=== PATIENT | female | born 1980 | race Caucasian/White ===

== ENCOUNTER 2017-10-28 17:35 | Emergency (ER) | payer OTHER ==
[2017-10-28 18:35] LABS: BILIRUBIN,URINE NEGATIVE (NEGATIVE); GLUCOSE, URINE (UA) NEGATIVE (NEGATIVE); KETONES,URINE (UA) NEGATIVE (NEGATIVE); LEUKOCYTE ESTERASE, URINE NEGATIVE (NEGATIVE); NITRITE,URINE NEGATIVE (NEGATIVE); OCCULT BLOOD,URINE NEGATIVE (NEGATIVE); PH,URINE 5.5 PH (5.0-7.5); PROTEIN,URINE NEGATIVE (NEGATIVE); UROBILINOGEN,URINE 0.2 (NORMAL) E.U./dL (NORMAL)
[2017-10-28 18:39] LABS: CLARITY,URINE CLEAR (CLEAR)
[2017-10-28 18:40] LABS: HCG UR QUAL NEGATIVE
[2017-10-28 19:03] LABS: BASOPHILS % (AUTO) 0.5 %; EOSINOPHILS # (AUTO) 0.6 10^3/uL (0.0-0.7); EOSINOPHILS % (AUTO) 7.9 %; HGB - HEMOGLOBIN 14.6 g/dL (12.0-16.0); LYMPHOCYTES # (AUTO) 2.2 10^3/uL (1.5-3.5); LYMPHOCYTES % (AUTO) 29.2 %; MEAN CORPUSCULAR HEMOGLOBIN 31.4 pg (27.0-31.0); MEAN CORPUSCULAR HGB CONC 34.2 g/dL (32.0-36.0); MEAN CORPUSCULAR VOLUME 91.8 fL (81.0-99.0); MEAN PLATELET VOLUME 7.9 fL (7.9-10.8); MONOCYTES # (AUTO) 0.4 10^3/uL (0.0-1.0); MONOCYTES % (AUTO) 5.7 %; NEUTROPHILS # (AUTO) 4.2 10^3/uL (1.5-6.6); NEUTROPHILS % (AUTO) 56.7 %; PLT - PLATELET COUNT 257 10^3/uL (130-450); RED BLOOD COUNT 4.64 10^6/uL (4.20-5.40); RED CELL DISTRIBUTION WIDTH 12.6 % (12.0-15.0); WHITE BLOOD COUNT 7.4 x10^3/uL (4.8-10.8)
[2017-10-28 19:16] LABS: ALBUMIN/GLOBULIN RATIO 1.9 (1.0-2.2); BILIRUBIN,TOTAL 1.2 mg/dL (0.2-1.0); CALCIUM 9.1 mg/dL (8.5-10.3); CREATININE 0.7 mg/dL (0.4-1.0); TOTAL PROTEIN 7.7 g/dL (6.7-8.2)
--- NOTE | 2017-10-28 20:32 | ED Physician Documentation ---
History of Present Illness - Stated complaint Stated Complaint: AB PX/SHAKY - Chief complaint Chief Complaint: Abd Pain - History obtained from History obtained from: Patient - History of Present Illness Timing: How many weeks ago (2) - Additonal information Additional information: patient is a 37 year old female who is presenting to the emergency department for a two week history of intermittent abdominal pain, and tremors. Patient denies aggravating or alleviating factors. Patient denies it getting better or worse with intention but is able to stop them. Patient states that a few years ago she had peripheral nerve studies that were abnormal but she was never able to follow up. Patient denies any anxiety or depression, but states that she has been fatigued lately. Review of Systems Constitutional: reports: Chills, Fatigue. denies: Fever Eyes: denies: Decreased vision, Photophobia Ears: denies: Ear pain Nose: denies: Congestion, Epistaxis Throat: denies: Sore throat Cardiac: denies: Chest pain / pressure Respiratory: denies: Dyspnea, Cough GI: reports: Abdominal Pain, Nausea, Diarrhea. denies: Vomiting, Constipation : denies: Hesitancy Skin: denies: Rash, Lesions Musculoskeletal: denies: Neck pain, Back pain, Extremity pain Neurologic: reports: Numbness, Other (tremors). denies: Generalized weakness, Focal weakness Psychiatric: denies: Depressed, Anxiety Immunocompromised: denies: Immunocompromised PD PAST MEDICAL HISTORY - Past Medical History Past Medical History: No Cardiovascular: None Respiratory: None Neuro: None Endocrine/Autoimmune: None GI: None [employer]: None : None HEENT: None Psych: None Musculoskeletal: None Derm: None - Past Surgical History Past Surgical History: Yes HEENT: Tonsil/Adenoidectomy - Present Medications Home Medications: Ambulatory Orders Medication Instructions Recorded Confirmed Gabapentin [Neurontin] 100 mg PO ONCE #15 capsule 10/28/17 - Allergies Allergies/Adverse Reactions: Allergies Allergy/AdvReac Type Severity Reaction Status Date / Time No Known Drug Allergies Allergy Verified 10/28/17 17:43 - Social History Does the pt smoke?: No Smoking Status: Never smoker Does the pt drink ETOH?: Yes Does the pt have substance abuse?: No - Immunizations Immunizations are current?: Yes - POLST Patient has POLST: No PD ED PE NORMAL - Vitals Vital signs reviewed: Yes - General General: Alert and oriented X 3, No acute distress, Well developed/nourished - HEENT HEENT: Atraumatic - Neck Neck: Supple, no meningeal sign, No JVD - Cardiac Cardiac: RRR, No murmur - Respiratory Respiratory: No respiratory distress - Abdomen Abdomen: Soft, Non tender, Non distended - Derm Derm: Normal color, Warm and dry, No rash - Extremities Extremities: No deformity - Neuro Neuro: Alert and oriented X 3, drier and pulverizer tender 2-12 intact, No sensory deficit, Normal speech Eye Opening: Spontaneous Motor: Obeys Commands Verbal: Oriented GCS Score: 15 PD ED PE EXPANDED - Neuro Neuro: Other (mild resting tremor) Results - Vitals Vitals: Vital Signs - 24 hr 10/28/17 10/28/17 17:39 19:26 Temperature 36.4 C L 36.5 C Heart Rate 85 86 Respiratory 18 16 Rate Blood Pressure 152/91 H 133/83 H O2 Saturation 99 100 Oxygen O2 Source Room air - Labs Labs: Laboratory Tests 10/28/17 10/28/17 10/28/17 18:15 18:15 18:55 WBC 7.4 RBC 4.64 Hgb 14.6 Hct 42.6 MCV 91.8 MCH 31.4 H MCHC 34.2 RDW 12.6 Plt Count 257 MPV 7.9 Neut # 4.2 Lymph # 2.2 Benzie # 0.4 Eos # 0.6 Baso # 0.0 Absolute Nucleated RBC 0.00 Nucleated RBC % 0.0 Sodium Potassium Chloride Carbon Dioxide Anion Gap BUN Creatinine Estimated GFR (MDRD) Glucose Calcium Total Bilirubin AST ALT Alkaline Phosphatase Total Protein Albumin Globulin Albumin/Globulin Ratio Lipase Urine Color YELLOW Urine Clarity CLEAR Urine pH 5.5 Ur Specific Tina 1.025 1.025 Urine Protein NEGATIVE Urine Glucose (UA) NEGATIVE Urine Ketones NEGATIVE Urine Occult Blood NEGATIVE Urine Nitrite NEGATIVE Urine Bilirubin NEGATIVE Urine Urobilinogen 0.2 (NORMAL) Ur Leukocyte Esterase NEGATIVE Ur Microscopic Review NOT INDICATED Urine Culture Comments NOT INDICATED Urine HCG, Qual NEGATIVE 10/28/17 18:55 WBC RBC Hgb Hct MCV MCH MCHC RDW Plt Count MPV Neut # Lymph # Benzie # Eos # Baso # Absolute Nucleated RBC Nucleated RBC % Sodium 135 Potassium 3.7 Chloride 101 Carbon Dioxide 26 Anion Gap 8.0 BUN 12 Creatinine 0.7 Estimated GFR (MDRD) 95 Glucose 96 Calcium 9.1 Total Bilirubin 1.2 H AST 22 ALT 17 Alkaline Phosphatase 38 L Total Protein 7.7 Albumin 5.0 Globulin 2.7 Albumin/Globulin Ratio 1.9 Lipase 18 L Urine Color Urine Clarity Urine pH Ur Specific Tina Urine Protein Urine Glucose (UA) Urine Ketones Urine Occult Blood Urine Nitrite Urine Bilirubin Urine Urobilinogen Ur Leukocyte Esterase Ur Microscopic Review Urine Culture Comments Urine HCG, Qual PD MEDICAL DECISION MAKING - ED course Complexity details: reviewed old records, reviewed results, re-evaluated patient , considered differential, d/w patient ED course: Patient was seen and examined at bedside. Patient was well appearing and in no distress. labs and urine were within normal limits. patient had no focal deficits and no further imaging was indicated at this time. A lengthy discussion was had with the patient concerning her symptoms and history and the importance of outpatient follow up. Patient understood and was stable for discharge with outpatient follow up. Departure - Departure Disposition: 01 Home, Self Care Clinical Impression: Tremor Condition: Good Instructions: Essential Tremor ET Follow-Up: [facility] [Provider Group] [facility] [Provider Group] [facility] [Provider Group] Prescriptions: Gabapentin [Neurontin] 100 mg PO ONCE #15 capsule Comments: We will try a low dose of gabapentin at bedtime but it is important that you establish primary care and possibly neurological follow up. A number of clinics have been listed above. You may return to the emergency department at any time for new worsening or uncontrollable symptoms.
[2017-10-28 20:41] VITALS: BP 133/91
== END 2017-10-28 20:42 | disposition home or self-care (01) ==
LOC: ED 17:35
DX: R25.1 Tremor, unspecified (principal)
CPT/HCPCS: 36415; 80053; 81001; 81003; 81025; 83690; 85025; 87086; 93005; 99283

== ENCOUNTER 2017-11-08 11:24 | Outpatient (CLI) | payer OTHER ==
[2017-11-08 19:11] LABS: RHEUMATOID FACTOR NEGATIVE (Negative)
[2017-11-08 19:40] LABS: CRP - C-REACTIVE PROTEIN < 1.0 mg/dL (0-1.0)
[2017-11-11 16:27] LABS: ANA SCREEN NEGATIVE (NEGATIVE)
== END 2017-11-08 11:25 | disposition home or self-care (01) ==
LOC: LAB.F 11:24
PROVIDERS: ATTEND Family Medicine
DX: R29.2 Abnormal reflex (principal); R25.1 Tremor, unspecified
CPT/HCPCS: 36415; 84443; 85651; 86038; 86140; 86430

== ENCOUNTER 2020-08-09 17:18 | Outpatient (CLI) | payer MEDICAID | END 2020-08-09 17:19 | disposition home or self-care (01) | LOC: COV 17:18 | PROVIDERS: ATTEND Family Medicine | DX: R05 Cough (principal); R06.02 Shortness of breath; R53.83 Other fatigue; Z20.828 Contact with and (suspected) exposure to other viral communicable diseases ==

== ENCOUNTER 2022-01-31 21:39 | Outpatient (CLI) | payer MEDICAID | END 2022-01-31 21:40 | disposition EMS.NT | LOC: EMS 21:39 | DX: G62.9 Polyneuropathy, unspecified (principal); N64.4 Mastodynia; N63.0 Unspecified lump in unspecified breast ==

== ENCOUNTER 2023-01-24 01:51 | Outpatient (CLI) | payer MEDICAID | END 2023-01-24 01:52 | disposition critical access hospital (66) | LOC: EMS 01:51 | DX: R52 Pain, unspecified (principal); F41.9 Anxiety disorder, unspecified | CPT/HCPCS: A0425; A0429 ==

== ENCOUNTER 2023-01-24 02:09 | Emergency (ER) | payer MEDICAID ==
[2023-01-24] MEDS ORDERED: LORazepam 0.5 MG TABLET PO STA (02:26)
--- OUTSIDE RECORDS SUMMARY | 2023-01-24 03:06 | EXTERNAL MEDICAL SUMMARY RPT | Continuity of Care Document ---
:1980 Author Organization [place] Address [address] [place] [address] Phone Care Team Providers Name Role Phone Unavailable Unavailable Unavailable Ian Roland Unavailable Unavailable Allergies and Intolerances date description facility type (no date) sulfamethoxazole [facility] (unknown) (no date) trimethoprim [facility] (unknown) Encounters No information. Functional Status No information. Immunizations No information. Medications date description facility 2023-01-09 00:00 Ondansetron [facility] 2023-01-09 00:00 Oxycodone [facility] 2022-11-13 00:00 Nitrofurantoin Monohyd/M-Cryst [facility] 2023-01-09 00:00 Acetaminophen [facility] 2023-01-21 00:00 Gabapentin [facility] 2023-01-09 00:00 Ibuprofen [facility] 2023-01-02 00:00 Propranolol [facility] 2023-01-09 00:00 Propranolol [facility] Problems date description facility 2022-11-13 00:00 Urinary tract [facility] 2022-11-13 00:00 Abdominal pain [facility] 2022-12-20 00:00 Cholelithiasis [facility] 2023-01-07 00:00 Biliary colic [facility] 2023-01-09 12:34 Calculus of [facility]bl[facility] without obs 2023-01-09 12:51 Calculus of gallbladder with [facility]ole[facility] without obs 2023-01-09 15:52 Calculus of gallbladder with [facility] chole[facility] without obs 2023-01-09 16:53 Calculus of gallbladder with [facility] chole[facility] without obs 2023-01-09 18:53 Calculus of gallbladder with [facility]ole[facility] without obs Procedures date description facility 2022-11-13 00:00 CT abdomen pelvis [facility] 2022-11-13 00:00 US Abdomen limited [facility] 2023-01-09 00:00 Laparoscopic Cholecystectomy [facility] Results/Labs test date author facility value unit interpret ation Result panel 1 (unknown[facility] (no [facility]) Result panel 2 (unknown) (no date) ([facility] Result panel 3 (unknown) (no date) (unknown[facility] Result panel 4 (unknown) (no date) ([facility] Result panel 5 (unknown) (no date) (unknown[facility] Result panel 6 (unknown) (no date) (unknown[facility] Result panel 7 (unknown) (no date) (unknown[facility] Result panel 8 (unknown) (no date) (unknown[facility] Result panel 9 (unknown) (no date) (unknown[facility] Result panel 10 (unknown) (no date) (unknown[facility] Result panel 11 (unknown) (no date) (unknown[facility] Result panel 12 (unknown) (no date) (unknown[facility] Result panel 13 (unknown) (no date) (unknown[facility] Result panel 14 (unknown) (no date) (unknown[facility] Result panel 15 (unknown) (no date) (unknown[facility] Result panel 16 (unknown) (no date) (unknown[facility] Result panel 17 (unknown) (no date) (unknown[facility] Result panel 18 (unknown) (no date) (unknown[facility] Result panel 19 (unknown) (no date) (unknown[facility] Result panel 20 (unknown) (no date) (unknown[facility] Result panel 21 (unknown) (no date) (unknown[facility] Result panel 22 (unknown) (no date) (unknown[facility] Result panel 23 (unknown) (no date) (unknown[facility] Result panel 24 (unknown) (no date) (unknown[facility] Result panel 25 (unknown) (no date) (unknown[facility] Result panel 26 (unknown) (no date) (unknown[facility] Result panel 27 (unknown) (no date) (unknown[facility] Result panel 28 (unknown) (no date) (unknown[facility] Result panel 29 (unknown) (no date) (unknown[facility] Result panel 30 (unknown) (no date) (unknown[facility] Result panel 31 (unknown) (no date) (unknown[facility] Result panel 32 (unknown) (no date) (unknown[facility] Result panel 33 (unknown) (no date) (unknown[facility] Result panel 34 (unknown) (no date) (unknown[facility] Result panel 35 (unknown) (no date) (unknown[facility] Result panel 36 (unknown) (no date) (unknown[facility] Result panel 37 (unknown) (no date) (unknown[facility] Result panel 38 (unknown) (no date) (unknown[facility] Result panel 39 (unknown) (no date) (unknown[facility] Result panel 40 (unknown) (no date) (unknown[facility] Result panel 41 (unknown) (no date) (unknown[facility] Result panel 42 (unknown) (no date) (unknown[facility] Result panel 43 (unknown) (no date) (unknown[facility] Result panel 44 (unknown) (no date) (unknown[facility] Result panel 45 (unknown) (no date) (unknown[facility] Result panel 46 (unknown) (no date) (unknown[facility] Result panel 47 (unknown) (no date) (unknown[facility] Result panel 48 (unknown) (no date) (unknown[facility] Result panel 49 (unknown) (no date) (unknown[facility] Result panel 50 (unknown) (no date) (unknown[facility] Result panel 51 (unknown) (no date) (unknown[facility] Result panel 52 (unknown) (no date) (unknown[facility] Result panel 53 (unknown) (no date) (unknown[facility] Result panel 54 (unknown) (no date) (unknown[facility] Result panel 55 (unknown) (no date) (unknown[facility] Result panel 56 (unknown) (no date) (unknown[facility] Result panel 57 (unknown) (no date) (unknown[facility] Result panel 58 (unknown) (no date) (unknown[facility] Result panel 59 (unknown) (no date) (unknown[facility] Result panel 60 (unknown) (no date) (unknown[facility] Result panel 61 (unknown) (no date) (unknown[facility] Result panel 62 (unknown) (no date) (unknown[facility] Result panel 63 (unknown) (no date) (unknown[facility] Result panel 64 (unknown) (no date) (unknown[facility]) Result panel 65 (unknown) (no date) (unknown[facility] Result panel 66 (unknown) (no date) (unknown[facility]) Result panel 67 (unknown) (no date) (unknown[facility] Result panel 68 (unknown) (no date) (unknown[facility] Result panel 69 (unknown) (no date) (unknown[facility] Result panel 70 (unknown) (no date) (unknown[facility] Result panel 71 (unknown) (no date) (unknown[facility] Result panel 72 (unknown) (no date) (unknown[facility] Result panel 73 (unknown) (no date) (unknown[facility] Result panel 74 (unknown) (no date) (unknown[facility] Result panel 75 (unknown) (no date) (unknown[facility] Result panel 76 (unknown) (no date) (unknown[facility] Result panel 77 (unknown) (no date) (unknown[facility] Result panel 78 (unknown) (no date) (unknown[facility] Result panel 79 (unknown) (no date) (unknown[facility] Result panel 80 (unknown) (no date) (unknown[facility] Result panel 81 (unknown) (no date) (unknown[facility] Result panel 82 (unknown) (no date) (unknown[facility] Result panel 83 (unknown) (no date) (unknown[facility] Result panel 84 (unknown) (no date) (unknown[facility] Result panel 85 (unknown) (no date) (unknown[facility] Result panel 86 (unknown) (no date) (unknown[facility] Result panel 87 (unknown) (no date) (unknown[facility] Result panel 88 (unknown) (no date) (unknown[facility] Result panel 89 (unknown) (no date) (unknown[facility] Result panel 90 (unknown) (no date) (unknown[facility] Result panel 91 (unknown) (no date) (unknown[facility] Result panel 92 (unknown) (no date) (unknown[facility] Result panel 93 (unknown) (no date) (unknown[facility]) Result panel 94 (unknown) (no date) (unknown[facility] Result panel 95 (unknown) (no date) (unknown[facility] Result panel 96 (unknown) (no date) (unknown[facility] Result panel 97 (unknown) (no date) (unknown[facility] Result panel 98 (unknown) (no date) (unknown[facility] Result panel 99 (unknown) (no date) (unknown[facility] Result panel 100 (unknown) (no date) (unknown[facility] Result panel 101 (unknown) (no date) (unknown[facility] Result panel 102 (unknown) (no date) (unknown[facility] Result panel 103 (unknown) (no date) (unknown[facility] Result panel 104 (unknown) (no date) (unknown[facility] Result panel 105 (unknown) (no date) (unknown[facility] Result panel 106 (unknown) (no date) (unknown[facility] Result panel 107 (unknown) (no date) (unknown[facility] Result panel 108 (unknown) (no date) (unknown[facility] Result panel 109 (unknown) (no date) (unknown[facility] Result panel 110 (unknown) (no date) (unknown[facility] Result panel 111 (unknown) (no date) (unknown[facility] Result panel 112 (unknown) (no date) (unknown[facility] Result panel 113 (unknown) (no date) (unknown[facility] Result panel 114 (unknown) (no date) (unknown[facility]) Result panel 115 (unknown) (no date) (unknown[facility] Result panel 116 (unknown) (no date) (unknown[facility] Result panel 117 (unknown) (no date) (unknown[facility] Result panel 118 (unknown) (no date) (unknown[facility] Result panel 119 (unknown) (no date) (unknown[facility] Result panel 120 (unknown) (no date) (unknown[facility] Result panel 121 (unknown) (no date) (unknown[facility] Result panel 122 (unknown) (no date) (unknown[facility]) Result panel 123 (unknown) (no date) (unknown[facility] Result panel 124 (unknown) (no date) (unknown[facility]) Result panel 125 (unknown) (no date) (unknown[facility] Result panel 126 (unknown) (no date) (unknown[facility] Result panel 127 (unknown) (no date) (unknown[facility] Result panel 128 (unknown) (no date) (unknown[facility] Result panel 129 (unknown) (no date) (unknown[facility] Result panel 130 (unknown) (no date) (unknown[facility] Result panel 131 (unknown) (no date) (unknown[facility] Result panel 132 (unknown) (no date) (unknown[facility] Result panel 133 (unknown) (no date) (unknown[facility] Result panel 134 (unknown) (no date) (unknown[facility]) Result panel 135 (unknown) (no date) (unknown[facility] Result panel 136 (unknown) (no date) (unknown[facility] Result panel 137 (unknown) (no date) (unknown[facility]) Result panel 138 (unknown) (no date) (unknown[facility] Result panel 139 (unknown) (no date) (unknown[facility] Result panel 140 (unknown) (no date) (unknown[facility] Result panel 141 (unknown) (no date) (unknown[facility]) Result panel 142 (unknown) (no date) (unknown[facility]) Result panel 143 (unknown) (no date) (unknown[facility] Result panel 144 (unknown) (no date) (unknown[facility]) Result panel 145 (unknown) (no date) (unknown[facility] Result panel 146 (unknown) (no date) (unknown[facility]) Result panel 147 (unknown) (no date) (unknown[facility] Result panel 148 (unknown) (no date) (unknown[facility]) Result panel 149 (unknown) (no date) (unknown[facility] Result panel 150 (unknown) (no date) (unknown[facility] Result panel 151 (unknown) (no date) (unknown[facility] Result panel 152 (unknown) (no date) (unknown[facility] Result panel 153 (unknown) (no date) (unknown[facility] Result panel 154 (unknown) (no date) (unknown[facility] Result panel 155 (unknown) (no date) (unknown[facility] Result panel 156 (unknown) (no date) (unknown[facility] Result panel 157 (unknown) (no date) (unknown[facility]) Result panel 158 (unknown) (no date) (unknown[facility] Result panel 159 (unknown) (no date) (unknown[facility]) Result panel 160 (unknown) (no date) (unknown) [facility] Result panel 161 (unknown) (no date) (unknown) [facility] Result panel 162 (unknown) (no date) (unknown) [facility] Result panel 163 (unknown) (no date) (unknown) [facility] Result panel 164 (unknown) (no date) (unknown) [facility] Result panel 165 (unknown) (no date) (unknown[facility] Result panel 166 (unknown) (no date) (unknown[facility] Result panel 167 (unknown) (no date) (unknown[facility] Result panel 168 (unknown) (no date) (unknown[facility] Result panel 169 (unknown) (no date) (unknown[facility] Result panel 170 (unknown) (no date) (unknown[facility] Result panel 171 (unknown) (no date) (unknown[facility] Result panel 172 (unknown) (no date) (unknown[facility] Result panel 173 (unknown) (no date) (unknown[facility] Result panel 174 (unknown) (no date) (unknown[facility] Result panel 175 (unknown) (no date) (unknown[facility] Result panel 176 (unknown) (no date) (unknown[facility] Result panel 177 (unknown) (no date) (unknown[facility] Result panel 178 (unknown) (no date) (unknown[facility] Result panel 179 (unknown) (no date) (unknown[facility] Result panel 180 (unknown) (no date) (unknown[facility] Result panel 181 (unknown) (no date) (unknown[facility] Result panel 182 (unknown) (no date) (unknown[facility] Result panel 183 (unknown) (no date) (unknown[facility] Result panel 184 (unknown) (no date) (unknown[facility] Result panel 185 (unknown) (no date) (unknown[facility] Result panel 186 (unknown) (no date) (unknown[facility] Result panel 187 (unknown) (no date) (unknown[facility] Result panel 188 (unknown) (no date) (unknown[facility] Result panel 189 (unknown) (no date) (unknown[facility] Result panel 190 (unknown) (no date) (unknown[facility] Result panel 191 (unknown) (no date) (unknown[facility] Result panel 192 (unknown) (no date) (unknown[facility] Result panel 193 (unknown) (no date) (unknown[facility] Result panel 194 (unknown) (no date) (unknown[facility] Result panel 195 (unknown) (no date) (unknown[facility] Result panel 196 (unknown) (no date) (unknown[facility] Result panel 197 (unknown) (no date) (unknown[facility] Result panel 198 (unknown) (no date) (unknown[facility] Result panel 199 (unknown) (no date) (unknown[facility]) Result panel 200 (unknown) (no date) (unknown[facility] Result panel 201 (unknown) (no date) (unknown[facility] Result panel 202 (unknown) (no date) (unknown[facility] Result panel 203 (unknown) (no date) (unknown[facility] Result panel 204 (unknown) (no date) (unknown[facility] Result panel 205 (unknown) (no date) (unknown[facility] Result panel 206 (unknown) (no date) (unknown[facility] Result panel 207 (unknown) (no date) (unknown[facility] Result panel 208 (unknown) (no date) (unknown[facility] Result panel 209 (unknown) (no date) (unknown[facility] Result panel 210 (unknown) (no date) (unknown[facility] Result panel 211 (unknown) (no date) (unknown[facility] Result panel 212 (unknown) (no date) (unknown[facility] Result panel 213 (unknown) (no date) (unknown[facility] Result panel 214 (unknown) (no date) (unknown[facility] Result panel 215 (unknown) (no date) (unknown[facility] Result panel 216 (unknown) (no date) (unknown[facility] Result panel 217 (unknown) (no date) (unknown[facility] Result panel 218 (unknown) (no date) (unknown[facility] Result panel 219 (unknown) (no date) (unknown) [facility] [facility] Result panel 220 (unknown) (no date) (unknown) [facility]) Result panel 221 (unknown) (no date) (unknown) [facility]) Result panel 222 (unknown) (no date) (unknown) [facility] Result panel 223 (unknown) (no date) (unknown) [facility]) Result panel 224 (unknown) (no date) (unknown) [facility]) Result panel 225 (unknown) (no date) (unknown) [facility]) Result panel 226 (unknown) (no date) (unknown) [facility]) Result panel 227 (unknown) (no date) (unknown) [facility] Result panel 228 (unknown) (no date) (unknown[facility]) Result panel 229 (unknown) (no date) (unknown) [facility]) Result panel 230 (unknown) (no date) (unknown) [facility]) Result panel 231 (unknown) (no date) (unknown) [facility]) Result panel 232 (unknown) (no date) (unknown) [facility]) Result panel 233 (unknown) (no date) (unknown) [facility] Result panel 234 (unknown) (no date) (unknown) [facility]) Result panel 235 (unknown) (no date) (unknown) [facility]) Result panel 236 (unknown) (no date) (unknown) [facility]) Result panel 237 (unknown) (no date) (unknown) [facility] Result panel 238 (unknown) (no date) (unknown) [facility]) Result panel 239 (unknown) (no date) (unknown) [facility]) Result panel 240 (unknown) (no date) (unknown) [facility]) Result panel 241 (unknown) (no date) (unknown) [facility] Result panel 242 (unknown) (no date) (unknown) [facility]) Result panel 243 (unknown) (no date) (unknown) [facility] Result panel 244 (unknown) (no date) (unknown) [facility]) Result panel 245 (unknown) (no date) (unknown) [facility] Result panel 246 (unknown) (no date) (unknown) [facility]) Result panel 247 (unknown) (no date) (unknown) [facility]) Result panel 248 (unknown) (no date) (unknown) [facility]) Result panel 249 (unknown) (no date) (unknown) [facility]) Result panel 250 (unknown) (no date) (unknown) [facility]) Result panel 251 (unknown) (no date) (unknown) [facility]) Result panel 252 (unknown) (no date) (unknown) [facility]) Result panel 253 (unknown) (no date) (unknown) [facility]) Result panel 254 (unknown) (no date) (unknown) [facility]) Result panel 255 (unknown) (no date) (unknown) [facility]) Result panel 256 (unknown) (no date) (unknown) [facility]) Result panel 257 (unknown) (no date) (unknown) [facility]) Result panel 258 (unknown) (no date) (unknown) [facility]) Result panel 259 (unknown) (no date) (unknown) [facility]) Result panel 260 (unknown) (no date) (unknown) [facility]) Result panel 261 (unknown) (no date) (unknown) [facility]) Result panel 262 (unknown) (no date) (unknown) [facility]) Result panel 263 (unknown) (no date) (unknown) [facility]) Result panel 264 (unknown) (no date) (unknown) [facility]) Result panel 265 (unknown) (no date) (unknown) [facility]) Result panel 266 (unknown) (no date) (unknown) [facility]) Result panel 267 (unknown) (no date) (unknown) [facility]) Result panel 268 (unknown) (no date) (unknown) [facility]) Result panel 269 (unknown) (no date) (unknown) [facility]) Result panel 270 (unknown) (no date) (unknown) [facility]) Result panel 271 (unknown) (no date) (unknown) [facility]) Result panel 272 (unknown) (no date) (unknown) [facility]) Result panel 273 (unknown) (no date) (unknown) [facility]) Result panel 274 (unknown) (no date) (unknown) [facility]) Result panel 275 (unknown) (no date) (unknown) [facility]) Result panel 276 (unknown) (no date) (unknown) [facility]) Result panel 277 (unknown) (no date) (unknown) [facility]) Result panel 278 (unknown) (no date) (unknown) [facility]) Result panel 279 (unknown) (no date) (unknown) [facility]) Result panel 280 (unknown) (no date) (unknown) [facility]) Result panel 281 (unknown) (no date) (unknown) [facility]) Result panel 282 (unknown) (no date) (unknown) [facility]) Result panel 283 (unknown) (no date) (unknown) [facility]) Result panel 284 (unknown) (no date) (unknown) [facility]) Result panel 285 (unknown) (no date) (unknown) [facility]) Result panel 286 (unknown) (no date) (unknown) [facility]) Result panel 287 (unknown) (no date) (unknown) [facility]) Result panel 288 (unknown) (no date) (unknown) [facility]) Result panel 289 (unknown) (no date) (unknown) [facility]) Result panel 290 (unknown) (no date) (unknown) [facility]) Result panel 291 (unknown) (no date) (unknown) [facility]) Result panel 292 (unknown) (no date) (unknown) [facility]) Result panel 293 (unknown) (no date) (unknown) [facility]) Result panel 294 (unknown) (no date) (unknown) [facility]) Result panel 295 (unknown) (no date) (unknown) [facility]) Result panel 296 (unknown) (no date) (unknown) [facility]) Result panel 297 (unknown) (no date) (unknown) [facility]) Result panel 298 (unknown) (no date) (unknown) [facility]) Result panel 299 (unknown) (no date) (unknown) [facility]) Result panel 300 (unknown) (no date) (unknown) [facility]) Result panel 301 (unknown) (no date) (unknown) [facility]) Result panel 302 (unknown) (no date) (unknown) [facility]) Result panel 303 (unknown) (no date) (unknown) [facility]) Result panel 304 (unknown) (no date) (unknown) [facility]) Result panel 305 (unknown) (no date) (unknown) [facility]) Result panel 306 (unknown) (no date) (unknown) [facility]) Result panel 307 (unknown) (no date) (unknown) [facility]) Result panel 308 (unknown) (no date) (unknown) [facility]) Result panel 309 (unknown) (no date) (unknown) [facility]) Result panel 310 (unknown) (no date) (unknown) [facility]) Result panel 311 (unknown) (no date) (unknown) [facility]) Result panel 312 (unknown) (no date) (unknown) [facility]) Result panel 313 (unknown) (no date) (unknown) [facility]) Result panel 314 (unknown) (no date) (unknown) [facility]) Result panel 315 (unknown) (no date) (unknown) [facility]) Result panel 316 (unknown) (no date) (unknown) [facility]) Result panel 317 (unknown) (no date) (unknown) [facility]) Result panel 318 (unknown) (no date) (unknown) [facility]) Result panel 319 (unknown) (no date) (unknown) [facility]) Result panel 320 (unknown) (no date) (unknown) [facility]) Result panel 321 (unknown) (no date) (unknown[facility]) Result panel 322 (unknown) (no date) (unknown) [facility]) Result panel 323 (unknown) (no date) (unknown) [facility]) Result panel 324 (unknown) (no date) (unknown) [facility]) Result panel 325 (unknown) (no date) (unknown) [facility]) Result panel 326 (unknown) (no date) (unknown) [facility]) Result panel 327 (unknown) (no date) (unknown) [facility]) Result panel 328 (unknown) (no date) (unknown) [facility]) Result panel 329 (unknown) (no date) (unknown) [facility]) Result panel 330 (unknown) (no date) (unknown) [facility]) Result panel 331 (unknown) (no date) (unknown) [facility]) Result panel 332 (unknown) (no date) (unknown) [facility]) Result panel 333 (unknown) (no date) (unknown) [facility]) Result panel 334 (unknown) (no date) (unknown) [facility]) Result panel 335 (unknown) (no date) (unknown) [facility]) Result panel 336 (unknown) (no date) (unknown) [facility]) Result panel 337 (unknown) (no date) (unknown) [facility]) Result panel 338 (unknown) (no date) (unknown) [facility]) Result panel 339 (unknown) (no date) (unknown) [facility]) Result panel 340 (unknown) (no date) (unknown) [facility]) Result panel 341 (unknown) (no date) (unknown) [facility]) Result panel 342 (unknown) (no date) (unknown) [facility]) Result panel 343 (unknown) (no date) (unknown) [facility]) Result panel 344 (unknown) (no date) (unknown) [facility]) Result panel 345 (unknown) (no date) (unknown) [facility]) Result panel 346 (unknown) (no date) (unknown) [facility]) Result panel 347 (unknown) (no date) (unknown) [facility]) Result panel 348 (unknown) (no date) (unknown) [facility]) Result panel 349 (unknown) (no date) (unknown) [facility]) Result panel 350 (unknown) (no date) (unknown) [facility]) Result panel 351 (unknown) (no date) (unknown) [facility]) Result panel 352 (unknown) (no date) (unknown) [facility]) Result panel 353 (unknown) (no date) (unknown) [facility]) Result panel 354 (unknown) (no date) (unknown) [facility]) Result panel 355 (unknown) (no date) (unknown) [facility]) Result panel 356 (unknown) (no date) (unknown) [facility]) Result panel 357 (unknown) (no date) (unknown) [facility]) Result panel 358 (unknown) (no date) (unknown) [facility]) Result panel 359 (unknown) (no date) (unknown) [facility]) Result panel 360 (unknown) (no date) (unknown) [facility]) Result panel 361 (unknown) (no date) (unknown) [facility]) Result panel 362 (unknown) (no date) (unknown) [facility]) Result panel 363 (unknown) (no date) (unknown) [facility]) Result panel 364 (unknown) (no date) (unknown) [facility]) Result panel 365 (unknown) (no date) (unknown) [facility]) Result panel 366 (unknown) (no date) (unknown) [facility]) Result panel 367 (unknown) (no date) (unknown) [facility]) Result panel 368 (unknown) (no date) (unknown) [facility]) Result panel 369 (unknown) (no date) (unknown) [facility]) Result panel 370 (unknown) (no date) (unknown) [facility]) Result panel 371 (unknown) (no date) (unknown) [facility]) Result panel 372 (unknown) (no date) (unknown) [facility]) Result panel 373 (unknown) (no date) (unknown) [facility]) Result panel 374 (unknown) (no date) (unknown) [facility]) Result panel 375 (unknown) (no date) (unknown) [facility]) Result panel 376 (unknown) (no date) (unknown) [facility]) Result panel 377 (unknown) (no date) (unknown) [facility]) Result panel 378 (unknown) (no date) (unknown) [facility]) Result panel 379 (unknown) (no date) (unknown) [facility]) Result panel 380 (unknown) (no date) (unknown) [facility]) Result panel 381 (unknown) (no date) (unknown) [facility]) Result panel 382 (unknown) (no date) (unknown) [facility]) Result panel 383 (unknown) (no date) (unknown) [facility]) Result panel 384 (unknown) (no date) (unknown) [facility]) Result panel 385 (unknown) (no date) (unknown) [facility]) Result panel 386 (unknown) (no date) (unknown) [facility]) Result panel 387 (unknown) (no date) (unknown) [facility]) Result panel 388 (unknown) (no date) (unknown) [facility]) Result panel 389 (unknown) (no date) (unknown) [facility]) Result panel 390 (unknown) (no date) (unknown) [facility]) Result panel 391 (unknown) (no date) (unknown) [facility]) Result panel 392 (unknown) (no date) (unknown) [facility]) Result panel 393 (unknown) (no date) (unknown) [facility]) Result panel 394 (unknown) (no date) (unknown) [facility]) Result panel 395 (unknown) (no date) (unknown) [facility]) Result panel 396 (unknown) (no date) (unknown) [facility]) Result panel 397 (unknown) (no date) (unknown) [facility]) Result panel 398 (unknown) (no date) (unknown) [facility]) Result panel 399 (unknown) (no date) (unknown) [facility]) Result panel 400 (unknown) (no date) (unknown) [facility]) Result panel 401 (unknown) (no date) (unknown) [facility]) Result panel 402 (unknown) (no date) (unknown) [facility]) Result panel 403 (unknown) (no date) (unknown) [facility]) Result panel 404 (unknown) (no date) (unknown) [facility]) Result panel 405 (unknown) (no date) (unknown) [facility]) Result panel 406 (unknown) (no date) (unknown) [facility]) Result panel 407 (unknown) (no date) (unknown) [facility]) Result panel 408 (unknown) (no date) (unknown) [facility]) Result panel 409 (unknown) (no date) (unknown) [facility]) Result panel 410 (unknown) (no date) (unknown) [facility]) Result panel 411 (unknown) (no date) (unknown) [facility]) Result panel 412 (unknown) (no date) (unknown) [facility]) Result panel 413 (unknown) (no date) (unknown) [facility]) Result panel 414 (unknown) (no date) (unknown) [facility]) Result panel 415 (unknown) (no date) (unknown) [facility]) Result panel 416 (unknown) (no date) (unknown) [facility]) Result panel 417 (unknown) (no date) (unknown) [facility]) Result panel 418 (unknown) (no date) (unknown) [facility]) Result panel 419 (unknown) (no date) (unknown) [facility]) Result panel 420 (unknown) (no date) (unknown) [facility]) Result panel 421 (unknown) (no date) (unknown) [facility]) Result panel 422 (unknown) (no date) (unknown) [facility]) Result panel 423 (unknown) (no date) (unknown) [facility]) Result panel 424 (unknown) (no date) (unknown) [facility]) Result panel 425 (unknown) (no date) (unknown) [facility]) Result panel 426 (unknown) (no date) (unknown) [facility]) Result panel 427 (unknown) (no date) (unknown) [facility]) Result panel 428 (unknown) (no date) (unknown) [facility]) Result panel 429 (unknown) (no date) (unknown) [facility]) Result panel 430 (unknown) (no date) (unknown) [facility]) Result panel 431 (unknown) (no date) (unknown) [facility]) Result panel 432 (unknown) (no date) (unknown) [facility]) Result panel 433 (unknown) (no date) (unknown) [facility]) Result panel 434 (unknown) (no date) (unknown) [facility]) Result panel 435 (unknown) (no date) (unknown) [facility]) Result panel 436 (unknown) (no date) (unknown) [facility]) Result panel 437 (unknown) (no date) (unknown) [facility]) Result panel 438 (unknown) (no date) (unknown) [facility]) Result panel 439 (unknown) (no date) (unknown) [facility]) Result panel 440 (unknown) (no date) (unknown) [facility]) Result panel 441 (unknown) (no date) (unknown) [facility]) Result panel 442 (unknown) (no date) (unknown) [facility]) Result panel 443 (unknown) (no date) (unknown) [facility]) Result panel 444 (unknown) (no date) (unknown) [facility]) Result panel 445 (unknown) (no date) (unknown) [facility]) Result panel 446 (unknown) (no date) (unknown) [facility]) Result panel 447 (unknown) (no date) (unknown) [facility]) Result panel 448 (unknown) (no date) (unknown) [facility]) Result panel 449 (unknown) (no date) (unknown) [facility]) Result panel 450 (unknown) (no date) (unknown) [facility]) Result panel 451 (unknown) (no date) (unknown) [facility]) Result panel 452 (unknown) (no date) (unknown) [facility]) Result panel 453 (unknown) (no date) (unknown) [facility]) Result panel 454 (unknown) (no date) (unknown) [facility]) Result panel 455 (unknown) (no date) (unknown) [facility]) Result panel 456 (unknown) (no date) (unknown) [facility] Result panel 457 (unknown) (no date) (unknown[place] ([place] [facility] unknown) Result panel 458 (unknown) (no date) (unknown) (unknown) 1 (units (unkn own) unknown) (unknown) (no date) (unknown) (unknown) 1-5/LPF (units (unkn own) unknown) (unknown) (no date) (unknown) (unknown) 3 (units (unkn own) unknown) (unknown) (no date) (unknown) (unknown) 5-10 /HPF (units (unk nown) unknown) (unknown) (no date) (unknown) (unknown) 5-10/HPF (units (unkn own) unknown) (unknown) (no date) (unknown) (unknown) Moderate (units (unkn own) (10-30) unknown) (unknown) (no date) (unknown) (unknown) None Seen (units (unk nown) unknown) (unknown) (no date) (unknown) (unknown) None Seen (units (unk nown) unknown) (unknown) (no date) (unknown) (unknown) Specimen (units (unkn own) Cultured unknown) Result panel 459 (unknown) (no (unknown) (unknown) (no value) (units (unk nown) date) unknown) (unknown) (no (unknown) (unknown) [id number] (units (unkno wn) date) unknown) (unknown) (no (unknown) (unknown) 11/13/22 (units (unkno wn) date) unknown) (unknown) (no (unknown) (unknown) 1. No acute (units (un known) date) abnormality of the unknown) abdomen or pelvis. (unknown) (no (unknown) (unknown) [address] [place] [address] (units (unknown) date) unknown) (unknown) (no (unknown) (unknown) 2. Hepatic (units (unk nown) date) steatosis. unknown) (unknown) (no (unknown) (unknown) 3. Thickening of (units (unknown) date) the bladder wall unknown) could be due to cystitis. Please correlate (unknown) (no (unknown) (unknown) Accession Number: (units (unknown) date) [id number] unknown) (unknown) (no (unknown) (unknown) Adrenals: No (units (u nknown) date) hypertrophy or unknown) nodules. (unknown) (no (unknown) (unknown) After the (units (unkn own) date) administration of unknown) intravenous contrast, axial sections acquired from (unknown) (no (unknown) (unknown) Age/Sex: 42 / F (units (unknown) date) Date of Service: unknown) (unknown) (no (unknown) (unknown) [place], [place] (units ( unknown) date) [id number] unknown) (unknown) (no (unknown) (unknown) Approved by: (units (u nknown) date) elpidio Hanley M.D. on 11/13/2022 at 20:33 (unknown) (no (unknown) (unknown) Biliary: The (units (u nknown) date) gallbladder has no unknown) gallstones, pericholecystic fluid, gallbladder (unknown) (no (unknown) (unknown) Bones: No (units (unkn own) date) suspicious bony unknown) lesions. No vertebral body compression fractures. (unknown) (no (unknown) (unknown) COMPARISON: (units (un known) date) [facility], unknown) CT, CT ABDOMEN PELVIS W CON, 07/20/2022, 13:19. (unknown) (no (unknown) (unknown) CT Scan Report (units (unknown) date) unknown) (unknown) (no (unknown) (unknown) : 1980 (units (unknown) date) Acct:[id number] unknown) (unknown) (no (unknown) (unknown) Dictated by: (units (u nknown) date) elpidio Hanley M.D. on 11/13/2022 at 20:27 (unknown) (no (unknown) (unknown) FINDINGS: (units (unkn own) date) unknown) (unknown) (no (unknown) (unknown) For (units (unkno wn) date) unknown) (unknown) (no (unknown) (unknown) Genitourinary: (units (unknown) date) The bladder wall unknown) is thickened. No focal mass. (unknown) (no (unknown) (unknown) IMPRESSION: (units (un known) date) unknown) (unknown) (no (unknown) (unknown) INDICATIONS: (units (u nknown) date) upper abdominal unknown) pain (unknown) (no (unknown) (unknown) Image quality: (units (unknown) date) Excellent. unknown) (unknown) (no (unknown) (unknown) [facility] (units (unknown) date) unknown) (unknown) (no (unknown) (unknown) Kidneys: No (units (un known) date) obstructive unknown) calculus or hydronephrosis. No solid mass. No cystic (unknown) (no (unknown) (unknown) Liver: The liver (units (unknown) date) has no mass or unknown) intrahepatic biliary ductal dilatation. The (unknown) (no (unknown) (unknown) Loc: ED (units (unkno wn) date) unknown) (unknown) (no (unknown) (unknown) Lung bases: Lung (units (unknown) date) bases are clear. unknown) Heart size is normal. (unknown) (no (unknown) (unknown) Miscellaneous: No (units (unknown) date) abdominal wall unknown) mass or hernia. (unknown) (no (unknown) (unknown) Nodes and (units (unkn own) date) vessels: No unknown) retroperitoneal or mesenteric adenopathy by size (unknown) (no (unknown) (unknown) Ordering (units (unkno wn) date) Provider: unknown) Gustavo,Hyma P.A-C (unknown) (no (unknown) (unknown) PELVIS: (units (unkno wn) date) unknown) (unknown) (no (unknown) (unknown) PROCEDURE: CT (units ( unknown) date) ABDOMEN PELVIS W unknown) CON (unknown) (no (unknown) (unknown) Pancreas: The (units ( unknown) date) pancreas has no unknown) mass or ductal dilatation. There is no (unknown) (no (unknown) (unknown) Patient: (units (unkno wn) date) Layne Avendano N unknown) MR#: [id number] (unknown) (no (unknown) (unknown) Peritoneum and (units (unknown) date) bowel: The distal unknown) esophagus and stomach are normal. The small (unknown) (no (unknown) (unknown) Procedure: CT (units ( unknown) date) abdomen pelvis w unknown) con (unknown) (no (unknown) (unknown) Signed (units (unkno wn) date) unknown) (unknown) (no (unknown) (unknown) Solid organs: (units ( unknown) date) unknown) (unknown) (no (unknown) (unknown) Spleen: Normal (units (unknown) date) size. There are no unknown) masses. (unknown) (no (unknown) (unknown) TECHNIQUE: (units (unk nown) date) unknown) (unknown) (no (unknown) (unknown) a normal caliber (units (unknown) date) and appearance. unknown) The terminal ileum is normal. The large bowel (unknown) (no (unknown) (unknown) adjustment (units (unk nown) date) unknown) (unknown) (no (unknown) (unknown) and hepatic veins (units (unknown) date) are patent. unknown) (unknown) (no (unknown) (unknown) and inferior vena (units (unknown) date) cava are normal in unknown) size. (unknown) (no (unknown) (unknown) bases to the (units (u nknown) date) pubic symphysis. unknown) Coronal and sagittal reformats were performed. (unknown) (no (unknown) (unknown) bowel has (units (unkn own) date) unknown) (unknown) (no (unknown) (unknown) criteria. Aorta (units (unknown) date) unknown) (unknown) (no (unknown) (unknown) has a (units (unkno wn) date) unknown) (unknown) (no (unknown) (unknown) inflammation. (units ( unknown) date) unknown) (unknown) (no (unknown) (unknown) mass. (units (unkno wn) date) unknown) (unknown) (no (unknown) (unknown) normal caliber (units (unknown) date) and appearance. unknown) The appendix is normal. No free fluid or air. (unknown) (no (unknown) (unknown) of mA and/or kV (units (unknown) date) according to unknown) patient size. (unknown) (no (unknown) (unknown) portal vein (units (un known) date) unknown) (unknown) (no (unknown) (unknown) radiation dose (units (unknown) date) reduction, the unknown) following was used: automated exposure control, (unknown) (no (unknown) (unknown) surrounding (units (un known) date) unknown) (unknown) (no (unknown) (unknown) the lung (units (unkno wn) date) unknown) (unknown) (no (unknown) (unknown) thickening, or (units (unknown) date) surrounding unknown) inflammatory change. (unknown) (no (unknown) (unknown) urinalysis. (units (un known) date) unknown) (unknown) (no (unknown) (unknown) wall (units (unkno wn) date) unknown) (unknown) (no (unknown) (unknown) with (units (unkno wn) date) unknown) Result panel 460 (unknown) (no date) (unknown) (unknown) 0 /ul (unkn own) (unknown) (no date) (unknown) (unknown) 0.5 % (unkn own) (unknown) (no date) (unknown) (unknown) 10.0 % (unkn own) (unknown) (no date) (unknown) (unknown) 13.3 % (unkn own) (unknown) (no date) (unknown) (unknown) 14.7 g/dl (unkn own) (unknown) (no date) (unknown) (unknown) 15.9 % (unkn own) (unknown) (no date) (unknown) (unknown) 174 x10 3/ul (unkn own) (unknown) (no date) (unknown) (unknown) 200 /ul (unkn own) (unknown) (no date) (unknown) (unknown) 32.5 pg (unkn own) (unknown) (no date) (unknown) (unknown) 3200 /ul (unkn own) (unknown) (no date) (unknown) (unknown) 34.3 % (unkn own) (unknown) (no date) (unknown) (unknown) 4.52 x10 6/ul (unkn own) (unknown) (no date) (unknown) (unknown) 4.7 x10 3/ul (unkn own) (unknown) (no date) (unknown) (unknown) 4.8 % (unkn own) (unknown) (no date) (unknown) (unknown) 42.9 % (unkn own) (unknown) (no date) (unknown) (unknown) 500 /ul (unkn own) (unknown) (no date) (unknown) (unknown) 68.8 % (unkn own) (unknown) (no date) (unknown) (unknown) 700 /ul (unkn own) (unknown) (no date) (unknown) (unknown) 94.8 fl (unkn own) Result panel 461 (unknown) (no date) (unknown) (unknown) 1 (units (unkn own) unknown) (unknown) (no date) (unknown) (unknown) 1-5/LPF (units (unkn own) unknown) (unknown) (no date) (unknown) (unknown) 1.0 e.u./dl (unkn own) (unknown) (no date) (unknown) (unknown) 1.025 (units (unkn own) unknown) (unknown) (no date) (unknown) (unknown) 2 (units (unkn own) unknown) (unknown) (no date) (unknown) (unknown) 3 (units (unkn own) unknown) (unknown) (no date) (unknown) (unknown) 5-10 /HPF (units (unk nown) unknown) (unknown) (no date) (unknown) (unknown) 5-10/HPF (units (unkn own) unknown) (unknown) (no date) (unknown) (unknown) 6.0 (units (unkn own) unknown) (unknown) (no date) (unknown) (unknown) Dark Yellow (units (u nknown) unknown) (unknown) (no date) (unknown) (unknown) Dark Yellow (units (u nknown) unknown) (unknown) (no date) (unknown) (unknown) Moderate (units (unkn own) (10-30) unknown) (unknown) (no date) (unknown) (unknown) NEGATIVE (units (unkn own) unknown) (unknown) (no date) (unknown) (unknown) NEGATIVE g/dl (unkn own) (unknown) (no date) (unknown) (unknown) Negative (units (unkn own) unknown) (unknown) (no date) (unknown) (unknown) None Seen (units (unk nown) unknown) (unknown) (no date) (unknown) (unknown) POSITIVE (units (unkn own) unknown) (unknown) (no date) (unknown) (unknown) Slightly (units (unkn own) Cloudy unknown) Result panel 462 (unknown) (no date) (unknown) (unknown) 1 (units (unkn own) unknown) (unknown) (no date) (unknown) (unknown) 1-5/LPF (units (unkn own) unknown) (unknown) (no date) (unknown) (unknown) 1.0 e.u./dl (unkn own) (unknown) (no date) (unknown) (unknown) 1.025 (units (unkn own) unknown) (unknown) (no date) (unknown) (unknown) 2 (units (unkn own) unknown) (unknown) (no date) (unknown) (unknown) 3 (units (unkn own) unknown) (unknown) (no date) (unknown) (unknown) 5-10 /HPF (units (unk nown) unknown) (unknown) (no date) (unknown) (unknown) 5-10/HPF (units (unkn own) unknown) (unknown) (no date) (unknown) (unknown) 6.0 (units (unkn own) unknown) (unknown) (no date) (unknown) (unknown) Dark Yellow (units (u nknown) unknown) (unknown) (no date) (unknown) (unknown) Dark Yellow (units (u nknown) unknown) (unknown) (no date) (unknown) (unknown) Moderate (units (unkn own) (10-30) unknown) (unknown) (no date) (unknown) (unknown) NEGATIVE (units (unkn own) unknown) (unknown) (no date) (unknown) (unknown) NEGATIVE g/dl (unkn own) (unknown) (no date) (unknown) (unknown) None Seen (units (unk nown) unknown) (unknown) (no date) (unknown) (unknown) POSITIVE (units (unkn own) unknown) (unknown) (no date) (unknown) (unknown) Positive (units (unkn own) unknown) (unknown) (no date) (unknown) (unknown) Slightly (units (unkn own) Cloudy unknown) Result panel 463 (unknown) (no date) (unknown) (unknown) 1 (units (unkn own) unknown) (unknown) (no date) (unknown) (unknown) 1-5/LPF (units (unkn own) unknown) (unknown) (no date) (unknown) (unknown) 1.0 e.u./dl (unkn own) (unknown) (no date) (unknown) (unknown) 1.025 (units (unkn own) unknown) (unknown) (no date) (unknown) (unknown) 2 (units (unkn own) unknown) (unknown) (no date) (unknown) (unknown) 3 (units (unkn own) unknown) (unknown) (no date) (unknown) (unknown) 5-10 /HPF (units (unk nown) unknown) (unknown) (no date) (unknown) (unknown) 5-10/HPF (units (unkn own) unknown) (unknown) (no date) (unknown) (unknown) 6.0 (units (unkn own) unknown) (unknown) (no date) (unknown) (unknown) Dark Yellow (units (u nknown) unknown) (unknown) (no date) (unknown) (unknown) Dark Yellow (units (u nknown) unknown) (unknown) (no date) (unknown) (unknown) Moderate (units (unkn own) (10-30) unknown) (unknown) (no date) (unknown) (unknown) NEGATIVE (units (unkn own) unknown) (unknown) (no date) (unknown) (unknown) NEGATIVE g/dl (unkn own) (unknown) (no date) (unknown) (unknown) None Seen (units (unk nown) unknown) (unknown) (no date) (unknown) (unknown) POSITIVE (units (unkn own) unknown) (unknown) (no date) (unknown) (unknown) Positive (units (unkn own) unknown) (unknown) (no date) (unknown) (unknown) Slightly (units (unkn own) Cloudy unknown) Result panel 464 (unknown) (no (unknown) (unknown) (no value) (units (unk nown) date) unknown) (unknown) (no (unknown) (unknown) [id number] (units (unkno wn) date) unknown) (unknown) (no (unknown) (unknown) 11/13/22 (units (unkno wn) date) unknown) (unknown) (no (unknown) (unknown) 1. Cholelithiasis (units (unknown) date) and biliary sludge unknown) demonstrated without definite evidence of (unknown) (no (unknown) (unknown) [address] [place] [address] (units (unknown) date) unknown) (unknown) (no (unknown) (unknown) 2. Hepatic (units (unk nown) date) steatosis. unknown) (unknown) (no (unknown) (unknown) Accession Number: (units (unknown) date) [id number] unknown) (unknown) (no (unknown) (unknown) Age/Sex: 42 / F (units (unknown) date) Date of Service: unknown) (unknown) (no (unknown) (unknown) [place], [place] (units ( unknown) date) [id number] unknown) (unknown) (no (unknown) (unknown) Approved by: (units (u nknown) date) Yehuda Simpson, unknown) [place] on 11/13/2022 at 20:40 (unknown) (no (unknown) (unknown) COMPARISON: (units (un known) date) [facility], unknown) CT, CT ABDOMEN PELVIS W CON, 11/13/2022, 19:08. (unknown) (no (unknown) (unknown) : 1980 (units (unknown) date) Acct:[id number] unknown) (unknown) (no (unknown) (unknown) Dictated by: (units (u nknown) date) Yehuda Simpson unknownGissell Thornton on 11/13/2022 at 20:38 (unknown) (no (unknown) (unknown) FINDINGS: (units (unkn own) date) unknown) (unknown) (no (unknown) (unknown) IMPRESSION: (units (un known) date) unknown) (unknown) (no (unknown) (unknown) INDICATIONS: RUQ (units (unknown) date) PAIN unknown) (unknown) (no (unknown) (unknown) [facility] (units (unknown) date) unknown) (unknown) (no (unknown) (unknown) Loc: ED (units (unkno wn) date) unknown) (unknown) (no (unknown) (unknown) No intra or (units (un known) date) extrahepatic unknown) biliary ductal dilatation. (unknown) (no (unknown) (unknown) Ordering (units (unkno wn) date) Provider: unknown) Philip Chen P.A-C (unknown) (no (unknown) (unknown) PROCEDURE: US (units ( unknown) date) ABDOMEN LIMITED unknown) (unknown) (no (unknown) (unknown) Patient: (units (unkno wn) date) Layne Avendano N unknown) MR#: [id number] (unknown) (no (unknown) (unknown) Procedure: US (units ( unknown) date) abdomen limited unknown) (unknown) (no (unknown) (unknown) Real-time focused (units (unknown) date) scanning was unknown) performed of the abdomen, with image (unknown) (no (unknown) (unknown) Signed (units (unkno wn) date) unknown) (unknown) (no (unknown) (unknown) TECHNIQUE: (units (unk nown) date) unknown) (unknown) (no (unknown) (unknown) The gallbladder (units (unknown) date) demonstrates unknown) biliary sludge and a few echogenic gallstones. No (unknown) (no (unknown) (unknown) The liver (units (unkn own) date) demonstrates unknown) increased parenchymal echogenicity compatible with fatty (unknown) (no (unknown) (unknown) Ultrasound Report (units (unknown) date) unknown) (unknown) (no (unknown) (unknown) Visualized (units (unk nown) date) pancreas appears unknown) unremarkable sonographically. (unknown) (no (unknown) (unknown) acute (units (unkno wn) date) unknown) (unknown) (no (unknown) (unknown) cholecystitis. (units (unknown) date) unknown) (unknown) (no (unknown) (unknown) definite (units (unkno wn) date) unknown) (unknown) (no (unknown) (unknown) documentation. (units (unknown) date) unknown) (unknown) (no (unknown) (unknown) infiltration. (units ( unknown) date) unknown) (unknown) (no (unknown) (unknown) obstructing (units (un known) date) stones visualized unknown) in the gallbladder neck. No gallbladder wall (unknown) (no (unknown) (unknown) pericholecystic (units (unknown) date) fluid, or reported unknown) sonographic Landa's sign. (unknown) (no (unknown) (unknown) thickening, (units (un known) date) unknown) Result panel 465 (unknown) (no date) (unknown) (unknown) > 60 ml/min (unkn own) (unknown) (no date) (unknown) (unknown) > 60 ml/min (unkn own) (unknown) (no date) (unknown) (unknown) 0.62 mg/dl (unkn own) (unknown) (no date) (unknown) (unknown) 1.5 (units (unkn own) unknown) (unknown) (no date) (unknown) (unknown) 10 mg/dl (unkn own) (unknown) (no date) (unknown) (unknown) 107 mg/dl (unkn own) (unknown) (no date) (unknown) (unknown) 107 mg/dl (unkn own) (unknown) (no date) (unknown) (unknown) 134 mmol/l (unkn own) (unknown) (no date) (unknown) (unknown) 153 u/l (unkn own) (unknown) (no date) (unknown) (unknown) 16.1 (units (unkn own) unknown) (unknown) (no date) (unknown) (unknown) 23 mmol/l (unkn own) (unknown) (no date) (unknown) (unknown) 3.0 mg/dl (unkn own) (unknown) (no date) (unknown) (unknown) 3.5 g/dl (unkn own) (unknown) (no date) (unknown) (unknown) 3.9 mmol/l (unkn own) (unknown) (no date) (unknown) (unknown) 5.1 g/dl (unkn own) (unknown) (no date) (unknown) (unknown) 61 u/l (unkn own) (unknown) (no date) (unknown) (unknown) 76 iu/l (unkn own) (unknown) (no date) (unknown) (unknown) 8.6 g/dl (unkn own) (unknown) (no date) (unknown) (unknown) 89 iu/l (unkn own) (unknown) (no date) (unknown) (unknown) 9.7 mg/dl (unkn own) (unknown) (no date) (unknown) (unknown) 96 u/l (unkn own) (unknown) (no date) (unknown) (unknown) 97 mmol/l (unkn own) (unknown) (no date) (unknown) (unknown) Test not % (unkn own) performed (unknown) (no date) (unknown) (unknown) Test not % (unkn own) performed (unknown) (no date) (unknown) (unknown) Test not ng/ml (unkn own) performed (unknown) (no date) (unknown) (unknown) Test not ng/ml (unkn own) performed Result panel 466 (unknown) (no (unknown) (unknown) (no value) (units (unk nown) date) unknown) (unknown) (no (unknown) (unknown) .COMPLEX #30 tabs (units (unknown) date) unknown) (unknown) (no (unknown) (unknown) 11/13/22 11/13/22 (units (unknown) date) 11/13/22 unknown) Range/Units (unknown) (no (unknown) (unknown) 11/13/22 17:30 (units (unknown) date) unknown) (unknown) (no (unknown) (unknown) 11/13/22 18:32 (units (unknown) date) unknown) (unknown) (no (unknown) (unknown) 11/13/22 18:39 (units (unknown) date) unknown) (unknown) (no (unknown) (unknown) 11/13/22 18:40 (units (unknown) date) unknown) (unknown) (no (unknown) (unknown) 11/13/22 19:14 (units (unknown) date) unknown) (unknown) (no (unknown) (unknown) 11/13/22 (units (unkno wn) date) unknown) (unknown) (no (unknown) (unknown) [id number] (units (unkno wn) date) unknown) (unknown) (no (unknown) (unknown) 100 mg PO DAILY (units (unknown) date) Qty: 30 3RF unknown) (unknown) (no (unknown) (unknown) 17:23 (units (unkno wn) date) unknown) (unknown) (no (unknown) (unknown) 17:30 17:30 17:30 (units (unknown) date) unknown) (unknown) (no (unknown) (unknown) 18:32 18:32 18:32 (units (unknown) date) unknown) (unknown) (no (unknown) (unknown) 25 mg PO BEDTIME (units (unknown) date) Qty: 30 1RF unknown) (unknown) (no (unknown) (unknown) 25 mg PO Q6HR PRN (units (unknown) date) (Reason: Anxiety) unknown) Qty: 60 1RF (unknown) (no (unknown) (unknown) 30 mg PO DAILY (units (unknown) date) Qty: 90 1RF unknown) (unknown) (no (unknown) (unknown) ALT (<35) IU/L (units (unknown) date) unknown) (unknown) (no (unknown) (unknown) ALT 76 H (<35) (units (unknown) date) IU/L unknown) (unknown) (no (unknown) (unknown) AST (14-36) IU/L (units (unknown) date) unknown) (unknown) (no (unknown) (unknown) AST 89 H (14-36) (units (unknown) date) IU/L unknown) (unknown) (no (unknown) (unknown) Acquired (units (unkno wn) date) hypothyroidism unknown) (unknown) (no (unknown) (unknown) Age/Sex: 42 / F (units (unknown) date) unknown) (unknown) (no (unknown) (unknown) Albumin (3.5-5.0) (units (unknown) date) g/dL unknown) (unknown) (no (unknown) (unknown) Albumin 5.1 H (units ( unknown) date) (3.5-5.0) g/dL unknown) (unknown) (no (unknown) (unknown) Albumin/Globulin (units (unknown) date) Ratio (1.0-2.8) unknown) (unknown) (no (unknown) (unknown) Albumin/Globulin (units (unknown) date) Ratio 1.5 (1.0-2.8) unknown) (unknown) (no (unknown) (unknown) Alcohol type: beer (units (unknown) date) unknown) (unknown) (no (unknown) (unknown) Alcohol use (units (un known) date) unknown) (unknown) (no (unknown) (unknown) Alkaline (units (unkno wn) date) Phosphatase unknown) (38-126) U/L (unknown) (no (unknown) (unknown) Alkaline (units (unkno wn) date) Phosphatase 61 unknown) (38-126) U/L (unknown) (no (unknown) (unknown) Allergies (units (unkn own) date) unknown) (unknown) (no (unknown) (unknown) Allergy/AdvReac (units (unknown) date) Type Severity unknown) Reaction Status Date / Time (unknown) (no (unknown) (unknown) Amorphous Sediment (units (unknown) date) Cancelled 1 unknown) (unknown) (no (unknown) (unknown) Amorphous Sediment (units (unknown) date) unknown) (unknown) (no (unknown) (unknown) BUN (7-17) mg/dL (units (unknown) date) unknown) (unknown) (no (unknown) (unknown) BUN 10 (7-17) (units ( unknown) date) mg/dL unknown) (unknown) (no (unknown) (unknown) BUN/Creatinine (units (unknown) date) Ratio (6-22) unknown) (unknown) (no (unknown) (unknown) BUN/Creatinine (units (unknown) date) Ratio 16.1 (6-22) unknown) (unknown) (no (unknown) (unknown) Baso # (Auto) (units ( unknown) date) (0-100) /uL unknown) (unknown) (no (unknown) (unknown) Baso # (Auto) 0 (units (unknown) date) (0-100) /uL unknown) (unknown) (no (unknown) (unknown) Baso % (Auto) (units ( unknown) date) (0-2) % unknown) (unknown) (no (unknown) (unknown) Baso % (Auto) 0.5 (units (unknown) date) (0-2) % unknown) (unknown) (no (unknown) (unknown) Blood Pressure (units (unknown) date) 172/99 H 11/13/22 unknown) 17:23 (unknown) (no (unknown) (unknown) Blood Pressure (units (unknown) date) 172/99 H unknown) (unknown) (no (unknown) (unknown) Breast mass in (units (unknown) date) female unknown) (unknown) (no (unknown) (unknown) CK-MB (CK-2) Rel (units (unknown) date) Index TNP unknown) (unknown) (no (unknown) (unknown) CK-MB (CK-2) Rel (units (unknown) date) Index unknown) (unknown) (no (unknown) (unknown) CK-MB (CK-2) TNP (units (unknown) date) unknown) (unknown) (no (unknown) (unknown) CK-MB (CK-2) (units (u nknown) date) unknown) (unknown) (no (unknown) (unknown) CT abdomen pelvis (units (unknown) date) w con Stat unknown) (unknown) (no (unknown) (unknown) Calcium (8.4-10.2) (units (unknown) date) mg/dL unknown) (unknown) (no (unknown) (unknown) Calcium 9.7 (units (un known) date) (8.4-10.2) mg/dL unknown) (unknown) (no (unknown) (unknown) Calcium Oxalate (units (unknown) date) Crystal Cancelled unknown) (unknown) (no (unknown) (unknown) Calcium Oxalate (units (unknown) date) Crystal unknown) (unknown) (no (unknown) (unknown) Carbon Dioxide (units (unknown) date) (22-32) mmol/L unknown) (unknown) (no (unknown) (unknown) Carbon Dioxide 23 (units (unknown) date) (22-32) mmol/L unknown) (unknown) (no (unknown) (unknown) Chief Complaint: (units (unknown) date) Abdominal Pain unknown) (unknown) (no (unknown) (unknown) Chloride (98-107) (units (unknown) date) mmol/L unknown) (unknown) (no (unknown) (unknown) Chloride 97 L (units ( unknown) date) (98-107) mmol/L unknown) (unknown) (no (unknown) (unknown) Complete Blood (units (unknown) date) Count AUTO DIFF unknown) Stat (unknown) (no (unknown) (unknown) Comprehensive (units ( unknown) date) Metabolic Panel unknown) Stat (unknown) (no (unknown) (unknown) Course (units (unkno wn) date) unknown) (unknown) (no (unknown) (unknown) Creatinine (units (unk nown) date) (0.52-1.04) mg/dL unknown) (unknown) (no (unknown) (unknown) Creatinine 0.62 (units (unknown) date) (0.52-1.04) mg/dL unknown) (unknown) (no (unknown) (unknown) : 1980 (units (unknown) date) Acct:[id number] unknown) (unknown) (no (unknown) (unknown) Date of Service: (units (unknown) date) 11/13/22 unknown) (unknown) (no (unknown) (unknown) Departure (units (unkn own) date) unknown) (unknown) (no (unknown) (unknown) Discharge Plan (units (unknown) date) unknown) (unknown) (no (unknown) (unknown) Dose Instruction: (units (unknown) date) unknown) (unknown) (no (unknown) (unknown) ED Orders (units (unkn own) date) unknown) (unknown) (no (unknown) (unknown) EKG-12 Lead Stat (units (unknown) date) unknown) (unknown) (no (unknown) (unknown) ER Physician: (units ( unknown) date) Gustavo,Hyma P.A-C unknown) (unknown) (no (unknown) (unknown) Elevated blood (units (unknown) date) protein unknown) (unknown) (no (unknown) (unknown) Elevated liver (units (unknown) date) enzymes unknown) (unknown) (no (unknown) (unknown) Emergency Report (units (unknown) date) unknown) (unknown) (no (unknown) (unknown) Eos # (Auto) (units (u nknown) date) (0-450) /uL unknown) (unknown) (no (unknown) (unknown) Eos # (Auto) 200 (units (unknown) date) (0-450) /uL unknown) (unknown) (no (unknown) (unknown) Eos % (Auto) (2-4) (units (unknown) date) % unknown) (unknown) (no (unknown) (unknown) Eos % (Auto) 4.8 H (units (unknown) date) (2-4) % unknown) (unknown) (no (unknown) (unknown) Estimated GFR > 60 (units (unknown) date) (>60) mL/min unknown) (unknown) (no (unknown) (unknown) Estimated GFR (units ( unknown) date) (>60) mL/min unknown) (unknown) (no (unknown) (unknown) Exam (units (unkno wn) date) unknown) (unknown) (no (unknown) (unknown) Family History (units (unknown) date) (Reviewed 03/29/22 unknown) @ 17:15 by Ian Roland DO) (unknown) (no (unknown) (unknown) Father Diabetes (units (unknown) date) mellitus unknown) (unknown) (no (unknown) (unknown) 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, unknown) nonalcoholic (unknown) (no (unknown) (unknown) General (units (unkno wn) date) unknown) (unknown) (no (unknown) (unknown) 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 unknown) (unknown) (no (unknown) (unknown) Globulin (1.7-4.1) (units (unknown) date) g/dL unknown) (unknown) (no (unknown) (unknown) Globulin 3.5 (units (u nknown) date) (1.7-4.1) g/dL unknown) (unknown) (no (unknown) (unknown) Glucose (70-100) (units (unknown) date) mg/dL unknown) (unknown) (no (unknown) (unknown) Glucose 107 H (units ( unknown) date) (70-100) mg/dL unknown) (unknown) (no (unknown) (unknown) Grandfather (units (un known) date) Kidney unknown) failure (unknown) (no (unknown) (unknown) Grandmother (units (un known) date) Cancer unknown) (unknown) (no (unknown) (unknown) Granular Casts (units (unknown) date) Cancelled 1-5/lpf unknown) (unknown) (no (unknown) (unknown) Granular Casts (units (unknown) date) unknown) (unknown) (no (unknown) (unknown) HPI - Abdominal (units (unknown) date) Pain unknown) (unknown) (no (unknown) (unknown) 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) (unknown) (no (unknown) (unknown) Hct (36-46) % (units ( unknown) date) unknown) (unknown) (no (unknown) (unknown) Hct 42.9 (36-46) % (units (unknown) date) unknown) (unknown) (no (unknown) (unknown) Hgb (12.0-16.0) (units (unknown) date) g/dL unknown) (unknown) (no (unknown) (unknown) Hgb 14.7 (units (unkno wn) date) (12.0-16.0) g/dL unknown) (unknown) (no (unknown) (unknown) Hyaline Casts (units ( unknown) date) Cancelled 1-5/lpf unknown) (unknown) (no (unknown) (unknown) Hyaline Casts (units ( unknown) date) unknown) (unknown) (no (unknown) (unknown) Ictotest Urine (units (unknown) date) Stat unknown) (unknown) (no (unknown) (unknown) Initial Vital (units ( unknown) date) Signs unknown) (unknown) (no (unknown) (unknown) Initial Vital (units ( unknown) date) Signs: unknown) (unknown) (no (unknown) (unknown) Insomnia (units (unkno wn) date) unknown) (unknown) (no (unknown) (unknown) [facility] (units (unknown) date) [address] unknown) [place] [address] (unknown) (no (unknown) (unknown) Lab Data (units (unkno wn) date) unknown) (unknown) (no (unknown) (unknown) Lab Results (units (un known) date) unknown) (unknown) (no (unknown) (unknown) Labs: (units (unkno wn) date) unknown) (unknown) (no (unknown) (unknown) Lipase (23-300) (units (unknown) date) U/L unknown) (unknown) (no (unknown) (unknown) Lipase 153 (units (unk nown) date) (23-300) U/L unknown) (unknown) (no (unknown) (unknown) Lipase Stat (units (un known) date) unknown) (unknown) (no (unknown) (unknown) Lymph # (Auto) (units (unknown) date) (6568-1341) /uL unknown) (unknown) (no (unknown) (unknown) Lymph # (Auto) 700 (units (unknown) date) L (8438-0933) /uL unknown) (unknown) (no (unknown) (unknown) Lymph % (Auto) (units (unknown) date) (25-40) % unknown) (unknown) (no (unknown) (unknown) Lymph % (Auto) (units (unknown) date) 15.9 L (25-40) % unknown) (unknown) (no (unknown) (unknown) MCH (26-34) PG (units (unknown) date) unknown) (unknown) (no (unknown) (unknown) MCH 32.5 (26-34) (units (unknown) date) PG unknown) (unknown) (no (unknown) (unknown) MCHC (30-36) % (units (unknown) date) unknown) (unknown) (no (unknown) (unknown) MCHC 34.3 (30-36) (units (unknown) date) % unknown) (unknown) (no (unknown) (unknown) MCV (80-100) fL (units (unknown) date) unknown) (unknown) (no (unknown) (unknown) MCV 94.8 (80-100) (units (unknown) date) fL unknown) (unknown) (no (unknown) (unknown) MDM - Abdominal (units (unknown) date) Pain unknown) (unknown) (no (unknown) (unknown) Medical History (units (unknown) date) (Updated 08/04/22 @ unknown) 00:00 by ) (unknown) (no (unknown) (unknown) Medication (units (unk nown) date) Instructions unknown) Recorded (unknown) (no (unknown) (unknown) Micro UA Comment (units (unknown) date) Cancelled unknown) (unknown) (no (unknown) (unknown) Micro UA Comment (units (unknown) date) unknown) (unknown) (no (unknown) (unknown) Mode of arrival: (units (unknown) date) Ambulatory unknown) (unknown) (no (unknown) (unknown) [place] # (Auto) (units ( unknown) date) (0-900) /uL unknown) (unknown) (no (unknown) (unknown) [place] # (Auto) 500 (units (unknown) date) (0-900) /uL unknown) (unknown) (no (unknown) (unknown) [place] % (Auto) (units ( unknown) date) (3-14) % unknown) (unknown) (no (unknown) (unknown) [place] % (Auto) 10.0 (units (unknown) date) (3-14) % unknown) (unknown) (no (unknown) (unknown) Mother (units (unknown) date) Cancer unknown) (unknown) (no (unknown) (unknown) Neut # (Auto) (units ( unknown) date) (8420-5925) /uL unknown) (unknown) (no (unknown) (unknown) Neut # (Auto) 3200 (units (unknown) date) (6850-0015) /uL unknown) (unknown) (no (unknown) (unknown) Neut % (Auto) (units ( unknown) date) (50-75) % unknown) (unknown) (no (unknown) (unknown) Neut % (Auto) 68.8 (units (unknown) date) (50-75) % unknown) (unknown) (no (unknown) (unknown) No Action (units (unkn own) date) unknown) (unknown) (no (unknown) (unknown) Ordered: (units (unkno wn) date) unknown) (unknown) (no (unknown) (unknown) Orders (units (unkno wn) date) unknown) (unknown) (no (unknown) (unknown) Other Casts (units (un known) date) Cancelled unknown) (unknown) (no (unknown) (unknown) Other Casts (units (un known) date) unknown) (unknown) (no (unknown) (unknown) Other Crystals (units (unknown) date) Cancelled unknown) (unknown) (no (unknown) (unknown) Other Crystals (units (unknown) date) unknown) (unknown) (no (unknown) (unknown) Oxygen Delivery (units (unknown) date) Method 11/13/22 unknown) 17:23 (unknown) (no (unknown) (unknown) Oxygen Delivery (units (unknown) date) Method Room Air unknown) (unknown) (no (unknown) (unknown) Patient History (units (unknown) date) unknown) (unknown) (no (unknown) (unknown) Patient denies (units (unknown) date) medical problems unknown) (unknown) (no (unknown) (unknown) Patient: (units (unkno wn) date) Layne Avendano unknown) MR#: [id number] (unknown) (no (unknown) (unknown) Peripheral (units (unk nown) date) neuropathy unknown) (unknown) (no (unknown) (unknown) Ian Roland, (units (unknown) date) [Primary Care unknown) Provider] (unknown) (no (unknown) (unknown) Plt Count (units (unkn own) date) (150-400) X103/uL unknown) (unknown) (no (unknown) (unknown) Plt Count 174 (units ( unknown) date) (150-400) X103/uL unknown) (unknown) (no (unknown) (unknown) Potassium (units (unkn own) date) (3.4-5.1) mmol/L unknown) (unknown) (no (unknown) (unknown) Potassium 3.9 (units ( unknown) date) (3.4-5.1) mmol/L unknown) (unknown) (no (unknown) (unknown) Test (units (unknown) date) Urine Stat unknown) (unknown) (no (unknown) (unknown) Prescriptions: (units (unknown) date) unknown) (unknown) (no (unknown) (unknown) Previous Rx's (units ( unknown) date) unknown) (unknown) (no (unknown) (unknown) Pulse Oximetry 99 (units (unknown) date) 11/13/22 17:23 unknown) (unknown) (no (unknown) (unknown) Pulse Oximetry 99 (units (unknown) date) unknown) (unknown) (no (unknown) (unknown) Pulse Rate 75 (units ( unknown) date) 11/13/22 17:23 unknown) (unknown) (no (unknown) (unknown) Pulse Rate 75 (units ( unknown) date) unknown) (unknown) (no (unknown) (unknown) RBC (4.0-5.2) (units ( unknown) date) X106/uL unknown) (unknown) (no (unknown) (unknown) RBC 4.52 (4.0-5.2) (units (unknown) date) X106/uL unknown) (unknown) (no (unknown) (unknown) RBC Casts (units (unkn own) date) Cancelled unknown) (unknown) (no (unknown) (unknown) RBC Casts (units (unkn own) date) unknown) (unknown) (no (unknown) (unknown) RDW (11.6-14.8) % (units (unknown) date) unknown) (unknown) (no (unknown) (unknown) RDW 13.3 (units (unkno wn) date) (11.6-14.8) % unknown) (unknown) (no (unknown) (unknown) Referrals: (units (unk nown) date) unknown) (unknown) (no (unknown) (unknown) Related Data (units (u nknown) date) unknown) (unknown) (no (unknown) (unknown) Respiratory Rate (units (unknown) date) 18 11/13/22 17:23 unknown) (unknown) (no (unknown) (unknown) Respiratory Rate (units (unknown) date) 18 unknown) (unknown) (no (unknown) (unknown) Rx Instructions: (units (unknown) date) unknown) (unknown) (no (unknown) (unknown) See Rx (units (unkno wn) date) Instructions .ROUTE unknown) .COMPLEX Qty: 30 1RF (unknown) (no (unknown) (unknown) Shortness of (units (u nknown) date) breath (06/2020) unknown) (unknown) (no (unknown) (unknown) Signed By: (units (unk nown) date) unknown) (unknown) (no (unknown) (unknown) Smoking Status: (units (unknown) date) Former smoker unknown) (unknown) (no (unknown) (unknown) Social History (units (unknown) date) (Reviewed 02/01/22 unknown) @ 02:04 by Valorie Encinas DO) (unknown) (no (unknown) (unknown) Sodium (137-145) (units (unknown) date) mmol/L unknown) (unknown) (no (unknown) (unknown) Sodium 134 L (units (u nknown) date) (137-145) mmol/L unknown) (unknown) (no (unknown) (unknown) Source: patient (units (unknown) date) unknown) (unknown) (no (unknown) (unknown) Stated Complaint: (units (unknown) date) TOR[place] PAIN, unknown) NUMBNESS, FELLS LIKE INSIDES SWELLING (unknown) (no (unknown) (unknown) Substance Use (units ( unknown) date) Type: does not use unknown) (unknown) (no (unknown) (unknown) TAKE ONE TABLET BY (units (unknown) date) MOUTH ONE TIME unknown) DAILY (unknown) (no (unknown) (unknown) TSH [Thyroid (units (u nknown) date) Stimulating unknown) Hormone] Stat (unknown) (no (unknown) (unknown) Temperature 98 F (units (unknown) date) 11/13/22 17:23 unknown) (unknown) (no (unknown) (unknown) Temperature 98 F (units (unknown) date) unknown) (unknown) (no (unknown) (unknown) Time Seen by (units (u nknown) date) Provider: 11/13/22 unknown) 18:14 (unknown) (no (unknown) (unknown) Total Bilirubin (units (unknown) date) (0.2-1.3) mg/dL unknown) (unknown) (no (unknown) (unknown) Total Bilirubin (units (unknown) date) 3.0 H (0.2-1.3) unknown) mg/dL (unknown) (no (unknown) (unknown) Total Creatine (units (unknown) date) Kinase (30-135) U/L unknown) (unknown) (no (unknown) (unknown) Total Creatine (units (unknown) date) Kinase 96 (30-135) unknown) U/L (unknown) (no (unknown) (unknown) Total Protein (units ( unknown) date) (6.3-8.2) g/dL unknown) (unknown) (no (unknown) (unknown) Total Protein 8.6 (units (unknown) date) H (6.3-8.2) g/dL unknown) (unknown) (no (unknown) (unknown) Tremors of nervous (units (unknown) date) system (06/2020) unknown) (unknown) (no (unknown) (unknown) Triple Phos (units (un known) date) Crystals Cancelled unknown) (unknown) (no (unknown) (unknown) Triple Phos (units (un known) date) Crystals unknown) (unknown) (no (unknown) (unknown) Troponin + CK (units ( unknown) date) Cardiac Panel Stat unknown) (unknown) (no (unknown) (unknown) US abdomen limited (units (unknown) date) Stat unknown) (unknown) (no (unknown) (unknown) Ur Bilirubin (units (u nknown) date) Confirm (Negative) unknown) (unknown) (no (unknown) (unknown) Ur Bilirubin (units (u nknown) date) Confirm Positive H unknown) (Negative) (unknown) (no (unknown) (unknown) Ur Culture (units (unk nown) date) Indicated? unknown) Cancelled (unknown) (no (unknown) (unknown) Ur Culture (units (unk nown) date) Indicated? unknown) (unknown) (no (unknown) (unknown) Ur Leukocyte (units (u nknown) date) Esterase (NEGATIVE) unknown) (unknown) (no (unknown) (unknown) Ur Leukocyte (units (u nknown) date) Esterase Negative unknown) (NEGATIVE) (unknown) (no (unknown) (unknown) Ur Renal (units (unkno wn) date) Epithelial Cell unknown) Cancelled (unknown) (no (unknown) (unknown) Ur Renal (units (unkno wn) date) Epithelial Cell unknown) (unknown) (no (unknown) (unknown) Ur Specific (units (un known) date) [place] unknown) (1.000-1.035) (unknown) (no (unknown) (unknown) Ur Specific (units (un known) date) [place] 1.025 unknown) (1.000-1.035) (unknown) (no (unknown) (unknown) Ur Squamous Epith (units (unknown) date) Cells Cancelled unknown) 5-10 /hpf H (unknown) (no (unknown) (unknown) Ur Squamous Epith (units (unknown) date) Cells unknown) (unknown) (no (unknown) (unknown) Ur Transition (units ( unknown) date) Epith Cell unknown) Cancelled (unknown) (no (unknown) (unknown) Ur Transition (units ( unknown) date) Epith Cell unknown) (unknown) (no (unknown) (unknown) Uric Acid Crystals (units (unknown) date) Cancelled unknown) (unknown) (no (unknown) (unknown) Uric Acid Crystals (units (unknown) date) unknown) (unknown) (no (unknown) (unknown) Urinalysis and (units (unknown) date) Microscopic Stat unknown) (unknown) (no (unknown) (unknown) Urine Appearance (units (unknown) date) Slightly cloudy unknown) (unknown) (no (unknown) (unknown) Urine Appearance (units (unknown) date) unknown) (unknown) (no (unknown) (unknown) Urine Bacteria (units (unknown) date) Cancelled Moderate unknown) (10-30) H (unknown) (no (unknown) (unknown) Urine Bacteria (units (unknown) date) unknown) (unknown) (no (unknown) (unknown) Urine Bilirubin (units (unknown) date) (NEGATIVE) unknown) (unknown) (no (unknown) (unknown) Urine Bilirubin 2+ (units (unknown) date) H (NEGATIVE) unknown) (unknown) (no (unknown) (unknown) Urine Color Dark (units (unknown) date) yellow unknown) (unknown) (no (unknown) (unknown) Urine Color (units (un known) date) unknown) (unknown) (no (unknown) (unknown) Urine Culture Stat (units (unknown) date) unknown) (unknown) (no (unknown) (unknown) Urine Glucose (UA) (units (unknown) date) (Negative) g/dL unknown) (unknown) (no (unknown) (unknown) Urine Glucose (UA) (units (unknown) date) Negative (Negative) unknown) g/dL (unknown) (no (unknown) (unknown) Urine Ketones (units ( unknown) date) (NEGATIVE) unknown) (unknown) (no (unknown) (unknown) Urine Ketones 3+ H (units (unknown) date) (NEGATIVE) unknown) (unknown) (no (unknown) (unknown) Urine Mucus (units (un known) date) Cancelled 3+ H unknown) (unknown) (no (unknown) (unknown) Urine Mucus (units (un known) date) unknown) (unknown) (no (unknown) (unknown) Urine Nitrate (units ( unknown) date) (Negative) unknown) (unknown) (no (unknown) (unknown) Urine Nitrate (units ( unknown) date) Positive H unknown) (Negative) (unknown) (no (unknown) (unknown) Urine Occult Blood (units (unknown) date) (Negative) unknown) (unknown) (no (unknown) (unknown) Urine Occult Blood (units (unknown) date) Negative (Negative) unknown) (unknown) (no (unknown) (unknown) Urine (units (unknown) date) Test (Negative) unknown) (unknown) (no (unknown) (unknown) Urine (units (unknown) date) Test Negative unknown) (Negative) (unknown) (no (unknown) (unknown) Urine Protein (units ( unknown) date) (Negative) unknown) (unknown) (no (unknown) (unknown) Urine Protein 1+ H (units (unknown) date) (Negative) unknown) (unknown) (no (unknown) (unknown) Urine RBC (units (unkn own) date) Cancelled None seen unknown) (unknown) (no (unknown) (unknown) Urine RBC (units (unkn own) date) unknown) (unknown) (no (unknown) (unknown) Urine Sperm (units (un known) date) Cancelled unknown) (unknown) (no (unknown) (unknown) Urine Sperm (units (un known) date) unknown) (unknown) (no (unknown) (unknown) Urine Trichomonas (units (unknown) date) Cancelled unknown) (unknown) (no (unknown) (unknown) Urine Trichomonas (units (unknown) date) unknown) (unknown) (no (unknown) (unknown) Urine Urobilinogen (units (unknown) date) (0.2) E.U./dL unknown) (unknown) (no (unknown) (unknown) Urine Urobilinogen (units (unknown) date) 1.0 (0.2) E.U./dL unknown) (unknown) (no (unknown) (unknown) Urine WBC (units (unkn own) date) Cancelled 5-10/hpf unknown) H (unknown) (no (unknown) (unknown) Urine WBC (units (unkn own) date) unknown) (unknown) (no (unknown) (unknown) Urine Yeast (units (un known) date) Cancelled unknown) (unknown) (no (unknown) (unknown) Urine Yeast (units (un known) date) unknown) (unknown) (no (unknown) (unknown) Urine pH (4.5-8.0) (units (unknown) date) unknown) (unknown) (no (unknown) (unknown) Urine pH 6.0 (units (u nknown) date) (4.5-8.0) unknown) (unknown) (no (unknown) (unknown) Vital Signs - 8 hr (units (unknown) date) unknown) (unknown) (no (unknown) (unknown) Vital Signs (units (un known) date) unknown) (unknown) (no (unknown) (unknown) Vital signs: (units (u nknown) date) unknown) (unknown) (no (unknown) (unknown) WBC (4.5-11.0) (units (unknown) date) X103/uL unknown) (unknown) (no (unknown) (unknown) WBC 4.7 (4.5-11.0) (units (unknown) date) X103/uL unknown) (unknown) (no (unknown) (unknown) WBC Casts (units (unkn own) date) Cancelled unknown) (unknown) (no (unknown) (unknown) WBC Casts (units (unkn own) date) unknown) (unknown) (no (unknown) (unknown) [Embedded Image (units (unknown) date) Not Available] unknown) (unknown) (no (unknown) (unknown) [From Bactrim] (units (unknown) date) unknown) (unknown) (no (unknown) (unknown) alcohol intake (units (unknown) date) frequency: a few unknown) times a week (unknown) (no (unknown) (unknown) alcohol intake: (units (unknown) date) current unknown) (unknown) (no (unknown) (unknown) duloxetine 30 mg (units (unknown) date) capsule,delayed 30 unknown) mg PO DAILY #90 caps 03/29/22 (unknown) (no (unknown) (unknown) duloxetine 30 mg (units (unknown) date) capsule,delayed unknown) release(DR/EC) (unknown) (no (unknown) (unknown) folic acid 1 mg (units (unknown) date) tablet See Rx unknown) Instructions .Route 04/01/22 (unknown) (no (unknown) (unknown) folic acid 1 mg (units (unknown) date) tablet unknown) (unknown) (no (unknown) (unknown) household members: (units (unknown) date) significant other unknown) and children (unknown) (no (unknown) (unknown) hydroxyzine (units (un known) date) pamoate 25 mg unknown) capsule 25 mg PO Q6HR PRN Anxiety #60 caps 03/29/22 (unknown) (no (unknown) (unknown) hydroxyzine (units (un known) date) pamoate 25 mg unknown) capsule (unknown) (no (unknown) (unknown) release (units (unkno wn) date) unknown) (unknown) (no (unknown) (unknown) second hand (units (un known) date) exposure: Yes unknown) (unknown) (no (unknown) (unknown) substance use (units ( unknown) date) type: does not use unknown) (unknown) (no (unknown) (unknown) sulfamethoxazole (units (unknown) date) Allergy Severe unknown) Anaphylaxis Verified 07/20/22 09:43 (unknown) (no (unknown) (unknown) tablet (units (unkno wn) date) unknown) (unknown) (no (unknown) (unknown) thiamine HCl (units (u nknown) date) (vitamin B1) 100 mg unknown) 100 mg PO DAILY #30 tabs 03/29/22 (unknown) (no (unknown) (unknown) thiamine HCl (units (u nknown) date) (vitamin B1) 100 mg unknown) tablet (unknown) (no (unknown) (unknown) trazodone 50 mg (units (unknown) date) tablet 25 mg PO unknown) BEDTIME #30 tabs 03/29/22 (unknown) (no (unknown) (unknown) trazodone 50 mg (units (unknown) date) tablet unknown) (unknown) (no (unknown) (unknown) trimethoprim [From (units (unknown) date) Bactrim] Allergy unknown) Severe Anaphylaxis Verified 07/20/22 09:43 Result panel 467 (unknown) (no date) (unknown) (unknown) < 0.012 ng/ml (unkn own) (unknown) (no date) (unknown) (unknown) < 0.012 ng/ml (unkn own) (unknown) (no date) (unknown) (unknown) 96 u/l (unkn own) (unknown) (no date) (unknown) (unknown) Test not % (unkn own) performed (unknown) (no date) (unknown) (unknown) Test not % (unkn own) performed (unknown) (no date) (unknown) (unknown) Test not ng/ml (unkn own) performed (unknown) (no date) (unknown) (unknown) Test not ng/ml (unkn own) performed Result panel 468 (unknown) (no (unknown) (unknown) (no value) (units (unk nown) date) unknown) (unknown) (no (unknown) (unknown) .COMPLEX #30 tabs (units (unknown) date) unknown) (unknown) (no (unknown) (unknown) 11/13/22 11/13/22 (units (unknown) date) 11/13/22 unknown) Range/Units (unknown) (no (unknown) (unknown) 11/13/22 17:30 (units (unknown) date) unknown) (unknown) (no (unknown) (unknown) 11/13/22 18:32 (units (unknown) date) unknown) (unknown) (no (unknown) (unknown) 11/13/22 18:39 (units (unknown) date) unknown) (unknown) (no (unknown) (unknown) 11/13/22 18:40 (units (unknown) date) unknown) (unknown) (no (unknown) (unknown) 11/13/22 19:14 (units (unknown) date) unknown) (unknown) (no (unknown) (unknown) 11/13/22 (units (unkno wn) date) unknown) (unknown) (no (unknown) (unknown) [id number] (units (unkno wn) date) unknown) (unknown) (no (unknown) (unknown) 100 mg PO DAILY (units (unknown) date) Qty: 30 3RF unknown) (unknown) (no (unknown) (unknown) 17:23 (units (unkno wn) date) unknown) (unknown) (no (unknown) (unknown) 17:30 17:30 17:30 (units (unknown) date) unknown) (unknown) (no (unknown) (unknown) 18:32 18:32 18:32 (units (unknown) date) unknown) (unknown) (no (unknown) (unknown) 25 mg PO BEDTIME (units (unknown) date) Qty: 30 1RF unknown) (unknown) (no (unknown) (unknown) 25 mg PO Q6HR PRN (units (unknown) date) (Reason: Anxiety) unknown) Qty: 60 1RF (unknown) (no (unknown) (unknown) 30 mg PO DAILY (units (unknown) date) Qty: 90 1RF unknown) (unknown) (no (unknown) (unknown) 42-year-old female (units (unknown) date) with past medical unknown) history generalized anxiety disorder, (unknown) (no (unknown) (unknown) ALT (<35) IU/L (units (unknown) date) unknown) (unknown) (no (unknown) (unknown) ALT 76 H (<35) (units (unknown) date) IU/L unknown) (unknown) (no (unknown) (unknown) AST (14-36) IU/L (units (unknown) date) unknown) (unknown) (no (unknown) (unknown) AST 89 H (14-36) (units (unknown) date) IU/L unknown) (unknown) (no (unknown) (unknown) Acquired (units (unkno wn) date) hypothyroidism unknown) (unknown) (no (unknown) (unknown) Age/Sex: 42 / F (units (unknown) date) unknown) (unknown) (no (unknown) (unknown) Albumin (3.5-5.0) (units (unknown) date) g/dL unknown) (unknown) (no (unknown) (unknown) Albumin 5.1 H (units ( unknown) date) (3.5-5.0) g/dL unknown) (unknown) (no (unknown) (unknown) Albumin/Globulin (units (unknown) date) Ratio (1.0-2.8) unknown) (unknown) (no (unknown) (unknown) Albumin/Globulin (units (unknown) date) Ratio 1.5 (1.0-2.8) unknown) (unknown) (no (unknown) (unknown) Alcohol type: beer (units (unknown) date) unknown) (unknown) (no (unknown) (unknown) Alcohol use (units (un known) date) unknown) (unknown) (no (unknown) (unknown) Alkaline (units (unkno wn) date) Phosphatase unknown) (38-126) U/L (unknown) (no (unknown) (unknown) Alkaline (units (unkno wn) date) Phosphatase 61 unknown) (38-126) U/L (unknown) (no (unknown) (unknown) Allergies (units (unkn own) date) unknown) (unknown) (no (unknown) (unknown) Allergy/AdvReac (units (unknown) date) Type Severity unknown) Reaction Status Date / Time (unknown) (no (unknown) (unknown) Amorphous Sediment (units (unknown) date) Cancelled 1 unknown) (unknown) (no (unknown) (unknown) Amorphous Sediment (units (unknown) date) unknown) (unknown) (no (unknown) (unknown) BUN (7-17) mg/dL (units (unknown) date) unknown) (unknown) (no (unknown) (unknown) BUN 10 (7-17) (units ( unknown) date) mg/dL unknown) (unknown) (no (unknown) (unknown) BUN/Creatinine (units (unknown) date) Ratio (6-22) unknown) (unknown) (no (unknown) (unknown) BUN/Creatinine (units (unknown) date) Ratio 16.1 (6-22) unknown) (unknown) (no (unknown) (unknown) Baso # (Auto) (units ( unknown) date) (0-100) /uL unknown) (unknown) (no (unknown) (unknown) Baso # (Auto) 0 (units (unknown) date) (0-100) /uL unknown) (unknown) (no (unknown) (unknown) Baso % (Auto) (units ( unknown) date) (0-2) % unknown) (unknown) (no (unknown) (unknown) Baso % (Auto) 0.5 (units (unknown) date) (0-2) % unknown) (unknown) (no (unknown) (unknown) Blood Pressure (units (unknown) date) 172/99 H 11/13/22 unknown) 17:23 (unknown) (no (unknown) (unknown) Blood Pressure (units (unknown) date) 172/99 H unknown) (unknown) (no (unknown) (unknown) Breast mass in (units (unknown) date) female unknown) (unknown) (no (unknown) (unknown) CK-MB (CK-2) Rel (units (unknown) date) Index TNP unknown) (unknown) (no (unknown) (unknown) CK-MB (CK-2) Rel (units (unknown) date) Index unknown) (unknown) (no (unknown) (unknown) CK-MB (CK-2) TNP (units (unknown) date) unknown) (unknown) (no (unknown) (unknown) CK-MB (CK-2) (units (u nknown) date) unknown) (unknown) (no (unknown) (unknown) CT abdomen pelvis (units (unknown) date) w con Stat unknown) (unknown) (no (unknown) (unknown) Calcium (8.4-10.2) (units (unknown) date) mg/dL unknown) (unknown) (no (unknown) (unknown) Calcium 9.7 (units (un known) date) (8.4-10.2) mg/dL unknown) (unknown) (no (unknown) (unknown) Calcium Oxalate (units (unknown) date) Crystal Cancelled unknown) (unknown) (no (unknown) (unknown) Calcium Oxalate (units (unknown) date) Crystal unknown) (unknown) (no (unknown) (unknown) Carbon Dioxide (units (unknown) date) (22-32) mmol/L unknown) (unknown) (no (unknown) (unknown) Carbon Dioxide 23 (units (unknown) date) (22-32) mmol/L unknown) (unknown) (no (unknown) (unknown) Chief Complaint: (units (unknown) date) Abdominal Pain unknown) (unknown) (no (unknown) (unknown) Chloride (98-107) (units (unknown) date) mmol/L unknown) (unknown) (no (unknown) (unknown) Chloride 97 L (units ( unknown) date) (98-107) mmol/L unknown) (unknown) (no (unknown) (unknown) Complete Blood (units (unknown) date) Count AUTO DIFF unknown) Stat (unknown) (no (unknown) (unknown) Comprehensive (units ( unknown) date) Metabolic Panel unknown) Stat (unknown) (no (unknown) (unknown) Course (units (unkno wn) date) unknown) (unknown) (no (unknown) (unknown) Creatinine (units (unk nown) date) (0.52-1.04) mg/dL unknown) (unknown) (no (unknown) (unknown) Creatinine 0.62 (units (unknown) date) (0.52-1.04) mg/dL unknown) (unknown) (no (unknown) (unknown) : 1980 (units (unknown) date) Acct:[id number] unknown) (unknown) (no (unknown) (unknown) Date of Service: (units (unknown) date) 11/13/22 unknown) (unknown) (no (unknown) (unknown) Departure (units (unkn own) date) unknown) (unknown) (no (unknown) (unknown) Discharge Plan (units (unknown) date) unknown) (unknown) (no (unknown) (unknown) Dose Instruction: (units (unknown) date) unknown) (unknown) (no (unknown) (unknown) ED Orders (units (unkn own) date) unknown) (unknown) (no (unknown) (unknown) EKG-12 Lead Stat (units (unknown) date) unknown) (unknown) (no (unknown) (unknown) ER Physician: (units ( unknown) date) Gustavo,Reginoa P.A-C unknown) (unknown) (no (unknown) (unknown) Elevated blood (units (unknown) date) protein unknown) (unknown) (no (unknown) (unknown) Elevated liver (units (unknown) date) enzymes unknown) (unknown) (no (unknown) (unknown) Emergency Report (units (unknown) date) unknown) (unknown) (no (unknown) (unknown) Eos # (Auto) (units (u nknown) date) (0-450) /uL unknown) (unknown) (no (unknown) (unknown) Eos # (Auto) 200 (units (unknown) date) (0-450) /uL unknown) (unknown) (no (unknown) (unknown) Eos % (Auto) (2-4) (units (unknown) date) % unknown) (unknown) (no (unknown) (unknown) Eos % (Auto) 4.8 H (units (unknown) date) (2-4) % unknown) (unknown) (no (unknown) (unknown) Estimated GFR > 60 (units (unknown) date) (>60) mL/min unknown) (unknown) (no (unknown) (unknown) Estimated GFR (units ( unknown) date) (>60) mL/min unknown) (unknown) (no (unknown) (unknown) Exam (units (unkno wn) date) unknown) (unknown) (no (unknown) (unknown) Family History (units (unknown) date) (Reviewed 03/29/22 unknown) @ 17:15 by Ian Roland DO) (unknown) (no (unknown) (unknown) Father Diabetes (units (unknown) date) mellitus unknown) (unknown) (no (unknown) (unknown) 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, unknown) nonalcoholic (unknown) (no (unknown) (unknown) General (units (unkno wn) date) unknown) (unknown) (no (unknown) (unknown) 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 unknown) (unknown) (no (unknown) (unknown) Globulin (1.7-4.1) (units (unknown) date) g/dL unknown) (unknown) (no (unknown) (unknown) Globulin 3.5 (units (u nknown) date) (1.7-4.1) g/dL unknown) (unknown) (no (unknown) (unknown) Glucose (70-100) (units (unknown) date) mg/dL unknown) (unknown) (no (unknown) (unknown) Glucose 107 H (units ( unknown) date) (70-100) mg/dL unknown) (unknown) (no (unknown) (unknown) Grandfather (units (un known) date) Kidney unknown) failure (unknown) (no (unknown) (unknown) Grandmother (units (un known) date) Cancer unknown) (unknown) (no (unknown) (unknown) Granular Casts (units (unknown) date) Cancelled 1-5/lpf unknown) (unknown) (no (unknown) (unknown) Granular Casts (units (unknown) date) unknown) (unknown) (no (unknown) (unknown) HPI - Abdominal (units (unknown) date) Pain unknown) (unknown) (no (unknown) (unknown) HPI narrative: (units (unknown) date) unknown) (unknown) (no (unknown) (unknown) 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) (unknown) (no (unknown) (unknown) Hct (36-46) % (units ( unknown) date) unknown) (unknown) (no (unknown) (unknown) Hct 42.9 (36-46) % (units (unknown) date) unknown) (unknown) (no (unknown) (unknown) Hgb (12.0-16.0) (units (unknown) date) g/dL unknown) (unknown) (no (unknown) (unknown) Hgb 14.7 (units (unkno wn) date) (12.0-16.0) g/dL unknown) (unknown) (no (unknown) (unknown) History of Present (units (unknown) date) Illness unknown) (unknown) (no (unknown) (unknown) Hyaline Casts (units ( unknown) date) Cancelled 1-5/lpf unknown) (unknown) (no (unknown) (unknown) Hyaline Casts (units ( unknown) date) unknown) (unknown) (no (unknown) (unknown) Ictotest Urine (units (unknown) date) Stat unknown) (unknown) (no (unknown) (unknown) Initial Vital (units ( unknown) date) Signs unknown) (unknown) (no (unknown) (unknown) Initial Vital (units ( unknown) date) Signs: unknown) (unknown) (no (unknown) (unknown) Insomnia (units (unkno wn) date) unknown) (unknown) (no (unknown) (unknown) [facility] (units (unknown) date) [address] unknown) [place] [address] (unknown) (no (unknown) (unknown) Lab Data (units (unkno wn) date) unknown) (unknown) (no (unknown) (unknown) Lab Results (units (un known) date) unknown) (unknown) (no (unknown) (unknown) Labs: (units (unkno wn) date) unknown) (unknown) (no (unknown) (unknown) Lipase (23-300) (units (unknown) date) U/L unknown) (unknown) (no (unknown) (unknown) Lipase 153 (units (unk nown) date) (23-300) U/L unknown) (unknown) (no (unknown) (unknown) Lipase Stat (units (un known) date) unknown) (unknown) (no (unknown) (unknown) Lymph # (Auto) (units (unknown) date) (6059-6564) /uL unknown) (unknown) (no (unknown) (unknown) Lymph # (Auto) 700 (units (unknown) date) L (3574-2495) /uL unknown) (unknown) (no (unknown) (unknown) Lymph % (Auto) (units (unknown) date) (25-40) % unknown) (unknown) (no (unknown) (unknown) Lymph % (Auto) (units (unknown) date) 15.9 L (25-40) % unknown) (unknown) (no (unknown) (unknown) MCH (26-34) PG (units (unknown) date) unknown) (unknown) (no (unknown) (unknown) MCH 32.5 (26-34) (units (unknown) date) PG unknown) (unknown) (no (unknown) (unknown) MCHC (30-36) % (units (unknown) date) unknown) (unknown) (no (unknown) (unknown) MCHC 34.3 (30-36) (units (unknown) date) % unknown) (unknown) (no (unknown) (unknown) MCV (80-100) fL (units (unknown) date) unknown) (unknown) (no (unknown) (unknown) MCV 94.8 (80-100) (units (unknown) date) fL unknown) (unknown) (no (unknown) (unknown) MDM - Abdominal (units (unknown) date) Pain unknown) (unknown) (no (unknown) (unknown) Medical History (units (unknown) date) (Updated 08/04/22 @ unknown) 00:00 by ) (unknown) (no (unknown) (unknown) Medication (units (unk nown) date) Instructions unknown) Recorded (unknown) (no (unknown) (unknown) Micro UA Comment (units (unknown) date) Cancelled unknown) (unknown) (no (unknown) (unknown) Micro UA Comment (units (unknown) date) unknown) (unknown) (no (unknown) (unknown) Mode of arrival: (units (unknown) date) Ambulatory unknown) (unknown) (no (unknown) (unknown) [place] # (Auto) (units ( unknown) date) (0-900) /uL unknown) (unknown) (no (unknown) (unknown) [place] # (Auto) 500 (units (unknown) date) (0-900) /uL unknown) (unknown) (no (unknown) (unknown) [place] % (Auto) (units ( unknown) date) (3-14) % unknown) (unknown) (no (unknown) (unknown) [place] % (Auto) 10.0 (units (unknown) date) (3-14) % unknown) (unknown) (no (unknown) (unknown) Mother (units (unknown) date) Cancer unknown) (unknown) (no (unknown) (unknown) Neut # (Auto) (units ( unknown) date) (8831-6785) /uL unknown) (unknown) (no (unknown) (unknown) Neut # (Auto) 3200 (units (unknown) date) (6955-9470) /uL unknown) (unknown) (no (unknown) (unknown) Neut % (Auto) (units ( unknown) date) (50-75) % unknown) (unknown) (no (unknown) (unknown) Neut % (Auto) 68.8 (units (unknown) date) (50-75) % unknown) (unknown) (no (unknown) (unknown) No Action (units (unkn own) date) unknown) (unknown) (no (unknown) (unknown) Ordered: (units (unkno wn) date) unknown) (unknown) (no (unknown) (unknown) Orders (units (unkno wn) date) unknown) (unknown) (no (unknown) (unknown) Other Casts (units (un known) date) Cancelled unknown) (unknown) (no (unknown) (unknown) Other Casts (units (un known) date) unknown) (unknown) (no (unknown) (unknown) Other Crystals (units (unknown) date) Cancelled unknown) (unknown) (no (unknown) (unknown) Other Crystals (units (unknown) date) unknown) (unknown) (no (unknown) (unknown) Oxygen Delivery (units (unknown) date) Method 11/13/22 unknown) 17:23 (unknown) (no (unknown) (unknown) Oxygen Delivery (units (unknown) date) Method Room Air unknown) (unknown) (no (unknown) (unknown) Patient History (units (unknown) date) unknown) (unknown) (no (unknown) (unknown) Patient denies (units (unknown) date) medical problems unknown) (unknown) (no (unknown) (unknown) Patient: (units (unkno wn) date) Layne Avendano N unknown) MR#: [id number] (unknown) (no (unknown) (unknown) Peripheral (units (unk nown) date) neuropathy unknown) (unknown) (no (unknown) (unknown) Ian Roland DO (units (unknown) date) [Primary Care unknown) Provider] (unknown) (no (unknown) (unknown) Plt Count (units (unkn own) date) (150-400) X103/uL unknown) (unknown) (no (unknown) (unknown) Plt Count 174 (units ( unknown) date) (150-400) X103/uL unknown) (unknown) (no (unknown) (unknown) Potassium (units (unkn own) date) (3.4-5.1) mmol/L unknown) (unknown) (no (unknown) (unknown) Potassium 3.9 (units ( unknown) date) (3.4-5.1) mmol/L unknown) (unknown) (no (unknown) (unknown) Test (units (unknown) date) Urine Stat unknown) (unknown) (no (unknown) (unknown) Prescriptions: (units (unknown) date) unknown) (unknown) (no (unknown) (unknown) Previous Rx's (units ( unknown) date) unknown) (unknown) (no (unknown) (unknown) Pulse Oximetry 99 (units (unknown) date) 11/13/22 17:23 unknown) (unknown) (no (unknown) (unknown) Pulse Oximetry 99 (units (unknown) date) unknown) (unknown) (no (unknown) (unknown) Pulse Rate 75 (units ( unknown) date) 11/13/22 17:23 unknown) (unknown) (no (unknown) (unknown) Pulse Rate 75 (units ( unknown) date) unknown) (unknown) (no (unknown) (unknown) RBC (4.0-5.2) (units ( unknown) date) X106/uL unknown) (unknown) (no (unknown) (unknown) RBC 4.52 (4.0-5.2) (units (unknown) date) X106/uL unknown) (unknown) (no (unknown) (unknown) RBC Casts (units (unkn own) date) Cancelled unknown) (unknown) (no (unknown) (unknown) RBC Casts (units (unkn own) date) unknown) (unknown) (no (unknown) (unknown) RDW (11.6-14.8) % (units (unknown) date) unknown) (unknown) (no (unknown) (unknown) RDW 13.3 (units (unkno wn) date) (11.6-14.8) % unknown) (unknown) (no (unknown) (unknown) Referrals: (units (unk nown) date) unknown) (unknown) (no (unknown) (unknown) Related Data (units (u nknown) date) unknown) (unknown) (no (unknown) (unknown) Respiratory Rate (units (unknown) date) 18 11/13/22 17:23 unknown) (unknown) (no (unknown) (unknown) Respiratory Rate (units (unknown) date) 18 unknown) (unknown) (no (unknown) (unknown) Rx Instructions: (units (unknown) date) unknown) (unknown) (no (unknown) (unknown) See Rx (units (unkno wn) date) Instructions .ROUTE unknown) .COMPLEX Qty: 30 1RF (unknown) (no (unknown) (unknown) Shortness of (units (u nknown) date) breath (06/2020) unknown) (unknown) (no (unknown) (unknown) Signed By: (units (unk nown) date) unknown) (unknown) (no (unknown) (unknown) Smoking Status: (units (unknown) date) Former smoker unknown) (unknown) (no (unknown) (unknown) Social History (units (unknown) date) (Reviewed 02/01/22 unknown) @ 02:04 by Valorie Encinas DO) (unknown) (no (unknown) (unknown) Sodium (137-145) (units (unknown) date) mmol/L unknown) (unknown) (no (unknown) (unknown) Sodium 134 L (units (u nknown) date) (137-145) mmol/L unknown) (unknown) (no (unknown) (unknown) Source: patient (units (unknown) date) unknown) (unknown) (no (unknown) (unknown) Stated Complaint: (units (unknown) date) TORSO PAIN, unknown) NUMBNESS, FELLS LIKE INSIDES SWELLING (unknown) (no (unknown) (unknown) Substance Use (units ( unknown) date) Type: does not use unknown) (unknown) (no (unknown) (unknown) TAKE ONE TABLET BY (units (unknown) date) MOUTH ONE TIME unknown) DAILY (unknown) (no (unknown) (unknown) TSH [Thyroid (units (u nknown) date) Stimulating unknown) Hormone] Stat (unknown) (no (unknown) (unknown) Temperature 98 F (units (unknown) date) 11/13/22 17:23 unknown) (unknown) (no (unknown) (unknown) Temperature 98 F (units (unknown) date) unknown) (unknown) (no (unknown) (unknown) Time Seen by (units (u nknown) date) Provider: 11/13/22 unknown) 18:14 (unknown) (no (unknown) (unknown) Total Bilirubin (units (unknown) date) (0.2-1.3) mg/dL unknown) (unknown) (no (unknown) (unknown) Total Bilirubin (units (unknown) date) 3.0 H (0.2-1.3) unknown) mg/dL (unknown) (no (unknown) (unknown) Total Creatine (units (unknown) date) Kinase (30-135) U/L unknown) (unknown) (no (unknown) (unknown) Total Creatine (units (unknown) date) Kinase 96 (30-135) unknown) U/L (unknown) (no (unknown) (unknown) Total Protein (units ( unknown) date) (6.3-8.2) g/dL unknown) (unknown) (no (unknown) (unknown) Total Protein 8.6 (units (unknown) date) H (6.3-8.2) g/dL unknown) (unknown) (no (unknown) (unknown) Tremors of nervous (units (unknown) date) system (06/2020) unknown) (unknown) (no (unknown) (unknown) Triple Phos (units (un known) date) Crystals Cancelled unknown) (unknown) (no (unknown) (unknown) Triple Phos (units (un known) date) Crystals unknown) (unknown) (no (unknown) (unknown) Troponin + CK (units ( unknown) date) Cardiac Panel Stat unknown) (unknown) (no (unknown) (unknown) US abdomen limited (units (unknown) date) Stat unknown) (unknown) (no (unknown) (unknown) Ur Bilirubin (units (u nknown) date) Confirm (Negative) unknown) (unknown) (no (unknown) (unknown) Ur Bilirubin (units (u nknown) date) Confirm Positive H unknown) (Negative) (unknown) (no (unknown) (unknown) Ur Culture (units (unk nown) date) Indicated? unknown) Cancelled (unknown) (no (unknown) (unknown) Ur Culture (units (unk nown) date) Indicated? unknown) (unknown) (no (unknown) (unknown) Ur Leukocyte (units (u nknown) date) Esterase (NEGATIVE) unknown) (unknown) (no (unknown) (unknown) Ur Leukocyte (units (u nknown) date) Esterase Negative unknown) (NEGATIVE) (unknown) (no (unknown) (unknown) Ur Renal (units (unkno wn) date) Epithelial Cell unknown) Cancelled (unknown) (no (unknown) (unknown) Ur Renal (units (unkno wn) date) Epithelial Cell unknown) (unknown) (no (unknown) (unknown) Ur Specific (units (un known) date) [place] unknown) (1.000-1.035) (unknown) (no (unknown) (unknown) Ur Specific (units (un known) date) [place] 1.025 unknown) (1.000-1.035) (unknown) (no (unknown) (unknown) Ur Squamous Epith (units (unknown) date) Cells Cancelled unknown) 5-10 /hpf H (unknown) (no (unknown) (unknown) Ur Squamous Epith (units (unknown) date) Cells unknown) (unknown) (no (unknown) (unknown) Ur Transition (units ( unknown) date) Epith Cell unknown) Cancelled (unknown) (no (unknown) (unknown) Ur Transition (units ( unknown) date) Epith Cell unknown) (unknown) (no (unknown) (unknown) Uric Acid Crystals (units (unknown) date) Cancelled unknown) (unknown) (no (unknown) (unknown) Uric Acid Crystals (units (unknown) date) unknown) (unknown) (no (unknown) (unknown) Urinalysis and (units (unknown) date) Microscopic Stat unknown) (unknown) (no (unknown) (unknown) Urine Appearance (units (unknown) date) Slightly cloudy unknown) (unknown) (no (unknown) (unknown) Urine Appearance (units (unknown) date) unknown) (unknown) (no (unknown) (unknown) Urine Bacteria (units (unknown) date) Cancelled Moderate unknown) (10-30) H (unknown) (no (unknown) (unknown) Urine Bacteria (units (unknown) date) unknown) (unknown) (no (unknown) (unknown) Urine Bilirubin (units (unknown) date) (NEGATIVE) unknown) (unknown) (no (unknown) (unknown) Urine Bilirubin 2+ (units (unknown) date) H (NEGATIVE) unknown) (unknown) (no (unknown) (unknown) Urine Color Dark (units (unknown) date) yellow unknown) (unknown) (no (unknown) (unknown) Urine Color (units (un known) date) unknown) (unknown) (no (unknown) (unknown) Urine Culture Stat (units (unknown) date) unknown) (unknown) (no (unknown) (unknown) Urine Glucose (UA) (units (unknown) date) (Negative) g/dL unknown) (unknown) (no (unknown) (unknown) Urine Glucose (UA) (units (unknown) date) Negative (Negative) unknown) g/dL (unknown) (no (unknown) (unknown) Urine Ketones (units ( unknown) date) (NEGATIVE) unknown) (unknown) (no (unknown) (unknown) Urine Ketones 3+ H (units (unknown) date) (NEGATIVE) unknown) (unknown) (no (unknown) (unknown) Urine Mucus (units (un known) date) Cancelled 3+ H unknown) (unknown) (no (unknown) (unknown) Urine Mucus (units (un known) date) unknown) (unknown) (no (unknown) (unknown) Urine Nitrate (units ( unknown) date) (Negative) unknown) (unknown) (no (unknown) (unknown) Urine Nitrate (units ( unknown) date) Positive H unknown) (Negative) (unknown) (no (unknown) (unknown) Urine Occult Blood (units (unknown) date) (Negative) unknown) (unknown) (no (unknown) (unknown) Urine Occult Blood (units (unknown) date) Negative (Negative) unknown) (unknown) (no (unknown) (unknown) Urine (units (unknown) date) Test (Negative) unknown) (unknown) (no (unknown) (unknown) Urine (units (unknown) date) Test Negative unknown) (Negative) (unknown) (no (unknown) (unknown) Urine Protein (units ( unknown) date) (Negative) unknown) (unknown) (no (unknown) (unknown) Urine Protein 1+ H (units (unknown) date) (Negative) unknown) (unknown) (no (unknown) (unknown) Urine RBC (units (unkn own) date) Cancelled None seen unknown) (unknown) (no (unknown) (unknown) Urine RBC (units (unkn own) date) unknown) (unknown) (no (unknown) (unknown) Urine Sperm (units (un known) date) Cancelled unknown) (unknown) (no (unknown) (unknown) Urine Sperm (units (un known) date) unknown) (unknown) (no (unknown) (unknown) Urine Trichomonas (units (unknown) date) Cancelled unknown) (unknown) (no (unknown) (unknown) Urine Trichomonas (units (unknown) date) unknown) (unknown) (no (unknown) (unknown) Urine Urobilinogen (units (unknown) date) (0.2) E.U./dL unknown) (unknown) (no (unknown) (unknown) Urine Urobilinogen (units (unknown) date) 1.0 (0.2) E.U./dL unknown) (unknown) (no (unknown) (unknown) Urine WBC (units (unkn own) date) Cancelled 5-10/hpf unknown) H (unknown) (no (unknown) (unknown) Urine WBC (units (unkn own) date) unknown) (unknown) (no (unknown) (unknown) Urine Yeast (units (un known) date) Cancelled unknown) (unknown) (no (unknown) (unknown) Urine Yeast (units (un known) date) unknown) (unknown) (no (unknown) (unknown) Urine pH (4.5-8.0) (units (unknown) date) unknown) (unknown) (no (unknown) (unknown) Urine pH 6.0 (units (u nknown) date) (4.5-8.0) unknown) (unknown) (no (unknown) (unknown) Vital Signs - 8 hr (units (unknown) date) unknown) (unknown) (no (unknown) (unknown) Vital Signs (units (un known) date) unknown) (unknown) (no (unknown) (unknown) Vital signs: (units (u nknown) date) unknown) (unknown) (no (unknown) (unknown) WBC (4.5-11.0) (units (unknown) date) X103/uL unknown) (unknown) (no (unknown) (unknown) WBC 4.7 (4.5-11.0) (units (unknown) date) X103/uL unknown) (unknown) (no (unknown) (unknown) WBC Casts (units (unkn own) date) Cancelled unknown) (unknown) (no (unknown) (unknown) WBC Casts (units (unkn own) date) unknown) (unknown) (no (unknown) (unknown) [Embedded Image (units (unknown) date) Not Available] unknown) (unknown) (no (unknown) (unknown) [From Bactrim] (units (unknown) date) unknown) (unknown) (no (unknown) (unknown) alcohol intake (units (unknown) date) frequency: a few unknown) times a week (unknown) (no (unknown) (unknown) alcohol intake: (units (unknown) date) current unknown) (unknown) (no (unknown) (unknown) disease, tremors (units (unknown) date) of the nervous unknown) system presents to the ED with 2 months of (unknown) (no (unknown) (unknown) duloxetine 30 mg (units (unknown) date) capsule,delayed 30 unknown) mg PO DAILY #90 caps 03/29/22 (unknown) (no (unknown) (unknown) duloxetine 30 mg (units (unknown) date) capsule,delayed unknown) release(DR/EC) (unknown) (no (unknown) (unknown) folic acid 1 mg (units (unknown) date) tablet See Rx unknown) Instructions .Route 04/01/22 (unknown) (no (unknown) (unknown) folic acid 1 mg (units (unknown) date) tablet unknown) (unknown) (no (unknown) (unknown) household members: (units (unknown) date) significant other unknown) and children (unknown) (no (unknown) (unknown) hydroxyzine (units (un known) date) pamoate 25 mg unknown) capsule 25 mg PO Q6HR PRN Anxiety #60 caps 03/29/22 (unknown) (no (unknown) (unknown) hydroxyzine (units (un known) date) pamoate 25 mg unknown) capsule (unknown) (no (unknown) (unknown) peripheral (units (unk nown) date) neuropathy, unknown) Jim's disease, alcohol use disorder, fatty liver (unknown) (no (unknown) (unknown) release (units (unkno wn) date) unknown) (unknown) (no (unknown) (unknown) second hand (units (un known) date) exposure: Yes unknown) (unknown) (no (unknown) (unknown) substance use (units ( unknown) date) type: does not use unknown) (unknown) (no (unknown) (unknown) sulfamethoxazole (units (unknown) date) Allergy Severe unknown) Anaphylaxis Verified 07/20/22 09:43 (unknown) (no (unknown) (unknown) tablet (units (unkno wn) date) unknown) (unknown) (no (unknown) (unknown) thiamine HCl (units (u nknown) date) (vitamin B1) 100 mg unknown) 100 mg PO DAILY #30 tabs 03/29/22 (unknown) (no (unknown) (unknown) thiamine HCl (units (u nknown) date) (vitamin B1) 100 mg unknown) tablet (unknown) (no (unknown) (unknown) trazodone 50 mg (units (unknown) date) tablet 25 mg PO unknown) BEDTIME #30 tabs 03/29/22 (unknown) (no (unknown) (unknown) trazodone 50 mg (units (unknown) date) tablet unknown) (unknown) (no (unknown) (unknown) trimethoprim [From (units (unknown) date) Bactrim] Allergy unknown) Severe Anaphylaxis Verified 07/20/22 09:43 (unknown) (no (unknown) (unknown) worsening upper (units (unknown) date) abdominal pain. unknown) Result panel 469 (unknown) (no date) (unknown) (unknown) 3.50 uiu/ml (unkn own) Result panel 470 (unknown) (no (unknown) (unknown) (no value) (units (unk nown) date) unknown) (unknown) (no (unknown) (unknown) .COMPLEX #30 tabs (units (unknown) date) unknown) (unknown) (no (unknown) (unknown) 11/13/22 11/13/22 (units (unknown) date) 11/13/22 unknown) Range/Units (unknown) (no (unknown) (unknown) 11/13/22 17:30 (units (unknown) date) unknown) (unknown) (no (unknown) (unknown) 11/13/22 18:32 (units (unknown) date) unknown) (unknown) (no (unknown) (unknown) 11/13/22 18:39 (units (unknown) date) unknown) (unknown) (no (unknown) (unknown) 11/13/22 18:40 (units (unknown) date) unknown) (unknown) (no (unknown) (unknown) 11/13/22 19:14 (units (unknown) date) unknown) (unknown) (no (unknown) (unknown) 11/13/22 (units (unkno wn) date) unknown) (unknown) (no (unknown) (unknown) [id number] (units (unkno wn) date) unknown) (unknown) (no (unknown) (unknown) 100 mg PO DAILY (units (unknown) date) Qty: 30 3RF unknown) (unknown) (no (unknown) (unknown) 17:23 (units (unkno wn) date) unknown) (unknown) (no (unknown) (unknown) 17:30 17:30 17:30 (units (unknown) date) unknown) (unknown) (no (unknown) (unknown) 18:32 18:32 18:32 (units (unknown) date) unknown) (unknown) (no (unknown) (unknown) 25 mg PO BEDTIME (units (unknown) date) Qty: 30 1RF unknown) (unknown) (no (unknown) (unknown) 25 mg PO Q6HR PRN (units (unknown) date) (Reason: Anxiety) unknown) Qty: 60 1RF (unknown) (no (unknown) (unknown) 30 mg PO DAILY (units (unknown) date) Qty: 90 1RF unknown) (unknown) (no (unknown) (unknown) 42-year-old female (units (unknown) date) with past medical unknown) history generalized anxiety disorder, (unknown) (no (unknown) (unknown) ALT (<35) IU/L (units (unknown) date) unknown) (unknown) (no (unknown) (unknown) ALT 76 H (<35) (units (unknown) date) IU/L unknown) (unknown) (no (unknown) (unknown) AST (14-36) IU/L (units (unknown) date) unknown) (unknown) (no (unknown) (unknown) AST 89 H (14-36) (units (unknown) date) IU/L unknown) (unknown) (no (unknown) (unknown) Acquired (units (unkno wn) date) hypothyroidism unknown) (unknown) (no (unknown) (unknown) Age/Sex: 42 / F (units (unknown) date) unknown) (unknown) (no (unknown) (unknown) Albumin (3.5-5.0) (units (unknown) date) g/dL unknown) (unknown) (no (unknown) (unknown) Albumin 5.1 H (units ( unknown) date) (3.5-5.0) g/dL unknown) (unknown) (no (unknown) (unknown) Albumin/Globulin (units (unknown) date) Ratio (1.0-2.8) unknown) (unknown) (no (unknown) (unknown) Albumin/Globulin (units (unknown) date) Ratio 1.5 (1.0-2.8) unknown) (unknown) (no (unknown) (unknown) Alcohol type: beer (units (unknown) date) unknown) (unknown) (no (unknown) (unknown) Alcohol use (units (un known) date) unknown) (unknown) (no (unknown) (unknown) Alkaline (units (unkno wn) date) Phosphatase unknown) (38-126) U/L (unknown) (no (unknown) (unknown) Alkaline (units (unkno wn) date) Phosphatase 61 unknown) (38-126) U/L (unknown) (no (unknown) (unknown) Allergies (units (unkn own) date) unknown) (unknown) (no (unknown) (unknown) Allergy/AdvReac (units (unknown) date) Type Severity unknown) Reaction Status Date / Time (unknown) (no (unknown) (unknown) Amorphous Sediment (units (unknown) date) Cancelled 1 unknown) (unknown) (no (unknown) (unknown) Amorphous Sediment (units (unknown) date) unknown) (unknown) (no (unknown) (unknown) BUN (7-17) mg/dL (units (unknown) date) unknown) (unknown) (no (unknown) (unknown) BUN 10 (7-17) (units ( unknown) date) mg/dL unknown) (unknown) (no (unknown) (unknown) BUN/Creatinine (units (unknown) date) Ratio (6-22) unknown) (unknown) (no (unknown) (unknown) BUN/Creatinine (units (unknown) date) Ratio 16.1 (6-22) unknown) (unknown) (no (unknown) (unknown) Baso # (Auto) (units ( unknown) date) (0-100) /uL unknown) (unknown) (no (unknown) (unknown) Baso # (Auto) 0 (units (unknown) date) (0-100) /uL unknown) (unknown) (no (unknown) (unknown) Baso % (Auto) (units ( unknown) date) (0-2) % unknown) (unknown) (no (unknown) (unknown) Baso % (Auto) 0.5 (units (unknown) date) (0-2) % unknown) (unknown) (no (unknown) (unknown) Blood Pressure (units (unknown) date) 172/99 H 11/13/22 unknown) 17:23 (unknown) (no (unknown) (unknown) Blood Pressure (units (unknown) date) 172/99 H unknown) (unknown) (no (unknown) (unknown) Breast mass in (units (unknown) date) female unknown) (unknown) (no (unknown) (unknown) CK-MB (CK-2) Rel (units (unknown) date) Index TNP unknown) (unknown) (no (unknown) (unknown) CK-MB (CK-2) Rel (units (unknown) date) Index unknown) (unknown) (no (unknown) (unknown) CK-MB (CK-2) TNP (units (unknown) date) unknown) (unknown) (no (unknown) (unknown) CK-MB (CK-2) (units (u nknown) date) unknown) (unknown) (no (unknown) (unknown) CT abdomen pelvis (units (unknown) date) w con Stat unknown) (unknown) (no (unknown) (unknown) Calcium (8.4-10.2) (units (unknown) date) mg/dL unknown) (unknown) (no (unknown) (unknown) Calcium 9.7 (units (un known) date) (8.4-10.2) mg/dL unknown) (unknown) (no (unknown) (unknown) Calcium Oxalate (units (unknown) date) Crystal Cancelled unknown) (unknown) (no (unknown) (unknown) Calcium Oxalate (units (unknown) date) Crystal unknown) (unknown) (no (unknown) (unknown) Carbon Dioxide (units (unknown) date) (22-32) mmol/L unknown) (unknown) (no (unknown) (unknown) Carbon Dioxide 23 (units (unknown) date) (22-32) mmol/L unknown) (unknown) (no (unknown) (unknown) Chief Complaint: (units (unknown) date) Abdominal Pain unknown) (unknown) (no (unknown) (unknown) Chloride (98-107) (units (unknown) date) mmol/L unknown) (unknown) (no (unknown) (unknown) Chloride 97 L (units ( unknown) date) (98-107) mmol/L unknown) (unknown) (no (unknown) (unknown) Complete Blood (units (unknown) date) Count AUTO DIFF unknown) Stat (unknown) (no (unknown) (unknown) Comprehensive (units ( unknown) date) Metabolic Panel unknown) Stat (unknown) (no (unknown) (unknown) Course (units (unkno wn) date) unknown) (unknown) (no (unknown) (unknown) Creatinine (units (unk nown) date) (0.52-1.04) mg/dL unknown) (unknown) (no (unknown) (unknown) Creatinine 0.62 (units (unknown) date) (0.52-1.04) mg/dL unknown) (unknown) (no (unknown) (unknown) : 1980 (units (unknown) date) Acct:[id number] unknown) (unknown) (no (unknown) (unknown) Date of Service: (units (unknown) date) 11/13/22 unknown) (unknown) (no (unknown) (unknown) Departure (units (unkn own) date) unknown) (unknown) (no (unknown) (unknown) Discharge Plan (units (unknown) date) unknown) (unknown) (no (unknown) (unknown) Dose Instruction: (units (unknown) date) unknown) (unknown) (no (unknown) (unknown) ED Orders (units (unkn own) date) unknown) (unknown) (no (unknown) (unknown) EKG-12 Lead Stat (units (unknown) date) unknown) (unknown) (no (unknown) (unknown) ER Physician: (units ( unknown) date) Philip Chen P.A-C unknown) (unknown) (no (unknown) (unknown) Elevated blood (units (unknown) date) protein unknown) (unknown) (no (unknown) (unknown) Elevated liver (units (unknown) date) enzymes unknown) (unknown) (no (unknown) (unknown) Emergency Report (units (unknown) date) unknown) (unknown) (no (unknown) (unknown) Eos # (Auto) (units (u nknown) date) (0-450) /uL unknown) (unknown) (no (unknown) (unknown) Eos # (Auto) 200 (units (unknown) date) (0-450) /uL unknown) (unknown) (no (unknown) (unknown) Eos % (Auto) (2-4) (units (unknown) date) % unknown) (unknown) (no (unknown) (unknown) Eos % (Auto) 4.8 H (units (unknown) date) (2-4) % unknown) (unknown) (no (unknown) (unknown) Estimated GFR > 60 (units (unknown) date) (>60) mL/min unknown) (unknown) (no (unknown) (unknown) Estimated GFR (units ( unknown) date) (>60) mL/min unknown) (unknown) (no (unknown) (unknown) Exam (units (unkno wn) date) unknown) (unknown) (no (unknown) (unknown) Family History (units (unknown) date) (Reviewed 03/29/22 unknown) @ 17:15 by Ian Roland DO) (unknown) (no (unknown) (unknown) Father Diabetes (units (unknown) date) mellitus unknown) (unknown) (no (unknown) (unknown) 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, unknown) nonalcoholic (unknown) (no (unknown) (unknown) General (units (unkno wn) date) unknown) (unknown) (no (unknown) (unknown) 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 unknown) (unknown) (no (unknown) (unknown) Globulin (1.7-4.1) (units (unknown) date) g/dL unknown) (unknown) (no (unknown) (unknown) Globulin 3.5 (units (u nknown) date) (1.7-4.1) g/dL unknown) (unknown) (no (unknown) (unknown) Glucose (70-100) (units (unknown) date) mg/dL unknown) (unknown) (no (unknown) (unknown) Glucose 107 H (units ( unknown) date) (70-100) mg/dL unknown) (unknown) (no (unknown) (unknown) Grandfather (units (un known) date) Kidney unknown) failure (unknown) (no (unknown) (unknown) Grandmother (units (un known) date) Cancer unknown) (unknown) (no (unknown) (unknown) Granular Casts (units (unknown) date) Cancelled 1-5/lpf unknown) (unknown) (no (unknown) (unknown) Granular Casts (units (unknown) date) unknown) (unknown) (no (unknown) (unknown) HPI - Abdominal (units (unknown) date) Pain unknown) (unknown) (no (unknown) (unknown) HPI narrative: (units (unknown) date) unknown) (unknown) (no (unknown) (unknown) 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) (unknown) (no (unknown) (unknown) Hct (36-46) % (units ( unknown) date) unknown) (unknown) (no (unknown) (unknown) Hct 42.9 (36-46) % (units (unknown) date) unknown) (unknown) (no (unknown) (unknown) Hgb (12.0-16.0) (units (unknown) date) g/dL unknown) (unknown) (no (unknown) (unknown) Hgb 14.7 (units (unkno wn) date) (12.0-16.0) g/dL unknown) (unknown) (no (unknown) (unknown) History of Present (units (unknown) date) Illness unknown) (unknown) (no (unknown) (unknown) Hyaline Casts (units ( unknown) date) Cancelled 1-5/lpf unknown) (unknown) (no (unknown) (unknown) Hyaline Casts (units ( unknown) date) unknown) (unknown) (no (unknown) (unknown) Ictotest Urine (units (unknown) date) Stat unknown) (unknown) (no (unknown) (unknown) Initial Vital (units ( unknown) date) Signs unknown) (unknown) (no (unknown) (unknown) Initial Vital (units ( unknown) date) Signs: unknown) (unknown) (no (unknown) (unknown) Insomnia (units (unkno wn) date) unknown) (unknown) (no (unknown) (unknown) [facility] (units (unknown) date) [address] [place] [address] unknown) [place] [address] (unknown) (no (unknown) (unknown) Lab Data (units (unkno wn) date) unknown) (unknown) (no (unknown) (unknown) Lab Results (units (un known) date) unknown) (unknown) (no (unknown) (unknown) Labs: (units (unkno wn) date) unknown) (unknown) (no (unknown) (unknown) Lipase (23-300) (units (unknown) date) U/L unknown) (unknown) (no (unknown) (unknown) Lipase 153 (units (unk nown) date) (23-300) U/L unknown) (unknown) (no (unknown) (unknown) Lipase Stat (units (un known) date) unknown) (unknown) (no (unknown) (unknown) Lymph # (Auto) (units (unknown) date) (0492-3800) /uL unknown) (unknown) (no (unknown) (unknown) Lymph # (Auto) 700 (units (unknown) date) L (5830-5405) /uL unknown) (unknown) (no (unknown) (unknown) Lymph % (Auto) (units (unknown) date) (25-40) % unknown) (unknown) (no (unknown) (unknown) Lymph % (Auto) (units (unknown) date) 15.9 L (25-40) % unknown) (unknown) (no (unknown) (unknown) MCH (26-34) PG (units (unknown) date) unknown) (unknown) (no (unknown) (unknown) MCH 32.5 (26-34) (units (unknown) date) PG unknown) (unknown) (no (unknown) (unknown) MCHC (30-36) % (units (unknown) date) unknown) (unknown) (no (unknown) (unknown) MCHC 34.3 (30-36) (units (unknown) date) % unknown) (unknown) (no (unknown) (unknown) MCV (80-100) fL (units (unknown) date) unknown) (unknown) (no (unknown) (unknown) MCV 94.8 (80-100) (units (unknown) date) fL unknown) (unknown) (no (unknown) (unknown) MDM - Abdominal (units (unknown) date) Pain unknown) (unknown) (no (unknown) (unknown) Medical History (units (unknown) date) (Updated 08/04/22 @ unknown) 00:00 by ) (unknown) (no (unknown) (unknown) Medication (units (unk nown) date) Instructions unknown) Recorded (unknown) (no (unknown) (unknown) Micro UA Comment (units (unknown) date) Cancelled unknown) (unknown) (no (unknown) (unknown) Micro UA Comment (units (unknown) date) unknown) (unknown) (no (unknown) (unknown) Mode of arrival: (units (unknown) date) Ambulatory unknown) (unknown) (no (unknown) (unknown) [place] # (Auto) (units ( unknown) date) (0-900) /uL unknown) (unknown) (no (unknown) (unknown) [place] # (Auto) 500 (units (unknown) date) (0-900) /uL unknown) (unknown) (no (unknown) (unknown) [place] % (Auto) (units ( unknown) date) (3-14) % unknown) (unknown) (no (unknown) (unknown) [place] % (Auto) 10.0 (units (unknown) date) (3-14) % unknown) (unknown) (no (unknown) (unknown) Mother (units (unknown) date) Cancer unknown) (unknown) (no (unknown) (unknown) Neut # (Auto) (units ( unknown) date) (4698-0292) /uL unknown) (unknown) (no (unknown) (unknown) Neut # (Auto) 3200 (units (unknown) date) (5463-7958) /uL unknown) (unknown) (no (unknown) (unknown) Neut % (Auto) (units ( unknown) date) (50-75) % unknown) (unknown) (no (unknown) (unknown) Neut % (Auto) 68.8 (units (unknown) date) (50-75) % unknown) (unknown) (no (unknown) (unknown) No Action (units (unkn own) date) unknown) (unknown) (no (unknown) (unknown) Ordered: (units (unkno wn) date) unknown) (unknown) (no (unknown) (unknown) Orders (units (unkno wn) date) unknown) (unknown) (no (unknown) (unknown) Other Casts (units (un known) date) Cancelled unknown) (unknown) (no (unknown) (unknown) Other Casts (units (un known) date) unknown) (unknown) (no (unknown) (unknown) Other Crystals (units (unknown) date) Cancelled unknown) (unknown) (no (unknown) (unknown) Other Crystals (units (unknown) date) unknown) (unknown) (no (unknown) (unknown) Oxygen Delivery (units (unknown) date) Method 11/13/22 unknown) 17:23 (unknown) (no (unknown) (unknown) Oxygen Delivery (units (unknown) date) Method Room Air unknown) (unknown) (no (unknown) (unknown) Patient History (units (unknown) date) unknown) (unknown) (no (unknown) (unknown) Patient denies (units (unknown) date) medical problems unknown) (unknown) (no (unknown) (unknown) Patient: (units (unkno wn) date) Layne Avendano N unknown) MR#: [id number] (unknown) (no (unknown) (unknown) Peripheral (units (unk nown) date) neuropathy unknown) (unknown) (no (unknown) (unknown) Ian Roland, DO (units (unknown) date) [Primary Care unknown) Provider] (unknown) (no (unknown) (unknown) Plt Count (units (unkn own) date) (150-400) X103/uL unknown) (unknown) (no (unknown) (unknown) Plt Count 174 (units ( unknown) date) (150-400) X103/uL unknown) (unknown) (no (unknown) (unknown) Potassium (units (unkn own) date) (3.4-5.1) mmol/L unknown) (unknown) (no (unknown) (unknown) Potassium 3.9 (units ( unknown) date) (3.4-5.1) mmol/L unknown) (unknown) (no (unknown) (unknown) Test (units (unknown) date) Urine Stat unknown) (unknown) (no (unknown) (unknown) Prescriptions: (units (unknown) date) unknown) (unknown) (no (unknown) (unknown) Previous Rx's (units ( unknown) date) unknown) (unknown) (no (unknown) (unknown) Pulse Oximetry 99 (units (unknown) date) 11/13/22 17:23 unknown) (unknown) (no (unknown) (unknown) Pulse Oximetry 99 (units (unknown) date) unknown) (unknown) (no (unknown) (unknown) Pulse Rate 75 (units ( unknown) date) 11/13/22 17:23 unknown) (unknown) (no (unknown) (unknown) Pulse Rate 75 (units ( unknown) date) unknown) (unknown) (no (unknown) (unknown) RBC (4.0-5.2) (units ( unknown) date) X106/uL unknown) (unknown) (no (unknown) (unknown) RBC 4.52 (4.0-5.2) (units (unknown) date) X106/uL unknown) (unknown) (no (unknown) (unknown) RBC Casts (units (unkn own) date) Cancelled unknown) (unknown) (no (unknown) (unknown) RBC Casts (units (unkn own) date) unknown) (unknown) (no (unknown) (unknown) RDW (11.6-14.8) % (units (unknown) date) unknown) (unknown) (no (unknown) (unknown) RDW 13.3 (units (unkno wn) date) (11.6-14.8) % unknown) (unknown) (no (unknown) (unknown) Referrals: (units (unk nown) date) unknown) (unknown) (no (unknown) (unknown) Related Data (units (u nknown) date) unknown) (unknown) (no (unknown) (unknown) Respiratory Rate (units (unknown) date) 18 11/13/22 17:23 unknown) (unknown) (no (unknown) (unknown) Respiratory Rate (units (unknown) date) 18 unknown) (unknown) (no (unknown) (unknown) Rx Instructions: (units (unknown) date) unknown) (unknown) (no (unknown) (unknown) See Rx (units (unkno wn) date) Instructions .ROUTE unknown) .COMPLEX Qty: 30 1RF (unknown) (no (unknown) (unknown) Shortness of (units (u nknown) date) breath (06/2020) unknown) (unknown) (no (unknown) (unknown) Signed By: (units (unk nown) date) unknown) (unknown) (no (unknown) (unknown) Smoking Status: (units (unknown) date) Former smoker unknown) (unknown) (no (unknown) (unknown) Social History (units (unknown) date) (Reviewed 02/01/22 unknown) @ 02:04 by Valorie Encinas DO) (unknown) (no (unknown) (unknown) Sodium (137-145) (units (unknown) date) mmol/L unknown) (unknown) (no (unknown) (unknown) Sodium 134 L (units (u nknown) date) (137-145) mmol/L unknown) (unknown) (no (unknown) (unknown) Source: patient (units (unknown) date) unknown) (unknown) (no (unknown) (unknown) Stated Complaint: (units (unknown) date) TOR[place] PAIN, unknown) NUMBNESS, FELLS LIKE INSIDES SWELLING (unknown) (no (unknown) (unknown) Substance Use (units ( unknown) date) Type: does not use unknown) (unknown) (no (unknown) (unknown) TAKE ONE TABLET BY (units (unknown) date) MOUTH ONE TIME unknown) DAILY (unknown) (no (unknown) (unknown) TSH [Thyroid (units (u nknown) date) Stimulating unknown) Hormone] Stat (unknown) (no (unknown) (unknown) Temperature 98 F (units (unknown) date) 11/13/22 17:23 unknown) (unknown) (no (unknown) (unknown) Temperature 98 F (units (unknown) date) unknown) (unknown) (no (unknown) (unknown) Time Seen by (units (u nknown) date) Provider: 11/13/22 unknown) 18:14 (unknown) (no (unknown) (unknown) Total Bilirubin (units (unknown) date) (0.2-1.3) mg/dL unknown) (unknown) (no (unknown) (unknown) Total Bilirubin (units (unknown) date) 3.0 H (0.2-1.3) unknown) mg/dL (unknown) (no (unknown) (unknown) Total Creatine (units (unknown) date) Kinase (30-135) U/L unknown) (unknown) (no (unknown) (unknown) Total Creatine (units (unknown) date) Kinase 96 (30-135) unknown) U/L (unknown) (no (unknown) (unknown) Total Protein (units ( unknown) date) (6.3-8.2) g/dL unknown) (unknown) (no (unknown) (unknown) Total Protein 8.6 (units (unknown) date) H (6.3-8.2) g/dL unknown) (unknown) (no (unknown) (unknown) Tremors of nervous (units (unknown) date) system (06/2020) unknown) (unknown) (no (unknown) (unknown) Triple Phos (units (un known) date) Crystals Cancelled unknown) (unknown) (no (unknown) (unknown) Triple Phos (units (un known) date) Crystals unknown) (unknown) (no (unknown) (unknown) Troponin + CK (units ( unknown) date) Cardiac Panel Stat unknown) (unknown) (no (unknown) (unknown) Troponin I < 0.012 (units (unknown) date) (0.01-0.034) ng/mL unknown) (unknown) (no (unknown) (unknown) Troponin I (units (unk nown) date) (0.01-0.034) ng/mL unknown) (unknown) (no (unknown) (unknown) US abdomen limited (units (unknown) date) Stat unknown) (unknown) (no (unknown) (unknown) Ur Bilirubin (units (u nknown) date) Confirm (Negative) unknown) (unknown) (no (unknown) (unknown) Ur Bilirubin (units (u nknown) date) Confirm Positive H unknown) (Negative) (unknown) (no (unknown) (unknown) Ur Culture (units (unk nown) date) Indicated? unknown) Cancelled (unknown) (no (unknown) (unknown) Ur Culture (units (unk nown) date) Indicated? unknown) (unknown) (no (unknown) (unknown) Ur Leukocyte (units (u nknown) date) Esterase (NEGATIVE) unknown) (unknown) (no (unknown) (unknown) Ur Leukocyte (units (u nknown) date) Esterase Negative unknown) (NEGATIVE) (unknown) (no (unknown) (unknown) Ur Renal (units (unkno wn) date) Epithelial Cell unknown) Cancelled (unknown) (no (unknown) (unknown) Ur Renal (units (unkno wn) date) Epithelial Cell unknown) (unknown) (no (unknown) (unknown) Ur Specific (units (un known) date) [place] unknown) (1.000-1.035) (unknown) (no (unknown) (unknown) Ur Specific (units (un known) date) [place] 1.025 unknown) (1.000-1.035) (unknown) (no (unknown) (unknown) Ur Squamous Epith (units (unknown) date) Cells Cancelled unknown) 5-10 /hpf H (unknown) (no (unknown) (unknown) Ur Squamous Epith (units (unknown) date) Cells unknown) (unknown) (no (unknown) (unknown) Ur Transition (units ( unknown) date) Epith Cell unknown) Cancelled (unknown) (no (unknown) (unknown) Ur Transition (units ( unknown) date) Epith Cell unknown) (unknown) (no (unknown) (unknown) Uric Acid Crystals (units (unknown) date) Cancelled unknown) (unknown) (no (unknown) (unknown) Uric Acid Crystals (units (unknown) date) unknown) (unknown) (no (unknown) (unknown) Urinalysis and (units (unknown) date) Microscopic Stat unknown) (unknown) (no (unknown) (unknown) Urine Appearance (units (unknown) date) Slightly cloudy unknown) (unknown) (no (unknown) (unknown) Urine Appearance (units (unknown) date) unknown) (unknown) (no (unknown) (unknown) Urine Bacteria (units (unknown) date) Cancelled Moderate unknown) (10-30) H (unknown) (no (unknown) (unknown) Urine Bacteria (units (unknown) date) unknown) (unknown) (no (unknown) (unknown) Urine Bilirubin (units (unknown) date) (NEGATIVE) unknown) (unknown) (no (unknown) (unknown) Urine Bilirubin 2+ (units (unknown) date) H (NEGATIVE) unknown) (unknown) (no (unknown) (unknown) Urine Color Dark (units (unknown) date) yellow unknown) (unknown) (no (unknown) (unknown) Urine Color (units (un known) date) unknown) (unknown) (no (unknown) (unknown) Urine Culture Stat (units (unknown) date) unknown) (unknown) (no (unknown) (unknown) Urine Glucose (UA) (units (unknown) date) (Negative) g/dL unknown) (unknown) (no (unknown) (unknown) Urine Glucose (UA) (units (unknown) date) Negative (Negative) unknown) g/dL (unknown) (no (unknown) (unknown) Urine Ketones (units ( unknown) date) (NEGATIVE) unknown) (unknown) (no (unknown) (unknown) Urine Ketones 3+ H (units (unknown) date) (NEGATIVE) unknown) (unknown) (no (unknown) (unknown) Urine Mucus (units (un known) date) Cancelled 3+ H unknown) (unknown) (no (unknown) (unknown) Urine Mucus (units (un known) date) unknown) (unknown) (no (unknown) (unknown) Urine Nitrate (units ( unknown) date) (Negative) unknown) (unknown) (no (unknown) (unknown) Urine Nitrate (units ( unknown) date) Positive H unknown) (Negative) (unknown) (no (unknown) (unknown) Urine Occult Blood (units (unknown) date) (Negative) unknown) (unknown) (no (unknown) (unknown) Urine Occult Blood (units (unknown) date) Negative (Negative) unknown) (unknown) (no (unknown) (unknown) Urine (units (unknown) date) Test (Negative) unknown) (unknown) (no (unknown) (unknown) Urine (units (unknown) date) Test Negative unknown) (Negative) (unknown) (no (unknown) (unknown) Urine Protein (units ( unknown) date) (Negative) unknown) (unknown) (no (unknown) (unknown) Urine Protein 1+ H (units (unknown) date) (Negative) unknown) (unknown) (no (unknown) (unknown) Urine RBC (units (unkn own) date) Cancelled None seen unknown) (unknown) (no (unknown) (unknown) Urine RBC (units (unkn own) date) unknown) (unknown) (no (unknown) (unknown) Urine Sperm (units (un known) date) Cancelled unknown) (unknown) (no (unknown) (unknown) Urine Sperm (units (un known) date) unknown) (unknown) (no (unknown) (unknown) Urine Trichomonas (units (unknown) date) Cancelled unknown) (unknown) (no (unknown) (unknown) Urine Trichomonas (units (unknown) date) unknown) (unknown) (no (unknown) (unknown) Urine Urobilinogen (units (unknown) date) (0.2) E.U./dL unknown) (unknown) (no (unknown) (unknown) Urine Urobilinogen (units (unknown) date) 1.0 (0.2) E.U./dL unknown) (unknown) (no (unknown) (unknown) Urine WBC (units (unkn own) date) Cancelled 5-10/hpf unknown) H (unknown) (no (unknown) (unknown) Urine WBC (units (unkn own) date) unknown) (unknown) (no (unknown) (unknown) Urine Yeast (units (un known) date) Cancelled unknown) (unknown) (no (unknown) (unknown) Urine Yeast (units (un known) date) unknown) (unknown) (no (unknown) (unknown) Urine pH (4.5-8.0) (units (unknown) date) unknown) (unknown) (no (unknown) (unknown) Urine pH 6.0 (units (u nknown) date) (4.5-8.0) unknown) (unknown) (no (unknown) (unknown) Vital Signs - 8 hr (units (unknown) date) unknown) (unknown) (no (unknown) (unknown) Vital Signs (units (un known) date) unknown) (unknown) (no (unknown) (unknown) Vital signs: (units (u nknown) date) unknown) (unknown) (no (unknown) (unknown) WBC (4.5-11.0) (units (unknown) date) X103/uL unknown) (unknown) (no (unknown) (unknown) WBC 4.7 (4.5-11.0) (units (unknown) date) X103/uL unknown) (unknown) (no (unknown) (unknown) WBC Casts (units (unkn own) date) Cancelled unknown) (unknown) (no (unknown) (unknown) WBC Casts (units (unkn own) date) unknown) (unknown) (no (unknown) (unknown) [Embedded Image (units (unknown) date) Not Available] unknown) (unknown) (no (unknown) (unknown) [From Bactrim] (units (unknown) date) unknown) (unknown) (no (unknown) (unknown) alcohol intake (units (unknown) date) frequency: a few unknown) times a week (unknown) (no (unknown) (unknown) alcohol intake: (units (unknown) date) current unknown) (unknown) (no (unknown) (unknown) disease, tremors (units (unknown) date) of the nervous unknown) system presents to the ED with 2 months of (unknown) (no (unknown) (unknown) duloxetine 30 mg (units (unknown) date) capsule,delayed 30 unknown) mg PO DAILY #90 caps 03/29/22 (unknown) (no (unknown) (unknown) duloxetine 30 mg (units (unknown) date) capsule,delayed unknown) release(DR/EC) (unknown) (no (unknown) (unknown) folic acid 1 mg (units (unknown) date) tablet See Rx unknown) Instructions .Route 04/01/22 (unknown) (no (unknown) (unknown) folic acid 1 mg (units (unknown) date) tablet unknown) (unknown) (no (unknown) (unknown) household members: (units (unknown) date) significant other unknown) and children (unknown) (no (unknown) (unknown) hydroxyzine (units (un known) date) pamoate 25 mg unknown) capsule 25 mg PO Q6HR PRN Anxiety #60 caps 03/29/22 (unknown) (no (unknown) (unknown) hydroxyzine (units (un known) date) pamoate 25 mg unknown) capsule (unknown) (no (unknown) (unknown) peripheral (units (unk nown) date) neuropathy, unknown) Jim's disease, alcohol use disorder, fatty liver (unknown) (no (unknown) (unknown) release (units (unkno wn) date) unknown) (unknown) (no (unknown) (unknown) second hand (units (un known) date) exposure: Yes unknown) (unknown) (no (unknown) (unknown) substance use (units ( unknown) date) type: does not use unknown) (unknown) (no (unknown) (unknown) sulfamethoxazole (units (unknown) date) Allergy Severe unknown) Anaphylaxis Verified 07/20/22 09:43 (unknown) (no (unknown) (unknown) tablet (units (unkno wn) date) unknown) (unknown) (no (unknown) (unknown) thiamine HCl (units (u nknown) date) (vitamin B1) 100 mg unknown) 100 mg PO DAILY #30 tabs 03/29/22 (unknown) (no (unknown) (unknown) thiamine HCl (units (u nknown) date) (vitamin B1) 100 mg unknown) tablet (unknown) (no (unknown) (unknown) trazodone 50 mg (units (unknown) date) tablet 25 mg PO unknown) BEDTIME #30 tabs 03/29/22 (unknown) (no (unknown) (unknown) trazodone 50 mg (units (unknown) date) tablet unknown) (unknown) (no (unknown) (unknown) trimethoprim [From (units (unknown) date) Bactrim] Allergy unknown) Severe Anaphylaxis Verified 07/20/22 09:43 (unknown) (no (unknown) (unknown) worsening upper (units (unknown) date) abdominal pain. unknown) Result panel 471 (unknown) (no (unknown) (unknown) (no value) (units (unk nown) date) unknown) (unknown) (no (unknown) (unknown) .COMPLEX #30 tabs (units (unknown) date) unknown) (unknown) (no (unknown) (unknown) 11/13/22 11/13/22 (units (unknown) date) 11/13/22 unknown) Range/Units (unknown) (no (unknown) (unknown) 11/13/22 17:30 (units (unknown) date) unknown) (unknown) (no (unknown) (unknown) 11/13/22 18:32 (units (unknown) date) unknown) (unknown) (no (unknown) (unknown) 11/13/22 18:39 (units (unknown) date) unknown) (unknown) (no (unknown) (unknown) 11/13/22 18:40 (units (unknown) date) unknown) (unknown) (no (unknown) (unknown) 11/13/22 19:14 (units (unknown) date) unknown) (unknown) (no (unknown) (unknown) 11/13/22 (units (unkno wn) date) Range/Units unknown) (unknown) (no (unknown) (unknown) 11/13/22 (units (unkno wn) date) unknown) (unknown) (no (unknown) (unknown) [id number] (units (unkno wn) date) unknown) (unknown) (no (unknown) (unknown) 100 mg PO DAILY (units (unknown) date) Qty: 30 3RF unknown) (unknown) (no (unknown) (unknown) 17:23 (units (unkno wn) date) unknown) (unknown) (no (unknown) (unknown) 17:30 17:30 17:30 (units (unknown) date) unknown) (unknown) (no (unknown) (unknown) 18:32 18:32 18:32 (units (unknown) date) unknown) (unknown) (no (unknown) (unknown) 18:32 (units (unkno wn) date) unknown) (unknown) (no (unknown) (unknown) 25 mg PO BEDTIME (units (unknown) date) Qty: 30 1RF unknown) (unknown) (no (unknown) (unknown) 25 mg PO Q6HR PRN (units (unknown) date) (Reason: Anxiety) unknown) Qty: 60 1RF (unknown) (no (unknown) (unknown) 30 mg PO DAILY (units (unknown) date) Qty: 90 1RF unknown) (unknown) (no (unknown) (unknown) 42-year-old female (units (unknown) date) with past medical unknown) history generalized anxiety disorder, (unknown) (no (unknown) (unknown) 02/11. Patient (units ( unknown) date) states that since unknown) then, she has reduced her drinking to 1 drink a (unknown) (no (unknown) (unknown) ALT (<35) IU/L (units (unknown) date) unknown) (unknown) (no (unknown) (unknown) ALT 76 H (<35) (units (unknown) date) IU/L unknown) (unknown) (no (unknown) (unknown) AST (14-36) IU/L (units (unknown) date) unknown) (unknown) (no (unknown) (unknown) AST 89 H (14-36) (units (unknown) date) IU/L unknown) (unknown) (no (unknown) (unknown) Abdomen is soft (units (unknown) date) with hepatomegaly, unknown) tenderness to palpation in the epigastric (unknown) (no (unknown) (unknown) Acquired (units (unkno wn) date) hypothyroidism unknown) (unknown) (no (unknown) (unknown) Age/Sex: 42 / F (units (unknown) date) unknown) (unknown) (no (unknown) (unknown) Albumin (3.5-5.0) (units (unknown) date) g/dL unknown) (unknown) (no (unknown) (unknown) Albumin 5.1 H (units ( unknown) date) (3.5-5.0) g/dL unknown) (unknown) (no (unknown) (unknown) Albumin/Globulin (units (unknown) date) Ratio (1.0-2.8) unknown) (unknown) (no (unknown) (unknown) Albumin/Globulin (units (unknown) date) Ratio 1.5 (1.0-2.8) unknown) (unknown) (no (unknown) (unknown) Alcohol type: beer (units (unknown) date) unknown) (unknown) (no (unknown) (unknown) Alcohol use (units (un known) date) unknown) (unknown) (no (unknown) (unknown) Alkaline (units (unkno wn) date) Phosphatase unknown) (38-126) U/L (unknown) (no (unknown) (unknown) Alkaline (units (unkno wn) date) Phosphatase 61 unknown) (38-126) U/L (unknown) (no (unknown) (unknown) Allergic/Immunolog (units (unknown) date) ic unknown) (unknown) (no (unknown) (unknown) Allergic/Immunolog (units (unknown) date) ic: Denies unknown) urticaria, Denies throat swelling and Denies (unknown) (no (unknown) (unknown) Allergies (units (unkn own) date) unknown) (unknown) (no (unknown) (unknown) Allergy/AdvReac (units (unknown) date) Type Severity unknown) Reaction Status Date / Time (unknown) (no (unknown) (unknown) Amorphous Sediment (units (unknown) date) Cancelled 1 unknown) (unknown) (no (unknown) (unknown) Amorphous Sediment (units (unknown) date) unknown) (unknown) (no (unknown) (unknown) Auscultation:?hipolito (units (unknown) date) r to auscultation unknown) bilaterally (unknown) (no (unknown) (unknown) BUN (7-17) mg/dL (units (unknown) date) unknown) (unknown) (no (unknown) (unknown) BUN 10 (7-17) (units ( unknown) date) mg/dL unknown) (unknown) (no (unknown) (unknown) BUN/Creatinine (units (unknown) date) Ratio (6-22) unknown) (unknown) (no (unknown) (unknown) BUN/Creatinine (units (unknown) date) Ratio 16.1 (6-22) unknown) (unknown) (no (unknown) (unknown) Baso # (Auto) (units ( unknown) date) (0-100) /uL unknown) (unknown) (no (unknown) (unknown) Baso # (Auto) 0 (units (unknown) date) (0-100) /uL unknown) (unknown) (no (unknown) (unknown) Baso % (Auto) (units ( unknown) date) (0-2) % unknown) (unknown) (no (unknown) (unknown) Baso % (Auto) 0.5 (units (unknown) date) (0-2) % unknown) (unknown) (no (unknown) (unknown) Blood Pressure (units (unknown) date) 172/99 H 11/13/22 unknown) 17:23 (unknown) (no (unknown) (unknown) Blood Pressure (units (unknown) date) 172/99 H unknown) (unknown) (no (unknown) (unknown) Breast mass in (units (unknown) date) female unknown) (unknown) (no (unknown) (unknown) CK-MB (CK-2) Rel (units (unknown) date) Index TNP unknown) (unknown) (no (unknown) (unknown) CK-MB (CK-2) Rel (units (unknown) date) Index unknown) (unknown) (no (unknown) (unknown) CK-MB (CK-2) TNP (units (unknown) date) unknown) (unknown) (no (unknown) (unknown) CK-MB (CK-2) (units (u nknown) date) unknown) (unknown) (no (unknown) (unknown) CT abdomen pelvis (units (unknown) date) w con Stat unknown) (unknown) (no (unknown) (unknown) Calcium (8.4-10.2) (units (unknown) date) mg/dL unknown) (unknown) (no (unknown) (unknown) Calcium 9.7 (units (un known) date) (8.4-10.2) mg/dL unknown) (unknown) (no (unknown) (unknown) Calcium Oxalate (units (unknown) date) Crystal Cancelled unknown) (unknown) (no (unknown) (unknown) Calcium Oxalate (units (unknown) date) Crystal unknown) (unknown) (no (unknown) (unknown) Carbon Dioxide (units (unknown) date) (22-32) mmol/L unknown) (unknown) (no (unknown) (unknown) Carbon Dioxide 23 (units (unknown) date) (22-32) mmol/L unknown) (unknown) (no (unknown) (unknown) Cardio (units (unkno wn) date) unknown) (unknown) (no (unknown) (unknown) Cardiovascular (units (unknown) date) unknown) (unknown) (no (unknown) (unknown) Cardiovascular: (units (unknown) date) Denies chest pain, unknown) Denies irregular heart rhythm, Denies (unknown) (no (unknown) (unknown) Chief Complaint: (units (unknown) date) Abdominal Pain unknown) (unknown) (no (unknown) (unknown) Chloride (98-107) (units (unknown) date) mmol/L unknown) (unknown) (no (unknown) (unknown) Chloride 97 L (units ( unknown) date) (98-107) mmol/L unknown) (unknown) (no (unknown) (unknown) Cloudy urine (units (u nknown) date) unknown) (unknown) (no (unknown) (unknown) Comments: (units (unkn own) date) unknown) (unknown) (no (unknown) (unknown) Complete Blood (units (unknown) date) Count AUTO DIFF unknown) Stat (unknown) (no (unknown) (unknown) Comprehensive (units ( unknown) date) Metabolic Panel unknown) Stat (unknown) (no (unknown) (unknown) Const (units (unkno wn) date) unknown) (unknown) (no (unknown) (unknown) Constitutional (units (unknown) date) unknown) (unknown) (no (unknown) (unknown) Constitutional: (units (unknown) date) Reports chills, unknown) Reports excessive sweating, Denies fatigue, (unknown) (no (unknown) (unknown) Course (units (unkno wn) date) unknown) (unknown) (no (unknown) (unknown) Creatinine (units (unk nown) date) (0.52-1.04) mg/dL unknown) (unknown) (no (unknown) (unknown) Creatinine 0.62 (units (unknown) date) (0.52-1.04) mg/dL unknown) (unknown) (no (unknown) (unknown) : 1980 (units (unknown) date) Acct:[id number] unknown) (unknown) (no (unknown) (unknown) Date of Service: (units (unknown) date) 11/13/22 unknown) (unknown) (no (unknown) (unknown) Denies fever(s), (units (unknown) date) Denies frequent unknown) falls, Denies lethargy, Reports poor appetite (unknown) (no (unknown) (unknown) Denies frequent (units (unknown) date) falls, Denies loss unknown) of vision, Denies numbness, Denies tingling (unknown) (no (unknown) (unknown) Denies loss of (units (unknown) date) vision unknown) (unknown) (no (unknown) (unknown) Denies numbness (units (unknown) date) and Denies tingling unknown) (unknown) (no (unknown) (unknown) Denies (units (unkno wn) date) palpitations unknown) (unknown) (no (unknown) (unknown) Departure (units (unkn own) date) unknown) (unknown) (no (unknown) (unknown) Discharge Plan (units (unknown) date) unknown) (unknown) (no (unknown) (unknown) Dose Instruction: (units (unknown) date) unknown) (unknown) (no (unknown) (unknown) ED Orders (units (unkn own) date) unknown) (unknown) (no (unknown) (unknown) EKG-12 Lead Stat (units (unknown) date) unknown) (unknown) (no (unknown) (unknown) ENT (units (unkno wn) date) unknown) (unknown) (no (unknown) (unknown) ER Physician: (units ( unknown) date) Gustavo,Hyma P.A-C unknown) (unknown) (no (unknown) (unknown) Ears, Nose, Mouth, (units (unknown) date) and Throat: Denies unknown) change in voice, Denies dizziness, Denies (unknown) (no (unknown) (unknown) Ears:?hearing (units ( unknown) date) grossly normal unknown) bilaterally (unknown) (no (unknown) (unknown) Effort + (units (unkno wn) date) Inspection:?normal unknown) respiratory effort (unknown) (no (unknown) (unknown) Elevated blood (units (unknown) date) protein unknown) (unknown) (no (unknown) (unknown) Elevated liver (units (unknown) date) enzymes unknown) (unknown) (no (unknown) (unknown) Emergency Report (units (unknown) date) unknown) (unknown) (no (unknown) (unknown) Endocrine (units (unkn own) date) unknown) (unknown) (no (unknown) (unknown) Endocrine: Reports (units (unknown) date) excessive sweating, unknown) Denies fatigue, Denies flushing and (unknown) (no (unknown) (unknown) Eos # (Auto) (units (u nknown) date) (0-450) /uL unknown) (unknown) (no (unknown) (unknown) Eos # (Auto) 200 (units (unknown) date) (0-450) /uL unknown) (unknown) (no (unknown) (unknown) Eos % (Auto) (2-4) (units (unknown) date) % unknown) (unknown) (no (unknown) (unknown) Eos % (Auto) 4.8 H (units (unknown) date) (2-4) % unknown) (unknown) (no (unknown) (unknown) Estimated GFR > 60 (units (unknown) date) (>60) mL/min unknown) (unknown) (no (unknown) (unknown) Estimated GFR (units ( unknown) date) (>60) mL/min unknown) (unknown) (no (unknown) (unknown) Exam Narrative: (units (unknown) date) unknown) (unknown) (no (unknown) (unknown) Exam (units (unkno wn) date) unknown) (unknown) (no (unknown) (unknown) Eyes (units (unkno wn) date) unknown) (unknown) (no (unknown) (unknown) Eyes: Denies (units (u nknown) date) change in vision, unknown) Denies eye discharge, Denies irritation and (unknown) (no (unknown) (unknown) Face and (units (unkno wn) date) sinus:?normal unknown) facial exam and sinuses nontender (unknown) (no (unknown) (unknown) Family History (units (unknown) date) (Reviewed 11/13/22 unknown) @ 20:00 by Philip Chen PA-C) (unknown) (no (unknown) (unknown) Father Diabetes (units (unknown) date) mellitus unknown) (unknown) (no (unknown) (unknown) 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, unknown) nonalcoholic (unknown) (no (unknown) (unknown) GI (units (unkno wn) date) unknown) (unknown) (no (unknown) (unknown) Gastrointestinal (units (unknown) date) unknown) (unknown) (no (unknown) (unknown) Gastrointestinal: (units (unknown) date) Reports abdominal unknown) pain, Denies change in bowel habits, Denies (unknown) (no (unknown) (unknown) General (units (unkno wn) date) unknown) (unknown) (no (unknown) (unknown) General:?appearanc (units (unknown) date) e normal, both eyes unknown) and all related structures (unknown) (no (unknown) (unknown) General:?cooperati (units (unknown) date) ve, healthy unknown) appearing and comfortable (unknown) (no (unknown) (unknown) General:?patient (units (unknown) date) alert, patient unknown) awake and patient oriented x3 (unknown) (no (unknown) (unknown) 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 unknown) (unknown) (no (unknown) (unknown) Genitourinary (units ( unknown) date) unknown) (unknown) (no (unknown) (unknown) Genitourinary: (units (unknown) date) Denies hematuria, unknown) Denies flank pain, Denies urinary incontinence (unknown) (no (unknown) (unknown) Globulin (1.7-4.1) (units (unknown) date) g/dL unknown) (unknown) (no (unknown) (unknown) Globulin 3.5 (units (u nknown) date) (1.7-4.1) g/dL unknown) (unknown) (no (unknown) (unknown) Glucose (70-100) (units (unknown) date) mg/dL unknown) (unknown) (no (unknown) (unknown) Glucose 107 H (units ( unknown) date) (70-100) mg/dL unknown) (unknown) (no (unknown) (unknown) Grandfather (units (un known) date) Kidney unknown) failure (unknown) (no (unknown) (unknown) Grandmother (units (un known) date) Cancer unknown) (unknown) (no (unknown) (unknown) Granular Casts (units (unknown) date) Cancelled 1-5/lpf unknown) (unknown) (no (unknown) (unknown) Granular Casts (units (unknown) date) unknown) (unknown) (no (unknown) (unknown) HENMT (units (unkno wn) date) unknown) (unknown) (no (unknown) (unknown) HPI - Abdominal (units (unknown) date) Pain unknown) (unknown) (no (unknown) (unknown) HPI narrative: (units (unknown) date) unknown) (unknown) (no (unknown) (unknown) 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) (unknown) (no (unknown) (unknown) Hct (36-46) % (units ( unknown) date) unknown) (unknown) (no (unknown) (unknown) Hct 42.9 (36-46) % (units (unknown) date) unknown) (unknown) (no (unknown) (unknown) Head:?normal to (units (unknown) date) inspection unknown) (unknown) (no (unknown) (unknown) Hematologic/Lympha (units (unknown) date) tic unknown) (unknown) (no (unknown) (unknown) Hematologic/Lympha (units (unknown) date) tic: Denies easy unknown) bruising (unknown) (no (unknown) (unknown) Hgb (12.0-16.0) (units (unknown) date) g/dL unknown) (unknown) (no (unknown) (unknown) Hgb 14.7 (units (unkno wn) date) (12.0-16.0) g/dL unknown) (unknown) (no (unknown) (unknown) History of Present (units (unknown) date) Illness unknown) (unknown) (no (unknown) (unknown) Hyaline Casts (units ( unknown) date) Cancelled 1-5/lpf unknown) (unknown) (no (unknown) (unknown) Hyaline Casts (units ( unknown) date) unknown) (unknown) (no (unknown) (unknown) Ictotest Urine (units (unknown) date) Stat unknown) (unknown) (no (unknown) (unknown) Initial Vital (units ( unknown) date) Signs unknown) (unknown) (no (unknown) (unknown) Initial Vital (units ( unknown) date) Signs: unknown) (unknown) (no (unknown) (unknown) Insomnia (units (unkno wn) date) unknown) (unknown) (no (unknown) (unknown) Integumentary/[place] (units (unknown) date) sts unknown) (unknown) (no (unknown) (unknown) [facility] (units (unknown) date) [address] unknown) [place] [address] (unknown) (no (unknown) (unknown) Lab Data (units (unkno wn) date) unknown) (unknown) (no (unknown) (unknown) Lab Results (units (un known) date) unknown) (unknown) (no (unknown) (unknown) Labs: (units (unkno wn) date) unknown) (unknown) (no (unknown) (unknown) Lipase (23-300) (units (unknown) date) U/L unknown) (unknown) (no (unknown) (unknown) Lipase 153 (units (unk nown) date) (23-300) U/L unknown) (unknown) (no (unknown) (unknown) Lipase Stat (units (un known) date) unknown) (unknown) (no (unknown) (unknown) Lymph # (Auto) (units (unknown) date) (6313-7567) /uL unknown) (unknown) (no (unknown) (unknown) Lymph # (Auto) 700 (units (unknown) date) L (1664-2473) /uL unknown) (unknown) (no (unknown) (unknown) Lymph % (Auto) (units (unknown) date) (25-40) % unknown) (unknown) (no (unknown) (unknown) Lymph % (Auto) (units (unknown) date) 15.9 L (25-40) % unknown) (unknown) (no (unknown) (unknown) MCH (26-34) PG (units (unknown) date) unknown) (unknown) (no (unknown) (unknown) MCH 32.5 (26-34) (units (unknown) date) PG unknown) (unknown) (no (unknown) (unknown) MCHC (30-36) % (units (unknown) date) unknown) (unknown) (no (unknown) (unknown) MCHC 34.3 (30-36) (units (unknown) date) % unknown) (unknown) (no (unknown) (unknown) MCV (80-100) fL (units (unknown) date) unknown) (unknown) (no (unknown) (unknown) MCV 94.8 (80-100) (units (unknown) date) fL unknown) (unknown) (no (unknown) (unknown) MDM - Abdominal (units (unknown) date) Pain unknown) (unknown) (no (unknown) (unknown) MDM Narrative (units ( unknown) date) unknown) (unknown) (no (unknown) (unknown) Medical History (units (unknown) date) (Reviewed 11/13/22 unknown) @ 20:00 by Philip Chen PA-C) (unknown) (no (unknown) (unknown) Medical decision (units (unknown) date) making narrative: unknown) (unknown) (no (unknown) (unknown) Medication (units (unk nown) date) Instructions unknown) Recorded (unknown) (no (unknown) (unknown) Micro UA Comment (units (unknown) date) Cancelled unknown) (unknown) (no (unknown) (unknown) Micro UA Comment (units (unknown) date) unknown) (unknown) (no (unknown) (unknown) Mode of arrival: (units (unknown) date) Ambulatory unknown) (unknown) (no (unknown) (unknown) [place] # (Auto) (units ( unknown) date) (0-900) /uL unknown) (unknown) (no (unknown) (unknown) [place] # (Auto) 500 (units (unknown) date) (0-900) /uL unknown) (unknown) (no (unknown) (unknown) [place] % (Auto) (units ( unknown) date) (3-14) % unknown) (unknown) (no (unknown) (unknown) [place] % (Auto) 10.0 (units (unknown) date) (3-14) % unknown) (unknown) (no (unknown) (unknown) Mother (units (unknown) date) Cancer unknown) (unknown) (no (unknown) (unknown) Mouth:?oral (units (un known) date) mucosae normal unknown) (unknown) (no (unknown) (unknown) Musculoskeletal (units (unknown) date) unknown) (unknown) (no (unknown) (unknown) Musculoskeletal: (units (unknown) date) Denies back pain, unknown) Denies muscle weakness, Denies neck pain, (unknown) (no (unknown) (unknown) Narrative (units (unkn own) date) unknown) (unknown) (no (unknown) (unknown) Neck (units (unkno wn) date) unknown) (unknown) (no (unknown) (unknown) Neck:?normal (units (u nknown) date) visual inspection unknown) and no lymphadenopathy noted (unknown) (no (unknown) (unknown) Neuro (units (unkno wn) date) unknown) (unknown) (no (unknown) (unknown) Neurologic (units (unk nown) date) unknown) (unknown) (no (unknown) (unknown) Neurologic: Denies (units (unknown) date) behavioral changes, unknown) Denies confusion, Denies dizziness, (unknown) (no (unknown) (unknown) Neut # (Auto) (units ( unknown) date) (6373-1342) /uL unknown) (unknown) (no (unknown) (unknown) Neut # (Auto) 3200 (units (unknown) date) (7172-1150) /uL unknown) (unknown) (no (unknown) (unknown) Neut % (Auto) (units ( unknown) date) (50-75) % unknown) (unknown) (no (unknown) (unknown) Neut % (Auto) 68.8 (units (unknown) date) (50-75) % unknown) (unknown) (no (unknown) (unknown) No Action (units (unkn own) date) unknown) (unknown) (no (unknown) (unknown) Nose:?external (units (unknown) date) nose normal unknown) (unknown) (no (unknown) (unknown) Ordered: (units (unkno wn) date) unknown) (unknown) (no (unknown) (unknown) Orders (units (unkno wn) date) unknown) (unknown) (no (unknown) (unknown) Other Casts (units (un known) date) Cancelled unknown) (unknown) (no (unknown) (unknown) Other Casts (units (un known) date) unknown) (unknown) (no (unknown) (unknown) Other Crystals (units (unknown) date) Cancelled unknown) (unknown) (no (unknown) (unknown) Other Crystals (units (unknown) date) unknown) (unknown) (no (unknown) (unknown) Oxygen Delivery (units (unknown) date) Method 11/13/22 unknown) 17:23 (unknown) (no (unknown) (unknown) Oxygen Delivery (units (unknown) date) Method Room Air unknown) (unknown) (no (unknown) (unknown) Patient History (units (unknown) date) unknown) (unknown) (no (unknown) (unknown) Patient denies (units (unknown) date) medical problems unknown) (unknown) (no (unknown) (unknown) Patient has a (units (u nknown) date) history of alcohol unknown) use disorder, for which she was hospitalized in (unknown) (no (unknown) (unknown) Patient: (units (unkno wn) date) Layne Avendano N unknown) MR#: [id number] (unknown) (no (unknown) (unknown) Peripheral (units (unk nown) date) neuropathy unknown) (unknown) (no (unknown) (unknown) Ian Roland, (units (unknown) date) [Primary Care unknown) Provider] (unknown) (no (unknown) (unknown) Plt Count (units (unkn own) date) (150-400) X103/uL unknown) (unknown) (no (unknown) (unknown) Plt Count 174 (units ( unknown) date) (150-400) X103/uL unknown) (unknown) (no (unknown) (unknown) Potassium (units (unkn own) date) (3.4-5.1) mmol/L unknown) (unknown) (no (unknown) (unknown) Potassium 3.9 (units ( unknown) date) (3.4-5.1) mmol/L unknown) (unknown) (no (unknown) (unknown) Test (units (unknown) date) Urine Stat unknown) (unknown) (no (unknown) (unknown) Prescriptions: (units (unknown) date) unknown) (unknown) (no (unknown) (unknown) Previous Rx's (units ( unknown) date) unknown) (unknown) (no (unknown) (unknown) Psychiatric (units (un known) date) unknown) (unknown) (no (unknown) (unknown) Psychiatric: Denies (units (unknown) date) anxiety, Denies unknown) behavioral changes, Denies confusion, Denies (unknown) (no (unknown) (unknown) Pulse Oximetry 99 (units (unknown) date) 11/13/22 17:23 unknown) (unknown) (no (unknown) (unknown) Pulse Oximetry 99 (units (unknown) date) unknown) (unknown) (no (unknown) (unknown) Pulse Rate 75 (units ( unknown) date) 11/13/22 17:23 unknown) (unknown) (no (unknown) (unknown) Pulse Rate 75 (units ( unknown) date) unknown) (unknown) (no (unknown) (unknown) RBC (4.0-5.2) (units ( unknown) date) X106/uL unknown) (unknown) (no (unknown) (unknown) RBC 4.52 (4.0-5.2) (units (unknown) date) X106/uL unknown) (unknown) (no (unknown) (unknown) RBC Casts (units (unkn own) date) Cancelled unknown) (unknown) (no (unknown) (unknown) RBC Casts (units (unkn own) date) unknown) (unknown) (no (unknown) (unknown) RDW (11.6-14.8) % (units (unknown) date) unknown) (unknown) (no (unknown) (unknown) RDW 13.3 (units (unkno wn) date) (11.6-14.8) % unknown) (unknown) (no (unknown) (unknown) ROS Unobtainable: (units (unknown) date) All systems unknown) reviewed + are unremarkable except as noted in HPI (unknown) (no (unknown) (unknown) Rate:?regular rate (units (unknown) date) unknown) (unknown) (no (unknown) (unknown) Referrals: (units (unk nown) date) unknown) (unknown) (no (unknown) (unknown) Related Data (units (u nknown) date) unknown) (unknown) (no (unknown) (unknown) Resp (units (unkno wn) date) unknown) (unknown) (no (unknown) (unknown) Respiratory Rate (units (unknown) date) 18 11/13/22 17:23 unknown) (unknown) (no (unknown) (unknown) Respiratory Rate (units (unknown) date) 18 unknown) (unknown) (no (unknown) (unknown) Respiratory (units (un known) date) unknown) (unknown) (no (unknown) (unknown) Respiratory: Denies (units (unknown) date) cough, Denies unknown) dyspnea, Denies dyspnea on exertion and Denies (unknown) (no (unknown) (unknown) Review of Systems (units (unknown) date) unknown) (unknown) (no (unknown) (unknown) Rhythm:?regular (units (unknown) date) rhythm unknown) (unknown) (no (unknown) (unknown) Rx Instructions: (units (unknown) date) unknown) (unknown) (no (unknown) (unknown) See Rx (units (unkno wn) date) Instructions .ROUTE unknown) .COMPLEX Qty: 30 1RF (unknown) (no (unknown) (unknown) Shortness of (units (u nknown) date) breath (06/2020) unknown) (unknown) (no (unknown) (unknown) Signed By: (units (unk nown) date) unknown) (unknown) (no (unknown) (unknown) Skin/Breast: (units (u nknown) date) Denies pruritus, unknown) Denies erythema, Denies rash and Denies wounds (unknown) (no (unknown) (unknown) Smoking Status: (units (unknown) date) Former smoker unknown) (unknown) (no (unknown) (unknown) Social History (units (unknown) date) (Reviewed 11/13/22 unknown) @ 20:00 by Philip Chen PA-C) (unknown) (no (unknown) (unknown) Sodium (137-145) (units (unknown) date) mmol/L unknown) (unknown) (no (unknown) (unknown) Sodium 134 L (units (u nknown) date) (137-145) mmol/L unknown) (unknown) (no (unknown) (unknown) Source: patient (units (unknown) date) unknown) (unknown) (no (unknown) (unknown) Stated Complaint: (units (unknown) date) TORSO PAIN, unknown) NUMBNESS, FELLS LIKE INSIDES SWELLING (unknown) (no (unknown) (unknown) Substance Use (units ( unknown) date) Type: does not use unknown) (unknown) (no (unknown) (unknown) TAKE ONE TABLET BY (units (unknown) date) MOUTH ONE TIME unknown) DAILY (unknown) (no (unknown) (unknown) TSH (0.47-4.68) (units (unknown) date) uIU/mL unknown) (unknown) (no (unknown) (unknown) TSH 3.50 (units (unkno wn) date) (0.47-4.68) uIU/mL unknown) (unknown) (no (unknown) (unknown) TSH [Thyroid (units (u nknown) date) Stimulating unknown) Hormone] Stat (unknown) (no (unknown) (unknown) Temperature 98 F (units (unknown) date) 11/13/22 17:23 unknown) (unknown) (no (unknown) (unknown) Temperature 98 F (units (unknown) date) unknown) (unknown) (no (unknown) (unknown) Throat:?posterior (units (unknown) date) oropharynx normal unknown) (unknown) (no (unknown) (unknown) Time Seen by (units (u nknown) date) Provider: 11/13/22 unknown) 18:14 (unknown) (no (unknown) (unknown) Total Bilirubin (units (unknown) date) (0.2-1.3) mg/dL unknown) (unknown) (no (unknown) (unknown) Total Bilirubin (units (unknown) date) 3.0 H (0.2-1.3) unknown) mg/dL (unknown) (no (unknown) (unknown) Total Creatine (units (unknown) date) Kinase (30-135) U/L unknown) (unknown) (no (unknown) (unknown) Total Creatine (units (unknown) date) Kinase 96 (30-135) unknown) U/L (unknown) (no (unknown) (unknown) Total Protein (units ( unknown) date) (6.3-8.2) g/dL unknown) (unknown) (no (unknown) (unknown) Total Protein 8.6 (units (unknown) date) H (6.3-8.2) g/dL unknown) (unknown) (no (unknown) (unknown) Tremors of nervous (units (unknown) date) system (06/2020) unknown) (unknown) (no (unknown) (unknown) Triple Phos (units (un known) date) Crystals Cancelled unknown) (unknown) (no (unknown) (unknown) Triple Phos (units (un known) date) Crystals unknown) (unknown) (no (unknown) (unknown) Troponin + CK (units ( unknown) date) Cardiac Panel Stat unknown) (unknown) (no (unknown) (unknown) Troponin I < 0.012 (units (unknown) date) (0.01-0.034) ng/mL unknown) (unknown) (no (unknown) (unknown) Troponin I (units (unk nown) date) (0.01-0.034) ng/mL unknown) (unknown) (no (unknown) (unknown) US abdomen limited (units (unknown) date) Stat unknown) (unknown) (no (unknown) (unknown) UTI versus (units (unk nown) date) pyelonephritis unknown) versus thyroid disease versus other. Will obtain (unknown) (no (unknown) (unknown) Ur Bilirubin (units (u nknown) date) Confirm (Negative) unknown) (unknown) (no (unknown) (unknown) Ur Bilirubin (units (u nknown) date) Confirm Positive H unknown) (Negative) (unknown) (no (unknown) (unknown) Ur Culture (units (unk nown) date) Indicated? unknown) Cancelled (unknown) (no (unknown) (unknown) Ur Culture (units (unk nown) date) Indicated? unknown) (unknown) (no (unknown) (unknown) Ur Leukocyte (units (u nknown) date) Esterase (NEGATIVE) unknown) (unknown) (no (unknown) (unknown) Ur Leukocyte (units (u nknown) date) Esterase Negative unknown) (NEGATIVE) (unknown) (no (unknown) (unknown) Ur Renal (units (unkno wn) date) Epithelial Cell unknown) Cancelled (unknown) (no (unknown) (unknown) Ur Renal (units (unkno wn) date) Epithelial Cell unknown) (unknown) (no (unknown) (unknown) Ur Specific (units (un known) date) [place] unknown) (1.000-1.035) (unknown) (no (unknown) (unknown) Ur Specific (units (un known) date) [place] 1.025 unknown) (1.000-1.035) (unknown) (no (unknown) (unknown) Ur Squamous Epith (units (unknown) date) Cells Cancelled unknown) 5-10 /hpf H (unknown) (no (unknown) (unknown) Ur Squamous Epith (units (unknown) date) Cells unknown) (unknown) (no (unknown) (unknown) Ur Transition (units ( unknown) date) Epith Cell unknown) Cancelled (unknown) (no (unknown) (unknown) Ur Transition (units ( unknown) date) Epith Cell unknown) (unknown) (no (unknown) (unknown) Uric Acid Crystals (units (unknown) date) Cancelled unknown) (unknown) (no (unknown) (unknown) Uric Acid Crystals (units (unknown) date) unknown) (unknown) (no (unknown) (unknown) Urinalysis and (units (unknown) date) Microscopic Stat unknown) (unknown) (no (unknown) (unknown) Urine Appearance (units (unknown) date) Slightly cloudy unknown) (unknown) (no (unknown) (unknown) Urine Appearance (units (unknown) date) unknown) (unknown) (no (unknown) (unknown) Urine Bacteria (units (unknown) date) Cancelled Moderate unknown) (10-30) H (unknown) (no (unknown) (unknown) Urine Bacteria (units (unknown) date) unknown) (unknown) (no (unknown) (unknown) Urine Bilirubin (units (unknown) date) (NEGATIVE) unknown) (unknown) (no (unknown) (unknown) Urine Bilirubin 2+ (units (unknown) date) H (NEGATIVE) unknown) (unknown) (no (unknown) (unknown) Urine Color Dark (units (unknown) date) yellow unknown) (unknown) (no (unknown) (unknown) Urine Color (units (un known) date) unknown) (unknown) (no (unknown) (unknown) Urine Culture Stat (units (unknown) date) unknown) (unknown) (no (unknown) (unknown) Urine Glucose (UA) (units (unknown) date) (Negative) g/dL unknown) (unknown) (no (unknown) (unknown) Urine Glucose (UA) (units (unknown) date) Negative (Negative) unknown) g/dL (unknown) (no (unknown) (unknown) Urine Ketones (units ( unknown) date) (NEGATIVE) unknown) (unknown) (no (unknown) (unknown) Urine Ketones 3+ H (units (unknown) date) (NEGATIVE) unknown) (unknown) (no (unknown) (unknown) Urine Mucus (units (un known) date) Cancelled 3+ H unknown) (unknown) (no (unknown) (unknown) Urine Mucus (units (un known) date) unknown) (unknown) (no (unknown) (unknown) Urine Nitrate (units ( unknown) date) (Negative) unknown) (unknown) (no (unknown) (unknown) Urine Nitrate (units ( unknown) date) Positive H unknown) (Negative) (unknown) (no (unknown) (unknown) Urine Occult Blood (units (unknown) date) (Negative) unknown) (unknown) (no (unknown) (unknown) Urine Occult Blood (units (unknown) date) Negative (Negative) unknown) (unknown) (no (unknown) (unknown) Urine (units (unknown) date) Test (Negative) unknown) (unknown) (no (unknown) (unknown) Urine (units (unknown) date) Test Negative unknown) (Negative) (unknown) (no (unknown) (unknown) Urine Protein (units ( unknown) date) (Negative) unknown) (unknown) (no (unknown) (unknown) Urine Protein 1+ H (units (unknown) date) (Negative) unknown) (unknown) (no (unknown) (unknown) Urine RBC (units (unkn own) date) Cancelled None seen unknown) (unknown) (no (unknown) (unknown) Urine RBC (units (unkn own) date) unknown) (unknown) (no (unknown) (unknown) Urine Sperm (units (un known) date) Cancelled unknown) (unknown) (no (unknown) (unknown) Urine Sperm (units (un known) date) unknown) (unknown) (no (unknown) (unknown) Urine Trichomonas (units (unknown) date) Cancelled unknown) (unknown) (no (unknown) (unknown) Urine Trichomonas (units (unknown) date) unknown) (unknown) (no (unknown) (unknown) Urine Urobilinogen (units (unknown) date) (0.2) E.U./dL unknown) (unknown) (no (unknown) (unknown) Urine Urobilinogen (units (unknown) date) 1.0 (0.2) E.U./dL unknown) (unknown) (no (unknown) (unknown) Urine WBC (units (unkn own) date) Cancelled 5-10/hpf unknown) H (unknown) (no (unknown) (unknown) Urine WBC (units (unkn own) date) unknown) (unknown) (no (unknown) (unknown) Urine Yeast (units (un known) date) Cancelled unknown) (unknown) (no (unknown) (unknown) Urine Yeast (units (un known) date) unknown) (unknown) (no (unknown) (unknown) Urine pH (4.5-8.0) (units (unknown) date) unknown) (unknown) (no (unknown) (unknown) Urine pH 6.0 (units (u nknown) date) (4.5-8.0) unknown) (unknown) (no (unknown) (unknown) Vital Signs - 8 hr (units (unknown) date) unknown) (unknown) (no (unknown) (unknown) Vital Signs (units (un known) date) unknown) (unknown) (no (unknown) (unknown) Vital signs: (units (u nknown) date) unknown) (unknown) (no (unknown) (unknown) WBC (4.5-11.0) (units (unknown) date) X103/uL unknown) (unknown) (no (unknown) (unknown) WBC 4.7 (4.5-11.0) (units (unknown) date) X103/uL unknown) (unknown) (no (unknown) (unknown) WBC Casts (units (unkn own) date) Cancelled unknown) (unknown) (no (unknown) (unknown) WBC Casts (units (unkn own) date) unknown) (unknown) (no (unknown) (unknown) [Embedded Image (units (unknown) date) Not Available] unknown) (unknown) (no (unknown) (unknown) [From Bactrim] (units (unknown) date) unknown) (unknown) (no (unknown) (unknown) alcohol intake (units (unknown) date) frequency: a few unknown) times a week (unknown) (no (unknown) (unknown) alcohol intake: (units (unknown) date) current unknown) (unknown) (no (unknown) (unknown) and Denies (units (unk nown) date) orthopnea unknown) (unknown) (no (unknown) (unknown) and Denies urinary (units (unknown) date) urgency unknown) (unknown) (no (unknown) (unknown) and Denies (units (unk nown) date) weakness unknown) (unknown) (no (unknown) (unknown) and below (units (unkn own) date) unknown) (unknown) (no (unknown) (unknown) chest pain, (units (un known) date) shortness of unknown) breath, lightheadedness, dizziness, syncope. Patient (unknown) (no (unknown) (unknown) denies dysuria but (units (unknown) date) endorses dark unknown) cloudy urine. Endorses decreased urine. (unknown) (no (unknown) (unknown) depression, Denies (units (unknown) date) homicidal ideation unknown) and Denies suicidal ideation (unknown) (no (unknown) (unknown) diarrhea, Reports (units (unknown) date) nausea and Reports unknown) vomiting (unknown) (no (unknown) (unknown) disease, tremors (units (unknown) date) of the nervous unknown) system presents to the ED with 2 months of (unknown) (no (unknown) (unknown) duloxetine 30 mg (units (unknown) date) capsule,delayed 30 unknown) mg PO DAILY #90 caps 03/29/22 (unknown) (no (unknown) (unknown) duloxetine 30 mg (units (unknown) date) capsule,delayed unknown) release(DR/EC) (unknown) (no (unknown) (unknown) epigastric region, (units (unknown) date) and that it is unknown) pushing out towards her ribs. Patient states (unknown) (no (unknown) (unknown) folic acid 1 mg (units (unknown) date) tablet See Rx unknown) Instructions .Route 04/01/22 (unknown) (no (unknown) (unknown) folic acid 1 mg (units (unknown) date) tablet unknown) (unknown) (no (unknown) (unknown) household members: (units (unknown) date) significant other unknown) and children (unknown) (no (unknown) (unknown) hydroxyzine (units (un known) date) pamoate 25 mg unknown) capsule 25 mg PO Q6HR PRN Anxiety #60 caps 03/29/22 (unknown) (no (unknown) (unknown) hydroxyzine (units (un known) date) pamoate 25 mg unknown) capsule (unknown) (no (unknown) (unknown) labs, UA, TSH, (units (unknown) date) urine , CT unknown) abdomen pelvis, ultrasound right upper (unknown) (no (unknown) (unknown) lightheadedness, (units (unknown) date) Denies unknown) palpitations, Denies dyspnea, Denies dyspnea on exertion (unknown) (no (unknown) (unknown) neck pain, Denies (units (unknown) date) sore throat and unknown) Denies throat swelling (unknown) (no (unknown) (unknown) of vomiting 2 days (units (unknown) date) ago. Patient denies unknown) fevers, endorses chills. Patient denies (unknown) (no (unknown) (unknown) peripheral (units (unk nown) date) neuropathy, unknown) Jim's disease, alcohol use disorder, fatty liver (unknown) (no (unknown) (unknown) prescribed (units (unk nown) date) methimazole that unknown) she does not believe that it helps. (unknown) (no (unknown) (unknown) prescribed (units (unk nown) date) propranolol. unknown) Patient also has diagnosed with Jim's, was (unknown) (no (unknown) (unknown) quadrant. (units (unkn own) date) unknown) (unknown) (no (unknown) (unknown) region. There is (units (unknown) date) bilateral CVA unknown) tenderness. (unknown) (no (unknown) (unknown) release (units (unkno wn) date) unknown) (unknown) (no (unknown) (unknown) second hand (units (un known) date) exposure: Yes unknown) (unknown) (no (unknown) (unknown) she has not had (units (unknown) date) much of an appetite unknown) for a few weeks now. Patient had 1 episode (unknown) (no (unknown) (unknown) substance use (units ( unknown) date) type: does not use unknown) (unknown) (no (unknown) (unknown) sulfamethoxazole (units (unknown) date) Allergy Severe unknown) Anaphylaxis Verified 07/20/22 09:43 (unknown) (no (unknown) (unknown) tablet (units (unkno wn) date) unknown) (unknown) (no (unknown) (unknown) thiamine HCl (units (u nknown) date) (vitamin B1) 100 mg unknown) 100 mg PO DAILY #30 tabs 03/29/22 (unknown) (no (unknown) (unknown) thiamine HCl (units (u nknown) date) (vitamin B1) 100 mg unknown) tablet (unknown) (no (unknown) (unknown) trazodone 50 mg (units (unknown) date) tablet 25 mg PO unknown) BEDTIME #30 tabs 03/29/22 (unknown) (no (unknown) (unknown) trazodone 50 mg (units (unknown) date) tablet unknown) (unknown) (no (unknown) (unknown) trimethoprim [From (units (unknown) date) Bactrim] Allergy unknown) Severe Anaphylaxis Verified 07/20/22 09:43 (unknown) (no (unknown) (unknown) versus gallbladder (units (unknown) date) disease versus unknown) liver disease versus alcohol withdrawal versus (unknown) (no (unknown) (unknown) week. Patient has (units (unknown) date) a history of benign unknown) essential tremors for which she has been (unknown) (no (unknown) (unknown) wheezing (units (unkno wn) date) unknown) (unknown) (no (unknown) (unknown) worsening upper (units (unknown) date) abdominal pain. unknown) Concern for GERD versus gastritis versus SBO (unknown) (no (unknown) (unknown) worsening upper (units (unknown) date) abdominal pain. unknown) Patient states that she feels pressure in the Result panel 472 (unknown) (no (unknown) (unknown) (no value) (units (unk nown) date) unknown) (unknown) (no (unknown) (unknown) .COMPLEX #30 tabs (units (unknown) date) unknown) (unknown) (no (unknown) (unknown) 11/13/22 11/13/22 (units (unknown) date) 11/13/22 unknown) Range/Units (unknown) (no (unknown) (unknown) 11/13/22 17:30 (units (unknown) date) unknown) (unknown) (no (unknown) (unknown) 11/13/22 18:32 (units (unknown) date) unknown) (unknown) (no (unknown) (unknown) 11/13/22 18:39 (units (unknown) date) unknown) (unknown) (no (unknown) (unknown) 11/13/22 18:40 (units (unknown) date) unknown) (unknown) (no (unknown) (unknown) 11/13/22 19:14 (units (unknown) date) unknown) (unknown) (no (unknown) (unknown) 11/13/22 20:22 (units (unknown) date) unknown) (unknown) (no (unknown) (unknown) 11/13/22 (units (unkno wn) date) Range/Units unknown) (unknown) (no (unknown) (unknown) 11/13/22 (units (unkno wn) date) unknown) (unknown) (no (unknown) (unknown) [id number] (units (unkno wn) date) unknown) (unknown) (no (unknown) (unknown) 100 mg PO DAILY (units (unknown) date) Qty: 30 3RF unknown) (unknown) (no (unknown) (unknown) 17:23 11/13/22 (units (unknown) date) unknown) (unknown) (no (unknown) (unknown) 17:30 17:30 17:30 (units (unknown) date) unknown) (unknown) (no (unknown) (unknown) 18:32 18:32 18:32 (units (unknown) date) unknown) (unknown) (no (unknown) (unknown) 18:32 (units (unkno wn) date) unknown) (unknown) (no (unknown) (unknown) 20:00 (units (unkno wn) date) unknown) (unknown) (no (unknown) (unknown) 25 mg PO BEDTIME (units (unknown) date) Qty: 30 1RF unknown) (unknown) (no (unknown) (unknown) 25 mg PO Q6HR PRN (units (unknown) date) (Reason: Anxiety) unknown) Qty: 60 1RF (unknown) (no (unknown) (unknown) 30 mg PO DAILY (units (unknown) date) Qty: 90 1RF unknown) (unknown) (no (unknown) (unknown) 42-year-old female (units (unknown) date) with past medical unknown) history generalized anxiety disorder, (unknown) (no (unknown) (unknown) 02/11. Patient (units ( unknown) date) states that since unknown) then, she has reduced her drinking to 1 drink a (unknown) (no (unknown) (unknown) ALT (<35) IU/L (units (unknown) date) unknown) (unknown) (no (unknown) (unknown) ALT 76 H (<35) (units (unknown) date) IU/L unknown) (unknown) (no (unknown) (unknown) AST (14-36) IU/L (units (unknown) date) unknown) (unknown) (no (unknown) (unknown) AST 89 H (14-36) (units (unknown) date) IU/L unknown) (unknown) (no (unknown) (unknown) Abdomen is soft (units (unknown) date) with hepatomegaly, unknown) tenderness to palpation in the epigastric (unknown) (no (unknown) (unknown) Acquired (units (unkno wn) date) hypothyroidism unknown) (unknown) (no (unknown) (unknown) Age/Sex: 42 / F (units (unknown) date) unknown) (unknown) (no (unknown) (unknown) Albumin (3.5-5.0) (units (unknown) date) g/dL unknown) (unknown) (no (unknown) (unknown) Albumin 5.1 H (units ( unknown) date) (3.5-5.0) g/dL unknown) (unknown) (no (unknown) (unknown) Albumin/Globulin (units (unknown) date) Ratio (1.0-2.8) unknown) (unknown) (no (unknown) (unknown) Albumin/Globulin (units (unknown) date) Ratio 1.5 (1.0-2.8) unknown) (unknown) (no (unknown) (unknown) Alcohol type: beer (units (unknown) date) unknown) (unknown) (no (unknown) (unknown) Alcohol use (units (un known) date) unknown) (unknown) (no (unknown) (unknown) Alkaline (units (unkno wn) date) Phosphatase unknown) (38-126) U/L (unknown) (no (unknown) (unknown) Alkaline (units (unkno wn) date) Phosphatase 61 unknown) (38-126) U/L (unknown) (no (unknown) (unknown) Allergic/Immunolog (units (unknown) date) ic unknown) (unknown) (no (unknown) (unknown) Allergic/Immunolog (units (unknown) date) ic: Denies unknown) urticaria, Denies throat swelling and Denies (unknown) (no (unknown) (unknown) Allergies (units (unkn own) date) unknown) (unknown) (no (unknown) (unknown) Allergy/AdvReac (units (unknown) date) Type Severity unknown) Reaction Status Date / Time (unknown) (no (unknown) (unknown) Amorphous Sediment (units (unknown) date) Cancelled 1 unknown) (unknown) (no (unknown) (unknown) Amorphous Sediment (units (unknown) date) unknown) (unknown) (no (unknown) (unknown) Auscultation:?hipolito (units (unknown) date) r to auscultation unknown) bilaterally (unknown) (no (unknown) (unknown) BUN (7-17) mg/dL (units (unknown) date) unknown) (unknown) (no (unknown) (unknown) BUN 10 (7-17) (units ( unknown) date) mg/dL unknown) (unknown) (no (unknown) (unknown) BUN/Creatinine (units (unknown) date) Ratio (6-22) unknown) (unknown) (no (unknown) (unknown) BUN/Creatinine (units (unknown) date) Ratio 16.1 (6-22) unknown) (unknown) (no (unknown) (unknown) Baso # (Auto) (units ( unknown) date) (0-100) /uL unknown) (unknown) (no (unknown) (unknown) Baso # (Auto) 0 (units (unknown) date) (0-100) /uL unknown) (unknown) (no (unknown) (unknown) Baso % (Auto) (units ( unknown) date) (0-2) % unknown) (unknown) (no (unknown) (unknown) Baso % (Auto) 0.5 (units (unknown) date) (0-2) % unknown) (unknown) (no (unknown) (unknown) Blood Pressure (units (unknown) date) 172/99 H 11/13/22 unknown) 17:23 (unknown) (no (unknown) (unknown) Blood Pressure (units (unknown) date) 172/99 H 149/95 H unknown) (unknown) (no (unknown) (unknown) Breast mass in (units (unknown) date) female unknown) (unknown) (no (unknown) (unknown) CK-MB (CK-2) Rel (units (unknown) date) Index TNP unknown) (unknown) (no (unknown) (unknown) CK-MB (CK-2) Rel (units (unknown) date) Index unknown) (unknown) (no (unknown) (unknown) CK-MB (CK-2) TNP (units (unknown) date) unknown) (unknown) (no (unknown) (unknown) CK-MB (CK-2) (units (u nknown) date) unknown) (unknown) (no (unknown) (unknown) CT abdomen pelvis (units (unknown) date) w con Stat unknown) (unknown) (no (unknown) (unknown) Calcium (8.4-10.2) (units (unknown) date) mg/dL unknown) (unknown) (no (unknown) (unknown) Calcium 9.7 (units (un known) date) (8.4-10.2) mg/dL unknown) (unknown) (no (unknown) (unknown) Calcium Oxalate (units (unknown) date) Crystal Cancelled unknown) (unknown) (no (unknown) (unknown) Calcium Oxalate (units (unknown) date) Crystal unknown) (unknown) (no (unknown) (unknown) Carbon Dioxide (units (unknown) date) (22-32) mmol/L unknown) (unknown) (no (unknown) (unknown) Carbon Dioxide 23 (units (unknown) date) (22-32) mmol/L unknown) (unknown) (no (unknown) (unknown) Cardio (units (unkno wn) date) unknown) (unknown) (no (unknown) (unknown) Cardiovascular (units (unknown) date) unknown) (unknown) (no (unknown) (unknown) Cardiovascular: (units (unknown) date) Denies chest pain, unknown) Denies irregular heart rhythm, Denies (unknown) (no (unknown) (unknown) Chief Complaint: (units (unknown) date) Abdominal Pain unknown) (unknown) (no (unknown) (unknown) Chloride (98-107) (units (unknown) date) mmol/L unknown) (unknown) (no (unknown) (unknown) Chloride 97 L (units ( unknown) date) (98-107) mmol/L unknown) (unknown) (no (unknown) (unknown) Cloudy urine (units (u nknown) date) unknown) (unknown) (no (unknown) (unknown) Comments: (units (unkn own) date) unknown) (unknown) (no (unknown) (unknown) Complete Blood (units (unknown) date) Count AUTO DIFF unknown) Stat (unknown) (no (unknown) (unknown) Comprehensive (units ( unknown) date) Metabolic Panel unknown) Stat (unknown) (no (unknown) (unknown) Const (units (unkno wn) date) unknown) (unknown) (no (unknown) (unknown) Constitutional (units (unknown) date) unknown) (unknown) (no (unknown) (unknown) Constitutional: (units (unknown) date) Reports chills, unknown) Reports excessive sweating, Denies fatigue, (unknown) (no (unknown) (unknown) Course (units (unkno wn) date) unknown) (unknown) (no (unknown) (unknown) Creatinine (units (unk nown) date) (0.52-1.04) mg/dL unknown) (unknown) (no (unknown) (unknown) Creatinine 0.62 (units (unknown) date) (0.52-1.04) mg/dL unknown) (unknown) (no (unknown) (unknown) : 1980 (units (unknown) date) Acct:[id number] unknown) (unknown) (no (unknown) (unknown) Date of Service: (units (unknown) date) 11/13/22 unknown) (unknown) (no (unknown) (unknown) Denies fever(s), (units (unknown) date) Denies frequent unknown) falls, Denies lethargy, Reports poor appetite (unknown) (no (unknown) (unknown) Denies frequent (units (unknown) date) falls, Denies loss unknown) of vision, Denies numbness, Denies tingling (unknown) (no (unknown) (unknown) Denies loss of (units (unknown) date) vision unknown) (unknown) (no (unknown) (unknown) Denies numbness (units (unknown) date) and Denies tingling unknown) (unknown) (no (unknown) (unknown) Denies (units (unkno wn) date) palpitations unknown) (unknown) (no (unknown) (unknown) Departure (units (unkn own) date) unknown) (unknown) (no (unknown) (unknown) Discharge Plan (units (unknown) date) unknown) (unknown) (no (unknown) (unknown) Dose Instruction: (units (unknown) date) unknown) (unknown) (no (unknown) (unknown) ED Orders (units (unkn own) date) unknown) (unknown) (no (unknown) (unknown) EKG-12 Lead Stat (units (unknown) date) unknown) (unknown) (no (unknown) (unknown) ENT (units (unkno wn) date) unknown) (unknown) (no (unknown) (unknown) ER Physician: (units ( unknown) date) Gustavo,Hyma P.A-C unknown) (unknown) (no (unknown) (unknown) ETOH [Ethanol (units ( unknown) date) (ETOH)] Stat unknown) (unknown) (no (unknown) (unknown) Ears, Nose, Mouth, (units (unknown) date) and Throat: Denies unknown) change in voice, Denies dizziness, Denies (unknown) (no (unknown) (unknown) Ears:?hearing (units ( unknown) date) grossly normal unknown) bilaterally (unknown) (no (unknown) (unknown) Effort + (units (unkno wn) date) Inspection:?normal unknown) respiratory effort (unknown) (no (unknown) (unknown) Elevated blood (units (unknown) date) protein unknown) (unknown) (no (unknown) (unknown) Elevated liver (units (unknown) date) enzymes unknown) (unknown) (no (unknown) (unknown) Emergency Report (units (unknown) date) unknown) (unknown) (no (unknown) (unknown) Endocrine (units (unkn own) date) unknown) (unknown) (no (unknown) (unknown) Endocrine: Reports (units (unknown) date) excessive sweating, unknown) Denies fatigue, Denies flushing and (unknown) (no (unknown) (unknown) Eos # (Auto) (units (u nknown) date) (0-450) /uL unknown) (unknown) (no (unknown) (unknown) Eos # (Auto) 200 (units (unknown) date) (0-450) /uL unknown) (unknown) (no (unknown) (unknown) Eos % (Auto) (2-4) (units (unknown) date) % unknown) (unknown) (no (unknown) (unknown) Eos % (Auto) 4.8 H (units (unknown) date) (2-4) % unknown) (unknown) (no (unknown) (unknown) Estimated GFR > 60 (units (unknown) date) (>60) mL/min unknown) (unknown) (no (unknown) (unknown) Estimated GFR (units ( unknown) date) (>60) mL/min unknown) (unknown) (no (unknown) (unknown) Exam Narrative: (units (unknown) date) unknown) (unknown) (no (unknown) (unknown) Exam (units (unkno wn) date) unknown) (unknown) (no (unknown) (unknown) Eyes (units (unkno wn) date) unknown) (unknown) (no (unknown) (unknown) Eyes: Denies (units (u nknown) date) change in vision, unknown) Denies eye discharge, Denies irritation and (unknown) (no (unknown) (unknown) Face and (units (unkno wn) date) sinus:?normal unknown) facial exam and sinuses nontender (unknown) (no (unknown) (unknown) Family History (units (unknown) date) (Reviewed 11/13/22 unknown) @ 20:00 by Philip Chen PA-C) (unknown) (no (unknown) (unknown) Father Diabetes (units (unknown) date) mellitus unknown) (unknown) (no (unknown) (unknown) 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, unknown) nonalcoholic (unknown) (no (unknown) (unknown) GI (units (unkno wn) date) unknown) (unknown) (no (unknown) (unknown) Gastrointestinal (units (unknown) date) unknown) (unknown) (no (unknown) (unknown) Gastrointestinal: (units (unknown) date) Reports abdominal unknown) pain, Denies change in bowel habits, Denies (unknown) (no (unknown) (unknown) General (units (unkno wn) date) unknown) (unknown) (no (unknown) (unknown) General:?appearanc (units (unknown) date) e normal, both eyes unknown) and all related structures (unknown) (no (unknown) (unknown) General:?cooperati (units (unknown) date) ve, healthy unknown) appearing and comfortable (unknown) (no (unknown) (unknown) General:?patient (units (unknown) date) alert, patient unknown) awake and patient oriented x3 (unknown) (no (unknown) (unknown) 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 unknown) (unknown) (no (unknown) (unknown) Genitourinary (units ( unknown) date) unknown) (unknown) (no (unknown) (unknown) Genitourinary: (units (unknown) date) Denies hematuria, unknown) Denies flank pain, Denies urinary incontinence (unknown) (no (unknown) (unknown) Globulin (1.7-4.1) (units (unknown) date) g/dL unknown) (unknown) (no (unknown) (unknown) Globulin 3.5 (units (u nknown) date) (1.7-4.1) g/dL unknown) (unknown) (no (unknown) (unknown) Glucose (70-100) (units (unknown) date) mg/dL unknown) (unknown) (no (unknown) (unknown) Glucose 107 H (units ( unknown) date) (70-100) mg/dL unknown) (unknown) (no (unknown) (unknown) Grandfather (units (un known) date) Kidney unknown) failure (unknown) (no (unknown) (unknown) Grandmother (units (un known) date) Cancer unknown) (unknown) (no (unknown) (unknown) Granular Casts (units (unknown) date) Cancelled 1-5/lpf unknown) (unknown) (no (unknown) (unknown) Granular Casts (units (unknown) date) unknown) (unknown) (no (unknown) (unknown) HENMT (units (unkno wn) date) unknown) (unknown) (no (unknown) (unknown) HPI - Abdominal (units (unknown) date) Pain unknown) (unknown) (no (unknown) (unknown) HPI narrative: (units (unknown) date) unknown) (unknown) (no (unknown) (unknown) 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) (unknown) (no (unknown) (unknown) Hct (36-46) % (units ( unknown) date) unknown) (unknown) (no (unknown) (unknown) Hct 42.9 (36-46) % (units (unknown) date) unknown) (unknown) (no (unknown) (unknown) Head:?normal to (units (unknown) date) inspection unknown) (unknown) (no (unknown) (unknown) Hematologic/Lympha (units (unknown) date) tic unknown) (unknown) (no (unknown) (unknown) Hematologic/Lympha (units (unknown) date) tic: Denies easy unknown) bruising (unknown) (no (unknown) (unknown) Hgb (12.0-16.0) (units (unknown) date) g/dL unknown) (unknown) (no (unknown) (unknown) Hgb 14.7 (units (unkno wn) date) (12.0-16.0) g/dL unknown) (unknown) (no (unknown) (unknown) History of Present (units (unknown) date) Illness unknown) (unknown) (no (unknown) (unknown) Hyaline Casts (units ( unknown) date) Cancelled 1-5/lpf unknown) (unknown) (no (unknown) (unknown) Hyaline Casts (units ( unknown) date) unknown) (unknown) (no (unknown) (unknown) Ictotest Urine (units (unknown) date) Stat unknown) (unknown) (no (unknown) (unknown) Initial Vital (units ( unknown) date) Signs unknown) (unknown) (no (unknown) (unknown) Initial Vital (units ( unknown) date) Signs: unknown) (unknown) (no (unknown) (unknown) Insomnia (units (unkno wn) date) unknown) (unknown) (no (unknown) (unknown) Integumentary/[place] (units (unknown) date) sts unknown) (unknown) (no (unknown) (unknown) [facility] (units (unknown) date) [address] unknown) [place] [address] (unknown) (no (unknown) (unknown) Lab Data (units (unkno wn) date) unknown) (unknown) (no (unknown) (unknown) Lab Results (units (un known) date) unknown) (unknown) (no (unknown) (unknown) Labs: (units (unkno wn) date) unknown) (unknown) (no (unknown) (unknown) Lipase (23-300) (units (unknown) date) U/L unknown) (unknown) (no (unknown) (unknown) Lipase 153 (units (unk nown) date) (23-300) U/L unknown) (unknown) (no (unknown) (unknown) Lipase Stat (units (un known) date) unknown) (unknown) (no (unknown) (unknown) Lymph # (Auto) (units (unknown) date) (4876-1718) /uL unknown) (unknown) (no (unknown) (unknown) Lymph # (Auto) 700 (units (unknown) date) L (1038-6994) /uL unknown) (unknown) (no (unknown) (unknown) Lymph % (Auto) (units (unknown) date) (25-40) % unknown) (unknown) (no (unknown) (unknown) Lymph % (Auto) (units (unknown) date) 15.9 L (25-40) % unknown) (unknown) (no (unknown) (unknown) MCH (26-34) PG (units (unknown) date) unknown) (unknown) (no (unknown) (unknown) MCH 32.5 (26-34) (units (unknown) date) PG unknown) (unknown) (no (unknown) (unknown) MCHC (30-36) % (units (unknown) date) unknown) (unknown) (no (unknown) (unknown) MCHC 34.3 (30-36) (units (unknown) date) % unknown) (unknown) (no (unknown) (unknown) MCV (80-100) fL (units (unknown) date) unknown) (unknown) (no (unknown) (unknown) MCV 94.8 (80-100) (units (unknown) date) fL unknown) (unknown) (no (unknown) (unknown) MDM - Abdominal (units (unknown) date) Pain unknown) (unknown) (no (unknown) (unknown) MDM Narrative (units ( unknown) date) unknown) (unknown) (no (unknown) (unknown) Medical History (units (unknown) date) (Reviewed 11/13/22 unknown) @ 20:00 by Philip Chen PA-C) (unknown) (no (unknown) (unknown) Medical decision (units (unknown) date) making narrative: unknown) (unknown) (no (unknown) (unknown) Medication (units (unk nown) date) Instructions unknown) Recorded (unknown) (no (unknown) (unknown) Micro UA Comment (units (unknown) date) Cancelled unknown) (unknown) (no (unknown) (unknown) Micro UA Comment (units (unknown) date) unknown) (unknown) (no (unknown) (unknown) Mode of arrival: (units (unknown) date) Ambulatory unknown) (unknown) (no (unknown) (unknown) [place] # (Auto) (units ( unknown) date) (0-900) /uL unknown) (unknown) (no (unknown) (unknown) [place] # (Auto) 500 (units (unknown) date) (0-900) /uL unknown) (unknown) (no (unknown) (unknown) [place] % (Auto) (units ( unknown) date) (3-14) % unknown) (unknown) (no (unknown) (unknown) [place] % (Auto) 10.0 (units (unknown) date) (3-14) % unknown) (unknown) (no (unknown) (unknown) Mother (units (unknown) date) Cancer unknown) (unknown) (no (unknown) (unknown) Mouth:?oral (units (un known) date) mucosae normal unknown) (unknown) (no (unknown) (unknown) Musculoskeletal (units (unknown) date) unknown) (unknown) (no (unknown) (unknown) Musculoskeletal: (units (unknown) date) Denies back pain, unknown) Denies muscle weakness, Denies neck pain, (unknown) (no (unknown) (unknown) Narrative (units (unkn own) date) unknown) (unknown) (no (unknown) (unknown) Neck (units (unkno wn) date) unknown) (unknown) (no (unknown) (unknown) Neck:?normal (units (u nknown) date) visual inspection unknown) and no lymphadenopathy noted (unknown) (no (unknown) (unknown) Neuro (units (unkno wn) date) unknown) (unknown) (no (unknown) (unknown) Neurologic (units (unk nown) date) unknown) (unknown) (no (unknown) (unknown) Neurologic: Denies (units (unknown) date) behavioral changes, unknown) Denies confusion, Denies dizziness, (unknown) (no (unknown) (unknown) Neut # (Auto) (units ( unknown) date) (4820-7115) /uL unknown) (unknown) (no (unknown) (unknown) Neut # (Auto) 3200 (units (unknown) date) (9190-7670) /uL unknown) (unknown) (no (unknown) (unknown) Neut % (Auto) (units ( unknown) date) (50-75) % unknown) (unknown) (no (unknown) (unknown) Neut % (Auto) 68.8 (units (unknown) date) (50-75) % unknown) (unknown) (no (unknown) (unknown) No Action (units (unkn own) date) unknown) (unknown) (no (unknown) (unknown) Nose:?external (units (unknown) date) nose normal unknown) (unknown) (no (unknown) (unknown) Ordered: (units (unkno wn) date) unknown) (unknown) (no (unknown) (unknown) Orders (units (unkno wn) date) unknown) (unknown) (no (unknown) (unknown) Other Casts (units (un known) date) Cancelled unknown) (unknown) (no (unknown) (unknown) Other Casts (units (un known) date) unknown) (unknown) (no (unknown) (unknown) Other Crystals (units (unknown) date) Cancelled unknown) (unknown) (no (unknown) (unknown) Other Crystals (units (unknown) date) unknown) (unknown) (no (unknown) (unknown) Oxygen Delivery (units (unknown) date) Method 11/13/22 unknown) 17:23 (unknown) (no (unknown) (unknown) Oxygen Delivery (units (unknown) date) Method Room Air unknown) Room Air (unknown) (no (unknown) (unknown) Patient History (units (unknown) date) unknown) (unknown) (no (unknown) (unknown) Patient denies (units (unknown) date) medical problems unknown) (unknown) (no (unknown) (unknown) Patient has a (units (u nknown) date) history of alcohol unknown) use disorder, for which she was hospitalized in (unknown) (no (unknown) (unknown) Patient initially (units (unknown) date) appeared more unknown) anxious and diaphoretic, however those symptoms (unknown) (no (unknown) (unknown) Patient is now (units (unknown) date) signed out to unknown) Radha. (unknown) (no (unknown) (unknown) Patient: (units (unkno wn) date) Layne Avendano N unknown) MR#: [id number] (unknown) (no (unknown) (unknown) Peripheral (units (unk nown) date) neuropathy unknown) (unknown) (no (unknown) (unknown) Ian Roland, (units (unknown) date) [Primary Care unknown) Provider] (unknown) (no (unknown) (unknown) Plt Count (units (unkn own) date) (150-400) X103/uL unknown) (unknown) (no (unknown) (unknown) Plt Count 174 (units ( unknown) date) (150-400) X103/uL unknown) (unknown) (no (unknown) (unknown) Potassium (units (unkn own) date) (3.4-5.1) mmol/L unknown) (unknown) (no (unknown) (unknown) Potassium 3.9 (units ( unknown) date) (3.4-5.1) mmol/L unknown) (unknown) (no (unknown) (unknown) Test (units (unknown) date) Urine Stat unknown) (unknown) (no (unknown) (unknown) Prescriptions: (units (unknown) date) unknown) (unknown) (no (unknown) (unknown) Previous Rx's (units ( unknown) date) unknown) (unknown) (no (unknown) (unknown) Psychiatric (units (un known) date) unknown) (unknown) (no (unknown) (unknown) Psychiatric: Denies (units (unknown) date) anxiety, Denies unknown) behavioral changes, Denies confusion, Denies (unknown) (no (unknown) (unknown) Pulse Oximetry 99 (units (unknown) date) 11/13/22 17:23 unknown) (unknown) (no (unknown) (unknown) Pulse Oximetry 99 (units (unknown) date) 98 unknown) (unknown) (no (unknown) (unknown) Pulse Rate 75 (units ( unknown) date) 11/13/22 17:23 unknown) (unknown) (no (unknown) (unknown) Pulse Rate 75 74 (units (unknown) date) unknown) (unknown) (no (unknown) (unknown) RBC (4.0-5.2) (units ( unknown) date) X106/uL unknown) (unknown) (no (unknown) (unknown) RBC 4.52 (4.0-5.2) (units (unknown) date) X106/uL unknown) (unknown) (no (unknown) (unknown) RBC Casts (units (unkn own) date) Cancelled unknown) (unknown) (no (unknown) (unknown) RBC Casts (units (unkn own) date) unknown) (unknown) (no (unknown) (unknown) RDW (11.6-14.8) % (units (unknown) date) unknown) (unknown) (no (unknown) (unknown) RDW 13.3 (units (unkno wn) date) (11.6-14.8) % unknown) (unknown) (no (unknown) (unknown) ROS Unobtainable: (units (unknown) date) All systems unknown) reviewed + are unremarkable except as noted in HPI (unknown) (no (unknown) (unknown) Rate:?regular rate (units (unknown) date) unknown) (unknown) (no (unknown) (unknown) Referrals: (units (unk nown) date) unknown) (unknown) (no (unknown) (unknown) Related Data (units (u nknown) date) unknown) (unknown) (no (unknown) (unknown) Resp (units (unkno wn) date) unknown) (unknown) (no (unknown) (unknown) Respiratory Rate (units (unknown) date) 18 11/13/22 17:23 unknown) (unknown) (no (unknown) (unknown) Respiratory Rate (units (unknown) date) 18 20 unknown) (unknown) (no (unknown) (unknown) Respiratory (units (un known) date) unknown) (unknown) (no (unknown) (unknown) Respiratory: Denies (units (unknown) date) cough, Denies unknown) dyspnea, Denies dyspnea on exertion and Denies (unknown) (no (unknown) (unknown) Review of Systems (units (unknown) date) unknown) (unknown) (no (unknown) (unknown) Rhythm:?regular (units (unknown) date) rhythm unknown) (unknown) (no (unknown) (unknown) Rx Instructions: (units (unknown) date) unknown) (unknown) (no (unknown) (unknown) See Rx (units (unkno wn) date) Instructions .ROUTE unknown) .COMPLEX Qty: 30 1RF (unknown) (no (unknown) (unknown) Shortness of (units (u nknown) date) breath (06/2020) unknown) (unknown) (no (unknown) (unknown) Signed By: (units (unk nown) date) unknown) (unknown) (no (unknown) (unknown) Skin/Breast: (units (u nknown) date) Denies pruritus, unknown) Denies erythema, Denies rash and Denies wounds (unknown) (no (unknown) (unknown) Smoking Status: (units (unknown) date) Former smoker unknown) (unknown) (no (unknown) (unknown) Social History (units (unknown) date) (Reviewed 11/13/22 unknown) @ 20:00 by Philip Chen PA-C) (unknown) (no (unknown) (unknown) Sodium (137-145) (units (unknown) date) mmol/L unknown) (unknown) (no (unknown) (unknown) Sodium 134 L (units (u nknown) date) (137-145) mmol/L unknown) (unknown) (no (unknown) (unknown) Source: patient (units (unknown) date) unknown) (unknown) (no (unknown) (unknown) Stated Complaint: (units (unknown) date) TORSO PAIN, unknown) NUMBNESS, FELLS LIKE INSIDES SWELLING (unknown) (no (unknown) (unknown) Substance Use (units ( unknown) date) Type: does not use unknown) (unknown) (no (unknown) (unknown) TAKE ONE TABLET BY (units (unknown) date) MOUTH ONE TIME unknown) DAILY (unknown) (no (unknown) (unknown) TSH (0.47-4.68) (units (unknown) date) uIU/mL unknown) (unknown) (no (unknown) (unknown) TSH 3.50 (units (unkno wn) date) (0.47-4.68) uIU/mL unknown) (unknown) (no (unknown) (unknown) TSH [Thyroid (units (u nknown) date) Stimulating unknown) Hormone] Stat (unknown) (no (unknown) (unknown) Temperature 98 F (units (unknown) date) 11/13/22 17:23 unknown) (unknown) (no (unknown) (unknown) Temperature 98 F (units (unknown) date) unknown) (unknown) (no (unknown) (unknown) Throat:?posterior (units (unknown) date) oropharynx normal unknown) (unknown) (no (unknown) (unknown) Time Seen by (units (u nknown) date) Provider: 11/13/22 unknown) 18:14 (unknown) (no (unknown) (unknown) Total Bilirubin (units (unknown) date) (0.2-1.3) mg/dL unknown) (unknown) (no (unknown) (unknown) Total Bilirubin (units (unknown) date) 3.0 H (0.2-1.3) unknown) mg/dL (unknown) (no (unknown) (unknown) Total Creatine (units (unknown) date) Kinase (30-135) U/L unknown) (unknown) (no (unknown) (unknown) Total Creatine (units (unknown) date) Kinase 96 (30-135) unknown) U/L (unknown) (no (unknown) (unknown) Total Protein (units ( unknown) date) (6.3-8.2) g/dL unknown) (unknown) (no (unknown) (unknown) Total Protein 8.6 (units (unknown) date) H (6.3-8.2) g/dL unknown) (unknown) (no (unknown) (unknown) Tremors of nervous (units (unknown) date) system (06/2020) unknown) (unknown) (no (unknown) (unknown) Triple Phos (units (un known) date) Crystals Cancelled unknown) (unknown) (no (unknown) (unknown) Triple Phos (units (un known) date) Crystals unknown) (unknown) (no (unknown) (unknown) Troponin + CK (units ( unknown) date) Cardiac Panel Stat unknown) (unknown) (no (unknown) (unknown) Troponin I < 0.012 (units (unknown) date) (0.01-0.034) ng/mL unknown) (unknown) (no (unknown) (unknown) Troponin I (units (unk nown) date) (0.01-0.034) ng/mL unknown) (unknown) (no (unknown) (unknown) UA is positive for (units (unknown) date) UTI, urine unknown) bilirubin. HCG negative. All other labs within (unknown) (no (unknown) (unknown) US abdomen limited (units (unknown) date) Stat unknown) (unknown) (no (unknown) (unknown) UTI versus (units (unk nown) date) pyelonephritis unknown) versus thyroid disease versus other. Will obtain (unknown) (no (unknown) (unknown) Ur Bilirubin (units (u nknown) date) Confirm (Negative) unknown) (unknown) (no (unknown) (unknown) Ur Bilirubin (units (u nknown) date) Confirm Positive H unknown) (Negative) (unknown) (no (unknown) (unknown) Ur Culture (units (unk nown) date) Indicated? unknown) Cancelled (unknown) (no (unknown) (unknown) Ur Culture (units (unk nown) date) Indicated? unknown) (unknown) (no (unknown) (unknown) Ur Leukocyte (units (u nknown) date) Esterase (NEGATIVE) unknown) (unknown) (no (unknown) (unknown) Ur Leukocyte (units (u nknown) date) Esterase Negative unknown) (NEGATIVE) (unknown) (no (unknown) (unknown) Ur Renal (units (unkno wn) date) Epithelial Cell unknown) Cancelled (unknown) (no (unknown) (unknown) Ur Renal (units (unkno wn) date) Epithelial Cell unknown) (unknown) (no (unknown) (unknown) Ur Specific (units (un known) date) [place] unknown) (1.000-1.035) (unknown) (no (unknown) (unknown) Ur Specific (units (un known) date) [place] 1.025 unknown) (1.000-1.035) (unknown) (no (unknown) (unknown) Ur Squamous Epith (units (unknown) date) Cells Cancelled unknown) 5-10 /hpf H (unknown) (no (unknown) (unknown) Ur Squamous Epith (units (unknown) date) Cells unknown) (unknown) (no (unknown) (unknown) Ur Transition (units ( unknown) date) Epith Cell unknown) Cancelled (unknown) (no (unknown) (unknown) Ur Transition (units ( unknown) date) Epith Cell unknown) (unknown) (no (unknown) (unknown) Uric Acid Crystals (units (unknown) date) Cancelled unknown) (unknown) (no (unknown) (unknown) Uric Acid Crystals (units (unknown) date) unknown) (unknown) (no (unknown) (unknown) Urinalysis and (units (unknown) date) Microscopic Stat unknown) (unknown) (no (unknown) (unknown) Urine Appearance (units (unknown) date) Slightly cloudy unknown) (unknown) (no (unknown) (unknown) Urine Appearance (units (unknown) date) unknown) (unknown) (no (unknown) (unknown) Urine Bacteria (units (unknown) date) Cancelled Moderate unknown) (10-30) H (unknown) (no (unknown) (unknown) Urine Bacteria (units (unknown) date) unknown) (unknown) (no (unknown) (unknown) Urine Bilirubin (units (unknown) date) (NEGATIVE) unknown) (unknown) (no (unknown) (unknown) Urine Bilirubin 2+ (units (unknown) date) H (NEGATIVE) unknown) (unknown) (no (unknown) (unknown) Urine Color Dark (units (unknown) date) yellow unknown) (unknown) (no (unknown) (unknown) Urine Color (units (un known) date) unknown) (unknown) (no (unknown) (unknown) Urine Culture Stat (units (unknown) date) unknown) (unknown) (no (unknown) (unknown) Urine Glucose (UA) (units (unknown) date) (Negative) g/dL unknown) (unknown) (no (unknown) (unknown) Urine Glucose (UA) (units (unknown) date) Negative (Negative) unknown) g/dL (unknown) (no (unknown) (unknown) Urine Ketones (units ( unknown) date) (NEGATIVE) unknown) (unknown) (no (unknown) (unknown) Urine Ketones 3+ H (units (unknown) date) (NEGATIVE) unknown) (unknown) (no (unknown) (unknown) Urine Mucus (units (un known) date) Cancelled 3+ H unknown) (unknown) (no (unknown) (unknown) Urine Mucus (units (un known) date) unknown) (unknown) (no (unknown) (unknown) Urine Nitrate (units ( unknown) date) (Negative) unknown) (unknown) (no (unknown) (unknown) Urine Nitrate (units ( unknown) date) Positive H unknown) (Negative) (unknown) (no (unknown) (unknown) Urine Occult Blood (units (unknown) date) (Negative) unknown) (unknown) (no (unknown) (unknown) Urine Occult Blood (units (unknown) date) Negative (Negative) unknown) (unknown) (no (unknown) (unknown) Urine (units (unknown) date) Test (Negative) unknown) (unknown) (no (unknown) (unknown) Urine (units (unknown) date) Test Negative unknown) (Negative) (unknown) (no (unknown) (unknown) Urine Protein (units ( unknown) date) (Negative) unknown) (unknown) (no (unknown) (unknown) Urine Protein 1+ H (units (unknown) date) (Negative) unknown) (unknown) (no (unknown) (unknown) Urine RBC (units (unkn own) date) Cancelled None seen unknown) (unknown) (no (unknown) (unknown) Urine RBC (units (unkn own) date) unknown) (unknown) (no (unknown) (unknown) Urine Sperm (units (un known) date) Cancelled unknown) (unknown) (no (unknown) (unknown) Urine Sperm (units (un known) date) unknown) (unknown) (no (unknown) (unknown) Urine Trichomonas (units (unknown) date) Cancelled unknown) (unknown) (no (unknown) (unknown) Urine Trichomonas (units (unknown) date) unknown) (unknown) (no (unknown) (unknown) Urine Urobilinogen (units (unknown) date) (0.2) E.U./dL unknown) (unknown) (no (unknown) (unknown) Urine Urobilinogen (units (unknown) date) 1.0 (0.2) E.U./dL unknown) (unknown) (no (unknown) (unknown) Urine WBC (units (unkn own) date) Cancelled 5-10/hpf unknown) H (unknown) (no (unknown) (unknown) Urine WBC (units (unkn own) date) unknown) (unknown) (no (unknown) (unknown) Urine Yeast (units (un known) date) Cancelled unknown) (unknown) (no (unknown) (unknown) Urine Yeast (units (un known) date) unknown) (unknown) (no (unknown) (unknown) Urine pH (4.5-8.0) (units (unknown) date) unknown) (unknown) (no (unknown) (unknown) Urine pH 6.0 (units (u nknown) date) (4.5-8.0) unknown) (unknown) (no (unknown) (unknown) Vital Signs - 8 hr (units (unknown) date) unknown) (unknown) (no (unknown) (unknown) Vital Signs (units (un known) date) unknown) (unknown) (no (unknown) (unknown) Vital signs: (units (u nknown) date) unknown) (unknown) (no (unknown) (unknown) WBC (4.5-11.0) (units (unknown) date) X103/uL unknown) (unknown) (no (unknown) (unknown) WBC 4.7 (4.5-11.0) (units (unknown) date) X103/uL unknown) (unknown) (no (unknown) (unknown) WBC Casts (units (unkn own) date) Cancelled unknown) (unknown) (no (unknown) (unknown) WBC Casts (units (unkn own) date) unknown) (unknown) (no (unknown) (unknown) [Embedded Image (units (unknown) date) Not Available] unknown) (unknown) (no (unknown) (unknown) [From Bactrim] (units (unknown) date) unknown) (unknown) (no (unknown) (unknown) alcohol intake (units (unknown) date) frequency: a few unknown) times a week (unknown) (no (unknown) (unknown) alcohol intake: (units (unknown) date) current unknown) (unknown) (no (unknown) (unknown) and Denies (units (unk nown) date) orthopnea unknown) (unknown) (no (unknown) (unknown) and Denies urinary (units (unknown) date) urgency unknown) (unknown) (no (unknown) (unknown) and Denies (units (unk nown) date) weakness unknown) (unknown) (no (unknown) (unknown) and below (units (unkn own) date) unknown) (unknown) (no (unknown) (unknown) chest pain, (units (un known) date) shortness of unknown) breath, lightheadedness, dizziness, syncope. Patient (unknown) (no (unknown) (unknown) denies dysuria but (units (unknown) date) endorses dark unknown) cloudy urine. Endorses decreased urine. (unknown) (no (unknown) (unknown) depression, Denies (units (unknown) date) homicidal ideation unknown) and Denies suicidal ideation (unknown) (no (unknown) (unknown) diarrhea, Reports (units (unknown) date) nausea and Reports unknown) vomiting (unknown) (no (unknown) (unknown) disease, tremors (units (unknown) date) of the nervous unknown) system presents to the ED with 2 months of (unknown) (no (unknown) (unknown) duloxetine 30 mg (units (unknown) date) capsule,delayed 30 unknown) mg PO DAILY #90 caps 03/29/22 (unknown) (no (unknown) (unknown) duloxetine 30 mg (units (unknown) date) capsule,delayed unknown) release(DR/EC) (unknown) (no (unknown) (unknown) epigastric region, (units (unknown) date) and that it is unknown) pushing out towards her ribs. Patient states (unknown) (no (unknown) (unknown) folic acid 1 mg (units (unknown) date) tablet See Rx unknown) Instructions .Route 04/01/22 (unknown) (no (unknown) (unknown) folic acid 1 mg (units (unknown) date) tablet unknown) (unknown) (no (unknown) (unknown) household members: (units (unknown) date) significant other unknown) and children (unknown) (no (unknown) (unknown) hydroxyzine (units (un known) date) pamoate 25 mg unknown) capsule 25 mg PO Q6HR PRN Anxiety #60 caps 03/29/22 (unknown) (no (unknown) (unknown) hydroxyzine (units (un known) date) pamoate 25 mg unknown) capsule (unknown) (no (unknown) (unknown) improved through (units (unknown) date) the ED course. unknown) (unknown) (no (unknown) (unknown) labs, UA, TSH, (units (unknown) date) urine , CT unknown) abdomen pelvis, ultrasound right upper (unknown) (no (unknown) (unknown) lightheadedness, (units (unknown) date) Denies unknown) palpitations, Denies dyspnea, Denies dyspnea on exertion (unknown) (no (unknown) (unknown) neck pain, Denies (units (unknown) date) sore throat and unknown) Denies throat swelling (unknown) (no (unknown) (unknown) normal limits. TSH (units (unknown) date) within normal unknown) limits. Awaiting ETOH and CT abdomen pelvis. (unknown) (no (unknown) (unknown) of vomiting 2 days (units (unknown) date) ago. Patient denies unknown) fevers, endorses chills. Patient denies (unknown) (no (unknown) (unknown) peripheral (units (unk nown) date) neuropathy, unknown) Jim's disease, alcohol use disorder, fatty liver (unknown) (no (unknown) (unknown) prescribed (units (unk nown) date) methimazole that unknown) she does not believe that it helps. (unknown) (no (unknown) (unknown) prescribed (units (unk nown) date) propranolol. unknown) Patient also has diagnosed with Jim's, was (unknown) (no (unknown) (unknown) quadrant. (units (unkn own) date) unknown) (unknown) (no (unknown) (unknown) region. There is (units (unknown) date) bilateral CVA unknown) tenderness. (unknown) (no (unknown) (unknown) release (units (unkno wn) date) unknown) (unknown) (no (unknown) (unknown) second hand (units (un known) date) exposure: Yes unknown) (unknown) (no (unknown) (unknown) she has not had (units (unknown) date) much of an appetite unknown) for a few weeks now. Patient had 1 episode (unknown) (no (unknown) (unknown) substance use (units ( unknown) date) type: does not use unknown) (unknown) (no (unknown) (unknown) sulfamethoxazole (units (unknown) date) Allergy Severe unknown) Anaphylaxis Verified 07/20/22 09:43 (unknown) (no (unknown) (unknown) tablet (units (unkno wn) date) unknown) (unknown) (no (unknown) (unknown) thiamine HCl (units (u nknown) date) (vitamin B1) 100 mg unknown) 100 mg PO DAILY #30 tabs 03/29/22 (unknown) (no (unknown) (unknown) thiamine HCl (units (u nknown) date) (vitamin B1) 100 mg unknown) tablet (unknown) (no (unknown) (unknown) trazodone 50 mg (units (unknown) date) tablet 25 mg PO unknown) BEDTIME #30 tabs 03/29/22 (unknown) (no (unknown) (unknown) trazodone 50 mg (units (unknown) date) tablet unknown) (unknown) (no (unknown) (unknown) trimethoprim [From (units (unknown) date) Bactrim] Allergy unknown) Severe Anaphylaxis Verified 07/20/22 09:43 (unknown) (no (unknown) (unknown) versus gallbladder (units (unknown) date) disease versus unknown) liver disease versus alcohol withdrawal versus (unknown) (no (unknown) (unknown) week. Patient has (units (unknown) date) a history of benign unknown) essential tremors for which she has been (unknown) (no (unknown) (unknown) wheezing (units (unkno wn) date) unknown) (unknown) (no (unknown) (unknown) worsening upper (units (unknown) date) abdominal pain. unknown) Concern for GERD versus gastritis versus SBO (unknown) (no (unknown) (unknown) worsening upper (units (unknown) date) abdominal pain. unknown) Patient states that she feels pressure in the Result panel 473 (unknown) (no date) (unknown) (unknown) < 10 mg/dl (unkn own) (unknown) (no date) (unknown) (unknown) < 10 mg/dl (unkn own) Result panel 474 (unknown) (no (unknown) (unknown) (no value) (units (unk nown) date) unknown) (unknown) (no (unknown) (unknown) .COMPLEX #30 tabs (units (unknown) date) unknown) (unknown) (no (unknown) (unknown) 11/13/22 11/13/22 (units (unknown) date) 11/13/22 unknown) Range/Units (unknown) (no (unknown) (unknown) 11/13/22 11/13/22 (units (unknown) date) Range/Units unknown) (unknown) (no (unknown) (unknown) 11/13/22 17:30 (units (unknown) date) unknown) (unknown) (no (unknown) (unknown) 11/13/22 18:32 (units (unknown) date) unknown) (unknown) (no (unknown) (unknown) 11/13/22 18:39 (units (unknown) date) unknown) (unknown) (no (unknown) (unknown) 11/13/22 18:40 (units (unknown) date) unknown) (unknown) (no (unknown) (unknown) 11/13/22 19:14 (units (unknown) date) unknown) (unknown) (no (unknown) (unknown) 11/13/22 (units (unkno wn) date) unknown) (unknown) (no (unknown) (unknown) [id number] (units (unkno wn) date) unknown) (unknown) (no (unknown) (unknown) 100 mg PO DAILY (units (unknown) date) Qty: 30 3RF unknown) (unknown) (no (unknown) (unknown) 17:23 11/13/22 (units (unknown) date) unknown) (unknown) (no (unknown) (unknown) 17:30 17:30 17:30 (units (unknown) date) unknown) (unknown) (no (unknown) (unknown) 18:32 18:32 18:32 (units (unknown) date) unknown) (unknown) (no (unknown) (unknown) 18:32 18:32 (units (un known) date) unknown) (unknown) (no (unknown) (unknown) 20:00 (units (unkno wn) date) unknown) (unknown) (no (unknown) (unknown) 25 mg PO BEDTIME (units (unknown) date) Qty: 30 1RF unknown) (unknown) (no (unknown) (unknown) 25 mg PO Q6HR PRN (units (unknown) date) (Reason: Anxiety) unknown) Qty: 60 1RF (unknown) (no (unknown) (unknown) 30 mg PO DAILY (units (unknown) date) Qty: 90 1RF unknown) (unknown) (no (unknown) (unknown) 42-year-old female (units (unknown) date) with past medical unknown) history generalized anxiety disorder, (unknown) (no (unknown) (unknown) 02/11. Patient (units ( unknown) date) states that since unknown) then, she has reduced her drinking to 1 drink a (unknown) (no (unknown) (unknown) ALT (<35) IU/L (units (unknown) date) unknown) (unknown) (no (unknown) (unknown) ALT 76 H (<35) (units (unknown) date) IU/L unknown) (unknown) (no (unknown) (unknown) AST (14-36) IU/L (units (unknown) date) unknown) (unknown) (no (unknown) (unknown) AST 89 H (14-36) (units (unknown) date) IU/L unknown) (unknown) (no (unknown) (unknown) Abdomen is soft (units (unknown) date) with hepatomegaly, unknown) tenderness to palpation in the epigastric (unknown) (no (unknown) (unknown) Acquired (units (unkno wn) date) hypothyroidism unknown) (unknown) (no (unknown) (unknown) Age/Sex: 42 / F (units (unknown) date) unknown) (unknown) (no (unknown) (unknown) Albumin (3.5-5.0) (units (unknown) date) g/dL unknown) (unknown) (no (unknown) (unknown) Albumin 5.1 H (units ( unknown) date) (3.5-5.0) g/dL unknown) (unknown) (no (unknown) (unknown) Albumin/Globulin (units (unknown) date) Ratio (1.0-2.8) unknown) (unknown) (no (unknown) (unknown) Albumin/Globulin (units (unknown) date) Ratio 1.5 (1.0-2.8) unknown) (unknown) (no (unknown) (unknown) Alcohol type: beer (units (unknown) date) unknown) (unknown) (no (unknown) (unknown) Alcohol use (units (un known) date) unknown) (unknown) (no (unknown) (unknown) Alkaline (units (unkno wn) date) Phosphatase unknown) (38-126) U/L (unknown) (no (unknown) (unknown) Alkaline (units (unkno wn) date) Phosphatase 61 unknown) (38-126) U/L (unknown) (no (unknown) (unknown) Allergic/Immunolog (units (unknown) date) ic unknown) (unknown) (no (unknown) (unknown) Allergic/Immunolog (units (unknown) date) ic: Denies unknown) urticaria, Denies throat swelling and Denies (unknown) (no (unknown) (unknown) Allergies (units (unkn own) date) unknown) (unknown) (no (unknown) (unknown) Allergy/AdvReac (units (unknown) date) Type Severity unknown) Reaction Status Date / Time (unknown) (no (unknown) (unknown) Amorphous Sediment (units (unknown) date) Cancelled 1 unknown) (unknown) (no (unknown) (unknown) Amorphous Sediment (units (unknown) date) unknown) (unknown) (no (unknown) (unknown) Auscultation:?hipolito (units (unknown) date) r to auscultation unknown) bilaterally (unknown) (no (unknown) (unknown) BUN (7-17) mg/dL (units (unknown) date) unknown) (unknown) (no (unknown) (unknown) BUN 10 (7-17) (units ( unknown) date) mg/dL unknown) (unknown) (no (unknown) (unknown) BUN/Creatinine (units (unknown) date) Ratio (6-22) unknown) (unknown) (no (unknown) (unknown) BUN/Creatinine (units (unknown) date) Ratio 16.1 (6-22) unknown) (unknown) (no (unknown) (unknown) Baso # (Auto) (units ( unknown) date) (0-100) /uL unknown) (unknown) (no (unknown) (unknown) Baso # (Auto) 0 (units (unknown) date) (0-100) /uL unknown) (unknown) (no (unknown) (unknown) Baso % (Auto) (units ( unknown) date) (0-2) % unknown) (unknown) (no (unknown) (unknown) Baso % (Auto) 0.5 (units (unknown) date) (0-2) % unknown) (unknown) (no (unknown) (unknown) Blood Pressure (units (unknown) date) 172/99 H 11/13/22 unknown) 17:23 (unknown) (no (unknown) (unknown) Blood Pressure (units (unknown) date) 172/99 H 149/95 H unknown) (unknown) (no (unknown) (unknown) Breast mass in (units (unknown) date) female unknown) (unknown) (no (unknown) (unknown) CK-MB (CK-2) Rel (units (unknown) date) Index TNP unknown) (unknown) (no (unknown) (unknown) CK-MB (CK-2) Rel (units (unknown) date) Index unknown) (unknown) (no (unknown) (unknown) CK-MB (CK-2) TNP (units (unknown) date) unknown) (unknown) (no (unknown) (unknown) CK-MB (CK-2) (units (u nknown) date) unknown) (unknown) (no (unknown) (unknown) CT abdomen pelvis (units (unknown) date) w con Stat unknown) (unknown) (no (unknown) (unknown) Calcium (8.4-10.2) (units (unknown) date) mg/dL unknown) (unknown) (no (unknown) (unknown) Calcium 9.7 (units (un known) date) (8.4-10.2) mg/dL unknown) (unknown) (no (unknown) (unknown) Calcium Oxalate (units (unknown) date) Crystal Cancelled unknown) (unknown) (no (unknown) (unknown) Calcium Oxalate (units (unknown) date) Crystal unknown) (unknown) (no (unknown) (unknown) Carbon Dioxide (units (unknown) date) (22-32) mmol/L unknown) (unknown) (no (unknown) (unknown) Carbon Dioxide 23 (units (unknown) date) (22-32) mmol/L unknown) (unknown) (no (unknown) (unknown) Cardio (units (unkno wn) date) unknown) (unknown) (no (unknown) (unknown) Cardiovascular (units (unknown) date) unknown) (unknown) (no (unknown) (unknown) Cardiovascular: (units (unknown) date) Denies chest pain, unknown) Denies irregular heart rhythm, Denies (unknown) (no (unknown) (unknown) Chief Complaint: (units (unknown) date) Abdominal Pain unknown) (unknown) (no (unknown) (unknown) Chloride (98-107) (units (unknown) date) mmol/L unknown) (unknown) (no (unknown) (unknown) Chloride 97 L (units ( unknown) date) (98-107) mmol/L unknown) (unknown) (no (unknown) (unknown) Cloudy urine (units (u nknown) date) unknown) (unknown) (no (unknown) (unknown) Comments: (units (unkn own) date) unknown) (unknown) (no (unknown) (unknown) Complete Blood (units (unknown) date) Count AUTO DIFF unknown) Stat (unknown) (no (unknown) (unknown) Comprehensive (units ( unknown) date) Metabolic Panel unknown) Stat (unknown) (no (unknown) (unknown) Const (units (unkno wn) date) unknown) (unknown) (no (unknown) (unknown) Constitutional (units (unknown) date) unknown) (unknown) (no (unknown) (unknown) Constitutional: (units (unknown) date) Reports chills, unknown) Reports excessive sweating, Denies fatigue, (unknown) (no (unknown) (unknown) Course (units (unkno wn) date) unknown) (unknown) (no (unknown) (unknown) Creatinine (units (unk nown) date) (0.52-1.04) mg/dL unknown) (unknown) (no (unknown) (unknown) Creatinine 0.62 (units (unknown) date) (0.52-1.04) mg/dL unknown) (unknown) (no (unknown) (unknown) : 1980 (units (unknown) date) Acct:[id number] unknown) (unknown) (no (unknown) (unknown) Date of Service: (units (unknown) date) 11/13/22 unknown) (unknown) (no (unknown) (unknown) Denies fever(s), (units (unknown) date) Denies frequent unknown) falls, Denies lethargy, Reports poor appetite (unknown) (no (unknown) (unknown) Denies frequent (units (unknown) date) falls, Denies loss unknown) of vision, Denies numbness, Denies tingling (unknown) (no (unknown) (unknown) Denies loss of (units (unknown) date) vision unknown) (unknown) (no (unknown) (unknown) Denies numbness (units (unknown) date) and Denies tingling unknown) (unknown) (no (unknown) (unknown) Denies (units (unkno wn) date) palpitations unknown) (unknown) (no (unknown) (unknown) Departure (units (unkn own) date) unknown) (unknown) (no (unknown) (unknown) Discharge Plan (units (unknown) date) unknown) (unknown) (no (unknown) (unknown) Dose Instruction: (units (unknown) date) unknown) (unknown) (no (unknown) (unknown) ED Orders (units (unkn own) date) unknown) (unknown) (no (unknown) (unknown) EKG-12 Lead Stat (units (unknown) date) unknown) (unknown) (no (unknown) (unknown) ENT (units (unkno wn) date) unknown) (unknown) (no (unknown) (unknown) ER Physician: (units ( unknown) date) Benson Garcia D.O. unknown) (unknown) (no (unknown) (unknown) ETOH [Ethanol (units ( unknown) date) (ETOH)] Stat unknown) (unknown) (no (unknown) (unknown) Ears, Nose, Mouth, (units (unknown) date) and Throat: Denies unknown) change in voice, Denies dizziness, Denies (unknown) (no (unknown) (unknown) Ears:?hearing (units ( unknown) date) grossly normal unknown) bilaterally (unknown) (no (unknown) (unknown) Effort + (units (unkno wn) date) Inspection:?normal unknown) respiratory effort (unknown) (no (unknown) (unknown) Elevated blood (units (unknown) date) protein unknown) (unknown) (no (unknown) (unknown) Elevated liver (units (unknown) date) enzymes unknown) (unknown) (no (unknown) (unknown) Emergency Report (units (unknown) date) unknown) (unknown) (no (unknown) (unknown) Endocrine (units (unkn own) date) unknown) (unknown) (no (unknown) (unknown) Endocrine: Reports (units (unknown) date) excessive sweating, unknown) Denies fatigue, Denies flushing and (unknown) (no (unknown) (unknown) Eos # (Auto) (units (u nknown) date) (0-450) /uL unknown) (unknown) (no (unknown) (unknown) Eos # (Auto) 200 (units (unknown) date) (0-450) /uL unknown) (unknown) (no (unknown) (unknown) Eos % (Auto) (2-4) (units (unknown) date) % unknown) (unknown) (no (unknown) (unknown) Eos % (Auto) 4.8 H (units (unknown) date) (2-4) % unknown) (unknown) (no (unknown) (unknown) Estimated GFR > 60 (units (unknown) date) (>60) mL/min unknown) (unknown) (no (unknown) (unknown) Estimated GFR (units ( unknown) date) (>60) mL/min unknown) (unknown) (no (unknown) (unknown) Ethyl Alcohol < 10 (units (unknown) date) ( - 10) mg/dL unknown) (unknown) (no (unknown) (unknown) Ethyl Alcohol ( - (units (unknown) date) 10) mg/dL unknown) (unknown) (no (unknown) (unknown) Exam Narrative: (units (unknown) date) unknown) (unknown) (no (unknown) (unknown) Exam (units (unkno wn) date) unknown) (unknown) (no (unknown) (unknown) Eyes (units (unkno wn) date) unknown) (unknown) (no (unknown) (unknown) Eyes: Denies (units (u nknown) date) change in vision, unknown) Denies eye discharge, Denies irritation and (unknown) (no (unknown) (unknown) Face and (units (unkno wn) date) sinus:?normal unknown) facial exam and sinuses nontender (unknown) (no (unknown) (unknown) Family History (units (unknown) date) (Reviewed 11/13/22 unknown) @ 20:00 by Philip Chen PA-C) (unknown) (no (unknown) (unknown) Father Diabetes (units (unknown) date) mellitus unknown) (unknown) (no (unknown) (unknown) 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, unknown) nonalcoholic (unknown) (no (unknown) (unknown) GI (units (unkno wn) date) unknown) (unknown) (no (unknown) (unknown) Gastrointestinal (units (unknown) date) unknown) (unknown) (no (unknown) (unknown) Gastrointestinal: (units (unknown) date) Reports abdominal unknown) pain, Denies change in bowel habits, Denies (unknown) (no (unknown) (unknown) General (units (unkno wn) date) unknown) (unknown) (no (unknown) (unknown) General:?appearanc (units (unknown) date) e normal, both eyes unknown) and all related structures (unknown) (no (unknown) (unknown) General:?cooperati (units (unknown) date) ve, healthy unknown) appearing and comfortable (unknown) (no (unknown) (unknown) General:?patient (units (unknown) date) alert, patient unknown) awake and patient oriented x3 (unknown) (no (unknown) (unknown) 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 unknown) (unknown) (no (unknown) (unknown) Genitourinary (units ( unknown) date) unknown) (unknown) (no (unknown) (unknown) Genitourinary: (units (unknown) date) Denies hematuria, unknown) Denies flank pain, Denies urinary incontinence (unknown) (no (unknown) (unknown) Globulin (1.7-4.1) (units (unknown) date) g/dL unknown) (unknown) (no (unknown) (unknown) Globulin 3.5 (units (u nknown) date) (1.7-4.1) g/dL unknown) (unknown) (no (unknown) (unknown) Glucose (70-100) (units (unknown) date) mg/dL unknown) (unknown) (no (unknown) (unknown) Glucose 107 H (units ( unknown) date) (70-100) mg/dL unknown) (unknown) (no (unknown) (unknown) Grandfather (units (un known) date) Kidney unknown) failure (unknown) (no (unknown) (unknown) Grandmother (units (un known) date) Cancer unknown) (unknown) (no (unknown) (unknown) Granular Casts (units (unknown) date) Cancelled 1-5/lpf unknown) (unknown) (no (unknown) (unknown) Granular Casts (units (unknown) date) unknown) (unknown) (no (unknown) (unknown) HENMT (units (unkno wn) date) unknown) (unknown) (no (unknown) (unknown) HPI - Abdominal (units (unknown) date) Pain unknown) (unknown) (no (unknown) (unknown) HPI narrative: (units (unknown) date) unknown) (unknown) (no (unknown) (unknown) 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) (unknown) (no (unknown) (unknown) Hct (36-46) % (units ( unknown) date) unknown) (unknown) (no (unknown) (unknown) Hct 42.9 (36-46) % (units (unknown) date) unknown) (unknown) (no (unknown) (unknown) Head:?normal to (units (unknown) date) inspection unknown) (unknown) (no (unknown) (unknown) Hematologic/Lympha (units (unknown) date) tic unknown) (unknown) (no (unknown) (unknown) Hematologic/Lympha (units (unknown) date) tic: Denies easy unknown) bruising (unknown) (no (unknown) (unknown) Hgb (12.0-16.0) (units (unknown) date) g/dL unknown) (unknown) (no (unknown) (unknown) Hgb 14.7 (units (unkno wn) date) (12.0-16.0) g/dL unknown) (unknown) (no (unknown) (unknown) History of Present (units (unknown) date) Illness unknown) (unknown) (no (unknown) (unknown) Hyaline Casts (units ( unknown) date) Cancelled 1-5/lpf unknown) (unknown) (no (unknown) (unknown) Hyaline Casts (units ( unknown) date) unknown) (unknown) (no (unknown) (unknown) Ictotest Urine (units (unknown) date) Stat unknown) (unknown) (no (unknown) (unknown) Initial Vital (units ( unknown) date) Signs unknown) (unknown) (no (unknown) (unknown) Initial Vital (units ( unknown) date) Signs: unknown) (unknown) (no (unknown) (unknown) Insomnia (units (unkno wn) date) unknown) (unknown) (no (unknown) (unknown) Integumentary/[place] (units (unknown) date) sts unknown) (unknown) (no (unknown) (unknown) [facility] (units (unknown) date) [address] unknown) [place] [address] (unknown) (no (unknown) (unknown) Lab Data (units (unkno wn) date) unknown) (unknown) (no (unknown) (unknown) Lab Results (units (un known) date) unknown) (unknown) (no (unknown) (unknown) Labs: (units (unkno wn) date) unknown) (unknown) (no (unknown) (unknown) Lipase (23-300) (units (unknown) date) U/L unknown) (unknown) (no (unknown) (unknown) Lipase 153 (units (unk nown) date) (23-300) U/L unknown) (unknown) (no (unknown) (unknown) Lipase Stat (units (un known) date) unknown) (unknown) (no (unknown) (unknown) Lymph # (Auto) (units (unknown) date) (0794-7707) /uL unknown) (unknown) (no (unknown) (unknown) Lymph # (Auto) 700 (units (unknown) date) L (7182-7371) /uL unknown) (unknown) (no (unknown) (unknown) Lymph % (Auto) (units (unknown) date) (25-40) % unknown) (unknown) (no (unknown) (unknown) Lymph % (Auto) (units (unknown) date) 15.9 L (25-40) % unknown) (unknown) (no (unknown) (unknown) MCH (26-34) PG (units (unknown) date) unknown) (unknown) (no (unknown) (unknown) MCH 32.5 (26-34) (units (unknown) date) PG unknown) (unknown) (no (unknown) (unknown) MCHC (30-36) % (units (unknown) date) unknown) (unknown) (no (unknown) (unknown) MCHC 34.3 (30-36) (units (unknown) date) % unknown) (unknown) (no (unknown) (unknown) MCV (80-100) fL (units (unknown) date) unknown) (unknown) (no (unknown) (unknown) MCV 94.8 (80-100) (units (unknown) date) fL unknown) (unknown) (no (unknown) (unknown) MDM - Abdominal (units (unknown) date) Pain unknown) (unknown) (no (unknown) (unknown) MDM Narrative (units ( unknown) date) unknown) (unknown) (no (unknown) (unknown) Medical History (units (unknown) date) (Reviewed 11/13/22 unknown) @ 20:00 by Philip Chen PA-C) (unknown) (no (unknown) (unknown) Medical decision (units (unknown) date) making narrative: unknown) (unknown) (no (unknown) (unknown) Medication (units (unk nown) date) Instructions unknown) Recorded (unknown) (no (unknown) (unknown) Micro UA Comment (units (unknown) date) Cancelled unknown) (unknown) (no (unknown) (unknown) Micro UA Comment (units (unknown) date) unknown) (unknown) (no (unknown) (unknown) Mode of arrival: (units (unknown) date) Ambulatory unknown) (unknown) (no (unknown) (unknown) [place] # (Auto) (units ( unknown) date) (0-900) /uL unknown) (unknown) (no (unknown) (unknown) [place] # (Auto) 500 (units (unknown) date) (0-900) /uL unknown) (unknown) (no (unknown) (unknown) [place] % (Auto) (units ( unknown) date) (3-14) % unknown) (unknown) (no (unknown) (unknown) [place] % (Auto) 10.0 (units (unknown) date) (3-14) % unknown) (unknown) (no (unknown) (unknown) Mother (units (unknown) date) Cancer unknown) (unknown) (no (unknown) (unknown) Mouth:?oral (units (un known) date) mucosae normal unknown) (unknown) (no (unknown) (unknown) Musculoskeletal (units (unknown) date) unknown) (unknown) (no (unknown) (unknown) Musculoskeletal: (units (unknown) date) Denies back pain, unknown) Denies muscle weakness, Denies neck pain, (unknown) (no (unknown) (unknown) Narrative (units (unkn own) date) unknown) (unknown) (no (unknown) (unknown) Neck (units (unkno wn) date) unknown) (unknown) (no (unknown) (unknown) Neck:?normal (units (u nknown) date) visual inspection unknown) and no lymphadenopathy noted (unknown) (no (unknown) (unknown) Neuro (units (unkno wn) date) unknown) (unknown) (no (unknown) (unknown) Neurologic (units (unk nown) date) unknown) (unknown) (no (unknown) (unknown) Neurologic: Denies (units (unknown) date) behavioral changes, unknown) Denies confusion, Denies dizziness, (unknown) (no (unknown) (unknown) Neut # (Auto) (units ( unknown) date) (4206-7292) /uL unknown) (unknown) (no (unknown) (unknown) Neut # (Auto) 3200 (units (unknown) date) (3914-2884) /uL unknown) (unknown) (no (unknown) (unknown) Neut % (Auto) (units ( unknown) date) (50-75) % unknown) (unknown) (no (unknown) (unknown) Neut % (Auto) 68.8 (units (unknown) date) (50-75) % unknown) (unknown) (no (unknown) (unknown) No Action (units (unkn own) date) unknown) (unknown) (no (unknown) (unknown) Nose:?external (units (unknown) date) nose normal unknown) (unknown) (no (unknown) (unknown) Ordered: (units (unkno wn) date) unknown) (unknown) (no (unknown) (unknown) Orders (units (unkno wn) date) unknown) (unknown) (no (unknown) (unknown) Other Casts (units (un known) date) Cancelled unknown) (unknown) (no (unknown) (unknown) Other Casts (units (un known) date) unknown) (unknown) (no (unknown) (unknown) Other Crystals (units (unknown) date) Cancelled unknown) (unknown) (no (unknown) (unknown) Other Crystals (units (unknown) date) unknown) (unknown) (no (unknown) (unknown) Oxygen Delivery (units (unknown) date) Method 11/13/22 unknown) 17:23 (unknown) (no (unknown) (unknown) Oxygen Delivery (units (unknown) date) Method Room Air unknown) Room Air (unknown) (no (unknown) (unknown) Patient History (units (unknown) date) unknown) (unknown) (no (unknown) (unknown) Patient denies (units (unknown) date) medical problems unknown) (unknown) (no (unknown) (unknown) Patient has a (units (u nknown) date) history of alcohol unknown) use disorder, for which she was hospitalized in (unknown) (no (unknown) (unknown) Patient initially (units (unknown) date) appeared more unknown) anxious and diaphoretic, however those symptoms (unknown) (no (unknown) (unknown) Patient is now (units (unknown) date) signed out to Dr. mcdonald) Radha. (unknown) (no (unknown) (unknown) Patient: (units (unkno wn) date) Layne Avendano N unknown) MR#: [id number] (unknown) (no (unknown) (unknown) Peripheral (units (unk nown) date) neuropathy unknown) (unknown) (no (unknown) (unknown) Ian Roland DO (units (unknown) date) [Primary Care unknown) Provider] (unknown) (no (unknown) (unknown) Plt Count (units (unkn own) date) (150-400) X103/uL unknown) (unknown) (no (unknown) (unknown) Plt Count 174 (units ( unknown) date) (150-400) X103/uL unknown) (unknown) (no (unknown) (unknown) Potassium (units (unkn own) date) (3.4-5.1) mmol/L unknown) (unknown) (no (unknown) (unknown) Potassium 3.9 (units ( unknown) date) (3.4-5.1) mmol/L unknown) (unknown) (no (unknown) (unknown) Test (units (unknown) date) Urine Stat unknown) (unknown) (no (unknown) (unknown) Prescriptions: (units (unknown) date) unknown) (unknown) (no (unknown) (unknown) Previous Rx's (units ( unknown) date) unknown) (unknown) (no (unknown) (unknown) Psychiatric (units (un known) date) unknown) (unknown) (no (unknown) (unknown) Psychiatric: Denies (units (unknown) date) anxiety, Denies unknown) behavioral changes, Denies confusion, Denies (unknown) (no (unknown) (unknown) Pulse Oximetry 99 (units (unknown) date) 11/13/22 17:23 unknown) (unknown) (no (unknown) (unknown) Pulse Oximetry 99 (units (unknown) date) 98 unknown) (unknown) (no (unknown) (unknown) Pulse Rate 75 (units ( unknown) date) 11/13/22 17:23 unknown) (unknown) (no (unknown) (unknown) Pulse Rate 75 74 (units (unknown) date) unknown) (unknown) (no (unknown) (unknown) RBC (4.0-5.2) (units ( unknown) date) X106/uL unknown) (unknown) (no (unknown) (unknown) RBC 4.52 (4.0-5.2) (units (unknown) date) X106/uL unknown) (unknown) (no (unknown) (unknown) RBC Casts (units (unkn own) date) Cancelled unknown) (unknown) (no (unknown) (unknown) RBC Casts (units (unkn own) date) unknown) (unknown) (no (unknown) (unknown) RDW (11.6-14.8) % (units (unknown) date) unknown) (unknown) (no (unknown) (unknown) RDW 13.3 (units (unkno wn) date) (11.6-14.8) % unknown) (unknown) (no (unknown) (unknown) ROS Unobtainable: (units (unknown) date) All systems unknown) reviewed + are unremarkable except as noted in HPI (unknown) (no (unknown) (unknown) Rate:?regular rate (units (unknown) date) unknown) (unknown) (no (unknown) (unknown) Referrals: (units (unk nown) date) unknown) (unknown) (no (unknown) (unknown) Related Data (units (u nknown) date) unknown) (unknown) (no (unknown) (unknown) Resp (units (unkno wn) date) unknown) (unknown) (no (unknown) (unknown) Respiratory Rate (units (unknown) date) 18 11/13/22 17:23 unknown) (unknown) (no (unknown) (unknown) Respiratory Rate (units (unknown) date) 18 20 unknown) (unknown) (no (unknown) (unknown) Respiratory (units (un known) date) unknown) (unknown) (no (unknown) (unknown) Respiratory: Denies (units (unknown) date) cough, Denies unknown) dyspnea, Denies dyspnea on exertion and Denies (unknown) (no (unknown) (unknown) Review of Systems (units (unknown) date) unknown) (unknown) (no (unknown) (unknown) Rhythm:?regular (units (unknown) date) rhythm unknown) (unknown) (no (unknown) (unknown) Rx Instructions: (units (unknown) date) unknown) (unknown) (no (unknown) (unknown) See Rx (units (unkno wn) date) Instructions .ROUTE unknown) .COMPLEX Qty: 30 1RF (unknown) (no (unknown) (unknown) Shortness of (units (u nknown) date) breath (06/2020) unknown) (unknown) (no (unknown) (unknown) Signed By: (units (unk nown) date) unknown) (unknown) (no (unknown) (unknown) Skin/Breast: (units (u nknown) date) Denies pruritus, unknown) Denies erythema, Denies rash and Denies wounds (unknown) (no (unknown) (unknown) Smoking Status: (units (unknown) date) Former smoker unknown) (unknown) (no (unknown) (unknown) Social History (units (unknown) date) (Reviewed 11/13/22 unknown) @ 20:00 by Philip Chen PA-C) (unknown) (no (unknown) (unknown) Sodium (137-145) (units (unknown) date) mmol/L unknown) (unknown) (no (unknown) (unknown) Sodium 134 L (units (u nknown) date) (137-145) mmol/L unknown) (unknown) (no (unknown) (unknown) Source: patient (units (unknown) date) unknown) (unknown) (no (unknown) (unknown) Stated Complaint: (units (unknown) date) TORSO PAIN, unknown) NUMBNESS, FELLS LIKE INSIDES SWELLING (unknown) (no (unknown) (unknown) Substance Use (units ( unknown) date) Type: does not use unknown) (unknown) (no (unknown) (unknown) TAKE ONE TABLET BY (units (unknown) date) MOUTH ONE TIME unknown) DAILY (unknown) (no (unknown) (unknown) TSH (0.47-4.68) (units (unknown) date) uIU/mL unknown) (unknown) (no (unknown) (unknown) TSH 3.50 (units (unkno wn) date) (0.47-4.68) uIU/mL unknown) (unknown) (no (unknown) (unknown) TSH [Thyroid (units (u nknown) date) Stimulating unknown) Hormone] Stat (unknown) (no (unknown) (unknown) Temperature 98 F (units (unknown) date) 11/13/22 17:23 unknown) (unknown) (no (unknown) (unknown) Temperature 98 F (units (unknown) date) unknown) (unknown) (no (unknown) (unknown) Throat:?posterior (units (unknown) date) oropharynx normal unknown) (unknown) (no (unknown) (unknown) Time Seen by (units (u nknown) date) Provider: 11/13/22 unknown) 18:14 (unknown) (no (unknown) (unknown) Total Bilirubin (units (unknown) date) (0.2-1.3) mg/dL unknown) (unknown) (no (unknown) (unknown) Total Bilirubin (units (unknown) date) 3.0 H (0.2-1.3) unknown) mg/dL (unknown) (no (unknown) (unknown) Total Creatine (units (unknown) date) Kinase (30-135) U/L unknown) (unknown) (no (unknown) (unknown) Total Creatine (units (unknown) date) Kinase 96 (30-135) unknown) U/L (unknown) (no (unknown) (unknown) Total Protein (units ( unknown) date) (6.3-8.2) g/dL unknown) (unknown) (no (unknown) (unknown) Total Protein 8.6 (units (unknown) date) H (6.3-8.2) g/dL unknown) (unknown) (no (unknown) (unknown) Tremors of nervous (units (unknown) date) system (06/2020) unknown) (unknown) (no (unknown) (unknown) Triple Phos (units (un known) date) Crystals Cancelled unknown) (unknown) (no (unknown) (unknown) Triple Phos (units (un known) date) Crystals unknown) (unknown) (no (unknown) (unknown) Troponin + CK (units ( unknown) date) Cardiac Panel Stat unknown) (unknown) (no (unknown) (unknown) Troponin I < 0.012 (units (unknown) date) (0.01-0.034) ng/mL unknown) (unknown) (no (unknown) (unknown) Troponin I (units (unk nown) date) (0.01-0.034) ng/mL unknown) (unknown) (no (unknown) (unknown) UA is positive for (units (unknown) date) UTI, urine unknown) bilirubin. HCG negative. All other labs within (unknown) (no (unknown) (unknown) US abdomen limited (units (unknown) date) Stat unknown) (unknown) (no (unknown) (unknown) UTI versus (units (unk nown) date) pyelonephritis unknown) versus thyroid disease versus other. Will obtain (unknown) (no (unknown) (unknown) Ur Bilirubin (units (u nknown) date) Confirm (Negative) unknown) (unknown) (no (unknown) (unknown) Ur Bilirubin (units (u nknown) date) Confirm Positive H unknown) (Negative) (unknown) (no (unknown) (unknown) Ur Culture (units (unk nown) date) Indicated? unknown) Cancelled (unknown) (no (unknown) (unknown) Ur Culture (units (unk nown) date) Indicated? unknown) (unknown) (no (unknown) (unknown) Ur Leukocyte (units (u nknown) date) Esterase (NEGATIVE) unknown) (unknown) (no (unknown) (unknown) Ur Leukocyte (units (u nknown) date) Esterase Negative unknown) (NEGATIVE) (unknown) (no (unknown) (unknown) Ur Renal (units (unkno wn) date) Epithelial Cell unknown) Cancelled (unknown) (no (unknown) (unknown) Ur Renal (units (unkno wn) date) Epithelial Cell unknown) (unknown) (no (unknown) (unknown) Ur Specific (units (un known) date) [place] unknown) (1.000-1.035) (unknown) (no (unknown) (unknown) Ur Specific (units (un known) date) [place] 1.025 unknown) (1.000-1.035) (unknown) (no (unknown) (unknown) Ur Squamous Epith (units (unknown) date) Cells Cancelled unknown) 5-10 /hpf H (unknown) (no (unknown) (unknown) Ur Squamous Epith (units (unknown) date) Cells unknown) (unknown) (no (unknown) (unknown) Ur Transition (units ( unknown) date) Epith Cell unknown) Cancelled (unknown) (no (unknown) (unknown) Ur Transition (units ( unknown) date) Epith Cell unknown) (unknown) (no (unknown) (unknown) Uric Acid Crystals (units (unknown) date) Cancelled unknown) (unknown) (no (unknown) (unknown) Uric Acid Crystals (units (unknown) date) unknown) (unknown) (no (unknown) (unknown) Urinalysis and (units (unknown) date) Microscopic Stat unknown) (unknown) (no (unknown) (unknown) Urine Appearance (units (unknown) date) Slightly cloudy unknown) (unknown) (no (unknown) (unknown) Urine Appearance (units (unknown) date) unknown) (unknown) (no (unknown) (unknown) Urine Bacteria (units (unknown) date) Cancelled Moderate unknown) (10-30) H (unknown) (no (unknown) (unknown) Urine Bacteria (units (unknown) date) unknown) (unknown) (no (unknown) (unknown) Urine Bilirubin (units (unknown) date) (NEGATIVE) unknown) (unknown) (no (unknown) (unknown) Urine Bilirubin 2+ (units (unknown) date) H (NEGATIVE) unknown) (unknown) (no (unknown) (unknown) Urine Color Dark (units (unknown) date) yellow unknown) (unknown) (no (unknown) (unknown) Urine Color (units (un known) date) unknown) (unknown) (no (unknown) (unknown) Urine Culture Stat (units (unknown) date) unknown) (unknown) (no (unknown) (unknown) Urine Glucose (UA) (units (unknown) date) (Negative) g/dL unknown) (unknown) (no (unknown) (unknown) Urine Glucose (UA) (units (unknown) date) Negative (Negative) unknown) g/dL (unknown) (no (unknown) (unknown) Urine Ketones (units ( unknown) date) (NEGATIVE) unknown) (unknown) (no (unknown) (unknown) Urine Ketones 3+ H (units (unknown) date) (NEGATIVE) unknown) (unknown) (no (unknown) (unknown) Urine Mucus (units (un known) date) Cancelled 3+ H unknown) (unknown) (no (unknown) (unknown) Urine Mucus (units (un known) date) unknown) (unknown) (no (unknown) (unknown) Urine Nitrate (units ( unknown) date) (Negative) unknown) (unknown) (no (unknown) (unknown) Urine Nitrate (units ( unknown) date) Positive H unknown) (Negative) (unknown) (no (unknown) (unknown) Urine Occult Blood (units (unknown) date) (Negative) unknown) (unknown) (no (unknown) (unknown) Urine Occult Blood (units (unknown) date) Negative (Negative) unknown) (unknown) (no (unknown) (unknown) Urine (units (unknown) date) Test (Negative) unknown) (unknown) (no (unknown) (unknown) Urine (units (unknown) date) Test Negative unknown) (Negative) (unknown) (no (unknown) (unknown) Urine Protein (units ( unknown) date) (Negative) unknown) (unknown) (no (unknown) (unknown) Urine Protein 1+ H (units (unknown) date) (Negative) unknown) (unknown) (no (unknown) (unknown) Urine RBC (units (unkn own) date) Cancelled None seen unknown) (unknown) (no (unknown) (unknown) Urine RBC (units (unkn own) date) unknown) (unknown) (no (unknown) (unknown) Urine Sperm (units (un known) date) Cancelled unknown) (unknown) (no (unknown) (unknown) Urine Sperm (units (un known) date) unknown) (unknown) (no (unknown) (unknown) Urine Trichomonas (units (unknown) date) Cancelled unknown) (unknown) (no (unknown) (unknown) Urine Trichomonas (units (unknown) date) unknown) (unknown) (no (unknown) (unknown) Urine Urobilinogen (units (unknown) date) (0.2) E.U./dL unknown) (unknown) (no (unknown) (unknown) Urine Urobilinogen (units (unknown) date) 1.0 (0.2) E.U./dL unknown) (unknown) (no (unknown) (unknown) Urine WBC (units (unkn own) date) Cancelled 5-10/hpf unknown) H (unknown) (no (unknown) (unknown) Urine WBC (units (unkn own) date) unknown) (unknown) (no (unknown) (unknown) Urine Yeast (units (un known) date) Cancelled unknown) (unknown) (no (unknown) (unknown) Urine Yeast (units (un known) date) unknown) (unknown) (no (unknown) (unknown) Urine pH (4.5-8.0) (units (unknown) date) unknown) (unknown) (no (unknown) (unknown) Urine pH 6.0 (units (u nknown) date) (4.5-8.0) unknown) (unknown) (no (unknown) (unknown) Vital Signs - 8 hr (units (unknown) date) unknown) (unknown) (no (unknown) (unknown) Vital Signs (units (un known) date) unknown) (unknown) (no (unknown) (unknown) Vital signs: (units (u nknown) date) unknown) (unknown) (no (unknown) (unknown) WBC (4.5-11.0) (units (unknown) date) X103/uL unknown) (unknown) (no (unknown) (unknown) WBC 4.7 (4.5-11.0) (units (unknown) date) X103/uL unknown) (unknown) (no (unknown) (unknown) WBC Casts (units (unkn own) date) Cancelled unknown) (unknown) (no (unknown) (unknown) WBC Casts (units (unkn own) date) unknown) (unknown) (no (unknown) (unknown) [Embedded Image (units (unknown) date) Not Available] unknown) (unknown) (no (unknown) (unknown) [From Bactrim] (units (unknown) date) unknown) (unknown) (no (unknown) (unknown) alcohol intake (units (unknown) date) frequency: a few unknown) times a week (unknown) (no (unknown) (unknown) alcohol intake: (units (unknown) date) current unknown) (unknown) (no (unknown) (unknown) and Denies (units (unk nown) date) orthopnea unknown) (unknown) (no (unknown) (unknown) and Denies urinary (units (unknown) date) urgency unknown) (unknown) (no (unknown) (unknown) and Denies (units (unk nown) date) weakness unknown) (unknown) (no (unknown) (unknown) and below (units (unkn own) date) unknown) (unknown) (no (unknown) (unknown) chest pain, (units (un known) date) shortness of unknown) breath, lightheadedness, dizziness, syncope. Patient (unknown) (no (unknown) (unknown) denies dysuria but (units (unknown) date) endorses dark unknown) cloudy urine. Endorses decreased urine. (unknown) (no (unknown) (unknown) depression, Denies (units (unknown) date) homicidal ideation unknown) and Denies suicidal ideation (unknown) (no (unknown) (unknown) diarrhea, Reports (units (unknown) date) nausea and Reports unknown) vomiting (unknown) (no (unknown) (unknown) disease, tremors (units (unknown) date) of the nervous unknown) system presents to the ED with 2 months of (unknown) (no (unknown) (unknown) duloxetine 30 mg (units (unknown) date) capsule,delayed 30 unknown) mg PO DAILY #90 caps 03/29/22 (unknown) (no (unknown) (unknown) duloxetine 30 mg (units (unknown) date) capsule,delayed unknown) release(DR/EC) (unknown) (no (unknown) (unknown) epigastric region, (units (unknown) date) and that it is unknown) pushing out towards her ribs. Patient states (unknown) (no (unknown) (unknown) folic acid 1 mg (units (unknown) date) tablet See Rx unknown) Instructions .Route 04/01/22 (unknown) (no (unknown) (unknown) folic acid 1 mg (units (unknown) date) tablet unknown) (unknown) (no (unknown) (unknown) household members: (units (unknown) date) significant other unknown) and children (unknown) (no (unknown) (unknown) hydroxyzine (units (un known) date) pamoate 25 mg unknown) capsule 25 mg PO Q6HR PRN Anxiety #60 caps 03/29/22 (unknown) (no (unknown) (unknown) hydroxyzine (units (un known) date) pamoate 25 mg unknown) capsule (unknown) (no (unknown) (unknown) improved through (units (unknown) date) the ED course. unknown) (unknown) (no (unknown) (unknown) labs, UA, TSH, (units (unknown) date) urine , CT unknown) abdomen pelvis, ultrasound right upper (unknown) (no (unknown) (unknown) lightheadedness, (units (unknown) date) Denies unknown) palpitations, Denies dyspnea, Denies dyspnea on exertion (unknown) (no (unknown) (unknown) neck pain, Denies (units (unknown) date) sore throat and unknown) Denies throat swelling (unknown) (no (unknown) (unknown) normal limits. TSH (units (unknown) date) within normal unknown) limits. Awaiting ETOH and CT abdomen pelvis. (unknown) (no (unknown) (unknown) of vomiting 2 days (units (unknown) date) ago. Patient denies unknown) fevers, endorses chills. Patient denies (unknown) (no (unknown) (unknown) peripheral (units (unk nown) date) neuropathy, unknown) Jim's disease, alcohol use disorder, fatty liver (unknown) (no (unknown) (unknown) prescribed (units (unk nown) date) methimazole that unknown) she does not believe that it helps. (unknown) (no (unknown) (unknown) prescribed (units (unk nown) date) propranolol. unknown) Patient also has diagnosed with Jim's, was (unknown) (no (unknown) (unknown) quadrant. (units (unkn own) date) unknown) (unknown) (no (unknown) (unknown) region. There is (units (unknown) date) bilateral CVA unknown) tenderness. (unknown) (no (unknown) (unknown) release (units (unkno wn) date) unknown) (unknown) (no (unknown) (unknown) second hand (units (un known) date) exposure: Yes unknown) (unknown) (no (unknown) (unknown) she has not had (units (unknown) date) much of an appetite unknown) for a few weeks now. Patient had 1 episode (unknown) (no (unknown) (unknown) substance use (units ( unknown) date) type: does not use unknown) (unknown) (no (unknown) (unknown) sulfamethoxazole (units (unknown) date) Allergy Severe unknown) Anaphylaxis Verified 07/20/22 09:43 (unknown) (no (unknown) (unknown) tablet (units (unkno wn) date) unknown) (unknown) (no (unknown) (unknown) thiamine HCl (units (u nknown) date) (vitamin B1) 100 mg unknown) 100 mg PO DAILY #30 tabs 03/29/22 (unknown) (no (unknown) (unknown) thiamine HCl (units (u nknown) date) (vitamin B1) 100 mg unknown) tablet (unknown) (no (unknown) (unknown) trazodone 50 mg (units (unknown) date) tablet 25 mg PO unknown) BEDTIME #30 tabs 03/29/22 (unknown) (no (unknown) (unknown) trazodone 50 mg (units (unknown) date) tablet unknown) (unknown) (no (unknown) (unknown) trimethoprim [From (units (unknown) date) Bactrim] Allergy unknown) Severe Anaphylaxis Verified 07/20/22 09:43 (unknown) (no (unknown) (unknown) versus gallbladder (units (unknown) date) disease versus unknown) liver disease versus alcohol withdrawal versus (unknown) (no (unknown) (unknown) week. Patient has (units (unknown) date) a history of benign unknown) essential tremors for which she has been (unknown) (no (unknown) (unknown) wheezing (units (unkno wn) date) unknown) (unknown) (no (unknown) (unknown) worsening upper (units (unknown) date) abdominal pain. unknown) Concern for GERD versus gastritis versus SBO (unknown) (no (unknown) (unknown) worsening upper (units (unknown) date) abdominal pain. unknown) Patient states that she feels pressure in the Result panel 475 (unknown) (no (unknown) (unknown) (no value) (units (unk nown) date) unknown) (unknown) (no (unknown) (unknown) <Philip Chen PA-C (units (unknown) date) - Last Filed: unknown) 11/13/22 20:32> (unknown) (no (unknown) (unknown) <Benson Garcia, (units (unknown) date) DO - Last Filed: unknown) 11/14/22 00:54> (unknown) (no (unknown) (unknown) .COMPLEX #30 tabs (units (unknown) date) unknown) (unknown) (no (unknown) (unknown) 11/13/22 11/13/22 (units (unknown) date) 11/13/22 unknown) Range/Units (unknown) (no (unknown) (unknown) 11/13/22 11/13/22 (units (unknown) date) Range/Units unknown) (unknown) (no (unknown) (unknown) 11/13/22 17:30 (units (unknown) date) unknown) (unknown) (no (unknown) (unknown) 11/13/22 18:32 (units (unknown) date) unknown) (unknown) (no (unknown) (unknown) 11/13/22 18:39 (units (unknown) date) unknown) (unknown) (no (unknown) (unknown) 11/13/22 18:40 (units (unknown) date) unknown) (unknown) (no (unknown) (unknown) 11/13/22 19:14 (units (unknown) date) unknown) (unknown) (no (unknown) (unknown) 11/13/22 (units (unkno wn) date) unknown) (unknown) (no (unknown) (unknown) [id number] (units (unkno wn) date) unknown) (unknown) (no (unknown) (unknown) 100 mg PO DAILY (units (unknown) date) Qty: 30 3RF unknown) (unknown) (no (unknown) (unknown) 100 mg PO Q12H 5 (units (unknown) date) Days Qty: 9 0RF unknown) (unknown) (no (unknown) (unknown) 17:23 11/13/22 (units (unknown) date) unknown) (unknown) (no (unknown) (unknown) 17:30 17:30 17:30 (units (unknown) date) unknown) (unknown) (no (unknown) (unknown) 18:32 18:32 18:32 (units (unknown) date) unknown) (unknown) (no (unknown) (unknown) 18:32 18:32 (units (un known) date) unknown) (unknown) (no (unknown) (unknown) 20:00 11/13/22 (units (unknown) date) unknown) (unknown) (no (unknown) (unknown) 22:01 (units (unkno wn) date) unknown) (unknown) (no (unknown) (unknown) 25 mg PO BEDTIME (units (unknown) date) Qty: 30 1RF unknown) (unknown) (no (unknown) (unknown) 25 mg PO Q6HR PRN (units (unknown) date) (Reason: Anxiety) unknown) Qty: 60 1RF (unknown) (no (unknown) (unknown) 30 mg PO DAILY (units (unknown) date) Qty: 90 1RF unknown) (unknown) (no (unknown) (unknown) 42-year-old female (units (unknown) date) with past medical unknown) history generalized anxiety disorder, (unknown) (no (unknown) (unknown) 02/11. Patient (units ( unknown) date) states that since unknown) then, she has reduced her drinking to 1 drink a (unknown) (no (unknown) (unknown) A prescription for (units (unknown) date) antibiotics was unknown) sent to [facility] per your request. Please (unknown) (no (unknown) (unknown) ALT (<35) IU/L (units (unknown) date) unknown) (unknown) (no (unknown) (unknown) ALT 76 H (<35) (units (unknown) date) IU/L unknown) (unknown) (no (unknown) (unknown) AST (14-36) IU/L (units (unknown) date) unknown) (unknown) (no (unknown) (unknown) AST 89 H (14-36) (units (unknown) date) IU/L unknown) (unknown) (no (unknown) (unknown) Abdomen is soft (units (unknown) date) with hepatomegaly, unknown) tenderness to palpation in the epigastric (unknown) (no (unknown) (unknown) Acquired (units (unkno wn) date) hypothyroidism unknown) (unknown) (no (unknown) (unknown) Activity (units (unkno wn) date) Restrictions/Additi unknown) onal Instructions: (unknown) (no (unknown) (unknown) Age/Sex: 42 / F (units (unknown) date) unknown) (unknown) (no (unknown) (unknown) Albumin (3.5-5.0) (units (unknown) date) g/dL unknown) (unknown) (no (unknown) (unknown) Albumin 5.1 H (units ( unknown) date) (3.5-5.0) g/dL unknown) (unknown) (no (unknown) (unknown) Albumin/Globulin (units (unknown) date) Ratio (1.0-2.8) unknown) (unknown) (no (unknown) (unknown) Albumin/Globulin (units (unknown) date) Ratio 1.5 (1.0-2.8) unknown) (unknown) (no (unknown) (unknown) Alcohol type: beer (units (unknown) date) unknown) (unknown) (no (unknown) (unknown) Alcohol use (units (un known) date) unknown) (unknown) (no (unknown) (unknown) Alkaline (units (unkno wn) date) Phosphatase unknown) (38-126) U/L (unknown) (no (unknown) (unknown) Alkaline (units (unkno wn) date) Phosphatase 61 unknown) (38-126) U/L (unknown) (no (unknown) (unknown) Allergic/Immunolog (units (unknown) date) ic unknown) (unknown) (no (unknown) (unknown) Allergic/Immunolog (units (unknown) date) ic: Denies unknown) urticaria, Denies throat swelling and Denies (unknown) (no (unknown) (unknown) Allergies (units (unkn own) date) unknown) (unknown) (no (unknown) (unknown) Allergy/AdvReac (units (unknown) date) Type Severity unknown) Reaction Status Date / Time (unknown) (no (unknown) (unknown) Amorphous Sediment (units (unknown) date) Cancelled 1 unknown) (unknown) (no (unknown) (unknown) Amorphous Sediment (units (unknown) date) unknown) (unknown) (no (unknown) (unknown) Attestation: I (units (unknown) date) reviewed the unknown) patient's lab results. (unknown) (no (unknown) (unknown) Auscultation:?hipolito (units (unknown) date) r to auscultation unknown) bilaterally (unknown) (no (unknown) (unknown) BUN (7-17) mg/dL (units (unknown) date) unknown) (unknown) (no (unknown) (unknown) BUN 10 (7-17) (units ( unknown) date) mg/dL unknown) (unknown) (no (unknown) (unknown) BUN/Creatinine (units (unknown) date) Ratio (6-22) unknown) (unknown) (no (unknown) (unknown) BUN/Creatinine (units (unknown) date) Ratio 16.1 (6-22) unknown) (unknown) (no (unknown) (unknown) Baso # (Auto) (units ( unknown) date) (0-100) /uL unknown) (unknown) (no (unknown) (unknown) Baso # (Auto) 0 (units (unknown) date) (0-100) /uL unknown) (unknown) (no (unknown) (unknown) Baso % (Auto) (units ( unknown) date) (0-2) % unknown) (unknown) (no (unknown) (unknown) Baso % (Auto) 0.5 (units (unknown) date) (0-2) % unknown) (unknown) (no (unknown) (unknown) Blood Pressure (units (unknown) date) 172/99 H 11/13/22 unknown) 17:23 (unknown) (no (unknown) (unknown) Blood Pressure (units (unknown) date) 172/99 H 149/95 H unknown) 138/91 H (unknown) (no (unknown) (unknown) Breast mass in (units (unknown) date) female unknown) (unknown) (no (unknown) (unknown) CK-MB (CK-2) Rel (units (unknown) date) Index TNP unknown) (unknown) (no (unknown) (unknown) CK-MB (CK-2) Rel (units (unknown) date) Index unknown) (unknown) (no (unknown) (unknown) CK-MB (CK-2) TNP (units (unknown) date) unknown) (unknown) (no (unknown) (unknown) CK-MB (CK-2) (units (u nknown) date) unknown) (unknown) (no (unknown) (unknown) CT abdomen pelvis (units (unknown) date) w con Stat unknown) (unknown) (no (unknown) (unknown) CT scan - (units (unkn own) date) abdomen/pelvis: unknown) (unknown) (no (unknown) (unknown) Calcium (8.4-10.2) (units (unknown) date) mg/dL unknown) (unknown) (no (unknown) (unknown) Calcium 9.7 (units (un known) date) (8.4-10.2) mg/dL unknown) (unknown) (no (unknown) (unknown) Calcium Oxalate (units (unknown) date) Crystal Cancelled unknown) (unknown) (no (unknown) (unknown) Calcium Oxalate (units (unknown) date) Crystal unknown) (unknown) (no (unknown) (unknown) Carbon Dioxide (units (unknown) date) (22-32) mmol/L unknown) (unknown) (no (unknown) (unknown) Carbon Dioxide 23 (units (unknown) date) (22-32) mmol/L unknown) (unknown) (no (unknown) (unknown) Cardio (units (unkno wn) date) unknown) (unknown) (no (unknown) (unknown) Cardiovascular (units (unknown) date) unknown) (unknown) (no (unknown) (unknown) Cardiovascular: (units (unknown) date) Denies chest pain, unknown) Denies irregular heart rhythm, Denies (unknown) (no (unknown) (unknown) Chief Complaint: (units (unknown) date) Abdominal Pain unknown) (unknown) (no (unknown) (unknown) Chloride (98-107) (units (unknown) date) mmol/L unknown) (unknown) (no (unknown) (unknown) Chloride 97 L (units ( unknown) date) (98-107) mmol/L unknown) (unknown) (no (unknown) (unknown) Cholelithiasis (units (unknown) date) unknown) (unknown) (no (unknown) (unknown) Clinical (units (unkno wn) date) Impression: unknown) (unknown) (no (unknown) (unknown) Cloudy urine (units (u nknown) date) unknown) (unknown) (no (unknown) (unknown) Comments: (units (unkn own) date) unknown) (unknown) (no (unknown) (unknown) Complete Blood (units (unknown) date) Count AUTO DIFF unknown) Stat (unknown) (no (unknown) (unknown) Comprehensive (units ( unknown) date) Metabolic Panel unknown) Stat (unknown) (no (unknown) (unknown) Const (units (unkno wn) date) unknown) (unknown) (no (unknown) (unknown) Constitutional (units (unknown) date) unknown) (unknown) (no (unknown) (unknown) Constitutional: (units (unknown) date) Reports chills, unknown) Reports excessive sweating, Denies fatigue, (unknown) (no (unknown) (unknown) Course (units (unkno wn) date) unknown) (unknown) (no (unknown) (unknown) Creatinine (units (unk nown) date) (0.52-1.04) mg/dL unknown) (unknown) (no (unknown) (unknown) Creatinine 0.62 (units (unknown) date) (0.52-1.04) mg/dL unknown) (unknown) (no (unknown) (unknown) : 1980 (units (unknown) date) Acct:[id number] unknown) (unknown) (no (unknown) (unknown) Date of Service: (units (unknown) date) 11/13/22 unknown) (unknown) (no (unknown) (unknown) Denies fever(s), (units (unknown) date) Denies frequent unknown) falls, Denies lethargy, Reports poor appetite (unknown) (no (unknown) (unknown) Denies frequent (units (unknown) date) falls, Denies loss unknown) of vision, Denies numbness, Denies tingling (unknown) (no (unknown) (unknown) Denies loss of (units (unknown) date) vision unknown) (unknown) (no (unknown) (unknown) Denies numbness (units (unknown) date) and Denies tingling unknown) (unknown) (no (unknown) (unknown) Denies (units (unkno wn) date) palpitations unknown) (unknown) (no (unknown) (unknown) Departure (units (unkn own) date) unknown) (unknown) (no (unknown) (unknown) Discharge Plan (units (unknown) date) unknown) (unknown) (no (unknown) (unknown) Discontinued (units (u nknown) date) Medications unknown) (unknown) (no (unknown) (unknown) Documented By: OW (units (unknown) date) unknown) (unknown) (no (unknown) (unknown) Dose Instruction: (units (unknown) date) unknown) (unknown) (no (unknown) (unknown) ED Orders (units (unkn own) date) unknown) (unknown) (no (unknown) (unknown) EKG-12 Lead Stat (units (unknown) date) unknown) (unknown) (no (unknown) (unknown) ENT (units (unkno wn) date) unknown) (unknown) (no (unknown) (unknown) ER Physician: (units ( unknown) date) Benson Garcia D.O. unknown) (unknown) (no (unknown) (unknown) ETOH [Ethanol (units ( unknown) date) (ETOH)] Stat unknown) (unknown) (no (unknown) (unknown) Ears, Nose, Mouth, (units (unknown) date) and Throat: Denies unknown) change in voice, Denies dizziness, Denies (unknown) (no (unknown) (unknown) Ears:?hearing (units ( unknown) date) grossly normal unknown) bilaterally (unknown) (no (unknown) (unknown) Effort + (units (unkno wn) date) Inspection:?normal unknown) respiratory effort (unknown) (no (unknown) (unknown) Elevated blood (units (unknown) date) protein unknown) (unknown) (no (unknown) (unknown) Elevated liver (units (unknown) date) enzymes unknown) (unknown) (no (unknown) (unknown) Emergency Report (units (unknown) date) unknown) (unknown) (no (unknown) (unknown) Endocrine (units (unkn own) date) unknown) (unknown) (no (unknown) (unknown) Endocrine: Reports (units (unknown) date) excessive sweating, unknown) Denies fatigue, Denies flushing and (unknown) (no (unknown) (unknown) Eos # (Auto) (units (u nknown) date) (0-450) /uL unknown) (unknown) (no (unknown) (unknown) Eos # (Auto) 200 (units (unknown) date) (0-450) /uL unknown) (unknown) (no (unknown) (unknown) Eos % (Auto) (2-4) (units (unknown) date) % unknown) (unknown) (no (unknown) (unknown) Eos % (Auto) 4.8 H (units (unknown) date) (2-4) % unknown) (unknown) (no (unknown) (unknown) Estimated GFR > 60 (units (unknown) date) (>60) mL/min unknown) (unknown) (no (unknown) (unknown) Estimated GFR (units ( unknown) date) (>60) mL/min unknown) (unknown) (no (unknown) (unknown) Ethyl Alcohol < 10 (units (unknown) date) ( - 10) mg/dL unknown) (unknown) (no (unknown) (unknown) Ethyl Alcohol ( - (units (unknown) date) 10) mg/dL unknown) (unknown) (no (unknown) (unknown) Exam Narrative: (units (unknown) date) unknown) (unknown) (no (unknown) (unknown) Exam (units (unkno wn) date) unknown) (unknown) (no (unknown) (unknown) Eyes (units (unkno wn) date) unknown) (unknown) (no (unknown) (unknown) Eyes: Denies (units (u nknown) date) change in vision, unknown) Denies eye discharge, Denies irritation and (unknown) (no (unknown) (unknown) Face and (units (unkno wn) date) sinus:?normal unknown) facial exam and sinuses nontender (unknown) (no (unknown) (unknown) Family History (units (unknown) date) (Reviewed 11/13/22 unknown) @ 20:00 by Philip Chen PA-C) (unknown) (no (unknown) (unknown) Father Diabetes (units (unknown) date) mellitus unknown) (unknown) (no (unknown) (unknown) 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, unknown) nonalcoholic (unknown) (no (unknown) (unknown) GI (units (unkno wn) date) unknown) (unknown) (no (unknown) (unknown) Gastrointestinal (units (unknown) date) unknown) (unknown) (no (unknown) (unknown) Gastrointestinal: (units (unknown) date) Reports abdominal unknown) pain, Denies change in bowel habits, Denies (unknown) (no (unknown) (unknown) General (units (unkno wn) date) unknown) (unknown) (no (unknown) (unknown) General:?appearanc (units (unknown) date) e normal, both eyes unknown) and all related structures (unknown) (no (unknown) (unknown) General:?cooperati (units (unknown) date) ve, healthy unknown) appearing and comfortable (unknown) (no (unknown) (unknown) General:?patient (units (unknown) date) alert, patient unknown) awake and patient oriented x3 (unknown) (no (unknown) (unknown) 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 unknown) (unknown) (no (unknown) (unknown) Genitourinary (units ( unknown) date) unknown) (unknown) (no (unknown) (unknown) Genitourinary: (units (unknown) date) Denies hematuria, unknown) Denies flank pain, Denies urinary incontinence (unknown) (no (unknown) (unknown) Globulin (1.7-4.1) (units (unknown) date) g/dL unknown) (unknown) (no (unknown) (unknown) Globulin 3.5 (units (u nknown) date) (1.7-4.1) g/dL unknown) (unknown) (no (unknown) (unknown) Glucose (70-100) (units (unknown) date) mg/dL unknown) (unknown) (no (unknown) (unknown) Glucose 107 H (units ( unknown) date) (70-100) mg/dL unknown) (unknown) (no (unknown) (unknown) Grandfather (units (un known) date) Kidney unknown) failure (unknown) (no (unknown) (unknown) Grandmother (units (un known) date) Cancer unknown) (unknown) (no (unknown) (unknown) Granular Casts (units (unknown) date) Cancelled 1-5/lpf unknown) (unknown) (no (unknown) (unknown) Granular Casts (units (unknown) date) unknown) (unknown) (no (unknown) (unknown) HENMT (units (unkno wn) date) unknown) (unknown) (no (unknown) (unknown) HPI - Abdominal (units (unknown) date) Pain unknown) (unknown) (no (unknown) (unknown) HPI narrative: (units (unknown) date) unknown) (unknown) (no (unknown) (unknown) 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) (unknown) (no (unknown) (unknown) Hct (36-46) % (units ( unknown) date) unknown) (unknown) (no (unknown) (unknown) Hct 42.9 (36-46) % (units (unknown) date) unknown) (unknown) (no (unknown) (unknown) Head:?normal to (units (unknown) date) inspection unknown) (unknown) (no (unknown) (unknown) Hematologic/Lympha (units (unknown) date) tic unknown) (unknown) (no (unknown) (unknown) Hematologic/Lympha (units (unknown) date) tic: Denies easy unknown) bruising (unknown) (no (unknown) (unknown) Hgb (12.0-16.0) (units (unknown) date) g/dL unknown) (unknown) (no (unknown) (unknown) Hgb 14.7 (units (unkno wn) date) (12.0-16.0) g/dL unknown) (unknown) (no (unknown) (unknown) History of Present (units (unknown) date) Illness unknown) (unknown) (no (unknown) (unknown) Hyaline Casts (units ( unknown) date) Cancelled 1-5/lpf unknown) (unknown) (no (unknown) (unknown) Hyaline Casts (units ( unknown) date) unknown) (unknown) (no (unknown) (unknown) Ictotest Urine (units (unknown) date) Stat unknown) (unknown) (no (unknown) (unknown) Imaging Data (units (u nknown) date) unknown) (unknown) (no (unknown) (unknown) Initial Vital (units ( unknown) date) Signs unknown) (unknown) (no (unknown) (unknown) Initial Vital (units ( unknown) date) Signs: unknown) (unknown) (no (unknown) (unknown) Insomnia (units (unkno wn) date) unknown) (unknown) (no (unknown) (unknown) Instructions: DI (units (unknown) date) for Urinary Tract unknown) Infection (UTI), DI for Abdominal Pain-Adult (unknown) (no (unknown) (unknown) Integumentary/Silvia (units (unknown) date) sts unknown) (unknown) (no (unknown) (unknown) [facility] (units (unknown) date) [address] unknown) [place] [address] (unknown) (no (unknown) (unknown) Lab Data (units (unkno wn) date) unknown) (unknown) (no (unknown) (unknown) Lab Results (units (un known) date) unknown) (unknown) (no (unknown) (unknown) Labs: (units (unkno wn) date) unknown) (unknown) (no (unknown) (unknown) Last Admin: (units (un known) date) 11/13/22 21:51 unknown) Dose: 100 mg (unknown) (no (unknown) (unknown) Lipase (23-300) (units (unknown) date) U/L unknown) (unknown) (no (unknown) (unknown) Lipase 153 (units (unk nown) date) (23-300) U/L unknown) (unknown) (no (unknown) (unknown) Lipase Stat (units (un known) date) unknown) (unknown) (no (unknown) (unknown) Lymph # (Auto) (units (unknown) date) (0085-5540) /uL unknown) (unknown) (no (unknown) (unknown) Lymph # (Auto) 700 (units (unknown) date) L (4475-5554) /uL unknown) (unknown) (no (unknown) (unknown) Lymph % (Auto) (units (unknown) date) (25-40) % unknown) (unknown) (no (unknown) (unknown) Lymph % (Auto) (units (unknown) date) 15.9 L (25-40) % unknown) (unknown) (no (unknown) (unknown) MCH (26-34) PG (units (unknown) date) unknown) (unknown) (no (unknown) (unknown) MCH 32.5 (26-34) (units (unknown) date) PG unknown) (unknown) (no (unknown) (unknown) MCHC (30-36) % (units (unknown) date) unknown) (unknown) (no (unknown) (unknown) MCHC 34.3 (30-36) (units (unknown) date) % unknown) (unknown) (no (unknown) (unknown) MCV (80-100) fL (units (unknown) date) unknown) (unknown) (no (unknown) (unknown) MCV 94.8 (80-100) (units (unknown) date) fL unknown) (unknown) (no (unknown) (unknown) MDM - Abdominal (units (unknown) date) Pain unknown) (unknown) (no (unknown) (unknown) MDM Narrative (units ( unknown) date) unknown) (unknown) (no (unknown) (unknown) Medical History (units (unknown) date) (Reviewed 11/13/22 unknown) @ 20:00 by Philip Chen PA-C) (unknown) (no (unknown) (unknown) Medical decision (units (unknown) date) making narrative: unknown) (unknown) (no (unknown) (unknown) Medication (units (unk nown) date) Instructions unknown) Recorded (unknown) (no (unknown) (unknown) Micro UA Comment (units (unknown) date) Cancelled unknown) (unknown) (no (unknown) (unknown) Micro UA Comment (units (unknown) date) unknown) (unknown) (no (unknown) (unknown) Mode of arrival: (units (unknown) date) Ambulatory unknown) (unknown) (no (unknown) (unknown) [place] # (Auto) (units ( unknown) date) (0-900) /uL unknown) (unknown) (no (unknown) (unknown) [place] # (Auto) 500 (units (unknown) date) (0-900) /uL unknown) (unknown) (no (unknown) (unknown) [place] % (Auto) (units ( unknown) date) (3-14) % unknown) (unknown) (no (unknown) (unknown) [place] % (Auto) 10.0 (units (unknown) date) (3-14) % unknown) (unknown) (no (unknown) (unknown) Mother (units (unknown) date) Cancer unknown) (unknown) (no (unknown) (unknown) Mouth:?oral (units (un known) date) mucosae normal unknown) (unknown) (no (unknown) (unknown) Musculoskeletal (units (unknown) date) unknown) (unknown) (no (unknown) (unknown) Musculoskeletal: (units (unknown) date) Denies back pain, unknown) Denies muscle weakness, Denies neck pain, (unknown) (no (unknown) (unknown) Narrative (units (unkn own) date) unknown) (unknown) (no (unknown) (unknown) Neck (units (unkno wn) date) unknown) (unknown) (no (unknown) (unknown) Neck:?normal (units (u nknown) date) visual inspection unknown) and no lymphadenopathy noted (unknown) (no (unknown) (unknown) Neuro (units (unkno wn) date) unknown) (unknown) (no (unknown) (unknown) Neurologic (units (unk nown) date) unknown) (unknown) (no (unknown) (unknown) Neurologic: Denies (units (unknown) date) behavioral changes, unknown) Denies confusion, Denies dizziness, (unknown) (no (unknown) (unknown) Neut # (Auto) (units ( unknown) date) (2596-5271) /uL unknown) (unknown) (no (unknown) (unknown) Neut # (Auto) 3200 (units (unknown) date) (2779-2579) /uL unknown) (unknown) (no (unknown) (unknown) Neut % (Auto) (units ( unknown) date) (50-75) % unknown) (unknown) (no (unknown) (unknown) Neut % (Auto) 68.8 (units (unknown) date) (50-75) % unknown) (unknown) (no (unknown) (unknown) New (units (unkno wn) date) unknown) (unknown) (no (unknown) (unknown) Nitrofurantoin (units (unknown) date) Macrocrystals unknown) (Nitrofurantoin Er 100 Mg Capsule) 100 mg PO NOW (unknown) (no (unknown) (unknown) No Action (units (unkn own) date) unknown) (unknown) (no (unknown) (unknown) No acute findings (units (unknown) date) unknown) (unknown) (no (unknown) (unknown) Nose:?external (units (unknown) date) nose normal unknown) (unknown) (no (unknown) (unknown) ONE (units (unkno wn) date) unknown) (unknown) (no (unknown) (unknown) Ordered: (units (unkno wn) date) unknown) (unknown) (no (unknown) (unknown) Orders (units (unkno wn) date) unknown) (unknown) (no (unknown) (unknown) Other Casts (units (un known) date) Cancelled unknown) (unknown) (no (unknown) (unknown) Other Casts (units (un known) date) unknown) (unknown) (no (unknown) (unknown) Other Crystals (units (unknown) date) Cancelled unknown) (unknown) (no (unknown) (unknown) Other Crystals (units (unknown) date) unknown) (unknown) (no (unknown) (unknown) Oxygen Delivery (units (unknown) date) Method 11/13/22 unknown) 17:23 (unknown) (no (unknown) (unknown) Oxygen Delivery (units (unknown) date) Method Room Air unknown) Room Air Room Air (unknown) (no (unknown) (unknown) Patient (units (unkno wn) date) Disposition: Home unknown) (unknown) (no (unknown) (unknown) Patient History (units (unknown) date) unknown) (unknown) (no (unknown) (unknown) Patient denies (units (unknown) date) medical problems unknown) (unknown) (no (unknown) (unknown) Patient has a (units (u nknown) date) history of alcohol unknown) use disorder, for which she was hospitalized in (unknown) (no (unknown) (unknown) Patient initially (units (unknown) date) appeared more unknown) anxious and diaphoretic, however those symptoms (unknown) (no (unknown) (unknown) Patient is now (units (unknown) date) signed out to unknown) Radha. (unknown) (no (unknown) (unknown) Patient: (units (unkno wn) date) Layne Avendano unknown) MR#: [id number] (unknown) (no (unknown) (unknown) Peripheral (units (unk nown) date) neuropathy unknown) (unknown) (no (unknown) (unknown) Ian Roland, (units (unknown) date) [Primary Care unknown) Provider] (unknown) (no (unknown) (unknown) Plt Count (units (unkn own) date) (150-400) X103/uL unknown) (unknown) (no (unknown) (unknown) Plt Count 174 (units ( unknown) date) (150-400) X103/uL unknown) (unknown) (no (unknown) (unknown) Potassium (units (unkn own) date) (3.4-5.1) mmol/L unknown) (unknown) (no (unknown) (unknown) Potassium 3.9 (units ( unknown) date) (3.4-5.1) mmol/L unknown) (unknown) (no (unknown) (unknown) Test (units (unknown) date) Urine Stat unknown) (unknown) (no (unknown) (unknown) Prescriptions: (units (unknown) date) unknown) (unknown) (no (unknown) (unknown) Previous Rx's (units ( unknown) date) unknown) (unknown) (no (unknown) (unknown) Psychiatric (units (un known) date) unknown) (unknown) (no (unknown) (unknown) Psychiatric: Denies (units (unknown) date) anxiety, Denies unknown) behavioral changes, Denies confusion, Denies (unknown) (no (unknown) (unknown) Pulse Oximetry 99 (units (unknown) date) 02/21/23 17:23 unknown) (unknown) (no (unknown) (unknown) Pulse Oximetry 99 (units (unknown) date) 98 98 unknown) (unknown) (no (unknown) (unknown) Pulse Rate 75 (units ( unknown) date) 11/13/22 17:23 unknown) (unknown) (no (unknown) (unknown) Pulse Rate 75 74 (units (unknown) date) 75 unknown) (unknown) (no (unknown) (unknown) RBC (4.0-5.2) (units ( unknown) date) X106/uL unknown) (unknown) (no (unknown) (unknown) RBC 4.52 (4.0-5.2) (units (unknown) date) X106/uL unknown) (unknown) (no (unknown) (unknown) RBC Casts (units (unkn own) date) Cancelled unknown) (unknown) (no (unknown) (unknown) RBC Casts (units (unkn own) date) unknown) (unknown) (no (unknown) (unknown) RDW (11.6-14.8) % (units (unknown) date) unknown) (unknown) (no (unknown) (unknown) RDW 13.3 (units (unkno wn) date) (11.6-14.8) % unknown) (unknown) (no (unknown) (unknown) ROS Unobtainable: (units (unknown) date) All systems unknown) reviewed + are unremarkable except as noted in HPI (unknown) (no (unknown) (unknown) Radiologist's (units ( unknown) date) Impression: unknown) (unknown) (no (unknown) (unknown) Rate:?regular rate (units (unknown) date) unknown) (unknown) (no (unknown) (unknown) Referrals: (units (unk nown) date) unknown) (unknown) (no (unknown) (unknown) Related Data (units (u nknown) date) unknown) (unknown) (no (unknown) (unknown) Resp (units (unkno wn) date) unknown) (unknown) (no (unknown) (unknown) Respiratory Rate (units (unknown) date) 18 11/13/22 17:23 unknown) (unknown) (no (unknown) (unknown) Respiratory Rate (units (unknown) date) 18 20 20 unknown) (unknown) (no (unknown) (unknown) Respiratory (units (un known) date) unknown) (unknown) (no (unknown) (unknown) Respiratory: Denies (units (unknown) date) cough, Denies unknown) dyspnea, Denies dyspnea on exertion and Denies (unknown) (no (unknown) (unknown) Review of Systems (units (unknown) date) unknown) (unknown) (no (unknown) (unknown) Rhythm:?regular (units (unknown) date) rhythm unknown) (unknown) (no (unknown) (unknown) Rx Instructions: (units (unknown) date) unknown) (unknown) (no (unknown) (unknown) See Rx (units (unkno wn) date) Instructions .ROUTE unknown) .COMPLEX Qty: 30 1RF (unknown) (no (unknown) (unknown) Shortness of (units (u nknown) date) breath (06/2020) unknown) (unknown) (no (unknown) (unknown) Signed By: (units (unk nown) date) unknown) (unknown) (no (unknown) (unknown) Skin/Breast: (units (u nknown) date) Denies pruritus, unknown) Denies erythema, Denies rash and Denies wounds (unknown) (no (unknown) (unknown) Smoking Status: (units (unknown) date) Former smoker unknown) (unknown) (no (unknown) (unknown) Social History (units (unknown) date) (Reviewed 11/13/22 unknown) @ 20:00 by Philip Chen PA-C) (unknown) (no (unknown) (unknown) Sodium (137-145) (units (unknown) date) mmol/L unknown) (unknown) (no (unknown) (unknown) Sodium 134 L (units (u nknown) date) (137-145) mmol/L unknown) (unknown) (no (unknown) (unknown) Source: patient (units (unknown) date) unknown) (unknown) (no (unknown) (unknown) Stand Alone Forms: (units (unknown) date) Patient Portal/API unknown) (unknown) (no (unknown) (unknown) Stated Complaint: (units (unknown) date) TORSO PAIN, unknown) NUMBNESS, FELLS LIKE INSIDES SWELLING (unknown) (no (unknown) (unknown) Stop: 11/13/22 (units (unknown) date) 21:28 unknown) (unknown) (no (unknown) (unknown) Substance Use (units ( unknown) date) Type: does not use unknown) (unknown) (no (unknown) (unknown) TAKE ONE TABLET BY (units (unknown) date) MOUTH ONE TIME unknown) DAILY (unknown) (no (unknown) (unknown) TSH (0.47-4.68) (units (unknown) date) uIU/mL unknown) (unknown) (no (unknown) (unknown) TSH 3.50 (units (unkno wn) date) (0.47-4.68) uIU/mL unknown) (unknown) (no (unknown) (unknown) TSH [Thyroid (units (u nknown) date) Stimulating unknown) Hormone] Stat (unknown) (no (unknown) (unknown) Temperature 98 F (units (unknown) date) 11/13/22 17:23 unknown) (unknown) (no (unknown) (unknown) Temperature 98 F (units (unknown) date) unknown) (unknown) (no (unknown) (unknown) Throat:?posterior (units (unknown) date) oropharynx normal unknown) (unknown) (no (unknown) (unknown) Time Seen by (units (u nknown) date) Provider: 11/13/22 unknown) 18:14 (unknown) (no (unknown) (unknown) Total Bilirubin (units (unknown) date) (0.2-1.3) mg/dL unknown) (unknown) (no (unknown) (unknown) Total Bilirubin (units (unknown) date) 3.0 H (0.2-1.3) unknown) mg/dL (unknown) (no (unknown) (unknown) Total Creatine (units (unknown) date) Kinase (30-135) U/L unknown) (unknown) (no (unknown) (unknown) Total Creatine (units (unknown) date) Kinase 96 (30-135) unknown) U/L (unknown) (no (unknown) (unknown) Total Protein (units ( unknown) date) (6.3-8.2) g/dL unknown) (unknown) (no (unknown) (unknown) Total Protein 8.6 (units (unknown) date) H (6.3-8.2) g/dL unknown) (unknown) (no (unknown) (unknown) Tremors of nervous (units (unknown) date) system (06/2020) unknown) (unknown) (no (unknown) (unknown) Triple Phos (units (un known) date) Crystals Cancelled unknown) (unknown) (no (unknown) (unknown) Triple Phos (units (un known) date) Crystals unknown) (unknown) (no (unknown) (unknown) Troponin + CK (units ( unknown) date) Cardiac Panel Stat unknown) (unknown) (no (unknown) (unknown) Troponin I < 0.012 (units (unknown) date) (0.01-0.034) ng/mL unknown) (unknown) (no (unknown) (unknown) Troponin I (units (unk nown) date) (0.01-0.034) ng/mL unknown) (unknown) (no (unknown) (unknown) UA is positive for (units (unknown) date) UTI, urine unknown) bilirubin. HCG negative. All other labs within (unknown) (no (unknown) (unknown) US - abdomen: (units ( unknown) date) unknown) (unknown) (no (unknown) (unknown) US abdomen limited (units (unknown) date) Stat unknown) (unknown) (no (unknown) (unknown) UTI versus (units (unk nown) date) pyelonephritis unknown) versus thyroid disease versus other. Will obtain (unknown) (no (unknown) (unknown) Ur Bilirubin (units (u nknown) date) Confirm (Negative) unknown) (unknown) (no (unknown) (unknown) Ur Bilirubin (units (u nknown) date) Confirm Positive H unknown) (Negative) (unknown) (no (unknown) (unknown) Ur Culture (units (unk nown) date) Indicated? unknown) Cancelled (unknown) (no (unknown) (unknown) Ur Culture (units (unk nown) date) Indicated? unknown) (unknown) (no (unknown) (unknown) Ur Leukocyte (units (u nknown) date) Esterase (NEGATIVE) unknown) (unknown) (no (unknown) (unknown) Ur Leukocyte (units (u nknown) date) Esterase Negative unknown) (NEGATIVE) (unknown) (no (unknown) (unknown) Ur Renal (units (unkno wn) date) Epithelial Cell unknown) Cancelled (unknown) (no (unknown) (unknown) Ur Renal (units (unkno wn) date) Epithelial Cell unknown) (unknown) (no (unknown) (unknown) Ur Specific (units (un known) date) [place] unknown) (1.000-1.035) (unknown) (no (unknown) (unknown) Ur Specific (units (un known) date) [place] 1.025 unknown) (1.000-1.035) (unknown) (no (unknown) (unknown) Ur Squamous Epith (units (unknown) date) Cells Cancelled unknown) 5-10 /hpf H (unknown) (no (unknown) (unknown) Ur Squamous Epith (units (unknown) date) Cells unknown) (unknown) (no (unknown) (unknown) Ur Transition (units ( unknown) date) Epith Cell unknown) Cancelled (unknown) (no (unknown) (unknown) Ur Transition (units ( unknown) date) Epith Cell unknown) (unknown) (no (unknown) (unknown) Uric Acid Crystals (units (unknown) date) Cancelled unknown) (unknown) (no (unknown) (unknown) Uric Acid Crystals (units (unknown) date) unknown) (unknown) (no (unknown) (unknown) Urinalysis and (units (unknown) date) Microscopic Stat unknown) (unknown) (no (unknown) (unknown) Urinary tract (units ( unknown) date) infection, unknown) Abdominal pain (unknown) (no (unknown) (unknown) Urine Appearance (units (unknown) date) Slightly cloudy unknown) (unknown) (no (unknown) (unknown) Urine Appearance (units (unknown) date) unknown) (unknown) (no (unknown) (unknown) Urine Bacteria (units (unknown) date) Cancelled Moderate unknown) (10-30) H (unknown) (no (unknown) (unknown) Urine Bacteria (units (unknown) date) unknown) (unknown) (no (unknown) (unknown) Urine Bilirubin (units (unknown) date) (NEGATIVE) unknown) (unknown) (no (unknown) (unknown) Urine Bilirubin 2+ (units (unknown) date) H (NEGATIVE) unknown) (unknown) (no (unknown) (unknown) Urine Color Dark (units (unknown) date) yellow unknown) (unknown) (no (unknown) (unknown) Urine Color (units (un known) date) unknown) (unknown) (no (unknown) (unknown) Urine Culture Stat (units (unknown) date) unknown) (unknown) (no (unknown) (unknown) Urine Glucose (UA) (units (unknown) date) (Negative) g/dL unknown) (unknown) (no (unknown) (unknown) Urine Glucose (UA) (units (unknown) date) Negative (Negative) unknown) g/dL (unknown) (no (unknown) (unknown) Urine Ketones (units ( unknown) date) (NEGATIVE) unknown) (unknown) (no (unknown) (unknown) Urine Ketones 3+ H (units (unknown) date) (NEGATIVE) unknown) (unknown) (no (unknown) (unknown) Urine Mucus (units (un known) date) Cancelled 3+ H unknown) (unknown) (no (unknown) (unknown) Urine Mucus (units (un known) date) unknown) (unknown) (no (unknown) (unknown) Urine Nitrate (units ( unknown) date) (Negative) unknown) (unknown) (no (unknown) (unknown) Urine Nitrate (units ( unknown) date) Positive H unknown) (Negative) (unknown) (no (unknown) (unknown) Urine Occult Blood (units (unknown) date) (Negative) unknown) (unknown) (no (unknown) (unknown) Urine Occult Blood (units (unknown) date) Negative (Negative) unknown) (unknown) (no (unknown) (unknown) Urine (units (unknown) date) Test (Negative) unknown) (unknown) (no (unknown) (unknown) Urine (units (unknown) date) Test Negative unknown) (Negative) (unknown) (no (unknown) (unknown) Urine Protein (units ( unknown) date) (Negative) unknown) (unknown) (no (unknown) (unknown) Urine Protein 1+ H (units (unknown) date) (Negative) unknown) (unknown) (no (unknown) (unknown) Urine RBC (units (unkn own) date) Cancelled None seen unknown) (unknown) (no (unknown) (unknown) Urine RBC (units (unkn own) date) unknown) (unknown) (no (unknown) (unknown) Urine Sperm (units (un known) date) Cancelled unknown) (unknown) (no (unknown) (unknown) Urine Sperm (units (un known) date) unknown) (unknown) (no (unknown) (unknown) Urine Trichomonas (units (unknown) date) Cancelled unknown) (unknown) (no (unknown) (unknown) Urine Trichomonas (units (unknown) date) unknown) (unknown) (no (unknown) (unknown) Urine Urobilinogen (units (unknown) date) (0.2) E.U./dL unknown) (unknown) (no (unknown) (unknown) Urine Urobilinogen (units (unknown) date) 1.0 (0.2) E.U./dL unknown) (unknown) (no (unknown) (unknown) Urine WBC (units (unkn own) date) Cancelled 5-10/hpf unknown) H (unknown) (no (unknown) (unknown) Urine WBC (units (unkn own) date) unknown) (unknown) (no (unknown) (unknown) Urine Yeast (units (un known) date) Cancelled unknown) (unknown) (no (unknown) (unknown) Urine Yeast (units (un known) date) unknown) (unknown) (no (unknown) (unknown) Urine pH (4.5-8.0) (units (unknown) date) unknown) (unknown) (no (unknown) (unknown) Urine pH 6.0 (units (u nknown) date) (4.5-8.0) unknown) (unknown) (no (unknown) (unknown) Vital Signs - 8 hr (units (unknown) date) unknown) (unknown) (no (unknown) (unknown) Vital Signs (units (un known) date) unknown) (unknown) (no (unknown) (unknown) Vital signs: (units (u nknown) date) unknown) (unknown) (no (unknown) (unknown) WBC (4.5-11.0) (units (unknown) date) X103/uL unknown) (unknown) (no (unknown) (unknown) WBC 4.7 (4.5-11.0) (units (unknown) date) X103/uL unknown) (unknown) (no (unknown) (unknown) WBC Casts (units (unkn own) date) Cancelled unknown) (unknown) (no (unknown) (unknown) WBC Casts (units (unkn own) date) unknown) (unknown) (no (unknown) (unknown) You can also (units (u nknown) date) consider taking an unknown) anti-gas medication like we discussed. This can (unknown) (no (unknown) (unknown) [Embedded Image (units (unknown) date) Not Available] unknown) (unknown) (no (unknown) (unknown) [From Bactrim] (units (unknown) date) unknown) (unknown) (no (unknown) (unknown) alcohol intake (units (unknown) date) frequency: a few unknown) times a week (unknown) (no (unknown) (unknown) alcohol intake: (units (unknown) date) current unknown) (unknown) (no (unknown) (unknown) and Denies (units (unk nown) date) orthopnea unknown) (unknown) (no (unknown) (unknown) and Denies urinary (units (unknown) date) urgency unknown) (unknown) (no (unknown) (unknown) and Denies (units (unk nown) date) weakness unknown) (unknown) (no (unknown) (unknown) and below (units (unkn own) date) unknown) (unknown) (no (unknown) (unknown) be purchased (units (u nknown) date) [id number]. unknown) Return to the emergency department for new (unknown) (no (unknown) (unknown) capsule (Macrobid) (units (unknown) date) unknown) (unknown) (no (unknown) (unknown) chest pain, (units (un known) date) shortness of unknown) breath, lightheadedness, dizziness, syncope. Patient (unknown) (no (unknown) (unknown) denies dysuria but (units (unknown) date) endorses dark unknown) cloudy urine. Endorses decreased urine. (unknown) (no (unknown) (unknown) depression, Denies (units (unknown) date) homicidal ideation unknown) and Denies suicidal ideation (unknown) (no (unknown) (unknown) diarrhea, Reports (units (unknown) date) nausea and Reports unknown) vomiting (unknown) (no (unknown) (unknown) disease, tremors (units (unknown) date) of the nervous unknown) system presents to the ED with 2 months of (unknown) (no (unknown) (unknown) duloxetine 30 mg (units (unknown) date) capsule,delayed 30 unknown) mg PO DAILY #90 caps 03/29/22 (unknown) (no (unknown) (unknown) duloxetine 30 mg (units (unknown) date) capsule,delayed unknown) release(DR/EC) (unknown) (no (unknown) (unknown) epigastric region, (units (unknown) date) and that it is unknown) pushing out towards her ribs. Patient states (unknown) (no (unknown) (unknown) folic acid 1 mg (units (unknown) date) tablet See Rx unknown) Instructions .Route 04/01/22 (unknown) (no (unknown) (unknown) folic acid 1 mg (units (unknown) date) tablet unknown) (unknown) (no (unknown) (unknown) household members: (units (unknown) date) significant other unknown) and children (unknown) (no (unknown) (unknown) hydroxyzine (units (un known) date) pamoate 25 mg unknown) capsule 25 mg PO Q6HR PRN Anxiety #60 caps 03/29/22 (unknown) (no (unknown) (unknown) hydroxyzine (units (un known) date) pamoate 25 mg unknown) capsule (unknown) (no (unknown) (unknown) improved through (units (unknown) date) the ED course. unknown) (unknown) (no (unknown) (unknown) labs, UA, TSH, (units (unknown) date) urine , CT unknown) abdomen pelvis, ultrasound right upper (unknown) (no (unknown) (unknown) lightheadedness, (units (unknown) date) Denies unknown) palpitations, Denies dyspnea, Denies dyspnea on exertion (unknown) (no (unknown) (unknown) monohydrate/macroc (units (unknown) date) rystals 100 mg unknown) (unknown) (no (unknown) (unknown) must administer (units (unknown) date) with a meal/food unknown) (unknown) (no (unknown) (unknown) neck pain, Denies (units (unknown) date) sore throat and unknown) Denies throat swelling (unknown) (no (unknown) (unknown) nitrofurantoin 100 (units (unknown) date) mg PO Q12H 5 days unknown) #9 caps 11/13/22 (unknown) (no (unknown) (unknown) nitrofurantoin (units (unknown) date) monohyd/m-cryst unknown) [Macrobid] 100 mg capsule (unknown) (no (unknown) (unknown) normal limits. TSH (units (unknown) date) within normal unknown) limits. Awaiting ETOH and CT abdomen pelvis. (unknown) (no (unknown) (unknown) of vomiting 2 days (units (unknown) date) ago. Patient denies unknown) fevers, endorses chills. Patient denies (unknown) (no (unknown) (unknown) peripheral (units (unkn own) date) neuropathy, unknown) Jim's disease, alcohol use disorder, fatty liver di (unknown) (no (unknown) (unknown) peripheral (units (unk nown) date) neuropathy, unknown) Jim's disease, alcohol use disorder, fatty liver (unknown) (no (unknown) (unknown) prescribed (units (unk nown) date) methimazole that unknown) she does not believe that it helps. (unknown) (no (unknown) (unknown) prescribed (units (unk nown) date) propranolol. unknown) Patient also has diagnosed with Jim's, was (unknown) (no (unknown) (unknown) quadrant. (units (unkn own) date) unknown) (unknown) (no (unknown) (unknown) region. There is (units (unknown) date) bilateral CVA unknown) tenderness. (unknown) (no (unknown) (unknown) release (units (unkno wn) date) unknown) (unknown) (no (unknown) (unknown) sease, tremors of (units (unknown) date) the nervous system unknown) presents to the ED with 2 months of (unknown) (no (unknown) (unknown) second hand (units (un known) date) exposure: Yes unknown) (unknown) (no (unknown) (unknown) she has not had (units (unknown) date) much of an appetite unknown) for a few weeks now. Patient had 1 episode (unknown) (no (unknown) (unknown) start taking them (units (unknown) date) as directed. unknown) Contact your primary doctor for a follow-up. (unknown) (no (unknown) (unknown) substance use (units ( unknown) date) type: does not use unknown) (unknown) (no (unknown) (unknown) sulfamethoxazole (units (unknown) date) Allergy Severe unknown) Anaphylaxis Verified 07/20/22 09:43 (unknown) (no (unknown) (unknown) symptoms. (units (unkn own) date) unknown) (unknown) (no (unknown) (unknown) tablet (units (unkno wn) date) unknown) (unknown) (no (unknown) (unknown) thiamine HCl (units (u nknown) date) (vitamin B1) 100 mg unknown) 100 mg PO DAILY #30 tabs 03/29/22 (unknown) (no (unknown) (unknown) thiamine HCl (units (u nknown) date) (vitamin B1) 100 mg unknown) tablet (unknown) (no (unknown) (unknown) trazodone 50 mg (units (unknown) date) tablet 25 mg PO unknown) BEDTIME #30 tabs 03/29/22 (unknown) (no (unknown) (unknown) trazodone 50 mg (units (unknown) date) tablet unknown) (unknown) (no (unknown) (unknown) trimethoprim [From (units (unknown) date) Bactrim] Allergy unknown) Severe Anaphylaxis Verified 07/20/22 09:43 (unknown) (no (unknown) (unknown) versus gallbladder (units (unknown) date) disease versus unknown) liver disease versus alcohol withdrawal versus (unknown) (no (unknown) (unknown) week. Patient has (units (unknown) date) a history of benign unknown) essential tremors for which she has been (unknown) (no (unknown) (unknown) wheezing (units (unkno wn) date) unknown) (unknown) (no (unknown) (unknown) worsening upper (units (unknown) date) abdominal pain. unknown) Concern for GERD versus gastritis versus SBO (unknown) (no (unknown) (unknown) worsening upper (units (unknown) date) abdominal pain. unknown) Patient states that she feels pressure in the Result panel 476 (unknown) (no (unknown) (unknown) (no value) (units (unk nown) date) unknown) (unknown) (no (unknown) (unknown) <Electronically (units (unknown) date) signed by Benson mcdonald) Radha Welsh> (unknown) (no (unknown) (unknown) <Electronically (units (unknown) date) signed by Benson Garcia D.O.> (unknown) (no (unknown) (unknown) <Philip Chen PA-C (units (unknown) date) - Last Filed: unknown) 11/13/22 20:32> (unknown) (no (unknown) (unknown) <Benson Garcia, (units (unknown) date) DO - Last Filed: unknown) 11/14/22 01:49> (unknown) (no (unknown) (unknown) .COMPLEX #30 tabs (units (unknown) date) unknown) (unknown) (no (unknown) (unknown) 11/13/22 11/13/22 (units (unknown) date) 11/13/22 unknown) Range/Units (unknown) (no (unknown) (unknown) 11/13/22 11/13/22 (units (unknown) date) Range/Units unknown) (unknown) (no (unknown) (unknown) 11/13/22 17:30 (units (unknown) date) unknown) (unknown) (no (unknown) (unknown) 11/13/22 18:32 (units (unknown) date) unknown) (unknown) (no (unknown) (unknown) 11/13/22 18:39 (units (unknown) date) unknown) (unknown) (no (unknown) (unknown) 11/13/22 18:40 (units (unknown) date) unknown) (unknown) (no (unknown) (unknown) 11/13/22 19:14 (units (unknown) date) unknown) (unknown) (no (unknown) (unknown) 11/13/22 (units (unkno wn) date) unknown) (unknown) (no (unknown) (unknown) 11/14/22 0149 (units ( unknown) date) unknown) (unknown) (no (unknown) (unknown) [id number] (units (unkno wn) date) unknown) (unknown) (no (unknown) (unknown) 100 mg PO DAILY (units (unknown) date) Qty: 30 3RF unknown) (unknown) (no (unknown) (unknown) 100 mg PO Q12H 5 (units (unknown) date) Days Qty: 9 0RF unknown) (unknown) (no (unknown) (unknown) 17:30 17:30 17:30 (units (unknown) date) unknown) (unknown) (no (unknown) (unknown) 18:32 18:32 18:32 (units (unknown) date) unknown) (unknown) (no (unknown) (unknown) 18:32 18:32 (units (un known) date) unknown) (unknown) (no (unknown) (unknown) 20:00 11/13/22 (units (unknown) date) unknown) (unknown) (no (unknown) (unknown) 22:01 (units (unkno wn) date) unknown) (unknown) (no (unknown) (unknown) 25 mg PO BEDTIME (units (unknown) date) Qty: 30 1RF unknown) (unknown) (no (unknown) (unknown) 25 mg PO Q6HR PRN (units (unknown) date) (Reason: Anxiety) unknown) Qty: 60 1RF (unknown) (no (unknown) (unknown) 30 mg PO DAILY (units (unknown) date) Qty: 90 1RF unknown) (unknown) (no (unknown) (unknown) 42-year-old female (units (unknown) date) with past medical unknown) history generalized anxiety disorder, (unknown) (no (unknown) (unknown) 02/11. Patient (units ( unknown) date) states that since unknown) then, she has reduced her drinking to 1 drink a (unknown) (no (unknown) (unknown) A prescription for (units (unknown) date) antibiotics was unknown) sent to [facility] per your request. Please (unknown) (no (unknown) (unknown) ALT (<35) IU/L (units (unknown) date) unknown) (unknown) (no (unknown) (unknown) ALT 76 H (<35) (units (unknown) date) IU/L unknown) (unknown) (no (unknown) (unknown) AST (14-36) IU/L (units (unknown) date) unknown) (unknown) (no (unknown) (unknown) AST 89 H (14-36) (units (unknown) date) IU/L unknown) (unknown) (no (unknown) (unknown) Abdomen is soft (units (unknown) date) with hepatomegaly, unknown) tenderness to palpation in the epigastric (unknown) (no (unknown) (unknown) Acquired (units (unkno wn) date) hypothyroidism unknown) (unknown) (no (unknown) (unknown) Activity (units (unkno wn) date) Restrictions/Additi unknown) onal Instructions: (unknown) (no (unknown) (unknown) Age/Sex: 42 / F (units (unknown) date) unknown) (unknown) (no (unknown) (unknown) Albumin (3.5-5.0) (units (unknown) date) g/dL unknown) (unknown) (no (unknown) (unknown) Albumin 5.1 H (units ( unknown) date) (3.5-5.0) g/dL unknown) (unknown) (no (unknown) (unknown) Albumin/Globulin (units (unknown) date) Ratio (1.0-2.8) unknown) (unknown) (no (unknown) (unknown) Albumin/Globulin (units (unknown) date) Ratio 1.5 (1.0-2.8) unknown) (unknown) (no (unknown) (unknown) Alcohol type: beer (units (unknown) date) unknown) (unknown) (no (unknown) (unknown) Alcohol use (units (un known) date) unknown) (unknown) (no (unknown) (unknown) Alkaline (units (unkno wn) date) Phosphatase unknown) (38-126) U/L (unknown) (no (unknown) (unknown) Alkaline (units (unkno wn) date) Phosphatase 61 unknown) (38-126) U/L (unknown) (no (unknown) (unknown) Allergic/Immunolog (units (unknown) date) ic unknown) (unknown) (no (unknown) (unknown) Allergic/Immunolog (units (unknown) date) ic: Denies unknown) urticaria, Denies throat swelling and Denies (unknown) (no (unknown) (unknown) Allergies (units (unkn own) date) unknown) (unknown) (no (unknown) (unknown) Allergy/AdvReac (units (unknown) date) Type Severity unknown) Reaction Status Date / Time (unknown) (no (unknown) (unknown) Amorphous Sediment (units (unknown) date) Cancelled 1 unknown) (unknown) (no (unknown) (unknown) Amorphous Sediment (units (unknown) date) unknown) (unknown) (no (unknown) (unknown) Attestation: I (units (unknown) date) reviewed the unknown) patient's lab results. (unknown) (no (unknown) (unknown) Auscultation:?hipolito (units (unknown) date) r to auscultation unknown) bilaterally (unknown) (no (unknown) (unknown) BUN (7-17) mg/dL (units (unknown) date) unknown) (unknown) (no (unknown) (unknown) BUN 10 (7-17) (units ( unknown) date) mg/dL unknown) (unknown) (no (unknown) (unknown) BUN/Creatinine (units (unknown) date) Ratio (6-22) unknown) (unknown) (no (unknown) (unknown) BUN/Creatinine (units (unknown) date) Ratio 16.1 (6-22) unknown) (unknown) (no (unknown) (unknown) Baso # (Auto) (units ( unknown) date) (0-100) /uL unknown) (unknown) (no (unknown) (unknown) Baso # (Auto) 0 (units (unknown) date) (0-100) /uL unknown) (unknown) (no (unknown) (unknown) Baso % (Auto) (units ( unknown) date) (0-2) % unknown) (unknown) (no (unknown) (unknown) Baso % (Auto) 0.5 (units (unknown) date) (0-2) % unknown) (unknown) (no (unknown) (unknown) Blood Pressure (units (unknown) date) 149/95 H 138/91 H unknown) (unknown) (no (unknown) (unknown) Blood Pressure (units (unknown) date) 172/99 H 11/13/22 unknown) 17:23 (unknown) (no (unknown) (unknown) Breast mass in (units (unknown) date) female unknown) (unknown) (no (unknown) (unknown) CK-MB (CK-2) Rel (units (unknown) date) Index TNP unknown) (unknown) (no (unknown) (unknown) CK-MB (CK-2) Rel (units (unknown) date) Index unknown) (unknown) (no (unknown) (unknown) CK-MB (CK-2) TNP (units (unknown) date) unknown) (unknown) (no (unknown) (unknown) CK-MB (CK-2) (units (u nknown) date) unknown) (unknown) (no (unknown) (unknown) CT abdomen pelvis (units (unknown) date) w con Stat unknown) (unknown) (no (unknown) (unknown) CT scan - (units (unkn own) date) abdomen/pelvis: unknown) (unknown) (no (unknown) (unknown) Calcium (8.4-10.2) (units (unknown) date) mg/dL unknown) (unknown) (no (unknown) (unknown) Calcium 9.7 (units (un known) date) (8.4-10.2) mg/dL unknown) (unknown) (no (unknown) (unknown) Calcium Oxalate (units (unknown) date) Crystal Cancelled unknown) (unknown) (no (unknown) (unknown) Calcium Oxalate (units (unknown) date) Crystal unknown) (unknown) (no (unknown) (unknown) Carbon Dioxide (units (unknown) date) (22-32) mmol/L unknown) (unknown) (no (unknown) (unknown) Carbon Dioxide 23 (units (unknown) date) (22-32) mmol/L unknown) (unknown) (no (unknown) (unknown) Cardio (units (unkno wn) date) unknown) (unknown) (no (unknown) (unknown) Cardiovascular (units (unknown) date) unknown) (unknown) (no (unknown) (unknown) Cardiovascular: (units (unknown) date) Denies chest pain, unknown) Denies irregular heart rhythm, Denies (unknown) (no (unknown) (unknown) Chief Complaint: (units (unknown) date) Abdominal Pain unknown) (unknown) (no (unknown) (unknown) Chloride (98-107) (units (unknown) date) mmol/L unknown) (unknown) (no (unknown) (unknown) Chloride 97 L (units ( unknown) date) (98-107) mmol/L unknown) (unknown) (no (unknown) (unknown) Cholelithiasis (units (unknown) date) unknown) (unknown) (no (unknown) (unknown) Clinical (units (unkno wn) date) Impression: unknown) (unknown) (no (unknown) (unknown) Cloudy urine (units (u nknown) date) unknown) (unknown) (no (unknown) (unknown) Comments: (units (unkn own) date) unknown) (unknown) (no (unknown) (unknown) Complete Blood (units (unknown) date) Count AUTO DIFF unknown) Stat (unknown) (no (unknown) (unknown) Comprehensive (units ( unknown) date) Metabolic Panel unknown) Stat (unknown) (no (unknown) (unknown) Const (units (unkno wn) date) unknown) (unknown) (no (unknown) (unknown) Constitutional (units (unknown) date) unknown) (unknown) (no (unknown) (unknown) Constitutional: (units (unknown) date) Reports chills, unknown) Reports excessive sweating, Denies fatigue, (unknown) (no (unknown) (unknown) Course (units (unkno wn) date) unknown) (unknown) (no (unknown) (unknown) Creatinine (units (unk nown) date) (0.52-1.04) mg/dL unknown) (unknown) (no (unknown) (unknown) Creatinine 0.62 (units (unknown) date) (0.52-1.04) mg/dL unknown) (unknown) (no (unknown) (unknown) : 1980 (units (unknown) date) Acct:[id number] unknown) (unknown) (no (unknown) (unknown) Date of Service: (units (unknown) date) 11/13/22 unknown) (unknown) (no (unknown) (unknown) Denies fever(s), (units (unknown) date) Denies frequent unknown) falls, Denies lethargy, Reports poor appetite (unknown) (no (unknown) (unknown) Denies frequent (units (unknown) date) falls, Denies loss unknown) of vision, Denies numbness, Denies tingling (unknown) (no (unknown) (unknown) Denies loss of (units (unknown) date) vision unknown) (unknown) (no (unknown) (unknown) Denies numbness (units (unknown) date) and Denies tingling unknown) (unknown) (no (unknown) (unknown) Denies (units (unkno wn) date) palpitations unknown) (unknown) (no (unknown) (unknown) Departure (units (unkn own) date) unknown) (unknown) (no (unknown) (unknown) Discharge Plan (units (unknown) date) unknown) (unknown) (no (unknown) (unknown) Discontinued (units (u nknown) date) Medications unknown) (unknown) (no (unknown) (unknown) Documented By: OW (units (unknown) date) unknown) (unknown) (no (unknown) (unknown) Dose Instruction: (units (unknown) date) unknown) (unknown) (no (unknown) (unknown) Dr Garcia: (units (unk nown) date) Received turned unknown) over. Review patient's history and physical and (unknown) (no (unknown) (unknown) ED Orders (units (unkn own) date) unknown) (unknown) (no (unknown) (unknown) EKG-12 Lead Stat (units (unknown) date) unknown) (unknown) (no (unknown) (unknown) ENT (units (unkno wn) date) unknown) (unknown) (no (unknown) (unknown) ER Physician: (units ( unknown) date) Benson Garcia D.O. unknown) (unknown) (no (unknown) (unknown) ETOH [Ethanol (units ( unknown) date) (ETOH)] Stat unknown) (unknown) (no (unknown) (unknown) Ears, Nose, Mouth, (units (unknown) date) and Throat: Denies unknown) change in voice, Denies dizziness, Denies (unknown) (no (unknown) (unknown) Ears:?hearing (units ( unknown) date) grossly normal unknown) bilaterally (unknown) (no (unknown) (unknown) Effort + (units (unkno wn) date) Inspection:?normal unknown) respiratory effort (unknown) (no (unknown) (unknown) Elevated blood (units (unknown) date) protein unknown) (unknown) (no (unknown) (unknown) Elevated liver (units (unknown) date) enzymes unknown) (unknown) (no (unknown) (unknown) Emergency Report (units (unknown) date) unknown) (unknown) (no (unknown) (unknown) Endocrine (units (unkn own) date) unknown) (unknown) (no (unknown) (unknown) Endocrine: Reports (units (unknown) date) excessive sweating, unknown) Denies fatigue, Denies flushing and (unknown) (no (unknown) (unknown) Eos # (Auto) (units (u nknown) date) (0-450) /uL unknown) (unknown) (no (unknown) (unknown) Eos # (Auto) 200 (units (unknown) date) (0-450) /uL unknown) (unknown) (no (unknown) (unknown) Eos % (Auto) (2-4) (units (unknown) date) % unknown) (unknown) (no (unknown) (unknown) Eos % (Auto) 4.8 H (units (unknown) date) (2-4) % unknown) (unknown) (no (unknown) (unknown) Estimated GFR > 60 (units (unknown) date) (>60) mL/min unknown) (unknown) (no (unknown) (unknown) Estimated GFR (units ( unknown) date) (>60) mL/min unknown) (unknown) (no (unknown) (unknown) Ethyl Alcohol < 10 (units (unknown) date) ( - 10) mg/dL unknown) (unknown) (no (unknown) (unknown) Ethyl Alcohol ( - (units (unknown) date) 10) mg/dL unknown) (unknown) (no (unknown) (unknown) Exam Narrative: (units (unknown) date) unknown) (unknown) (no (unknown) (unknown) Exam (units (unkno wn) date) unknown) (unknown) (no (unknown) (unknown) Eyes (units (unkno wn) date) unknown) (unknown) (no (unknown) (unknown) Eyes: Denies (units (u nknown) date) change in vision, unknown) Denies eye discharge, Denies irritation and (unknown) (no (unknown) (unknown) Face and (units (unkno wn) date) sinus:?normal unknown) facial exam and sinuses nontender (unknown) (no (unknown) (unknown) Family History (units (unknown) date) (Reviewed 11/13/22 unknown) @ 20:00 by Philip Chen PA-C) (unknown) (no (unknown) (unknown) Father Diabetes (units (unknown) date) mellitus unknown) (unknown) (no (unknown) (unknown) 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, unknown) nonalcoholic (unknown) (no (unknown) (unknown) GI (units (unkno wn) date) unknown) (unknown) (no (unknown) (unknown) Gastrointestinal (units (unknown) date) unknown) (unknown) (no (unknown) (unknown) Gastrointestinal: (units (unknown) date) Reports abdominal unknown) pain, Denies change in bowel habits, Denies (unknown) (no (unknown) (unknown) General (units (unkno wn) date) unknown) (unknown) (no (unknown) (unknown) General:?appearanc (units (unknown) date) e normal, both eyes unknown) and all related structures (unknown) (no (unknown) (unknown) General:?cooperati (units (unknown) date) ve, healthy unknown) appearing and comfortable (unknown) (no (unknown) (unknown) General:?patient (units (unknown) date) alert, patient unknown) awake and patient oriented x3 (unknown) (no (unknown) (unknown) 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 unknown) (unknown) (no (unknown) (unknown) Genitourinary (units ( unknown) date) unknown) (unknown) (no (unknown) (unknown) Genitourinary: (units (unknown) date) Denies hematuria, unknown) Denies flank pain, Denies urinary incontinence (unknown) (no (unknown) (unknown) Globulin (1.7-4.1) (units (unknown) date) g/dL unknown) (unknown) (no (unknown) (unknown) Globulin 3.5 (units (u nknown) date) (1.7-4.1) g/dL unknown) (unknown) (no (unknown) (unknown) Glucose (70-100) (units (unknown) date) mg/dL unknown) (unknown) (no (unknown) (unknown) Glucose 107 H (units ( unknown) date) (70-100) mg/dL unknown) (unknown) (no (unknown) (unknown) Grandfather (units (un known) date) Kidney unknown) failure (unknown) (no (unknown) (unknown) Grandmother (units (un known) date) Cancer unknown) (unknown) (no (unknown) (unknown) Granular Casts (units (unknown) date) Cancelled 1-5/lpf unknown) (unknown) (no (unknown) (unknown) Granular Casts (units (unknown) date) unknown) (unknown) (no (unknown) (unknown) HENMT (units (unkno wn) date) unknown) (unknown) (no (unknown) (unknown) HPI - Abdominal (units (unknown) date) Pain unknown) (unknown) (no (unknown) (unknown) HPI narrative: (units (unknown) date) unknown) (unknown) (no (unknown) (unknown) 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) (unknown) (no (unknown) (unknown) Hct (36-46) % (units ( unknown) date) unknown) (unknown) (no (unknown) (unknown) Hct 42.9 (36-46) % (units (unknown) date) unknown) (unknown) (no (unknown) (unknown) Head:?normal to (units (unknown) date) inspection unknown) (unknown) (no (unknown) (unknown) Hematologic/Lympha (units (unknown) date) tic unknown) (unknown) (no (unknown) (unknown) Hematologic/Lympha (units (unknown) date) tic: Denies easy unknown) bruising (unknown) (no (unknown) (unknown) Hgb (12.0-16.0) (units (unknown) date) g/dL unknown) (unknown) (no (unknown) (unknown) Hgb 14.7 (units (unkno wn) date) (12.0-16.0) g/dL unknown) (unknown) (no (unknown) (unknown) History of Present (units (unknown) date) Illness unknown) (unknown) (no (unknown) (unknown) Hyaline Casts (units ( unknown) date) Cancelled 1-5/lpf unknown) (unknown) (no (unknown) (unknown) Hyaline Casts (units ( unknown) date) unknown) (unknown) (no (unknown) (unknown) Ictotest Urine (units (unknown) date) Stat unknown) (unknown) (no (unknown) (unknown) Imaging Data (units (u nknown) date) unknown) (unknown) (no (unknown) (unknown) Initial Vital (units ( unknown) date) Signs unknown) (unknown) (no (unknown) (unknown) Initial Vital (units ( unknown) date) Signs: unknown) (unknown) (no (unknown) (unknown) Insomnia (units (unkno wn) date) unknown) (unknown) (no (unknown) (unknown) Instructions: DI (units (unknown) date) for Urinary Tract unknown) Infection (UTI), DI for Abdominal Pain-Adult (unknown) (no (unknown) (unknown) Integumentary/Silvia (units (unknown) date) sts unknown) (unknown) (no (unknown) (unknown) [facility] (units (unknown) date) [address] unknown) [place] [address] (unknown) (no (unknown) (unknown) Lab Data (units (unkno wn) date) unknown) (unknown) (no (unknown) (unknown) Lab Results (units (un known) date) unknown) (unknown) (no (unknown) (unknown) Labs: (units (unkno wn) date) unknown) (unknown) (no (unknown) (unknown) Last Admin: (units (un known) date) 11/13/22 21:51 unknown) Dose: 100 mg (unknown) (no (unknown) (unknown) Lipase (23-300) (units (unknown) date) U/L unknown) (unknown) (no (unknown) (unknown) Lipase 153 (units (unk nown) date) (23-300) U/L unknown) (unknown) (no (unknown) (unknown) Lipase Stat (units (un known) date) unknown) (unknown) (no (unknown) (unknown) Lymph # (Auto) (units (unknown) date) (3566-5404) /uL unknown) (unknown) (no (unknown) (unknown) Lymph # (Auto) 700 (units (unknown) date) L (9167-1390) /uL unknown) (unknown) (no (unknown) (unknown) Lymph % (Auto) (units (unknown) date) (25-40) % unknown) (unknown) (no (unknown) (unknown) Lymph % (Auto) (units (unknown) date) 15.9 L (25-40) % unknown) (unknown) (no (unknown) (unknown) MCH (26-34) PG (units (unknown) date) unknown) (unknown) (no (unknown) (unknown) MCH 32.5 (26-34) (units (unknown) date) PG unknown) (unknown) (no (unknown) (unknown) MCHC (30-36) % (units (unknown) date) unknown) (unknown) (no (unknown) (unknown) MCHC 34.3 (30-36) (units (unknown) date) % unknown) (unknown) (no (unknown) (unknown) MCV (80-100) fL (units (unknown) date) unknown) (unknown) (no (unknown) (unknown) MCV 94.8 (80-100) (units (unknown) date) fL unknown) (unknown) (no (unknown) (unknown) MDM - Abdominal (units (unknown) date) Pain unknown) (unknown) (no (unknown) (unknown) MDM Narrative (units ( unknown) date) unknown) (unknown) (no (unknown) (unknown) Medical History (units (unknown) date) (Reviewed 11/13/22 unknown) @ 20:00 by Philip Chen PA-C) (unknown) (no (unknown) (unknown) Medical decision (units (unknown) date) making narrative: unknown) (unknown) (no (unknown) (unknown) Medication (units (unk nown) date) Instructions unknown) Recorded (unknown) (no (unknown) (unknown) Micro UA Comment (units (unknown) date) Cancelled unknown) (unknown) (no (unknown) (unknown) Micro UA Comment (units (unknown) date) unknown) (unknown) (no (unknown) (unknown) Mode of arrival: (units (unknown) date) Ambulatory unknown) (unknown) (no (unknown) (unknown) [place] # (Auto) (units ( unknown) date) (0-900) /uL unknown) (unknown) (no (unknown) (unknown) [place] # (Auto) 500 (units (unknown) date) (0-900) /uL unknown) (unknown) (no (unknown) (unknown) [place] % (Auto) (units ( unknown) date) (3-14) % unknown) (unknown) (no (unknown) (unknown) [place] % (Auto) 10.0 (units (unknown) date) (3-14) % unknown) (unknown) (no (unknown) (unknown) Mother (units (unknown) date) Cancer unknown) (unknown) (no (unknown) (unknown) Mouth:?oral (units (un known) date) mucosae normal unknown) (unknown) (no (unknown) (unknown) Musculoskeletal (units (unknown) date) unknown) (unknown) (no (unknown) (unknown) Musculoskeletal: (units (unknown) date) Denies back pain, unknown) Denies muscle weakness, Denies neck pain, (unknown) (no (unknown) (unknown) Narrative (units (unkn own) date) unknown) (unknown) (no (unknown) (unknown) Neck (units (unkno wn) date) unknown) (unknown) (no (unknown) (unknown) Neck:?normal (units (u nknown) date) visual inspection unknown) and no lymphadenopathy noted (unknown) (no (unknown) (unknown) Neuro (units (unkno wn) date) unknown) (unknown) (no (unknown) (unknown) Neurologic (units (unk nown) date) unknown) (unknown) (no (unknown) (unknown) Neurologic: Denies (units (unknown) date) behavioral changes, unknown) Denies confusion, Denies dizziness, (unknown) (no (unknown) (unknown) Neut # (Auto) (units ( unknown) date) (4060-8431) /uL unknown) (unknown) (no (unknown) (unknown) Neut # (Auto) 3200 (units (unknown) date) (3730-8892) /uL unknown) (unknown) (no (unknown) (unknown) Neut % (Auto) (units ( unknown) date) (50-75) % unknown) (unknown) (no (unknown) (unknown) Neut % (Auto) 68.8 (units (unknown) date) (50-75) % unknown) (unknown) (no (unknown) (unknown) New (units (unkno wn) date) unknown) (unknown) (no (unknown) (unknown) Nitrofurantoin (units (unknown) date) Macrocrystals unknown) (Nitrofurantoin Er 100 Mg Capsule) 100 mg PO NOW (unknown) (no (unknown) (unknown) No Action (units (unkn own) date) unknown) (unknown) (no (unknown) (unknown) No acute findings (units (unknown) date) unknown) (unknown) (no (unknown) (unknown) Nose:?external (units (unknown) date) nose normal unknown) (unknown) (no (unknown) (unknown) ONE (units (unkno wn) date) unknown) (unknown) (no (unknown) (unknown) Ordered: (units (unkno wn) date) unknown) (unknown) (no (unknown) (unknown) Orders (units (unkno wn) date) unknown) (unknown) (no (unknown) (unknown) Other Casts (units (un known) date) Cancelled unknown) (unknown) (no (unknown) (unknown) Other Casts (units (un known) date) unknown) (unknown) (no (unknown) (unknown) Other Crystals (units (unknown) date) Cancelled unknown) (unknown) (no (unknown) (unknown) Other Crystals (units (unknown) date) unknown) (unknown) (no (unknown) (unknown) Oxygen Delivery (units (unknown) date) Method 11/13/22 unknown) 17:23 (unknown) (no (unknown) (unknown) Oxygen Delivery (units (unknown) date) Method Room Air unknown) Room Air (unknown) (no (unknown) (unknown) Patient (units (unkno wn) date) Disposition: Home unknown) (unknown) (no (unknown) (unknown) Patient History (units (unknown) date) unknown) (unknown) (no (unknown) (unknown) Patient denies (units (unknown) date) medical problems unknown) (unknown) (no (unknown) (unknown) Patient has a (units (u nknown) date) history of alcohol unknown) use disorder, for which she was hospitalized in (unknown) (no (unknown) (unknown) Patient initially (units (unknown) date) appeared more unknown) anxious and diaphoretic, however those symptoms (unknown) (no (unknown) (unknown) Patient is now (units (unknown) date) signed out to unknown) Radha. (unknown) (no (unknown) (unknown) Patient: (units (unkno wn) date) Layne Avendano N unknown) MR#: [id number] (unknown) (no (unknown) (unknown) Peripheral (units (unk nown) date) neuropathy unknown) (unknown) (no (unknown) (unknown) aIn Roland DO (units (unknown) date) [Primary Care unknown) Provider] (unknown) (no (unknown) (unknown) Plt Count (units (unkn own) date) (150-400) X103/uL unknown) (unknown) (no (unknown) (unknown) Plt Count 174 (units ( unknown) date) (150-400) X103/uL unknown) (unknown) (no (unknown) (unknown) Potassium (units (unkn own) date) (3.4-5.1) mmol/L unknown) (unknown) (no (unknown) (unknown) Potassium 3.9 (units ( unknown) date) (3.4-5.1) mmol/L unknown) (unknown) (no (unknown) (unknown) Test (units (unknown) date) Urine Stat unknown) (unknown) (no (unknown) (unknown) Prescriptions: (units (unknown) date) unknown) (unknown) (no (unknown) (unknown) Previous Rx's (units ( unknown) date) unknown) (unknown) (no (unknown) (unknown) Psychiatric (units (un known) date) unknown) (unknown) (no (unknown) (unknown) Psychiatric: Denies (units (unknown) date) anxiety, Denies unknown) behavioral changes, Denies confusion, Denies (unknown) (no (unknown) (unknown) Pulse Oximetry 98 (units (unknown) date) 98 unknown) (unknown) (no (unknown) (unknown) Pulse Oximetry 99 (units (unknown) date) 11/13/22 17:23 unknown) (unknown) (no (unknown) (unknown) Pulse Rate 74 75 (units (unknown) date) unknown) (unknown) (no (unknown) (unknown) Pulse Rate 75 (units ( unknown) date) 11/13/22 17:23 unknown) (unknown) (no (unknown) (unknown) RBC (4.0-5.2) (units ( unknown) date) X106/uL unknown) (unknown) (no (unknown) (unknown) RBC 4.52 (4.0-5.2) (units (unknown) date) X106/uL unknown) (unknown) (no (unknown) (unknown) RBC Casts (units (unkn own) date) Cancelled unknown) (unknown) (no (unknown) (unknown) RBC Casts (units (unkn own) date) unknown) (unknown) (no (unknown) (unknown) RDW (11.6-14.8) % (units (unknown) date) unknown) (unknown) (no (unknown) (unknown) RDW 13.3 (units (unkno wn) date) (11.6-14.8) % unknown) (unknown) (no (unknown) (unknown) ROS Unobtainable: (units (unknown) date) All systems unknown) reviewed + are unremarkable except as noted in HPI (unknown) (no (unknown) (unknown) Radiologist's (units ( unknown) date) Impression: unknown) (unknown) (no (unknown) (unknown) Rate:?regular rate (units (unknown) date) unknown) (unknown) (no (unknown) (unknown) Referrals: (units (unk nown) date) unknown) (unknown) (no (unknown) (unknown) Related Data (units (u nknown) date) unknown) (unknown) (no (unknown) (unknown) Resp (units (unkno wn) date) unknown) (unknown) (no (unknown) (unknown) Respiratory Rate (units (unknown) date) 18 11/13/22 17:23 unknown) (unknown) (no (unknown) (unknown) Respiratory Rate (units (unknown) date) 20 20 unknown) (unknown) (no (unknown) (unknown) Respiratory (units (un known) date) unknown) (unknown) (no (unknown) (unknown) Respiratory: Denies (units (unknown) date) cough, Denies unknown) dyspnea, Denies dyspnea on exertion and Denies (unknown) (no (unknown) (unknown) Review of Systems (units (unknown) date) unknown) (unknown) (no (unknown) (unknown) Rhythm:?regular (units (unknown) date) rhythm unknown) (unknown) (no (unknown) (unknown) Rx Instructions: (units (unknown) date) unknown) (unknown) (no (unknown) (unknown) See Rx (units (unkno wn) date) Instructions .ROUTE unknown) .COMPLEX Qty: 30 1RF (unknown) (no (unknown) (unknown) She expressed (units ( unknown) date) understanding and unknown) agreement. (unknown) (no (unknown) (unknown) Shortness of (units (u nknown) date) breath (06/2020) unknown) (unknown) (no (unknown) (unknown) Signed By: (units (unk nown) date) unknown) (unknown) (no (unknown) (unknown) Skin/Breast: (units (u nknown) date) Denies pruritus, unknown) Denies erythema, Denies rash and Denies wounds (unknown) (no (unknown) (unknown) Smoking Status: (units (unknown) date) Former smoker unknown) (unknown) (no (unknown) (unknown) Social History (units (unknown) date) (Reviewed 11/13/22 unknown) @ 20:00 by Philip Chen PA-C) (unknown) (no (unknown) (unknown) Sodium (137-145) (units (unknown) date) mmol/L unknown) (unknown) (no (unknown) (unknown) Sodium 134 L (units (u nknown) date) (137-145) mmol/L unknown) (unknown) (no (unknown) (unknown) Source: patient (units (unknown) date) unknown) (unknown) (no (unknown) (unknown) Stand Alone Forms: (units (unknown) date) Patient Portal/API unknown) (unknown) (no (unknown) (unknown) Stated Complaint: (units (unknown) date) TORSO PAIN, unknown) NUMBNESS, FELLS LIKE INSIDES SWELLING (unknown) (no (unknown) (unknown) Stop: 11/13/22 (units (unknown) date) 21:28 unknown) (unknown) (no (unknown) (unknown) Substance Use (units ( unknown) date) Type: does not use unknown) (unknown) (no (unknown) (unknown) TAKE ONE TABLET BY (units (unknown) date) MOUTH ONE TIME unknown) DAILY (unknown) (no (unknown) (unknown) TSH (0.47-4.68) (units (unknown) date) uIU/mL unknown) (unknown) (no (unknown) (unknown) TSH 3.50 (units (unkno wn) date) (0.47-4.68) uIU/mL unknown) (unknown) (no (unknown) (unknown) TSH [Thyroid (units (u nknown) date) Stimulating unknown) Hormone] Stat (unknown) (no (unknown) (unknown) Temperature 98 F (units (unknown) date) 11/13/22 17:23 unknown) (unknown) (no (unknown) (unknown) Throat:?posterior (units (unknown) date) oropharynx normal unknown) (unknown) (no (unknown) (unknown) Time Seen by (units (u nknown) date) Provider: 11/13/22 unknown) 18:14 (unknown) (no (unknown) (unknown) Total Bilirubin (units (unknown) date) (0.2-1.3) mg/dL unknown) (unknown) (no (unknown) (unknown) Total Bilirubin (units (unknown) date) 3.0 H (0.2-1.3) unknown) mg/dL (unknown) (no (unknown) (unknown) Total Creatine (units (unknown) date) Kinase (30-135) U/L unknown) (unknown) (no (unknown) (unknown) Total Creatine (units (unknown) date) Kinase 96 (30-135) unknown) U/L (unknown) (no (unknown) (unknown) Total Protein (units ( unknown) date) (6.3-8.2) g/dL unknown) (unknown) (no (unknown) (unknown) Total Protein 8.6 (units (unknown) date) H (6.3-8.2) g/dL unknown) (unknown) (no (unknown) (unknown) Tremors of nervous (units (unknown) date) system (06/2020) unknown) (unknown) (no (unknown) (unknown) Triple Phos (units (un known) date) Crystals Cancelled unknown) (unknown) (no (unknown) (unknown) Triple Phos (units (un known) date) Crystals unknown) (unknown) (no (unknown) (unknown) Troponin + CK (units ( unknown) date) Cardiac Panel Stat unknown) (unknown) (no (unknown) (unknown) Troponin I < 0.012 (units (unknown) date) (0.01-0.034) ng/mL unknown) (unknown) (no (unknown) (unknown) Troponin I (units (unk nown) date) (0.01-0.034) ng/mL unknown) (unknown) (no (unknown) (unknown) UA is positive for (units (unknown) date) UTI, urine unknown) bilirubin. HCG negative. All other labs within (unknown) (no (unknown) (unknown) US - abdomen: (units ( unknown) date) unknown) (unknown) (no (unknown) (unknown) US abdomen limited (units (unknown) date) Stat unknown) (unknown) (no (unknown) (unknown) UTI versus (units (unk nown) date) pyelonephritis unknown) versus thyroid disease versus other. Will obtain (unknown) (no (unknown) (unknown) Ur Bilirubin (units (u nknown) date) Confirm (Negative) unknown) (unknown) (no (unknown) (unknown) Ur Bilirubin (units (u nknown) date) Confirm Positive H unknown) (Negative) (unknown) (no (unknown) (unknown) Ur Culture (units (unk nown) date) Indicated? unknown) Cancelled (unknown) (no (unknown) (unknown) Ur Culture (units (unk nown) date) Indicated? unknown) (unknown) (no (unknown) (unknown) Ur Leukocyte (units (u nknown) date) Esterase (NEGATIVE) unknown) (unknown) (no (unknown) (unknown) Ur Leukocyte (units (u nknown) date) Esterase Negative unknown) (NEGATIVE) (unknown) (no (unknown) (unknown) Ur Renal (units (unkno wn) date) Epithelial Cell unknown) Cancelled (unknown) (no (unknown) (unknown) Ur Renal (units (unkno wn) date) Epithelial Cell unknown) (unknown) (no (unknown) (unknown) Ur Specific (units (un known) date) [place] unknown) (1.000-1.035) (unknown) (no (unknown) (unknown) Ur Specific (units (un known) date) [place] 1.025 unknown) (1.000-1.035) (unknown) (no (unknown) (unknown) Ur Squamous Epith (units (unknown) date) Cells Cancelled unknown) 5-10 /hpf H (unknown) (no (unknown) (unknown) Ur Squamous Epith (units (unknown) date) Cells unknown) (unknown) (no (unknown) (unknown) Ur Transition (units ( unknown) date) Epith Cell unknown) Cancelled (unknown) (no (unknown) (unknown) Ur Transition (units ( unknown) date) Epith Cell unknown) (unknown) (no (unknown) (unknown) Uric Acid Crystals (units (unknown) date) Cancelled unknown) (unknown) (no (unknown) (unknown) Uric Acid Crystals (units (unknown) date) unknown) (unknown) (no (unknown) (unknown) Urinalysis and (units (unknown) date) Microscopic Stat unknown) (unknown) (no (unknown) (unknown) Urinary tract (units ( unknown) date) infection, unknown) Abdominal pain (unknown) (no (unknown) (unknown) Urine Appearance (units (unknown) date) Slightly cloudy unknown) (unknown) (no (unknown) (unknown) Urine Appearance (units (unknown) date) unknown) (unknown) (no (unknown) (unknown) Urine Bacteria (units (unknown) date) Cancelled Moderate unknown) (10-30) H (unknown) (no (unknown) (unknown) Urine Bacteria (units (unknown) date) unknown) (unknown) (no (unknown) (unknown) Urine Bilirubin (units (unknown) date) (NEGATIVE) unknown) (unknown) (no (unknown) (unknown) Urine Bilirubin 2+ (units (unknown) date) H (NEGATIVE) unknown) (unknown) (no (unknown) (unknown) Urine Color Dark (units (unknown) date) yellow unknown) (unknown) (no (unknown) (unknown) Urine Color (units (un known) date) unknown) (unknown) (no (unknown) (unknown) Urine Culture Stat (units (unknown) date) unknown) (unknown) (no (unknown) (unknown) Urine Glucose (UA) (units (unknown) date) (Negative) g/dL unknown) (unknown) (no (unknown) (unknown) Urine Glucose (UA) (units (unknown) date) Negative (Negative) unknown) g/dL (unknown) (no (unknown) (unknown) Urine Ketones (units ( unknown) date) (NEGATIVE) unknown) (unknown) (no (unknown) (unknown) Urine Ketones 3+ H (units (unknown) date) (NEGATIVE) unknown) (unknown) (no (unknown) (unknown) Urine Mucus (units (un known) date) Cancelled 3+ H unknown) (unknown) (no (unknown) (unknown) Urine Mucus (units (un known) date) unknown) (unknown) (no (unknown) (unknown) Urine Nitrate (units ( unknown) date) (Negative) unknown) (unknown) (no (unknown) (unknown) Urine Nitrate (units ( unknown) date) Positive H unknown) (Negative) (unknown) (no (unknown) (unknown) Urine Occult Blood (units (unknown) date) (Negative) unknown) (unknown) (no (unknown) (unknown) Urine Occult Blood (units (unknown) date) Negative (Negative) unknown) (unknown) (no (unknown) (unknown) Urine (units (unknown) date) Test (Negative) unknown) (unknown) (no (unknown) (unknown) Urine (units (unknown) date) Test Negative unknown) (Negative) (unknown) (no (unknown) (unknown) Urine Protein (units ( unknown) date) (Negative) unknown) (unknown) (no (unknown) (unknown) Urine Protein 1+ H (units (unknown) date) (Negative) unknown) (unknown) (no (unknown) (unknown) Urine RBC (units (unkn own) date) Cancelled None seen unknown) (unknown) (no (unknown) (unknown) Urine RBC (units (unkn own) date) unknown) (unknown) (no (unknown) (unknown) Urine Sperm (units (un known) date) Cancelled unknown) (unknown) (no (unknown) (unknown) Urine Sperm (units (un known) date) unknown) (unknown) (no (unknown) (unknown) Urine Trichomonas (units (unknown) date) Cancelled unknown) (unknown) (no (unknown) (unknown) Urine Trichomonas (units (unknown) date) unknown) (unknown) (no (unknown) (unknown) Urine Urobilinogen (units (unknown) date) (0.2) E.U./dL unknown) (unknown) (no (unknown) (unknown) Urine Urobilinogen (units (unknown) date) 1.0 (0.2) E.U./dL unknown) (unknown) (no (unknown) (unknown) Urine WBC (units (unkn own) date) Cancelled 5-10/hpf unknown) H (unknown) (no (unknown) (unknown) Urine WBC (units (unkn own) date) unknown) (unknown) (no (unknown) (unknown) Urine Yeast (units (un known) date) Cancelled unknown) (unknown) (no (unknown) (unknown) Urine Yeast (units (un known) date) unknown) (unknown) (no (unknown) (unknown) Urine pH (4.5-8.0) (units (unknown) date) unknown) (unknown) (no (unknown) (unknown) Urine pH 6.0 (units (u nknown) date) (4.5-8.0) unknown) (unknown) (no (unknown) (unknown) Vital Signs - 8 hr (units (unknown) date) unknown) (unknown) (no (unknown) (unknown) Vital Signs (units (un known) date) unknown) (unknown) (no (unknown) (unknown) Vital signs: (units (u nknown) date) unknown) (unknown) (no (unknown) (unknown) WBC (4.5-11.0) (units (unknown) date) X103/uL unknown) (unknown) (no (unknown) (unknown) WBC 4.7 (4.5-11.0) (units (unknown) date) X103/uL unknown) (unknown) (no (unknown) (unknown) WBC Casts (units (unkn own) date) Cancelled unknown) (unknown) (no (unknown) (unknown) WBC Casts (units (unkn own) date) unknown) (unknown) (no (unknown) (unknown) You can also (units (u nknown) date) consider taking an unknown) anti-gas medication like we discussed. This can (unknown) (no (unknown) (unknown) [Embedded Image (units (unknown) date) Not Available] unknown) (unknown) (no (unknown) (unknown) [From Bactrim] (units (unknown) date) unknown) (unknown) (no (unknown) (unknown) alcohol intake (units (unknown) date) frequency: a few unknown) times a week (unknown) (no (unknown) (unknown) alcohol intake: (units (unknown) date) current unknown) (unknown) (no (unknown) (unknown) and Denies (units (unk nown) date) orthopnea unknown) (unknown) (no (unknown) (unknown) and Denies urinary (units (unknown) date) urgency unknown) (unknown) (no (unknown) (unknown) and Denies (units (unk nown) date) weakness unknown) (unknown) (no (unknown) (unknown) and below (units (unkn own) date) unknown) (unknown) (no (unknown) (unknown) be purchased (units (u nknown) date) [id number]. unknown) Return to the emergency department for new (unknown) (no (unknown) (unknown) capsule (Macrobid) (units (unknown) date) unknown) (unknown) (no (unknown) (unknown) chest pain, (units (un known) date) shortness of unknown) breath, lightheadedness, dizziness, syncope. Patient (unknown) (no (unknown) (unknown) choice. Ultrasound (units (unknown) date) does show unknown) cholelithiasis without signs of acute (unknown) (no (unknown) (unknown) cholecystitis. Low (units (unknown) date) suspicion that this unknown) is the cause of what brought her into (unknown) (no (unknown) (unknown) denies dysuria but (units (unknown) date) endorses dark unknown) cloudy urine. Endorses decreased urine. (unknown) (no (unknown) (unknown) depression, Denies (units (unknown) date) homicidal ideation unknown) and Denies suicidal ideation (unknown) (no (unknown) (unknown) diarrhea, Reports (units (unknown) date) nausea and Reports unknown) vomiting (unknown) (no (unknown) (unknown) disease, tremors (units (unknown) date) of the nervous unknown) system presents to the ED with 2 months of (unknown) (no (unknown) (unknown) duloxetine 30 mg (units (unknown) date) capsule,delayed 30 unknown) mg PO DAILY #90 caps 03/29/22 (unknown) (no (unknown) (unknown) duloxetine 30 mg (units (unknown) date) capsule,delayed unknown) release(DR/EC) (unknown) (no (unknown) (unknown) epigastric region, (units (unknown) date) and that it is unknown) pushing out towards her ribs. Patient states (unknown) (no (unknown) (unknown) folic acid 1 mg (units (unknown) date) tablet See Rx unknown) Instructions .Route 04/01/22 (unknown) (no (unknown) (unknown) folic acid 1 mg (units (unknown) date) tablet unknown) (unknown) (no (unknown) (unknown) further workup and (units (unknown) date) discharge patient unknown) home. She was given return precautions. (unknown) (no (unknown) (unknown) her symptoms we (units (unknown) date) will treat her with unknown) antibiotics. She was given 1st dose here in (unknown) (no (unknown) (unknown) household members: (units (unknown) date) significant other unknown) and children (unknown) (no (unknown) (unknown) hydroxyzine (units (un known) date) pamoate 25 mg unknown) capsule 25 mg PO Q6HR PRN Anxiety #60 caps 03/29/22 (unknown) (no (unknown) (unknown) hydroxyzine (units (un known) date) pamoate 25 mg unknown) capsule (unknown) (no (unknown) (unknown) improved through (units (unknown) date) the ED course. unknown) (unknown) (no (unknown) (unknown) labs, UA, TSH, (units (unknown) date) urine , CT unknown) abdomen pelvis, ultrasound right upper (unknown) (no (unknown) (unknown) lightheadedness, (units (unknown) date) Denies unknown) palpitations, Denies dyspnea, Denies dyspnea on exertion (unknown) (no (unknown) (unknown) monohydrate/macroc (units (unknown) date) rystals 100 mg unknown) (unknown) (no (unknown) (unknown) must administer (units (unknown) date) with a meal/food unknown) (unknown) (no (unknown) (unknown) neck pain, Denies (units (unknown) date) sore throat and unknown) Denies throat swelling (unknown) (no (unknown) (unknown) nitrofurantoin 100 (units (unknown) date) mg PO Q12H 5 days unknown) #9 caps 11/13/22 (unknown) (no (unknown) (unknown) nitrofurantoin (units (unknown) date) monohyd/m-cryst unknown) [Macrobid] 100 mg capsule (unknown) (no (unknown) (unknown) normal limits. TSH (units (unknown) date) within normal unknown) limits. Awaiting ETOH and CT abdomen pelvis. (unknown) (no (unknown) (unknown) of vomiting 2 days (units (unknown) date) ago. Patient denies unknown) fevers, endorses chills. Patient denies (unknown) (no (unknown) (unknown) pathology. It does (units (unknown) date) show some unknown) thickening of the bladder wall in the patient (unknown) (no (unknown) (unknown) peripheral (units (unk nown) date) neuropathy, unknown) Jim's disease, alcohol use disorder, fatty liver (unknown) (no (unknown) (unknown) prescribed (units (unk nown) date) methimazole that unknown) she does not believe that it helps. (unknown) (no (unknown) (unknown) prescribed (units (unk nown) date) propranolol. unknown) Patient also has diagnosed with Jim's, was (unknown) (no (unknown) (unknown) pyelonephritis (units (unknown) date) given her exam unknown) today. Given her urinalysis in the CT result in (unknown) (no (unknown) (unknown) quadrant. (units (unkn own) date) unknown) (unknown) (no (unknown) (unknown) region. There is (units (unknown) date) bilateral CVA unknown) tenderness. (unknown) (no (unknown) (unknown) release (units (unkno wn) date) unknown) (unknown) (no (unknown) (unknown) second hand (units (un known) date) exposure: Yes unknown) (unknown) (no (unknown) (unknown) she has not had (units (unknown) date) much of an appetite unknown) for a few weeks now. Patient had 1 episode (unknown) (no (unknown) (unknown) start taking them (units (unknown) date) as directed. unknown) Contact your primary doctor for a follow-up. (unknown) (no (unknown) (unknown) states that she is (units (unknown) date) having some UTI unknown) like symptoms. Low suspicion for (unknown) (no (unknown) (unknown) substance use (units ( unknown) date) type: does not use unknown) (unknown) (no (unknown) (unknown) sulfamethoxazole (units (unknown) date) Allergy Severe unknown) Anaphylaxis Verified 07/20/22 09:43 (unknown) (no (unknown) (unknown) symptoms. (units (unkn own) date) unknown) (unknown) (no (unknown) (unknown) tablet (units (unkno wn) date) unknown) (unknown) (no (unknown) (unknown) the emergency (units ( unknown) date) department and a unknown) prescription was sent to the pharmacy of her (unknown) (no (unknown) (unknown) the emergency (units ( unknown) date) department today. unknown) She is feeling somewhat better. Will hold on (unknown) (no (unknown) (unknown) thiamine HCl (units (u nknown) date) (vitamin B1) 100 mg unknown) 100 mg PO DAILY #30 tabs 03/29/22 (unknown) (no (unknown) (unknown) thiamine HCl (units (u nknown) date) (vitamin B1) 100 mg unknown) tablet (unknown) (no (unknown) (unknown) trazodone 50 mg (units (unknown) date) tablet 25 mg PO unknown) BEDTIME #30 tabs 03/29/22 (unknown) (no (unknown) (unknown) trazodone 50 mg (units (unknown) date) tablet unknown) (unknown) (no (unknown) (unknown) trimethoprim [From (units (unknown) date) Bactrim] Allergy unknown) Severe Anaphylaxis Verified 07/20/22 09:43 (unknown) (no (unknown) (unknown) versus gallbladder (units (unknown) date) disease versus unknown) liver disease versus alcohol withdrawal versus (unknown) (no (unknown) (unknown) week. Patient has (units (unknown) date) a history of benign unknown) essential tremors for which she has been (unknown) (no (unknown) (unknown) wheezing (units (unkno wn) date) unknown) (unknown) (no (unknown) (unknown) workup up to this (units (unknown) date) point. Patient's CT unknown) scan of the abdomen shows no acute (unknown) (no (unknown) (unknown) worsening upper (units (unknown) date) abdominal pain. unknown) Concern for GERD versus gastritis versus SBO (unknown) (no (unknown) (unknown) worsening upper (units (unknown) date) abdominal pain. unknown) Patient states that she feels pressure in the Result panel 477 (unknown) (no date) (unknown) (unknown) No growth. (units (un known) unknown) Result panel 478 (unknown) (no date) (unknown) (unknown) (no value) (units (un known) unknown) (unknown) (no date) (unknown) (unknown) Mixed gram + (units ( unknown) brissa. Deemed unknown) unsuitable for further studies. Result panel 479 (unknown) (no (unknown) (unknown) (no value) (units (unk nown) date) unknown) (unknown) (no (unknown) (unknown) 12/20/22 (units (unkno wn) date) unknown) (unknown) (no (unknown) (unknown) [id number] (units (unkno wn) date) unknown) (unknown) (no (unknown) (unknown) 42 yo male (units (unk nown) date) presents today for unknown) an ER f/u abdominal pain. (unknown) (no (unknown) (unknown) Acquired (units (unkno wn) date) hypothyroidism unknown) (unknown) (no (unknown) (unknown) Age/Sex: 42 / F (units (unknown) date) Date of Service: unknown) (unknown) (no (unknown) (unknown) Alcohol use (units (un known) date) unknown) (unknown) (no (unknown) (unknown) Allergies (units (unkn own) date) unknown) (unknown) (no (unknown) (unknown) [place], [place] (units ( unknown) date) [id number] unknown) (unknown) (no (unknown) (unknown) Anaphylaxis (units (un known) date) unknown) (unknown) (no (unknown) (unknown) Attending Dr: Ian (units (unknown) date) Nick Roland D.O. unknown) (unknown) (no (unknown) (unknown) Breast mass in (units (unknown) date) female unknown) (unknown) (no (unknown) (unknown) : 1980 (units (unknown) date) Acct:[id number] unknown) (unknown) (no (unknown) (unknown) Dept at (units (unkno wn) date) . unknown) (unknown) (no (unknown) (unknown) Documented By: (units (unknown) date) Ian Roland D.O. unknown) 12/20/22 1048 (unknown) (no (unknown) (unknown) Draft (units (unkno wn) date) unknown) (unknown) (no (unknown) (unknown) Elevated blood (units (unknown) date) protein unknown) (unknown) (no (unknown) (unknown) Elevated liver (units (unknown) date) enzymes unknown) (unknown) (no (unknown) (unknown) Family History (units (unknown) date) (Reviewed 11/13/22 unknown) @ 20:00 by Philip Chen PA-C) (unknown) (no (unknown) (unknown) Family Practice (units (unknown) date) Office Visit unknown) (unknown) (no (unknown) (unknown) Father Diabetes (units (unknown) date) mellitus unknown) (unknown) (no (unknown) (unknown) 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, unknown) nonalcoholic (unknown) (no (unknown) (unknown) [facility] unknown) (unknown) (no (unknown) (unknown) 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 unknown) (unknown) (no (unknown) (unknown) Grandfather (units (un known) date) Kidney unknown) failure (unknown) (no (unknown) (unknown) Grandmother (units (un known) date) Cancer unknown) (unknown) (no (unknown) (unknown) 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) (unknown) (no (unknown) (unknown) Insomnia (units (unkno wn) date) unknown) (unknown) (no (unknown) (unknown) Intake Note: (units (u nknown) date) unknown) (unknown) (no (unknown) (unknown) Intake performed (units (unknown) date) by: Estrella Purcell unknown) (unknown) (no (unknown) (unknown) Intake (units (unkno wn) date) unknown) (unknown) (no (unknown) (unknown) Intake- Clincial (units (unknown) date) Staff unknown) (unknown) (no (unknown) (unknown) Last Menstural (units (unknown) date) Cycle + Details unknown) (unknown) (no (unknown) (unknown) Loc: [facility] (units (unkno wn) date) unknown) (unknown) (no (unknown) (unknown) Medical History (units (unknown) date) (Reviewed 11/13/22 unknown) @ 20:00 by Philip Chen PA-C) (unknown) (no (unknown) (unknown) Mother (units (unknown) date) Cancer unknown) (unknown) (no (unknown) (unknown) Other Menstrual (units (unknown) date) Period: Uncertain unknown) (unknown) (no (unknown) (unknown) PFSH (units (unkno wn) date) unknown) (unknown) (no (unknown) (unknown) Patient denies (units (unknown) date) medical problems unknown) (unknown) (no (unknown) (unknown) Patient: (units (unkno wn) date) Layne Avendano N unknown) MR#: [id number] (unknown) (no (unknown) (unknown) Peripheral (units (unk nown) date) neuropathy unknown) (unknown) (no (unknown) (unknown) Reason For Visit (units (unknown) date) unknown) (unknown) (no (unknown) (unknown) Shortness of (units (u nknown) date) breath (06/2020) unknown) (unknown) (no (unknown) (unknown) Signed By: (units (unk nown) date) unknown) (unknown) (no (unknown) (unknown) Smoking Status: (units (unknown) date) Former smoker unknown) (unknown) (no (unknown) (unknown) Social History (units (unknown) date) unknown) (unknown) (no (unknown) (unknown) This note may have (units (unknown) date) been all or unknown) partially generated using voice recognition (unknown) (no (unknown) (unknown) Tobacco + (units (unkn own) date) Substance Use unknown) (unknown) (no (unknown) (unknown) Tobacco Status (units (unknown) date) unknown) (unknown) (no (unknown) (unknown) Tremors of nervous (units (unknown) date) system (06/2020) unknown) (unknown) (no (unknown) (unknown) Visit Reasons: ER (units (unknown) date) f/u 1 month ago unknown) (unknown) (no (unknown) (unknown) alcohol intake: (units (unknown) date) current unknown) (unknown) (no (unknown) (unknown) have occurred. If (units (unknown) date) there are any unknown) questions, please contact the Medical Records (unknown) (no (unknown) (unknown) household members: (units (unknown) date) significant other unknown) and children (unknown) (no (unknown) (unknown) may occur. (units (unk nown) date) Occasional unknown) wrong-word or 'sound-alike' substitutions may have (unknown) (no (unknown) (unknown) occurred due to (units (unknown) date) the inherent unknown) limitations of voice recognition software. Please (unknown) (no (unknown) (unknown) read the note (units ( unknown) date) carefully and unknown) recognize, using context, where these substitutions (unknown) (no (unknown) (unknown) second hand (units (un known) date) exposure: Yes unknown) (unknown) (no (unknown) (unknown) software. Although (units (unknown) date) every effort is unknown) made to edit content, client analyst errors (unknown) (no (unknown) (unknown) substance use (units ( unknown) date) type: does not use unknown) (unknown) (no (unknown) (unknown) sulfamethoxazole (units (unknown) date) [From Bactrim] unknown) Allergy (Severe, Verified 07/20/22 09:43) (unknown) (no (unknown) (unknown) trimethoprim [From (units (unknown) date) Bactrim] Allergy unknown) (Severe, Verified 07/20/22 09:43) Result panel 480 (unknown) (no (unknown) (unknown) (no value) (units (unk nown) date) unknown) (unknown) (no (unknown) (unknown) 12/20/22 (units (unkno wn) date) unknown) (unknown) (no (unknown) (unknown) [id number] (units (unkno wn) date) unknown) (unknown) (no (unknown) (unknown) 42 yo male (units (unk nown) date) presents today for unknown) an ER f/u abdominal pain. Pt states she has had (unknown) (no (unknown) (unknown) Acquired (units (unkno wn) date) hypothyroidism unknown) (unknown) (no (unknown) (unknown) Age/Sex: 42 / F (units (unknown) date) Date of Service: unknown) (unknown) (no (unknown) (unknown) Alcohol use (units (un known) date) unknown) (unknown) (no (unknown) (unknown) Allergies (units (unkn own) date) unknown) (unknown) (no (unknown) (unknown) [place], [place] (units ( unknown) date) [id number] unknown) (unknown) (no (unknown) (unknown) Anaphylaxis (units (un known) date) unknown) (unknown) (no (unknown) (unknown) Attending Dr: Ian (units (unknown) date) Nick Roland D.O. unknown) (unknown) (no (unknown) (unknown) Breast mass in (units (unknown) date) female unknown) (unknown) (no (unknown) (unknown) : 1980 (units (unknown) date) Acct:[id number] unknown) (unknown) (no (unknown) (unknown) Dept at (units (unkno wn) date) . unknown) (unknown) (no (unknown) (unknown) Documented By: (units (unknown) date) Ian Roland D.O. unknown) 12/20/22 1048 (unknown) (no (unknown) (unknown) Draft (units (unkno wn) date) unknown) (unknown) (no (unknown) (unknown) Elevated blood (units (unknown) date) protein unknown) (unknown) (no (unknown) (unknown) Elevated liver (units (unknown) date) enzymes unknown) (unknown) (no (unknown) (unknown) Family History (units (unknown) date) (Reviewed 11/13/22 unknown) @ 20:00 by Philip Chen PA-C) (unknown) (no (unknown) (unknown) Family Practice (units (unknown) date) Office Visit unknown) (unknown) (no (unknown) (unknown) Father Diabetes (units (unknown) date) mellitus unknown) (unknown) (no (unknown) (unknown) 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, unknown) nonalcoholic (unknown) (no (unknown) (unknown) [facility]units ([facility] date[facility] unknown) (unknown) (no (unknown) (unknown) 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 unknown) (unknown) (no (unknown) (unknown) Grandfather (units (un known) date) Kidney unknown) failure (unknown) (no (unknown) (unknown) Grandmother (units (un known) date) Cancer unknown) (unknown) (no (unknown) (unknown) 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) (unknown) (no (unknown) (unknown) Insomnia (units (unkno wn) date) unknown) (unknown) (no (unknown) (unknown) Intake Note: (units (u nknown) date) unknown) (unknown) (no (unknown) (unknown) Intake performed (units (unknown) date) by: Estrella Purcell unknown) (unknown) (no (unknown) (unknown) Intake (units (unkno wn) date) unknown) (unknown) (no (unknown) (unknown) Intake- Clincial (units (unknown) date) Staff unknown) (unknown) (no (unknown) (unknown) Last Menstural (units (unknown) date) Cycle + Details unknown) (unknown) (no (unknown) (unknown) Loc: [facility] (units (unkno wn) date) unknown) (unknown) (no (unknown) (unknown) Medical History (units (unknown) date) (Reviewed 11/13/22 unknown) @ 20:00 by Philip Chen PA-C) (unknown) (no (unknown) (unknown) Mother (units (unknown) date) Cancer unknown) (unknown) (no (unknown) (unknown) Other Menstrual (units (unknown) date) Period: Uncertain unknown) (unknown) (no (unknown) (unknown) PFSH (units (unkno wn) date) unknown) (unknown) (no (unknown) (unknown) Patient denies (units (unknown) date) medical problems unknown) (unknown) (no (unknown) (unknown) Patient: (units (unkno wn) date) Layne Avendano Amaury unknown) MR#: [id number] (unknown) (no (unknown) (unknown) Peripheral (units (unk nown) date) neuropathy unknown) (unknown) (no (unknown) (unknown) Reason For Visit (units (unknown) date) unknown) (unknown) (no (unknown) (unknown) Shortness of (units (u nknown) date) breath (06/2020) unknown) (unknown) (no (unknown) (unknown) Signed By: (units (unk nown) date) unknown) (unknown) (no (unknown) (unknown) Smoking Status: (units (unknown) date) Former smoker unknown) (unknown) (no (unknown) (unknown) Social History (units (unknown) date) unknown) (unknown) (no (unknown) (unknown) This note may have (units (unknown) date) been all or unknown) partially generated using voice recognition (unknown) (no (unknown) (unknown) Tobacco + (units (unkn own) date) Substance Use unknown) (unknown) (no (unknown) (unknown) Tobacco Status (units (unknown) date) unknown) (unknown) (no (unknown) (unknown) Tremors of nervous (units (unknown) date) system (06/2020) unknown) (unknown) (no (unknown) (unknown) Visit Reasons: ER (units (unknown) date) f/u 1 month ago unknown) (unknown) (no (unknown) (unknown) alcohol intake: (units (unknown) date) current unknown) (unknown) (no (unknown) (unknown) have occurred. If (units (unknown) date) there are any unknown) questions, please contact the Medical Records (unknown) (no (unknown) (unknown) household members: (units (unknown) date) significant other unknown) and children (unknown) (no (unknown) (unknown) may occur. 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 Please (unknown) (no (unknown) (unknown) read the note (units ( unknown) date) carefully and unknown) recognize, using context, where these substitutions (unknown) (no (unknown) (unknown) second hand (units (un known) date) exposure: Yes unknown) (unknown) (no (unknown) (unknown) software. Although (units (unknown) date) every effort is unknown) made to edit content, client analyst errors (unknown) (no (unknown) (unknown) spreading towards (units (unknown) date) her legs unknown) (unknown) (no (unknown) (unknown) substance use (units ( unknown) date) type: does not use unknown) (unknown) (no (unknown) (unknown) sulfamethoxazole (units (unknown) date) [From Bactrim] unknown) Allergy (Severe, Verified 07/20/22 09:43) (unknown) (no (unknown) (unknown) trimethoprim [From (units (unknown) date) Bactrim] Allergy unknown) (Severe, Verified 07/20/22 09:43) Result panel 481 (unknown) (no (unknown) (unknown) (no value) (units (unk nown) date) unknown) (unknown) (no (unknown) (unknown) 12/20/22 (units (unkno wn) date) unknown) (unknown) (no (unknown) (unknown) [id number] (units (unkno wn) date) unknown) (unknown) (no (unknown) (unknown) 42 yo male (units (unk nown) date) presents today for unknown) an ER f/u abdominal pain. Pt states she has had (unknown) (no (unknown) (unknown) Acquired (units (unkno wn) date) hypothyroidism unknown) (unknown) (no (unknown) (unknown) Age/Sex: 42 / F (units (unknown) date) Date of Service: unknown) (unknown) (no (unknown) (unknown) Alcohol use (units (un known) date) unknown) (unknown) (no (unknown) (unknown) Allergies (units (unkn own) date) unknown) (unknown) (no (unknown) (unknown) YONATAN Fox (units ( unknown) date) [id number] unknown) (unknown) (no (unknown) (unknown) Anaphylaxis (units (un known) date) unknown) (unknown) (no (unknown) (unknown) Attending Dr: Ian (units (unknown) date) Nick Roland D.O. unknown) (unknown) (no (unknown) (unknown) Breast mass in (units (unknown) date) female unknown) (unknown) (no (unknown) (unknown) Confirmed (units (unkn own) date) 12/20/22] unknown) (unknown) (no (unknown) (unknown) Confirmed (units (unkn own) date) 03/29/22] unknown) (unknown) (no (unknown) (unknown) : 1980 (units (unknown) date) Acct:[id number] unknown) (unknown) (no (unknown) (unknown) Dept at (units (unkno wn) date) . unknown) (unknown) (no (unknown) (unknown) Documented By: (units (unknown) date) Ian Roland D.O. unknown) 12/20/22 1048 (unknown) (no (unknown) (unknown) Draft (units (unkno wn) date) unknown) (unknown) (no (unknown) (unknown) Elevated blood (units (unknown) date) protein unknown) (unknown) (no (unknown) (unknown) Elevated liver (units (unknown) date) enzymes unknown) (unknown) (no (unknown) (unknown) Family History (units (unknown) date) (Reviewed 11/13/22 unknown) @ 20:00 by Philip Chen PA-C) (unknown) (no (unknown) (unknown) Family Practice (units (unknown) date) Office Visit unknown) (unknown) (no (unknown) (unknown) Father Diabetes (units (unknown) date) mellitus unknown) (unknown) (no (unknown) (unknown) 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, unknown) nonalcoholic (unknown) (no (unknown) (unknown) [facility] (units ([facility] date[facility] unknown) (unknown) (no (unknown) (unknown) 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 unknown) (unknown) (no (unknown) (unknown) Grandfather (units (un known) date) Kidney unknown) failure (unknown) (no (unknown) (unknown) Grandmother (units (un known) date) Cancer unknown) (unknown) (no (unknown) (unknown) 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) (unknown) (no (unknown) (unknown) Insomnia (units (unkno wn) date) unknown) (unknown) (no (unknown) (unknown) Intake Note: (units (u nknown) date) unknown) (unknown) (no (unknown) (unknown) Intake performed (units (unknown) date) by: Estrella Purcell unknown) (unknown) (no (unknown) (unknown) Intake (units (unkno wn) date) unknown) (unknown) (no (unknown) (unknown) Intake- Clincial (units (unknown) date) Staff unknown) (unknown) (no (unknown) (unknown) Last Menstural (units (unknown) date) Cycle + Details unknown) (unknown) (no (unknown) (unknown) Loc: [facility] (units (unkno wn) date) unknown) (unknown) (no (unknown) (unknown) Medical History (units (unknown) date) (Reviewed 11/13/22 unknown) @ 20:00 by Philip Chen PA-C) (unknown) (no (unknown) (unknown) Medications (units (un known) date) unknown) (unknown) (no (unknown) (unknown) Mother (units (unknown) date) Cancer unknown) (unknown) (no (unknown) (unknown) Other Menstrual (units (unknown) date) Period: Uncertain unknown) (unknown) (no (unknown) (unknown) PFSH (units (unkno wn) date) unknown) (unknown) (no (unknown) (unknown) Patient denies (units (unknown) date) medical problems unknown) (unknown) (no (unknown) (unknown) Patient: (units (unkno wn) date) Layne Avendano N unknown) MR#: [id number] (unknown) (no (unknown) (unknown) Peripheral (units (unk nown) date) neuropathy unknown) (unknown) (no (unknown) (unknown) Reason For Visit (units (unknown) date) unknown) (unknown) (no (unknown) (unknown) She now takes (units ( unknown) date) tumeric tea to help unknown) with inflammation, states it has been (unknown) (no (unknown) (unknown) Shortness of (units (u nknown) date) breath (06/2020) unknown) (unknown) (no (unknown) (unknown) Signed By: (units (unk nown) date) unknown) (unknown) (no (unknown) (unknown) Smoking Status: (units (unknown) date) Former smoker unknown) (unknown) (no (unknown) (unknown) Social History (units (unknown) date) unknown) (unknown) (no (unknown) (unknown) This note may have (units (unknown) date) been all or unknown) partially generated using voice recognition (unknown) (no (unknown) (unknown) Tobacco + (units (unkn own) date) Substance Use unknown) (unknown) (no (unknown) (unknown) Tobacco Status (units (unknown) date) unknown) (unknown) (no (unknown) (unknown) Tremors of nervous (units (unknown) date) system (06/2020) unknown) (unknown) (no (unknown) (unknown) Visit Reasons: ER (units (unknown) date) f/u 1 month ago unknown) (unknown) (no (unknown) (unknown) alcohol intake: (units (unknown) date) current unknown) (unknown) (no (unknown) (unknown) and was causing (units (unknown) date) pressure. unknown) (unknown) (no (unknown) (unknown) folic acid 1 mg (units (unknown) date) tablet See Rx unknown) Instructions .Route .COMPLEX #30 tabs 04/01/22 [Rx (unknown) (no (unknown) (unknown) have occurred. If (units (unknown) date) there are any unknown) questions, please contact the Medical Records (unknown) (no (unknown) (unknown) household members: (units (unknown) date) significant other unknown) and children (unknown) (no (unknown) (unknown) may occur. 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 Please (unknown) (no (unknown) (unknown) propranolol PO (units (unknown) date) 12/20/22 [History unknown) Confirmed 12/20/22] (unknown) (no (unknown) (unknown) providing relief. (units (unknown) date) unknown) (unknown) (no (unknown) (unknown) read the note (units ( unknown) date) carefully and unknown) recognize, using context, where these substitutions (unknown) (no (unknown) (unknown) second hand (units (un known) date) exposure: Yes unknown) (unknown) (no (unknown) (unknown) software. Although (units (unknown) date) every effort is unknown) made to edit content, client analyst errors (unknown) (no (unknown) (unknown) spreading towards (units (unknown) date) her legs and unknown) abdominal area. Pt states it felt like a balloon (unknown) (no (unknown) (unknown) substance use (units ( unknown) date) type: does not use unknown) (unknown) (no (unknown) (unknown) sulfamethoxazole (units (unknown) date) [From Bactrim] unknown) Allergy (Severe, Verified 12/20/22 11:01) (unknown) (no (unknown) (unknown) thiamine HCl (units (u nknown) date) (vitamin B1) 100 mg unknown) tablet 100 mg PO DAILY #30 tabs 03/29/22 [Rx (unknown) (no (unknown) (unknown) trimethoprim [From (units (unknown) date) Bactrim] Allergy unknown) (Severe, Verified 12/20/22 11:01) Result panel 482 (unknown) (no (unknown) (unknown) (no value) (units (unk nown) date) unknown) (unknown) (no (unknown) (unknown) 12/20/22 (units (unkno wn) date) unknown) (unknown) (no (unknown) (unknown) [id number] (units (unkno wn) date) unknown) (unknown) (no (unknown) (unknown) 11:05 (units (unkno wn) date) unknown) (unknown) (no (unknown) (unknown) 42 yo female (units (u nknown) date) presents today for unknown) an ER f/u abdominal pain. Pt states she has had (unknown) (no (unknown) (unknown) Acquired (units (unkno wn) date) hypothyroidism unknown) (unknown) (no (unknown) (unknown) Age/Sex: 42 / F (units (unknown) date) Date of Service: unknown) (unknown) (no (unknown) (unknown) Alcohol use (units (un known) date) unknown) (unknown) (no (unknown) (unknown) Allergies (units (unkn own) date) unknown) (unknown) (no (unknown) (unknown) [place] (units ( unknown) date) [id number] unknown) (unknown) (no (unknown) (unknown) Anaphylaxis (units (un known) date) unknown) (unknown) (no (unknown) (unknown) Attending Dr: Ian (units (unknown) date) Nick MahmoodOPiedad unknown) (unknown) (no (unknown) (unknown) BMI 21.6 (units (unkno wn) date) unknown) (unknown) (no (unknown) (unknown) BP 116/68 (units (unkn own) date) unknown) (unknown) (no (unknown) (unknown) Blood Pressure (units (unknown) date) Location Lt unknown) brachial (unknown) (no (unknown) (unknown) Breast mass in (units (unknown) date) female unknown) (unknown) (no (unknown) (unknown) Confirmed (units (unkn own) date) 12/20/22] unknown) (unknown) (no (unknown) (unknown) Confirmed (units (unkn own) date) 03/29/22] unknown) (unknown) (no (unknown) (unknown) : 1980 (units (unknown) date) Acct:[id number] unknown) (unknown) (no (unknown) (unknown) Dept at (units (unkno wn) date) . unknown) (unknown) (no (unknown) (unknown) Documented By: (units (unknown) date) Ian Roland D.O. unknown) 12/20/22 1048 (unknown) (no (unknown) (unknown) Draft (units (unkno wn) date) unknown) (unknown) (no (unknown) (unknown) Elevated blood (units (unknown) date) protein unknown) (unknown) (no (unknown) (unknown) Elevated liver (units (unknown) date) enzymes unknown) (unknown) (no (unknown) (unknown) Family History (units (unknown) date) (Reviewed 11/13/22 unknown) @ 20:00 by Philip Chen PA-C) (unknown) (no (unknown) (unknown) Family Practice (units (unknown) date) Office Visit unknown) (unknown) (no (unknown) (unknown) Father Diabetes (units (unknown) date) mellitus unknown) (unknown) (no (unknown) (unknown) 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, unknown) nonalcoholic (unknown) (no (unknown) (unknown) [facility] (units (unknown) date) [facility] unknown) (unknown) (no (unknown) (unknown) 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 unknown) (unknown) (no (unknown) (unknown) Grandfather (units (un known) date) Kidney unknown) failure (unknown) (no (unknown) (unknown) Grandmother (units (un known) date) Cancer unknown) (unknown) (no (unknown) (unknown) 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) (unknown) (no (unknown) (unknown) Height 5 ft 2 in (units (unknown) date) unknown) (unknown) (no (unknown) (unknown) Insomnia (units (unkno wn) date) unknown) (unknown) (no (unknown) (unknown) Intake Note: (units (u nknown) date) unknown) (unknown) (no (unknown) (unknown) Intake performed (units (unknown) date) by: Estrella Purcell unknown) (unknown) (no (unknown) (unknown) Intake (units (unkno wn) date) unknown) (unknown) (no (unknown) (unknown) Intake- Clincial (units (unknown) date) Staff unknown) (unknown) (no (unknown) (unknown) Last Menstural (units (unknown) date) Cycle + Details unknown) (unknown) (no (unknown) (unknown) Loc: [facility] (units (unkno wn) date) unknown) (unknown) (no (unknown) (unknown) Medical History (units (unknown) date) (Reviewed 11/13/22 unknown) @ 20:00 by Philip Chen PA-C) (unknown) (no (unknown) (unknown) Medications (units (un known) date) unknown) (unknown) (no (unknown) (unknown) Mother (units (unknown) date) Cancer unknown) (unknown) (no (unknown) (unknown) Other Menstrual (units (unknown) date) Period: Uncertain unknown) (unknown) (no (unknown) (unknown) Oxygen Delivery (units (unknown) date) Method room air unknown) (unknown) (no (unknown) (unknown) PFSH (units (unkno wn) date) unknown) (unknown) (no (unknown) (unknown) Patient denies (units (unknown) date) medical problems unknown) (unknown) (no (unknown) (unknown) Patient: (units (unkno wn) date) Layne Avendano unknown) MR#: [id number] (unknown) (no (unknown) (unknown) Peripheral (units (unk nown) date) neuropathy unknown) (unknown) (no (unknown) (unknown) Position Sitting (units (unknown) date) unknown) (unknown) (no (unknown) (unknown) Pulse 68 (units (unkno wn) date) unknown) (unknown) (no (unknown) (unknown) Pulse Oximetry (%) (units (unknown) date) 98 unknown) (unknown) (no (unknown) (unknown) Pulse Source (units (u nknown) date) Monitor unknown) (unknown) (no (unknown) (unknown) Reason For Visit (units (unknown) date) unknown) (unknown) (no (unknown) (unknown) She now takes (units ( unknown) date) tumeric tea to help unknown) with inflammation, states it has been (unknown) (no (unknown) (unknown) Shortness of (units (u nknown) date) breath (06/2020) unknown) (unknown) (no (unknown) (unknown) Signed By: (units (unk nown) date) unknown) (unknown) (no (unknown) (unknown) Smoking Status: (units (unknown) date) Former smoker unknown) (unknown) (no (unknown) (unknown) Social History (units (unknown) date) unknown) (unknown) (no (unknown) (unknown) This note may have (units (unknown) date) been all or unknown) partially generated using voice recognition (unknown) (no (unknown) (unknown) Tobacco + (units (unkn own) date) Substance Use unknown) (unknown) (no (unknown) (unknown) Tobacco Status (units (unknown) date) unknown) (unknown) (no (unknown) (unknown) Tremors of nervous (units (unknown) date) system (06/2020) unknown) (unknown) (no (unknown) (unknown) Visit Reasons: ER (units (unknown) date) f/u 1 month ago unknown) (unknown) (no (unknown) (unknown) Vitals (units (unkno wn) date) unknown) (unknown) (no (unknown) (unknown) Weight 118 lb 4 oz (units (unknown) date) unknown) (unknown) (no (unknown) (unknown) alcohol intake: (units (unknown) date) current unknown) (unknown) (no (unknown) (unknown) and was causing (units (unknown) date) pressure. unknown) (unknown) (no (unknown) (unknown) folic acid 1 mg (units (unknown) date) tablet See Rx unknown) Instructions .Route .COMPLEX #30 tabs 04/01/22 [Rx (unknown) (no (unknown) (unknown) have occurred. If (units (unknown) date) there are any unknown) questions, please contact the Medical Records (unknown) (no (unknown) (unknown) household members: (units (unknown) date) significant other unknown) and children (unknown) (no (unknown) (unknown) may occur. 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 Please (unknown) (no (unknown) (unknown) propranolol PO (units (unknown) date) 12/20/22 [History unknown) Confirmed 12/20/22] (unknown) (no (unknown) (unknown) providing relief. (units (unknown) date) unknown) (unknown) (no (unknown) (unknown) read the note (units ( unknown) date) carefully and unknown) recognize, using context, where these substitutions (unknown) (no (unknown) (unknown) second hand (units (un known) date) exposure: Yes unknown) (unknown) (no (unknown) (unknown) software. Although (units (unknown) date) every effort is unknown) made to edit content, client analyst errors (unknown) (no (unknown) (unknown) spreading towards (units (unknown) date) her legs and unknown) abdominal area. Pt states it felt like a balloon (unknown) (no (unknown) (unknown) substance use (units ( unknown) date) type: does not use unknown) (unknown) (no (unknown) (unknown) sulfamethoxazole (units (unknown) date) [From Bactrim] unknown) Allergy (Severe, Verified 12/20/22 11:01) (unknown) (no (unknown) (unknown) thiamine HCl (units (u nknown) date) (vitamin B1) 100 mg unknown) tablet 100 mg PO DAILY #30 tabs 03/29/22 [Rx (unknown) (no (unknown) (unknown) trimethoprim [From (units (unknown) date) Bactrim] Allergy unknown) (Severe, Verified 12/20/22 11:01) Result panel 483 (unknown) (no (unknown) (unknown) (no value) (units (unk nown) date) unknown) (unknown) (no (unknown) (unknown) (1) Generalized (units (unknown) date) anxiety disorder: unknown) (unknown) (no (unknown) (unknown) (2) Acquired (units (u nknown) date) hypothyroidism: unknown) (unknown) (no (unknown) (unknown) (3) (units (unkno wn) date) Cholelithiasis: unknown) (unknown) (no (unknown) (unknown) 12/20/22 1315 (units ( unknown) date) unknown) (unknown) (no (unknown) (unknown) 12/20/22 (units (unkno wn) date) unknown) (unknown) (no (unknown) (unknown) [id number] (units (unkno wn) date) unknown) (unknown) (no (unknown) (unknown) 11:05 (units (unkno wn) date) unknown) (unknown) (no (unknown) (unknown) 42 yo female (units (u nknown) date) presents today for unknown) an ER f/u abdominal pain. Pt states she has had (unknown) (no (unknown) (unknown) Abdomen-soft (units (u nknown) date) nontender, no HSM, unknown) no palpable masses rebound or guarding (unknown) (no (unknown) (unknown) Acquired (units (unkno wn) date) hypothyroidism unknown) (unknown) (no (unknown) (unknown) Age/Sex: 42 / F (units (unknown) date) Date of Service: unknown) (unknown) (no (unknown) (unknown) Alcohol use (units (un known) date) unknown) (unknown) (no (unknown) (unknown) Allergies (units (unkn own) date) unknown) (unknown) (no (unknown) (unknown) [place], [place] (units ( unknown) date) [id number] unknown) (unknown) (no (unknown) (unknown) Anaphylaxis (units (un known) date) unknown) (unknown) (no (unknown) (unknown) Assessment + Plan (units (unknown) date) unknown) (unknown) (no (unknown) (unknown) Assessment and (units (unknown) date) Plan: unknown) (unknown) (no (unknown) (unknown) Attending Dr: Ian (units (unknown) date) Nick Roland D.O. unknown) (unknown) (no (unknown) (unknown) BMI 21.6 (units (unkno wn) date) unknown) (unknown) (no (unknown) (unknown) BP 116/68 (units (unkn own) date) unknown) (unknown) (no (unknown) (unknown) Blood Pressure (units (unknown) date) Location Lt unknown) brachial (unknown) (no (unknown) (unknown) Breast mass in (units (unknown) date) female unknown) (unknown) (no (unknown) (unknown) Chest-heart regular (units (unknown) date) rate and rhythm unknown) lungs clear to auscultation no wheezes rales (unknown) (no (unknown) (unknown) Chief Complaint (units (unknown) date) unknown) (unknown) (no (unknown) (unknown) Chief Complaint: (units (unknown) date) Follow-up recent unknown) emergency room visit (unknown) (no (unknown) (unknown) Cholelithiasis (units (unknown) date) location: unknown) gallbladder Cholecystitis presence: without (unknown) (no (unknown) (unknown) Cholelithiasis (units (unknown) date) unknown) (unknown) (no (unknown) (unknown) Code(s): K80.20 - (units (unknown) date) Calculus of unknown) gallbladder without cholecystitis without (unknown) (no (unknown) (unknown) Confirmed (units (unkn own) date) 12/20/22] unknown) (unknown) (no (unknown) (unknown) Confirmed (units (unkn own) date) 03/29/22] unknown) (unknown) (no (unknown) (unknown) Currently not on (units (unknown) date) any medication she unknown) does exhibit history generalized anxiety (unknown) (no (unknown) (unknown) : 1980 (units (unknown) date) Acct:[id number] unknown) (unknown) (no (unknown) (unknown) Dept at (units (unkno wn) date) . unknown) (unknown) (no (unknown) (unknown) Details: (units (unkno wn) date) unknown) (unknown) (no (unknown) (unknown) Documented By: (units (unknown) date) Ian Roland D.O. unknown) 12/20/22 1048 (unknown) (no (unknown) (unknown) Elevated blood (units (unknown) date) protein unknown) (unknown) (no (unknown) (unknown) Elevated liver (units (unknown) date) enzymes unknown) (unknown) (no (unknown) (unknown) Exam Narrative (units (unknown) date) unknown) (unknown) (no (unknown) (unknown) Exam Narrative: (units (unknown) date) unknown) (unknown) (no (unknown) (unknown) Exam (units (unkno wn) date) unknown) (unknown) (no (unknown) (unknown) Family History (units (unknown) date) (Reviewed 12/20/22 unknown) @ 13:14 by Ian Roland DO) (unknown) (no (unknown) (unknown) Family Practice (units (unknown) date) Office Visit unknown) (unknown) (no (unknown) (unknown) Father Diabetes (units (unknown) date) mellitus unknown) (unknown) (no (unknown) (unknown) 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, unknown) nonalcoholic (unknown) (no (unknown) (unknown) [facility] (units (unknown) date) [facility] unknown) (unknown) (no (unknown) (unknown) Frail appearing (units (unknown) date) middle-aged female unknown) adult with above complaints, contributed to (unknown) (no (unknown) (unknown) General physical (units (unknown) date) examination, unknown) physical examination (unknown) (no (unknown) (unknown) 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 unknown) (unknown) (no (unknown) (unknown) Grandfather (units (un known) date) Kidney unknown) failure (unknown) (no (unknown) (unknown) Grandmother (units (un known) date) Cancer unknown) (unknown) (no (unknown) (unknown) HPI (units (unkno wn) date) unknown) (unknown) (no (unknown) (unknown) 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) (unknown) (no (unknown) (unknown) Head-normocephalic (units (unknown) date) atraumatic, unknown) (unknown) (no (unknown) (unknown) Height 5 ft 2 in (units (unknown) date) unknown) (unknown) (no (unknown) (unknown) Insomnia (units (unkno wn) date) unknown) (unknown) (no (unknown) (unknown) Intake Note: (units (u nknown) date) unknown) (unknown) (no (unknown) (unknown) Intake performed (units (unknown) date) by: Estrella Purcell unknown) (unknown) (no (unknown) (unknown) Intake (units (unkno wn) date) unknown) (unknown) (no (unknown) (unknown) Intake- Clincial (units (unknown) date) Staff unknown) (unknown) (no (unknown) (unknown) Last Menstural (units (unknown) date) Cycle + Details unknown) (unknown) (no (unknown) (unknown) Loc: [facility] (units (unkno wn) date) unknown) (unknown) (no (unknown) (unknown) Medical History (units (unknown) date) (Reviewed 12/20/22 unknown) @ 13:14 by Ian Roland DO) (unknown) (no (unknown) (unknown) Medications (units (un known) date) unknown) (unknown) (no (unknown) (unknown) Mother (units (unknown) date) Cancer unknown) (unknown) (no (unknown) (unknown) Neck-supple no (units (unknown) date) thyromegaly, JVD or unknown) lymphadenopathy (unknown) (no (unknown) (unknown) Other Menstrual (units (unknown) date) Period: Uncertain unknown) (unknown) (no (unknown) (unknown) Oxygen Delivery (units (unknown) date) Method room air unknown) (unknown) (no (unknown) (unknown) PFSH (units (unkno wn) date) unknown) (unknown) (no (unknown) (unknown) Patient completed (units (unknown) date) her antibiotic unknown) course and she did feel substantially better. (unknown) (no (unknown) (unknown) Patient denies (units (unknown) date) medical problems unknown) (unknown) (no (unknown) (unknown) Patient: (units (unkno wn) date) Layne Avendano N unknown) MR#: [id number] (unknown) (no (unknown) (unknown) Peripheral (units (unk nown) date) neuropathy unknown) (unknown) (no (unknown) (unknown) Position Sitting (units (unknown) date) unknown) (unknown) (no (unknown) (unknown) Pulse 68 (units (unkno wn) date) unknown) (unknown) (no (unknown) (unknown) Pulse Oximetry (%) (units (unknown) date) 98 unknown) (unknown) (no (unknown) (unknown) Pulse Source (units (u nknown) date) Monitor unknown) (unknown) (no (unknown) (unknown) Qualifiers: (units (un known) date) unknown) (unknown) (no (unknown) (unknown) ROS Narrative (units ( unknown) date) unknown) (unknown) (no (unknown) (unknown) ROS Narrative: (units (unknown) date) unknown) (unknown) (no (unknown) (unknown) ROS per HPI (units (un known) date) patient notes no unknown) headache palpitations changes in exercise capacity (unknown) (no (unknown) (unknown) ROS (units (unkno wn) date) unknown) (unknown) (no (unknown) (unknown) Reason For Visit (units (unknown) date) unknown) (unknown) (no (unknown) (unknown) She now takes (units ( unknown) date) tumeric tea to help unknown) with inflammation, states it has been (unknown) (no (unknown) (unknown) She will be (units (un known) date) advanced to general unknown) surgery for evaluation assessment in regards to (unknown) (no (unknown) (unknown) Shortness of (units (u nknown) date) breath (06/2020) unknown) (unknown) (no (unknown) (unknown) Signed By: (units (unk nown) date) <Electronically unknown) signed by Ian Roland D.O.> (unknown) (no (unknown) (unknown) Signed (units (unkno wn) date) unknown) (unknown) (no (unknown) (unknown) Smoking Status: (units (unknown) date) Former smoker unknown) (unknown) (no (unknown) (unknown) Social History (units (unknown) date) unknown) (unknown) (no (unknown) (unknown) Status: Acute (units ( unknown) date) unknown) (unknown) (no (unknown) (unknown) 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 (unknown) (no (unknown) (unknown) The patient's (units ( unknown) date) vague and general unknown) complaints could be amplified by this condition (unknown) (no (unknown) (unknown) This 42-year-old (units (unknown) date) female with a past unknown) medical history of untreated generalized (unknown) (no (unknown) (unknown) This note may have (units (unknown) date) been all or unknown) partially generated using voice recognition (unknown) (no (unknown) (unknown) Tobacco + (units (unkn own) date) Substance Use unknown) (unknown) (no (unknown) (unknown) Tobacco Status (units (unknown) date) unknown) (unknown) (no (unknown) (unknown) Tremors of nervous (units (unknown) date) system (06/2020) unknown) (unknown) (no (unknown) (unknown) Visit Reasons: ER (units (unknown) date) f/u 1 month ago unknown) (unknown) (no (unknown) (unknown) Vital signs are (units (unknown) date) reported, charted unknown) and reviewed with patient. Somewhat anxious (unknown) (no (unknown) (unknown) Vitals (units (unkno wn) date) unknown) (unknown) (no (unknown) (unknown) Weight 118 lb 4 oz (units (unknown) date) unknown) (unknown) (no (unknown) (unknown) alcohol intake: (units (unknown) date) current unknown) (unknown) (no (unknown) (unknown) and was causing (units (unknown) date) pressure. unknown) (unknown) (no (unknown) (unknown) anxiety disorder, (units (unknown) date) recent UTI and an unknown) incidental cholelithiasis presents to the (unknown) (no (unknown) (unknown) anxiety (units (unkno wn) date) situations. Her unknown) insomnia times causes her some problems and we reviewed (unknown) (no (unknown) (unknown) are tolerance no (units (unknown) date) PND patient has had unknown) some mild panic attacks with simple a (unknown) (no (unknown) (unknown) as driving a car (units (unknown) date) going to doctor's unknown) appointments. In the past she has been (unknown) (no (unknown) (unknown) cholecystitis (units ( unknown) date) Biliary unknown) obstruction: without biliary obstruction Qualified (unknown) (no (unknown) (unknown) clinic to (units (unkn own) date) follow-up in unknown) regards to her underlying health history. She is (unknown) (no (unknown) (unknown) ctivities such is (units (unknown) date) driving and coming unknown) to the doctor's appointments. This is also (unknown) (no (unknown) (unknown) currently not (units ( unknown) date) taking anything for unknown) her generalized anxiety disorders under some (unknown) (no (unknown) (unknown) disorder and (units (u nknown) date) ruminates about her unknown) overall general health. She has recently been (unknown) (no (unknown) (unknown) folic acid 1 mg (units (unknown) date) tablet See Rx unknown) Instructions .Route .COMPLEX #30 tabs 04/01/22 [Rx (unknown) (no (unknown) (unknown) follow and assess (units (unknown) date) that need on future unknown) lab a T4 TSH will be drawn the future (unknown) (no (unknown) (unknown) have occurred. If (units (unknown) date) there are any unknown) questions, please contact the Medical Records (unknown) (no (unknown) (unknown) history and exam (units (unknown) date) unknown) (unknown) (no (unknown) (unknown) household members: (units (unknown) date) significant other unknown) and children (unknown) (no (unknown) (unknown) hypothyroidism she (units (unknown) date) is currently not unknown) taking any thyroid supplementation we will (unknown) (no (unknown) (unknown) if her symptoms (units (unknown) date) become more unknown) aggravated in the future and will consider emergency (unknown) (no (unknown) (unknown) led to her (units (unk nown) date) experiencing unknown) increasing troubles with insomnia (unknown) (no (unknown) (unknown) may occur. 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 Please (unknown) (no (unknown) (unknown) of acute cystitis (units (unknown) date) compounded by an unknown) underlying history of cholelithiasis. (unknown) (no (unknown) (unknown) or rhonchi, good (units (unknown) date) peripheral pulses unknown) (unknown) (no (unknown) (unknown) propranolol PO (units (unknown) date) 12/20/22 [History unknown) Confirmed 12/20/22] (unknown) (no (unknown) (unknown) providing relief. (units (unknown) date) unknown) (unknown) (no (unknown) (unknown) read the note (units ( unknown) date) carefully and unknown) recognize, using context, where these substitutions (unknown) (no (unknown) (unknown) room visit if (units ( unknown) date) needed unknown) (unknown) (no (unknown) (unknown) second hand (units (un known) date) exposure: Yes unknown) (unknown) (no (unknown) (unknown) seen in the (units (un known) date) emergency room for unknown) nonspecific abdominal discomfort with a etiology (unknown) (no (unknown) (unknown) she will continue (units (unknown) date) to monitor her unknown) avoid excessively fatty foods will set her up (unknown) (no (unknown) (unknown) software. Although (units (unknown) date) every effort is unknown) made to edit content, client analyst errors (unknown) (no (unknown) (unknown) spreading towards (units (unknown) date) her legs and unknown) abdominal area. Pt states it felt like a balloon (unknown) (no (unknown) (unknown) substance use (units ( unknown) date) type: does not use unknown) (unknown) (no (unknown) (unknown) sulfamethoxazole (units (unknown) date) [From Bactrim] unknown) Allergy (Severe, Verified 12/20/22 11:01) (unknown) (no (unknown) (unknown) that could be (units ( unknown) date) contributing to her unknown) increase in overall stress and anxiety (unknown) (no (unknown) (unknown) that her (units (unkno wn) date) hydroxyzine as well unknown) as trazodone abuse without concern. On today's (unknown) (no (unknown) (unknown) thiamine HCl (units (u nknown) date) (vitamin B1) 100 mg unknown) tablet 100 mg PO DAILY #30 tabs 03/29/22 [Rx (unknown) (no (unknown) (unknown) this condition and (units (unknown) date) potential unknown) cholecystectomy in the future (unknown) (no (unknown) (unknown) to increasing (units ( unknown) date) stress primarily unknown) with home life and other simple activities such (unknown) (no (unknown) (unknown) treated with (units (u nknown) date) duloxetine which is unknown) not initiated as of yet and propranolol for (unknown) (no (unknown) (unknown) trimethoprim [From (units (unknown) date) Bactrim] Allergy unknown) (Severe, Verified 12/20/22 11:01) (unknown) (no (unknown) (unknown) visit we reviewed (units (unknown) date) her recent unknown) emergency room visit and other past medical history (unknown) (no (unknown) (unknown) with General (units (u nknown) date) surgery anyway for unknown) potential cholecystectomy. She will let us know Result panel 484 (unknown) (no (unknown) (unknown) (no value) (units (unk nown) date) unknown) (unknown) (no (unknown) (unknown) [id number] (units (unkno wn) date) unknown) (unknown) (no (unknown) (unknown) 01/03/23 (units (unkno wn) date) unknown) (unknown) (no (unknown) (unknown) 13:42 (units (unkno wn) date) unknown) (unknown) (no (unknown) (unknown) Acquired (units (unkno wn) date) hypothyroidism unknown) (unknown) (no (unknown) (unknown) Age/Sex: 42 / F (units (unknown) date) Date of Service: unknown) (unknown) (no (unknown) (unknown) Alcohol use (units (un known) date) unknown) (unknown) (no (unknown) (unknown) Allergies (units (unkn own) date) unknown) (unknown) (no (unknown) (unknown) [place], [place] (units ( unknown) date) [id number] unknown) (unknown) (no (unknown) (unknown) Anaphylaxis (units (un known) date) unknown) (unknown) (no (unknown) (unknown) Attending Dr: (units ( unknown) date) Uziel Cagle MD unknown) (unknown) (no (unknown) (unknown) BMI 21.0 (units (unkno wn) date) unknown) (unknown) (no (unknown) (unknown) BP 110/70 (units (unkn own) date) unknown) (unknown) (no (unknown) (unknown) Blood Pressure (units (unknown) date) Location Lt unknown) brachial (unknown) (no (unknown) (unknown) Breast mass in (units (unknown) date) female unknown) (unknown) (no (unknown) (unknown) Cholelithiasis (units (unknown) date) unknown) (unknown) (no (unknown) (unknown) Confirmed (units (unkn own) date) 01/03/23] unknown) (unknown) (no (unknown) (unknown) : 1980 (units (unknown) date) Acct:[id number] unknown) (unknown) (no (unknown) (unknown) Dept at (units (unkno wn) date) . unknown) (unknown) (no (unknown) (unknown) Documented By: (units (unknown) date) Uziel Cagle MD unknown) 01/03/23 1342 (unknown) (no (unknown) (unknown) Draft (units (unkno wn) date) unknown) (unknown) (no (unknown) (unknown) Elevated blood (units (unknown) date) protein unknown) (unknown) (no (unknown) (unknown) Elevated liver (units (unknown) date) enzymes unknown) (unknown) (no (unknown) (unknown) Family History (units (unknown) date) (Reviewed 01/03/23 unknown) @ 13:42 by Stacy Toney MA) (unknown) (no (unknown) (unknown) Father Diabetes (units (unknown) date) mellitus unknown) (unknown) (no (unknown) (unknown) 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, unknown) nonalcoholic (unknown) (no (unknown) (unknown) 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 unknown) (unknown) (no (unknown) (unknown) Grandfather (units (un known) date) Kidney unknown) failure (unknown) (no (unknown) (unknown) Grandmother (units (un known) date) Cancer unknown) (unknown) (no (unknown) (unknown) 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) (unknown) (no (unknown) (unknown) Height 5 ft 2 in (units (unknown) date) unknown) (unknown) (no (unknown) (unknown) Insomnia (units (unkno wn) date) unknown) (unknown) (no (unknown) (unknown) Intake (units (unkno wn) date) unknown) (unknown) (no (unknown) (unknown) [facility] (units (unknown) date) unknown) (unknown) (no (unknown) (unknown) Loc: [facility] (units (unkno wn) date) unknown) (unknown) (no (unknown) (unknown) Medical History (units (unknown) date) (Reviewed 01/03/23 unknown) @ 13:42 by Stacy Toney MA) (unknown) (no (unknown) (unknown) Medications (units (un known) date) unknown) (unknown) (no (unknown) (unknown) Mother (units (unknown) date) Cancer unknown) (unknown) (no (unknown) (unknown) Oxygen Delivery (units (unknown) date) Method room air unknown) (unknown) (no (unknown) (unknown) PFSH (units (unkno wn) date) unknown) (unknown) (no (unknown) (unknown) Patient denies (units (unknown) date) medical problems unknown) (unknown) (no (unknown) (unknown) Patient: (units (unkno wn) date) Layne Avendano N unknown) MR#: [id number] (unknown) (no (unknown) (unknown) Peripheral (units (unk nown) date) neuropathy unknown) (unknown) (no (unknown) (unknown) Position Sitting (units (unknown) date) unknown) (unknown) (no (unknown) (unknown) Pulse 97 H (units (unk nown) date) unknown) (unknown) (no (unknown) (unknown) Pulse Oximetry (%) (units (unknown) date) 96 unknown) (unknown) (no (unknown) (unknown) Pulse Source (units (u nknown) date) Monitor unknown) (unknown) (no (unknown) (unknown) Reason For Visit (units (unknown) date) unknown) (unknown) (no (unknown) (unknown) Shortness of (units (u nknown) date) breath (06/2020) unknown) (unknown) (no (unknown) (unknown) Signed By: (units (unk nown) date) unknown) (unknown) (no (unknown) (unknown) Smoking Status: (units (unknown) date) Former smoker unknown) (unknown) (no (unknown) (unknown) Social History (units (unknown) date) (Reviewed 01/03/23 unknown) @ 13:42 by Stacy Toney MA) (unknown) (no (unknown) (unknown) Surgery Office (units (unknown) date) Visit unknown) (unknown) (no (unknown) (unknown) Temp 97.9 F (units (un known) date) unknown) (unknown) (no (unknown) (unknown) Temp Source (units (un known) date) Temporal Artery unknown) Scan (unknown) (no (unknown) (unknown) This note may have (units (unknown) date) been all or unknown) partially generated using voice recognition (unknown) (no (unknown) (unknown) Tobacco Status (units (unknown) date) unknown) (unknown) (no (unknown) (unknown) Tremors of nervous (units (unknown) date) system (06/2020) unknown) (unknown) (no (unknown) (unknown) Visit 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 If (units (unknown) date) there are any unknown) questions, please contact the Medical Records (unknown) (no (unknown) (unknown) household members: (units (unknown) date) significant other unknown) and children (unknown) (no (unknown) (unknown) may occur. (units (unk nown) date) Occasional unknown) wrong-word or 'sound-alike' substitutions may have (unknown) (no (unknown) (unknown) mecobalamin (units (un known) date) (vitamin B12) PO unknown) 12/20/22 [History Confirmed 01/03/23] (unknown) (no (unknown) (unknown) occurred due to (units (unknown) date) the inherent unknown) limitations of voice recognition software. Please (unknown) (no (unknown) (unknown) propranolol 10 mg (units (unknown) date) tablet 10 mg PO BID unknown) #60 tabs 01/02/23 [Rx Confirmed 01/03/23] (unknown) (no (unknown) (unknown) read the note (units ( unknown) date) carefully and unknown) recognize, using context, where these substitutions (unknown) (no (unknown) (unknown) second hand (units (un known) date) exposure: Yes unknown) (unknown) (no (unknown) (unknown) software. Although (units (unknown) date) every effort is unknown) made to edit content, client analyst errors (unknown) (no (unknown) (unknown) substance use (units ( unknown) date) type: does not use unknown) (unknown) (no (unknown) (unknown) sulfamethoxazole (units (unknown) date) [From Bactrim] unknown) Allergy (Severe, Verified 01/03/23 13:42) (unknown) (no (unknown) (unknown) thiamine HCl (units (u nknown) date) (vitamin B1) 100 mg unknown) tablet 100 mg PO DAILY #30 tabs 03/29/22 [Rx (unknown) (no (unknown) (unknown) trimethoprim [From (units (unknown) date) Bactrim] Allergy unknown) (Severe, Verified 01/03/23 13:42) Result panel 485 (unknown) (no (unknown) (unknown) (no value) (units (unk nown) date) unknown) (unknown) (no (unknown) (unknown) (1) Biliary colic: (units (unknown) date) unknown) (unknown) (no (unknown) (unknown) [id number] (units (unkno wn) date) unknown) (unknown) (no (unknown) (unknown) 01/03/23 (units (unkno wn) date) unknown) (unknown) (no (unknown) (unknown) 01/07/23 0729 (units ( unknown) date) unknown) (unknown) (no (unknown) (unknown) 13:42 (units (unkno wn) date) unknown) (unknown) (no (unknown) (unknown) ABDOMEN: Tender (units (unknown) date) upper abdomen most unknown) prominent RUQ subcostal (unknown) (no (unknown) (unknown) Acquired (units (unkno wn) date) hypothyroidism unknown) (unknown) (no (unknown) (unknown) Age/Sex: 42 / F Date (uni ts (unknown) date) of Service: unknown) (unknown) (no (unknown) (unknown) Alcohol use (units (un known) date) unknown) (unknown) (no (unknown) (unknown) Allergies (units (unkn own) date) unknown) (unknown) (no (unknown) (unknown) [place] [address] (unit s (unknown) date) unknown) (unknown) (no (unknown) (unknown) Anaphylaxis (units (un known) date) unknown) (unknown) (no (unknown) (unknown) Assessment + Plan (units (unknown) date) unknown) (unknown) (no (unknown) (unknown) Attending DrLadonna Triplett (uni ts (unknown) date) [place] GAMEZ unknown) (unknown) (no (unknown) (unknown) BMI 21.0 (units (unkno wn) date) unknown) (unknown) (no (unknown) (unknown) BP 110/70 (units (unkn own) date) unknown) (unknown) (no (unknown) (unknown) Blood Pressure (units (unknown) date) Location Lt brachial unknown) (unknown) (no (unknown) (unknown) Breast mass in (units (unknown) date) female unknown) (unknown) (no (unknown) (unknown) CARDIOVASCULAR: Warm (uni ts (unknown) date) and well perfused. unknown) Regular rate (unknown) (no (unknown) (unknown) CHEST: Rising (units ( unknown) date) symmetrically. No unknown) audible wheezes (unknown) (no (unknown) (unknown) Chief Complaint (units (unknown) date) unknown) (unknown) (no (unknown) (unknown) Chief Complaint: (units (unknown) date) abdominal pain unknown) (unknown) (no (unknown) (unknown) Cholelithiasis (units (unknown) date) unknown) (unknown) (no (unknown) (unknown) Confirmed 01/03/23] (unit s (unknown) date) unknown) (unknown) (no (unknown) (unknown) : 1980 (units (unknown) date) Acct:[id number] unknown) (unknown) (no (unknown) (unknown) Dept at (units (unkno wn) date) . unknown) (unknown) (no (unknown) (unknown) Details: (units (unkno wn) date) unknown) (unknown) (no (unknown) (unknown) Documented By: (units (unknown) date) Uziel Cagle MD unknown) 01/03/23 1342 (unknown) (no (unknown) (unknown) EXTREMITIES: Normal (unit s (unknown) date) tone and without unknown) edema. (unknown) (no (unknown) (unknown) Elevated blood (units (unknown) date) protein unknown) (unknown) (no (unknown) (unknown) Elevated liver (units (unknown) date) enzymes unknown) (unknown) (no (unknown) (unknown) Exam Narrative (units (unknown) date) unknown) (unknown) (no (unknown) (unknown) Exam Narrative: (units (unknown) date) unknown) (unknown) (no (unknown) (unknown) Exam (units (unkno wn) date) unknown) (unknown) (no (unknown) (unknown) Family History (units (unknown) date) (Reviewed 01/03/23 @ unknown) 13:42 by Stacy Toney MA) (unknown) (no (unknown) (unknown) Father Diabetes (units (unknown) date) mellitus unknown) (unknown) (no (unknown) (unknown) Fatty liver disease, (uni ts (unknown) date) nonalcoholic unknown) (unknown) (no (unknown) (unknown) For at least the (units (unknown) date) past 6 months she has unknown) had severe upper abdominal pain. She (unknown) (no (unknown) (unknown) GENERAL: A well (units (unknown) date) nourished, well unknown) developed woman appearing stated age, (unknown) (no (unknown) (unknown) Generalized anxiety (unit s (unknown) date) disorder unknown) (unknown) (no (unknown) (unknown) Grandfather (uni ts (unknown) date) Kidney failure unknown) (unknown) (no (unknown) (unknown) Grandmother (uni ts (unknown) date) Cancer unknown) (unknown) (no (unknown) (unknown) HEENT: (units (unkno wn) date) Normocephalic, unknown) atraumatic. 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) (unknown) (no (unknown) (unknown) Height 5 ft 2 in (units (unknown) date) unknown) (unknown) (no (unknown) (unknown) History of (units (unk nown) date) alcoholism no unknown) evidence of cirrhosis on imaging, INR plts, and Cr (unknown) (no (unknown) (unknown) I had a lengthy (units (unknown) date) discussion with the unknown) patient regarding her chronic abdominal pain (unknown) (no (unknown) (unknown) Insomnia (units (unkno wn) date) unknown) (unknown) (no (unknown) (unknown) Intake (units (unkno wn) date) unknown) (unknown) (no (unknown) (unknown) [facility] (units (unknown) date) unknown) (unknown) (no (unknown) (unknown) Loc: [facility] (units (unkno wn) date) unknown) (unknown) (no (unknown) (unknown) Medical History (units (unknown) date) (Reviewed 01/03/23 @ unknown) 13:42 by Stacy Toney MA) (unknown) (no (unknown) (unknown) Medications (units (un known) date) unknown) (unknown) (no (unknown) (unknown) Mother (units (unknown) date) Cancer unknown) (unknown) (no (unknown) (unknown) Ms Avendano is 42 year (uni ts (unknown) date) old woman with a unknown) history of alcoholism without cirrhoisis (unknown) (no (unknown) (unknown) Ms Avendano is a 42 (units (unknown) date) y.o woman here for unknown) evaluation of chronic abdominal pain. (unknown) (no (unknown) (unknown) NECK: Full range of (unit s (unknown) date) motion. No evidence unknown) of cervical lymphadenopathy or JVD. (unknown) (no (unknown) (unknown) NEUROLOGIC: Moving (units (unknown) date) all extremities unknown) spontaneously. No gross motor deficits. (unknown) (no (unknown) (unknown) Oxygen Delivery (units (unknown) date) Method room air unknown) (unknown) (no (unknown) (unknown) PFSH (units (unkno wn) date) unknown) (unknown) (no (unknown) (unknown) Patient denies (units (unknown) date) medical problems unknown) (unknown) (no (unknown) (unknown) Patient: (units (unkno wn) date) Layne Avendano MR#: unknown) [id number] (unknown) (no (unknown) (unknown) Peripheral (units (unk nown) date) neuropathy unknown) (unknown) (no (unknown) (unknown) Plan (units (unkno wn) date) unknown) (unknown) (no (unknown) (unknown) Position Sitting (units (unknown) date) unknown) (unknown) (no (unknown) (unknown) Pulse 97 H (units (unk nown) date) unknown) (unknown) (no (unknown) (unknown) Pulse Oximetry (%) (units (unknown) date) 96 unknown) (unknown) (no (unknown) (unknown) Pulse Source Monitor (uni ts (unknown) date) unknown) (unknown) (no (unknown) (unknown) Reason For Visit (units (unknown) date) unknown) (unknown) (no (unknown) (unknown) Shortness of breath (unit s (unknown) date) (06/2020) unknown) (unknown) (no (unknown) (unknown) Signed By: (units (unk nown) date) <Electronically unknown) signed by Uziel Cagle MD> (unknown) (no (unknown) (unknown) Signed (units (unkno wn) date) unknown) (unknown) (no (unknown) (unknown) Smoking Status: (units (unknown) date) Former smoker unknown) (unknown) (no (unknown) (unknown) Social History (units (unknown) date) (Reviewed 01/03/23 @ unknown) 13:42 by Stacy Toney MA) (unknown) (no (unknown) (unknown) Status: Acute (units ( unknown) date) unknown) (unknown) (no (unknown) (unknown) Surgery Office Visit (uni ts (unknown) date) unknown) (unknown) (no (unknown) (unknown) Temp 97.9 F (units (un known) date) unknown) (unknown) (no (unknown) (unknown) Temp Source Temporal (uni ts (unknown) date) Artery Scan unknown) (unknown) (no (unknown) (unknown) This note may have (units (unknown) date) been all or partially unknown) generated using voice recognition (unknown) (no (unknown) (unknown) Time Coding Minutes (unit s (unknown) date) Spent: (must be on unknown) same date of service/appointment) (unknown) (no (unknown) (unknown) Time Spent (units (unk nown) date) unknown) (unknown) (no (unknown) (unknown) Tobacco Status (units (unknown) date) unknown) (unknown) (no (unknown) (unknown) Total Time: 45 (units (unknown) date) unknown) (unknown) (no (unknown) (unknown) Tremors of nervous (units (unknown) date) system (06/2020) unknown) (unknown) (no (unknown) (unknown) Visit 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 I vinayak them a (unknown) (no (unknown) (unknown) alcohol intake: (units (unknown) date) current unknown) (unknown) (no (unknown) (unknown) alternatives to (units (unknown) date) cholecystectomy unknown) including dietary modification and dissolution (unknown) (no (unknown) (unknown) cholecystitis, (units (unknown) date) choledocholithiasis unknown) and gallstone pancreatitis. I recommended (unknown) (no (unknown) (unknown) colic. There is no (units (unknown) date) evidence of chronic unknown) liver disease or pancreatitis on her (unknown) (no (unknown) (unknown) describes a band of (unit s (unknown) date) pressure with unknown) associated bloating and nausea. It is worse (unknown) (no (unknown) (unknown) diagram to (units (unk nown) date) illustrate the unknown) relevant pathology and the relevant anatomy involved (unknown) (no (unknown) (unknown) elective (units (unkno wn) date) laparoscopic unknown) cholecystectomy and she provides her verbal consent to (unknown) (no (unknown) (unknown) elective (units (unkno wn) date) laparoscopic unknown) cholecystectomy in order to prevent future attacks of pablo (unknown) (no (unknown) (unknown) folic acid 1 mg (units (unknown) date) tablet See Rx unknown) Instructions .Route .COMPLEX #30 tabs 04/01/22 [Rx (unknown) (no (unknown) (unknown) have occurred. If (units (unknown) date) there are any unknown) questions, please contact the Medical Records (unknown) (no (unknown) (unknown) household members: (units (unknown) date) significant other and unknown) children (unknown) (no (unknown) (unknown) iary colic and (units (unknown) date) complications of unknown) gallstone disease, as emergency cholecystectomy (unknown) (no (unknown) (unknown) in the operation. (units (unknown) date) Following discussion unknown) her preference is to proceed with (unknown) (no (unknown) (unknown) is associated with (units (unknown) date) higher risk of unknown) complications. We additionally discussed (unknown) (no (unknown) (unknown) may occur. (units (unk nown) date) Occasional wrong-word unknown) or 'sound-alike' substitutions may have (unknown) (no (unknown) (unknown) mecobalamin (vitamin (uni ts (unknown) date) B12) PO 12/20/22 unknown) [History Confirmed 01/03/23] (unknown) (no (unknown) (unknown) most recent CT A/P. (unit s (unknown) date) We discussed the unknown) natural history and disease course of (unknown) (no (unknown) (unknown) normal CBC, TB 3.0, (unit s (unknown) date) AST 90, ALT 80, CT unknown) A/P and US demonstrated gallstones and (unknown) (no (unknown) (unknown) normal (units (unkno wn) date) unknown) (unknown) (no (unknown) (unknown) occurred due to the (unit s (unknown) date) inherent limitations unknown) of voice recognition software. Please (unknown) (no (unknown) (unknown) patients with (units ( unknown) date) gallstone disease. We unknown) discussed disease complications including (unknown) (no (unknown) (unknown) postpradial but (units (unknown) date) always present. The unknown) point of maximal discomfort is right (unknown) (no (unknown) (unknown) proceed. (units (unkno wn) date) unknown) (unknown) (no (unknown) (unknown) propranolol 10 mg (units (unknown) date) tablet 10 mg PO BID unknown) #60 tabs 01/02/23 [Rx Confirmed 01/03/23] (unknown) (no (unknown) (unknown) read the note (units ( unknown) date) carefully and unknown) recognize, using context, where these substitutions (unknown) (no (unknown) (unknown) second hand (units (un known) date) exposure: Yes unknown) (unknown) (no (unknown) (unknown) sludge without acute (uni ts (unknown) date) cholecystitis. unknown) (unknown) (no (unknown) (unknown) software. Although (units (unknown) date) every effort is made unknown) to edit content, client analyst errors (unknown) (no (unknown) (unknown) subcostal. A recent (unit s (unknown) date) ER visit to [facility] October 2022 demonstrated (unknown) (no (unknown) (unknown) substance use type: (unit s (unknown) date) does not use unknown) (unknown) (no (unknown) (unknown) sulfamethoxazole (units (unknown) date) [From Bactrim] unknown) Allergy (Severe, Verified 01/03/23 13:42) (unknown) (no (unknown) (unknown) therapy. I explained (uni ts (unknown) date) the major risks of unknown) cholecystectomy including bleeding, (unknown) (no (unknown) (unknown) thiamine HCl (units (u nknown) date) (vitamin B1) 100 mg unknown) tablet 100 mg PO DAILY #30 tabs 03/29/22 [Rx (unknown) (no (unknown) (unknown) trimethoprim [From (units (unknown) date) Bactrim] Allergy unknown) (Severe, Verified 01/03/23 13:42) (unknown) (no (unknown) (unknown) uncomfortable, in no (uni ts (unknown) date) acute distress. unknown) (unknown) (no (unknown) (unknown) which is acutely (units (unknown) date) worse post prandial unknown) which I suspect is secondary to biliary (unknown) (no (unknown) (unknown) who has symptoms and (uni ts (unknown) date) radiographic findings unknown) consistent with biliary colic. Result panel 486 (unknown) (no date) (unknown) (unknown) (no value) (units 191 39-5 unknown) (unknown) (no date) (unknown) (unknown) (no value) (units 226 33-2 unknown) (unknown) (no date) (unknown) (unknown) (no value) (units 226 34-0 unknown) (unknown) (no date) (unknown) (unknown) (no value) (units 226 37-3 unknown) (unknown) (no date) (unknown) (unknown) (no value) (units 495 60-6 unknown) (unknown) (no date) (unknown) (unknown) (no value) (units 527 97-8 unknown) (unknown) (no date) (unknown) (unknown) (no value) (units (un known) unknown) (unknown) (no date) (unknown) (unknown) (no value) (units (un known) unknown) (unknown) (no date) (unknown) (unknown) (no value) (units (un known) unknown) (unknown) (no date) (unknown) (unknown) (no value) (units (un known) unknown) (unknown) (no date) (unknown) (unknown) (no value) (units (un known) unknown) (unknown) (no date) (unknown) (unknown) (no value) (units (un known) unknown) Result panel 487 (unknown) (no date) (unknown) (unknown) (no value) (units (un known) unknown) (unknown) (no date) (unknown) (unknown) [id number] (units (unkn own) unknown) (unknown) (no date) (unknown) (unknown) 01/09/23 1423 (units (unknown) unknown) (unknown) (no date) (unknown) (unknown) Age/Sex: 42 / (units (unknown) F unknown) (unknown) (no date) (unknown) (unknown) Changes to (units (un known) H+P: No unknown) (unknown) (no date) (unknown) (unknown) : (units (unkn own) 1980 unknown) Acct:[id number] (unknown) (no date) (unknown) (unknown) Date of (units (unkn own) Service: unknown) 01/09/23 (unknown) (no date) (unknown) (unknown) History + (units (unk nown) Physical unknown) reviewed/Exam performed by Physician: Yes (unknown) (no date) (unknown) (unknown) Interval Note (units (unknown) unknown) (unknown) (no date) (unknown) (unknown) [place] (units (unkn own) [facility] [address] unknown) [address] [place] [id number] (unknown) (no date) (unknown) (unknown) Patient: (units (unkn own) Layne Avendano unknown) N MR#: [id number] (unknown) (no date) (unknown) (unknown) Pre-operative (units (unknown) Note unknown) (unknown) (no date) (unknown) (unknown) Provider: (units (unk nown) Uziel Cagle unknown) (unknown) (no date) (unknown) (unknown) Signed (units (unkn own) By:<Electronic unknown) ally signed by Uziel Cagle MD> Result panel 488 (unknown) (no (unknown) (unknown) (no value) (units (unk nown) date) unknown) (unknown) (no (unknown) (unknown) (units (unknown) date) unknown) (unknown) (no (unknown) (unknown) Performed at: (units (unknown) date) 01 unknown) (unknown) (no (unknown) (unknown) . 01 (units (unkno wn) date) unknown) (unknown) (no (unknown) (unknown) /MRV 01/10/2023 (units (unknown) date) 1246 Local unknown) (unknown) (no (unknown) (unknown) 0.2 cm thick. (units ( unknown) date) Carpenter'S Assistant unknown) sections to include the cystic duct margin, (unknown) (no (unknown) (unknown) [address] [place] [address] (units (unknown) date) unknown) (unknown) (no (unknown) (unknown) 3.5 x 3.5 cm. (units ( unknown) date) The serosa is unknown) green and smooth while the hepatic surface is (unknown) (no (unknown) (unknown) [address] [place] [address] (units (unknown) date) [address], unknown) [place], [place] [id number] (unknown) (no (unknown) (unknown) [id number] (units (unkno wn) date) unknown) (unknown) (no (unknown) (unknown) [place], [place] (units ( unknown) date) [address] unknown) (unknown) (no (unknown) (unknown) Benign (units (unkno wn) date) pericystic lymph unknown) node. (unknown) (no (unknown) (unknown) CPT . (units (unkno wn) date) unknown) (unknown) (no (unknown) (unknown) Cholelithiasis (units (unknown) date) and changes unknown) consistent with chronic cholecystitis. (unknown) (no (unknown) (unknown) Collection Date: (units (unknown) date) 01/09/23 unknown) (unknown) (no (unknown) (unknown) DD/ (units (unknown) date) 0000 unknown) (unknown) (no (unknown) (unknown) Date of : (units (unknown) date) 1980 Admit unknown) Date: 01/09/23 (unknown) (no (unknown) (unknown) Diagnosis: (units (unk nown) date) unknown) (unknown) (no (unknown) (unknown) Dictated By: (units (u nknown) date) Az Fagan unknown) clementina GAMEZ (unknown) (no (unknown) (unknown) Electronically (units (unknown) date) signed: . unknown) (unknown) (no (unknown) (unknown) Gallbladder, (units (u nknown) date) Cholecystectomy: unknown) (unknown) (no (unknown) (unknown) [place] (units (unkno wn) date) description: . unknown) (unknown) (no (unknown) (unknown) [facility] (units (unknown) date) unknown) (unknown) (no (unknown) (unknown) K81.1 (units (unkno wn) date) unknown) (unknown) (no (unknown) (unknown) [facility] (units ( unknown) date) Number: unknown) [id number] (unknown) (no (unknown) (unknown) [facility] (units (unknown) date) [place] [facility] unknown) (unknown) (no (unknown) (unknown) MD Blackman (units (unkn own) date) Gemini GAMEZ Phone: unknown) [phone] (unknown) (no (unknown) (unknown) (units (unknown) date) Dictating Dr: unknown) Missy Fagan MD (unknown) (no (unknown) (unknown) MRV 01/15/2023 (units (unknown) date) 1542 Local unknown) (unknown) (no (unknown) (unknown) Material (units (unkno wn) date) submitted: . unknown) (unknown) (no (unknown) (unknown) I- [id number] (units (unknown) date) unknown) (unknown) (no (unknown) (unknown) Negative for (units (u nknown) date) dysplasia and unknown) neoplasia. (unknown) (no (unknown) (unknown) No. of (units (unkno wn) date) containers..01 unknown) Tissue (unknown) (no (unknown) (unknown) Ordering (units (unkno wn) date) Physician: unknown) Uziel Cagle MD (unknown) (no (unknown) (unknown) Pathologist (units (un known) date) provided ICD-10: unknown) (unknown) (no (unknown) (unknown) Pathology (units (unkn own) date) Diagnostic Report unknown) (unknown) (no (unknown) (unknown) Patient name: (units ( unknown) date) Reji Avendanoy N unknown) (unknown) (no (unknown) (unknown) Missy (units (unkno wn) date) MD Rylan, unknown) Pathologist (unknown) (no (unknown) (unknown) Signed By: (units (unk nown) date) 01/15/232134 unknown) (unknown) (no (unknown) (unknown) Signed (units (unkno wn) date) unknown) (unknown) (no (unknown) (unknown) Specimen (units (unkno wn) date) Comment: A unknown) courtesy copy of this report has been sent to [phone] (unknown) (no (unknown) (unknown) TD/TT: 01/15/23 (units (unknown) date) 2134 unknown) (unknown) (no (unknown) (unknown) The specimen is (units (unknown) date) received in unknown) formalin labeled with the patient's name, , (unknown) (no (unknown) (unknown) and (units (unkno wn) date) 'gallbladder', unknown) and consists of an intact gallbladder measuring 6.6 x (unknown) (no (unknown) (unknown) areas of (units (unkno wn) date) discoloration, unknown) polyps or lesions identified. The [place] average (unknown) (no (unknown) (unknown) cassette A1. (units (u nknown) date) (AG:[id number]) unknown) (unknown) (no (unknown) (unknown) cm in greatest (units (unknown) date) dimension. The unknown) lumen contains dark green viscous bile and (unknown) (no (unknown) (unknown) dimension. The (units (unknown) date) mucosa is dark unknown) green and velvety with no pinpoint yellow (unknown) (no (unknown) (unknown) gallbladder - (units ( unknown) date) GALLBLADDER unknown) (unknown) (no (unknown) (unknown) is inked blue, (units (unknown) date) and a garcia lymph unknown) node candidate is identified measuring 0.3 (unknown) (no (unknown) (unknown) lymph node (units (unk nown) date) candidate, and unknown) full-thickness sections are submitted in (unknown) (no (unknown) (unknown) multiple small (units (unknown) date) black roughened unknown) calculi measuring up to 0.1 cm in greatest (unknown) (no (unknown) (unknown) rough and (units (unkn own) date) unremarkable. 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) [employer] unknown) (unknown) (no (unknown) (unknown) Condition: stable (units (unknown) date) unknown) (unknown) (no (unknown) (unknown) : 1980 (units (unknown) date) Acct:[id number] unknown) (unknown) (no (unknown) (unknown) Date of Service: (units (unknown) date) 01/09/23 unknown) (unknown) (no (unknown) (unknown) Date of procedure: (units (unknown) date) 01/09/23 unknown) (unknown) (no (unknown) (unknown) Disposition: same (units (unknown) date) day surgery unknown) (unknown) (no (unknown) (unknown) Estimated Blood (units (unknown) date) Loss (mL): 20 unknown) (unknown) (no (unknown) (unknown) Findings: (units (unkn own) date) unknown) (unknown) (no (unknown) (unknown) Indications: (units (u nknown) date) unknown) (unknown) (no (unknown) (unknown) [facility] (units (unknown) date) [address] unknown) [place] [address] (unknown) (no (unknown) (unknown) Laparoscopic (units (u nknown) date) cholecystectomy unknown) (unknown) (no (unknown) (unknown) No evidence of (units (unknown) date) acute unknown) cholecystitis. Critical view of safety established. (unknown) (no (unknown) (unknown) Operative (units (unkn own) date) Date/Time/Diagnoses unknown) (unknown) (no (unknown) (unknown) Operative Note (units (unknown) date) unknown) (unknown) (no (unknown) (unknown) Operative Notes (units (unknown) date) unknown) (unknown) (no (unknown) (unknown) Patient emerged (units (unknown) date) from anesthesia was unknown) extubated and transferred to recovery in (unknown) (no (unknown) (unknown) Patient: (units (unkno wn) date) Layne Avendano unknown) MR#: [id number] (unknown) (no (unknown) (unknown) Post-op diagnosis: (units (unknown) date) same unknown) (unknown) (no (unknown) (unknown) Post-operative (units (unknown) date) unknown) (unknown) (no (unknown) (unknown) Pre-op diagnosis: (units (unknown) date) Biliary colic unknown) (unknown) (no (unknown) (unknown) Procedure + (units (un known) date) Clinicians unknown) (unknown) (no (unknown) (unknown) Procedure in (units (u nknown) date) detail: unknown) (unknown) (no (unknown) (unknown) Procedure: (units (unk nown) date) unknown) (unknown) (no (unknown) (unknown) Provider: (units (unkn own) date) Uziel Cagle MD unknown) (unknown) (no (unknown) (unknown) Same procedure as (units (unknown) date) scheduled: Yes unknown) (unknown) (no (unknown) (unknown) Signed (units (unkno wn) date) By:<Electronically unknown) signed by Uziel Cagle MD> (unknown) (no (unknown) (unknown) Specimen(s): other (units (unknown) date) (Gallbladder) unknown) (unknown) (no (unknown) (unknown) Surgeon: Uziel (units (unknown) date) Tsering unknown) (unknown) (no (unknown) (unknown) The assistance of (units (unknown) date) Kevin Mcdonough PA unknown) was essential for providing safe and (unknown) (no (unknown) (unknown) The liver was (units ( unknown) date) normal in its unknown) appearance without evidence of cirrhosis. The (unknown) (no (unknown) (unknown) The patient was (units (unknown) date) placed supine on unknown) the table and bilateral lower extremity (unknown) (no (unknown) (unknown) They were prepped (units (unknown) date) and draped in unknown) sterile fashion. An infraumbilical incision was (unknown) (no (unknown) (unknown) Time of procedure: (units (unknown) date) 11:07 unknown) (unknown) (no (unknown) (unknown) and the back. Only (units (unknown) date) two structures were unknown) then clearly seen entering the (unknown) (no (unknown) (unknown) atraumatically. A (units (unknown) date) blunt tip 12mm unknown) balloon trocar was then inserted, (unknown) (no (unknown) (unknown) cholecystitis. The (units (unknown) date) gallbladder was unknown) grasped by the fundus and retracted over the (unknown) (no (unknown) (unknown) colic (units (unkno wn) date) unknown) (unknown) (no (unknown) (unknown) compression (units (un known) date) devices were unknown) applied. Anesthesia was induced they were intubated (unknown) (no (unknown) (unknown) cystic plate was (units (unknown) date) visualized. The unknown) hepatocystic triangle was meticulosly (unknown) (no (unknown) (unknown) desufflated. The (units (unknown) date) umbilical fascia unknown) was closed with 0 Vicryl in a [id number] (unknown) (no (unknown) (unknown) developed in the (units (unknown) date) same manner. With unknown) the gallbladder mobilized the bottom of the (unknown) (no (unknown) (unknown) distally using the (units (unknown) date) 10 mm Weck hemoclip unknown) applied under direct visualization and (unknown) (no (unknown) (unknown) evidence of (units (un known) date) injury. They were unknown) placed head up and right side up and then a 11 mm (unknown) (no (unknown) (unknown) expedient exposure (units (unknown) date) to facilitate this unknown) case. (unknown) (no (unknown) (unknown) fashion under (units ( unknown) date) direct unknown) visualization. Skin incisions were irrigated and closed (unknown) (no (unknown) (unknown) fundus. The (units (un known) date) gallbladder was unknown) then retracted laterally and the medial plane was (unknown) (no (unknown) (unknown) gallbladder the (units (unknown) date) cystic duct and the unknown) cystic artery. With the critical view of (unknown) (no (unknown) (unknown) gallbladder was (units (unknown) date) largely unknown) unremarkable there was no evidence of acute (unknown) (no (unknown) (unknown) gallbladder was (units (unknown) date) removed from the unknown) liver bed using electro cautery. The liver bed (unknown) (no (unknown) (unknown) good position. The (units (unknown) date) specimen was unknown) removed using Endo-Catch. The abdomen was (unknown) (no (unknown) (unknown) irrigated with (units (unknown) date) sterile saline and unknown) inspection was made that showed the clips in (unknown) (no (unknown) (unknown) lateral plane (units ( unknown) date) between the unknown) gallbladder and the liver was opened towards the (unknown) (no (unknown) (unknown) liver and (units (unkn own) date) retracted laterally unknown) by the infundibulum. Using electrocautery the (unknown) (no (unknown) (unknown) made. The fascia (units (unknown) date) was elevated unknown) incised and the abdomen was entered (unknown) (no (unknown) (unknown) pneumoperitoneum (units (unknown) date) was established and unknown) inspection of the abdomen demonstrated no (unknown) (no (unknown) (unknown) port was placed (units (unknown) date) high in the unknown) epigastrium and two 5mm in the right upper quadrant. (unknown) (no (unknown) (unknown) safety fully (units (u nknown) date) established the unknown) cystic duct was clipped twice proximally and once (unknown) (no (unknown) (unknown) skeletonized with (units (unknown) date) blunt dissection of unknown) fat and fibrous tissue from both the front (unknown) (no (unknown) (unknown) stable condition. (units (unknown) date) The sponge and unknown) instrument count at the end of the operation (unknown) (no (unknown) (unknown) subcutaneous (units (u nknown) date) tissue of the unknown) incisions. The wounds were sealed with Dermabond. (unknown) (no (unknown) (unknown) then sharply (units (u nknown) date) divided. The cystic unknown) artery was divided in the same fashion. The (unknown) (no (unknown) (unknown) was correct. (units (u nknown) date) unknown) (unknown) (no (unknown) (unknown) was then inspected (units (unknown) date) for hemostasis and unknown) this was achieved. The abdomen was (unknown) (no (unknown) (unknown) with 4-0 Monocryl. (units (unknown) date) 30 ml of 0.25% unknown) bupivacaine was infiltrated into the (unknown) (no (unknown) (unknown) with an (units (unkno wn) date) endotracheal tube unknown) and received 2g of Ancef. A time-out was performed. Result panel 490 (unknown) (no (unknown) (unknown) (no value) (units (unk nown) date) unknown) (unknown) (no (unknown) (unknown) [id number] (units (unkno wn) date) unknown) (unknown) (no (unknown) (unknown) 01/21/23 (units (unkno wn) date) unknown) (unknown) (no (unknown) (unknown) Acquired (units (unkno wn) date) hypothyroidism unknown) (unknown) (no (unknown) (unknown) Age/Sex: 42 / F (units (unknown) date) Date of Service: unknown) (unknown) (no (unknown) (unknown) Alcohol use (units (un known) date) unknown) (unknown) (no (unknown) (unknown) Allergies (units (unkn own) date) unknown) (unknown) (no (unknown) (unknown) [place], [place] (units ( unknown) date) [address] unknown) (unknown) (no (unknown) (unknown) Anaphylaxis (units (un known) date) unknown) (unknown) (no (unknown) (unknown) Assessment + Plan (units (unknown) date) unknown) (unknown) (no (unknown) (unknown) Attending Dr: Stephenie (units (unknown) date) Ronna D.OPiedad unknown) (unknown) (no (unknown) (unknown) Breast mass in (units (unknown) date) female unknown) (unknown) (no (unknown) (unknown) Cholelithiasis (units (unknown) date) unknown) (unknown) (no (unknown) (unknown) : 1980 (units (unknown) date) Acct:[id number] unknown) (unknown) (no (unknown) (unknown) Dept at (units (unkno wn) date) . unknown) (unknown) (no (unknown) (unknown) Discontinued (units (u nknown) date) unknown) (unknown) (no (unknown) (unknown) Documented By: (units (unknown) date) Stephenie Friend unknown) 01/21/23 1610 (unknown) (no (unknown) (unknown) Draft (units (unkno wn) date) unknown) (unknown) (no (unknown) (unknown) Elevated blood (units (unknown) date) protein unknown) (unknown) (no (unknown) (unknown) Elevated liver (units (unknown) date) enzymes unknown) (unknown) (no (unknown) (unknown) Family History (units (unknown) date) (Reviewed 01/03/23 unknown) @ 13:42 by Stacy Toney MA) (unknown) (no (unknown) (unknown) Family Practice (units (unknown) date) Office Visit unknown) (unknown) (no (unknown) (unknown) Father Diabetes (units (unknown) date) mellitus unknown) (unknown) (no (unknown) (unknown) 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, unknown) nonalcoholic (unknown) (no (unknown) (unknown) [facility] unknown) (unknown) (no (unknown) (unknown) 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 unknown) (unknown) (no (unknown) (unknown) Grandfather (units (un known) date) Kidney unknown) failure (unknown) (no (unknown) (unknown) Grandmother (units (un known) date) Cancer unknown) (unknown) (no (unknown) (unknown) 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) (unknown) (no (unknown) (unknown) Insomnia (units (unkno wn) date) unknown) (unknown) (no (unknown) (unknown) Intake (units (unkno wn) date) unknown) (unknown) (no (unknown) (unknown) Last Menstural (units (unknown) date) Cycle + Details unknown) (unknown) (no (unknown) (unknown) Loc: [facility] (units (unkno wn) date) unknown) (unknown) (no (unknown) (unknown) Medical History (units (unknown) date) (Reviewed 01/03/23 unknown) @ 13:42 by Stacy Toney MA) (unknown) (no (unknown) (unknown) Medications: (units (u nknown) date) unknown) (unknown) (no (unknown) (unknown) Mother (units (unknown) date) Cancer unknown) (unknown) (no (unknown) (unknown) Other Menstrual (units (unknown) date) Period: Uncertain unknown) (unknown) (no (unknown) (unknown) PFSH (units (unkno wn) date) unknown) (unknown) (no (unknown) (unknown) Patient denies (units (unknown) date) medical problems unknown) (unknown) (no (unknown) (unknown) Patient: (units (unkno wn) date) Layne Avendano N unknown) MR#: [id number] (unknown) (no (unknown) (unknown) Peripheral (units (unk nown) date) neuropathy unknown) (unknown) (no (unknown) (unknown) Reason For Visit (units (unknown) date) unknown) (unknown) (no (unknown) (unknown) Shortness of (units (u nknown) date) breath (06/2020) unknown) (unknown) (no (unknown) (unknown) Signed By: (units (unk nown) date) unknown) (unknown) (no (unknown) (unknown) Smoking Status: (units (unknown) date) Former smoker unknown) (unknown) (no (unknown) (unknown) Social History (units (unknown) date) unknown) (unknown) (no (unknown) (unknown) This note may have (units (unknown) date) been all or unknown) partially generated using voice recognition (unknown) (no (unknown) (unknown) Tobacco + (units (unkn own) date) Substance Use unknown) (unknown) (no (unknown) (unknown) Tobacco Status (units (unknown) date) unknown) (unknown) (no (unknown) (unknown) Tremors of nervous (units (unknown) date) system (06/2020) unknown) (unknown) (no (unknown) (unknown) Visit Reasons: (units (unknown) date) referral to neur unknown) (unknown) (no (unknown) (unknown) alcohol intake: (units (unknown) date) current unknown) (unknown) (no (unknown) (unknown) have occurred. If (units (unknown) date) there are any unknown) questions, please contact the Medical Records (unknown) (no (unknown) (unknown) household members: (units (unknown) date) significant other unknown) and children (unknown) (no (unknown) (unknown) may occur. (units (unk nown) date) Occasional unknown) wrong-word or 'sound-alike' substitutions may have (unknown) (no (unknown) (unknown) occurred due to (units (unknown) date) the inherent unknown) limitations of voice recognition software. Please (unknown) (no (unknown) (unknown) propranolol 10 mg (units (unknown) date) PO BID 60 tabs 2RF unknown) (unknown) (no (unknown) (unknown) read the note (units ( unknown) date) carefully and unknown) recognize, using context, where these substitutions (unknown) (no (unknown) (unknown) second hand (units (un known) date) exposure: Yes unknown) (unknown) (no (unknown) (unknown) software. Although (units (unknown) date) every effort is unknown) made to edit content, client analyst errors (unknown) (no (unknown) (unknown) substance use (units ( unknown) date) type: does not use unknown) (unknown) (no (unknown) (unknown) sulfamethoxazole (units (unknown) date) [From Bactrim] unknown) Allergy (Severe, Verified 01/09/23 12:49) (unknown) (no (unknown) (unknown) trimethoprim [From (units (unknown) date) Bactrim] Allergy unknown) (Severe, Verified 01/09/23 12:49) Result panel 491 (unknown) (no (unknown) (unknown) (no value) (units (unk nown) date) unknown) (unknown) (no (unknown) (unknown) (1) Paresthesia: (units (unknown) date) unknown) (unknown) (no (unknown) (unknown) [id number] (units (unkno wn) date) unknown) (unknown) (no (unknown) (unknown) 01/21/23 (units (unkno wn) date) unknown) (unknown) (no (unknown) (unknown) Acquired (units (unkno wn) date) hypothyroidism unknown) (unknown) (no (unknown) (unknown) Age/Sex: 42 / F (units (unknown) date) Date of Service: unknown) (unknown) (no (unknown) (unknown) Alcohol use (units (un known) date) unknown) (unknown) (no (unknown) (unknown) Allergies (units (unkn own) date) unknown) (unknown) (no (unknown) (unknown) [place], [place] (units ( unknown) date) [id number] unknown) (unknown) (no (unknown) (unknown) Anaphylaxis (units (un known) date) unknown) (unknown) (no (unknown) (unknown) Assessment + Plan (units (unknown) date) unknown) (unknown) (no (unknown) (unknown) Attending Dr: Stephenie (units (unknown) date) Ronna Welsh unknown) (unknown) (no (unknown) (unknown) Breast mass in (units (unknown) date) female unknown) (unknown) (no (unknown) (unknown) Cholelithiasis (units (unknown) date) unknown) (unknown) (no (unknown) (unknown) : 1980 (units (unknown) date) Acct:[id number] unknown) (unknown) (no (unknown) (unknown) Dept at (units (unkno wn) date) . unknown) (unknown) (no (unknown) (unknown) Discontinued (units (u nknown) date) unknown) (unknown) (no (unknown) (unknown) Documented By: (units (unknown) date) Stephenie Friend unknown) 01/21/23 1610 (unknown) (no (unknown) (unknown) Draft (units (unkno wn) date) unknown) (unknown) (no (unknown) (unknown) Elevated blood (units (unknown) date) protein unknown) (unknown) (no (unknown) (unknown) Elevated liver (units (unknown) date) enzymes unknown) (unknown) (no (unknown) (unknown) Family History (units (unknown) date) (Reviewed 01/03/23 unknown) @ 13:42 by Stacy Toney MA) (unknown) (no (unknown) (unknown) Family Practice (units (unknown) date) Office Visit unknown) (unknown) (no (unknown) (unknown) Father Diabetes (units (unknown) date) mellitus unknown) (unknown) (no (unknown) (unknown) 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, unknown) nonalcoholic (unknown) (no (unknown) (unknown) [facility] (units ([facility]) date[facility] unknown) (unknown) (no (unknown) (unknown) 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 unknown) (unknown) (no (unknown) (unknown) Grandfather (units (un known) date) Kidney unknown) failure (unknown) (no (unknown) (unknown) Grandmother (units (un known) date) Cancer unknown) (unknown) (no (unknown) (unknown) 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) (unknown) (no (unknown) (unknown) Insomnia (units (unkno wn) date) unknown) (unknown) (no (unknown) (unknown) Intake (units (unkno wn) date) unknown) (unknown) (no (unknown) (unknown) Last Menstural (units (unknown) date) Cycle + Details unknown) (unknown) (no (unknown) (unknown) Loc: [facility] (units (unkno wn) date) unknown) (unknown) (no (unknown) (unknown) Medical History (units (unknown) date) (Reviewed 01/03/23 unknown) @ 13:42 by Stacy Toney MA) (unknown) (no (unknown) (unknown) Medications: (units (u nknown) date) unknown) (unknown) (no (unknown) (unknown) Mother (units (unknown) date) Cancer unknown) (unknown) (no (unknown) (unknown) Other Menstrual (units (unknown) date) Period: Uncertain unknown) (unknown) (no (unknown) (unknown) PFSH (units (unkno wn) date) unknown) (unknown) (no (unknown) (unknown) Patient denies (units (unknown) date) medical problems unknown) (unknown) (no (unknown) (unknown) Patient: (units (unkno wn) date) Layne Avendano unknown) MR#: [id number] (unknown) (no (unknown) (unknown) Peripheral (units (unk nown) date) neuropathy unknown) (unknown) (no (unknown) (unknown) Reason For Visit (units (unknown) date) unknown) (unknown) (no (unknown) (unknown) Shortness of (units (u nknown) date) breath (06/2020) unknown) (unknown) (no (unknown) (unknown) Signed By: (units (unk nown) date) unknown) (unknown) (no (unknown) (unknown) Smoking Status: (units (unknown) date) Former smoker unknown) (unknown) (no (unknown) (unknown) Social History (units (unknown) date) unknown) (unknown) (no (unknown) (unknown) This note may have (units (unknown) date) been all or unknown) partially generated using voice recognition (unknown) (no (unknown) (unknown) Tobacco + (units (unkn own) date) Substance Use unknown) (unknown) (no (unknown) (unknown) Tobacco Status (units (unknown) date) unknown) (unknown) (no (unknown) (unknown) Tremors of nervous (units (unknown) date) system (06/2020) unknown) (unknown) (no (unknown) (unknown) Visit Reasons: (units (unknown) date) referral to neur unknown) (unknown) (no (unknown) (unknown) alcohol intake: (units (unknown) date) current unknown) (unknown) (no (unknown) (unknown) have occurred. If (units (unknown) date) there are any unknown) questions, please contact the Medical Records (unknown) (no (unknown) (unknown) household members: (units (unknown) date) significant other unknown) and children (unknown) (no (unknown) (unknown) may occur. (units (unk nown) date) Occasional unknown) wrong-word or 'sound-alike' substitutions may have (unknown) (no (unknown) (unknown) occurred due to (units (unknown) date) the inherent unknown) limitations of voice recognition software. Please (unknown) (no (unknown) (unknown) propranolol 10 mg (units (unknown) date) PO BID 60 tabs 2RF unknown) (unknown) (no (unknown) (unknown) read the note (units ( unknown) date) carefully and unknown) recognize, using context, where these substitutions (unknown) (no (unknown) (unknown) second hand (units (un known) date) exposure: Yes unknown) (unknown) (no (unknown) (unknown) software. Although (units (unknown) date) every effort is unknown) made to edit content, client analyst errors (unknown) (no (unknown) (unknown) substance use (units ( unknown) date) type: does not use unknown) (unknown) (no (unknown) (unknown) sulfamethoxazole (units (unknown) date) [From Bactrim] unknown) Allergy (Severe, Verified 01/09/23 12:49) (unknown) (no (unknown) (unknown) trimethoprim [From (units (unknown) date) Bactrim] Allergy unknown) (Severe, Verified 01/09/23 12:49) Result panel 492 (unknown) (no (unknown) (unknown) (no value) (units (unk nown) date) unknown) (unknown) (no (unknown) (unknown) (1) Paresthesia: (units (unknown) date) unknown) (unknown) (no (unknown) (unknown) [id number] (units (unkno wn) date) unknown) (unknown) (no (unknown) (unknown) 01/21/23 (units (unkno wn) date) unknown) (unknown) (no (unknown) (unknown) 01/21/23] (units (unkn own) date) unknown) (unknown) (no (unknown) (unknown) 16:20 (units (unkno wn) date) unknown) (unknown) (no (unknown) (unknown) 42 yr old female (units (unknown) date) here for referral unknown) to neuro (unknown) (no (unknown) (unknown) Acquired (units (unkno wn) date) hypothyroidism unknown) (unknown) (no (unknown) (unknown) Age/Sex: 42 / F (units (unknown) date) Date of Service: unknown) (unknown) (no (unknown) (unknown) Alcohol use (units (un known) date) unknown) (unknown) (no (unknown) (unknown) Allergies (units (unkn own) date) unknown) (unknown) (no (unknown) (unknown) [place] (units ( unknown) date) [id number] unknown) (unknown) (no (unknown) (unknown) Anaphylaxis (units (un known) date) unknown) (unknown) (no (unknown) (unknown) Assessment + Plan (units (unknown) date) unknown) (unknown) (no (unknown) (unknown) Attending Dr: Stephenie (units (unknown) date) Ronna D.OPiedad unknown) (unknown) (no (unknown) (unknown) BP 120/68 (units (unkn own) date) unknown) (unknown) (no (unknown) (unknown) Blood Pressure (units (unknown) date) Location Lt unknown) brachial (unknown) (no (unknown) (unknown) Breast mass in (units (unknown) date) female unknown) (unknown) (no (unknown) (unknown) Cholelithiasis (units (unknown) date) unknown) (unknown) (no (unknown) (unknown) Confirmed (units (unkn own) date) 01/21/23] unknown) (unknown) (no (unknown) (unknown) : 1980 (units (unknown) date) Acct:[id number] unknown) (unknown) (no (unknown) (unknown) Dept at (units (unkno wn) date) . unknown) (unknown) (no (unknown) (unknown) Discontinued (units (u nknown) date) unknown) (unknown) (no (unknown) (unknown) Documented By: (units (unknown) date) Stephenie Friend unknown) 01/21/23 1610 (unknown) (no (unknown) (unknown) Draft (units (unkno wn) date) unknown) (unknown) (no (unknown) (unknown) Elevated blood (units (unknown) date) protein unknown) (unknown) (no (unknown) (unknown) Elevated liver (units (unknown) date) enzymes unknown) (unknown) (no (unknown) (unknown) Family History (units (unknown) date) (Reviewed 01/03/23 unknown) @ 13:42 by Stacy Toney MA) (unknown) (no (unknown) (unknown) Family Practice (units (unknown) date) Office Visit unknown) (unknown) (no (unknown) (unknown) Father Diabetes (units (unknown) date) mellitus unknown) (unknown) (no (unknown) (unknown) 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, unknown) nonalcoholic (unknown) (no (unknown) (unknown) [facility] (units (unknown) date) [facility] unknown) (unknown) (no (unknown) (unknown) 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 unknown) (unknown) (no (unknown) (unknown) Grandfather (units (un known) date) Kidney unknown) failure (unknown) (no (unknown) (unknown) Grandmother (units (un known) date) Cancer unknown) (unknown) (no (unknown) (unknown) Has pins and (units (u nknown) date) needles in unknown) extremities (unknown) (no (unknown) (unknown) 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) (unknown) (no (unknown) (unknown) Health Management (units (unknown) date) reviewed with unknown) patient: Yes (unknown) (no (unknown) (unknown) Health Management (units (unknown) date) unknown) (unknown) (no (unknown) (unknown) Insomnia (units (unkno wn) date) unknown) (unknown) (no (unknown) (unknown) Intake Note: (units (u nknown) date) unknown) (unknown) (no (unknown) (unknown) Intake performed (units (unknown) date) by: Ijeoma Clayton unknown) (unknown) (no (unknown) (unknown) Intake (units (unkno wn) date) unknown) (unknown) (no (unknown) (unknown) Intake- Clincial (units (unknown) date) Staff unknown) (unknown) (no (unknown) (unknown) Last Menstural (units (unknown) date) Cycle + Details unknown) (unknown) (no (unknown) (unknown) Loc: [facility] (units (unkno wn) date) unknown) (unknown) (no (unknown) (unknown) Medical History (units (unknown) date) (Reviewed 01/03/23 unknown) @ 13:42 by Stacy Toney MA) (unknown) (no (unknown) (unknown) Medications (units (un known) date) unknown) (unknown) (no (unknown) (unknown) Medications: (units (u nknown) date) unknown) (unknown) (no (unknown) (unknown) Mother (units (unknown) date) Cancer unknown) (unknown) (no (unknown) (unknown) New (units (unkno wn) date) unknown) (unknown) (no (unknown) (unknown) Orders: (units (unkno wn) date) unknown) (unknown) (no (unknown) (unknown) Other Menstrual (units (unknown) date) Period: Uncertain unknown) (unknown) (no (unknown) (unknown) Oxygen Delivery (units (unknown) date) Method room air unknown) (unknown) (no (unknown) (unknown) PFSH (units (unkno wn) date) unknown) (unknown) (no (unknown) (unknown) Patient denies (units (unknown) date) medical problems unknown) (unknown) (no (unknown) (unknown) Patient: (units (unkno wn) date) Layne Avendano N unknown) MR#: [id number] (unknown) (no (unknown) (unknown) Peripheral (units (unk nown) date) neuropathy unknown) (unknown) (no (unknown) (unknown) Position Sitting (units (unknown) date) unknown) (unknown) (no (unknown) (unknown) Pt states she has (units (unknown) date) been prescribed unknown) propranolol for for nerve issues (unknown) (no (unknown) (unknown) Pulse 69 (units (unkno wn) date) unknown) (unknown) (no (unknown) (unknown) Pulse Oximetry (%) (units (unknown) date) 99 unknown) (unknown) (no (unknown) (unknown) Pulse Source (units (u nknown) date) Monitor unknown) (unknown) (no (unknown) (unknown) Reason For Visit (units (unknown) date) unknown) (unknown) (no (unknown) (unknown) Referral Neurology (units (unknown) date) R20.2 - Paresthesia unknown) of skin (unknown) (no (unknown) (unknown) Referrals (units (unkn own) date) unknown) (unknown) (no (unknown) (unknown) Respiration 16 (units (unknown) date) unknown) (unknown) (no (unknown) (unknown) Shortness of (units (u nknown) date) breath (06/2020) unknown) (unknown) (no (unknown) (unknown) Signed By: (units (unk nown) date) unknown) (unknown) (no (unknown) (unknown) Smoking Status: (units (unknown) date) Former smoker unknown) (unknown) (no (unknown) (unknown) Social History (units (unknown) date) unknown) (unknown) (no (unknown) (unknown) Temp 99 F (units (unkn own) date) unknown) (unknown) (no (unknown) (unknown) Temp Source (units (un known) date) Temporal Artery unknown) Scan (unknown) (no (unknown) (unknown) This note may have (units (unknown) date) been all or unknown) partially generated using voice recognition (unknown) (no (unknown) (unknown) Tobacco + (units (unkn own) date) Substance Use unknown) (unknown) (no (unknown) (unknown) Tobacco Status (units (unknown) date) unknown) (unknown) (no (unknown) (unknown) Tremors of nervous (units (unknown) date) system (06/2020) unknown) (unknown) (no (unknown) (unknown) Visit Reasons: (units (unknown) date) referral to neur unknown) (unknown) (no (unknown) (unknown) Vitals (units (unkno wn) date) unknown) (unknown) (no (unknown) (unknown) Weight 115 lb (units ( unknown) date) unknown) (unknown) (no (unknown) (unknown) [Rx Confirmed (units ( unknown) date) 01/21/23] unknown) (unknown) (no (unknown) (unknown) acetaminophen 325 (units (unknown) date) mg capsule unknown) (Tylenol) 650 mg PO QID PRN pain #60 caps 01/09/23 (unknown) (no (unknown) (unknown) alcohol intake: (units (unknown) date) current unknown) (unknown) (no (unknown) (unknown) gabapentin 100 mg (units (unknown) date) PO Q8H PRN 90 caps unknown) 2RF nerve pain (unknown) (no (unknown) (unknown) gabapentin 100 mg (units (unknown) date) capsule 100 mg PO unknown) Q8H PRN nerve pain #90 caps 01/21/23 [Rx (unknown) (no (unknown) (unknown) have occurred. If (units (unknown) date) there are any unknown) questions, please contact the Medical Records (unknown) (no (unknown) (unknown) household members: (units (unknown) date) significant other unknown) and children (unknown) (no (unknown) (unknown) ibuprofen 200 mg (units (unknown) date) tablet 400 mg PO unknown) Q6H #60 tabs 01/09/23 [Rx Confirmed 01/21/23] (unknown) (no (unknown) (unknown) may occur. (units (unk nown) date) Occasional unknown) wrong-word or 'sound-alike' substitutions may have (unknown) (no (unknown) (unknown) occurred due to (units (unknown) date) the inherent unknown) limitations of voice recognition software. Please (unknown) (no (unknown) (unknown) ondansetron 4 mg (units (unknown) date) disintegrating unknown) tablet 4 mg PO Q6H PRN nausea and vomiting #30 (unknown) (no (unknown) (unknown) oxycodone 5 mg (units (unknown) date) tablet 5 mg PO Q6H unknown) PRN pain #20 tabs 01/09/23 [Rx Confirmed (unknown) (no (unknown) (unknown) propranolol 10 mg (units (unknown) date) PO BID 60 tabs 2RF unknown) (unknown) (no (unknown) (unknown) read the note (units ( unknown) date) carefully and unknown) recognize, using context, where these substitutions (unknown) (no (unknown) (unknown) second hand (units (un known) date) exposure: Yes unknown) (unknown) (no (unknown) (unknown) software. Although (units (unknown) date) every effort is unknown) made to edit content, client analyst errors (unknown) (no (unknown) (unknown) substance use (units ( unknown) date) type: does not use unknown) (unknown) (no (unknown) (unknown) sulfamethoxazole (units (unknown) date) [From Bactrim] unknown) Allergy (Severe, Verified 01/21/23 16:19) (unknown) (no (unknown) (unknown) tabs 01/09/23 [Rx (units (unknown) date) Confirmed 01/21/23] unknown) (unknown) (no (unknown) (unknown) trimethoprim [From (units (unknown) date) Bactrim] Allergy unknown) (Severe, Verified 01/21/23 16:19) Result panel 493 (unknown) (no (unknown) (unknown) (no value) (units (unk nown) date) unknown) (unknown) (no (unknown) (unknown) (1) Paresthesia: (units (unknown) date) unknown) (unknown) (no (unknown) (unknown) (2) Elevated liver (units (unknown) date) enzymes: unknown) (unknown) (no (unknown) (unknown) (3) Alcohol use: (units (unknown) date) unknown) (unknown) (no (unknown) (unknown) -discussed (units (unk nown) date) treatment options. unknown) Trial of low-dose gabapentin. Discussed side (unknown) (no (unknown) (unknown) -follow up with (units (unknown) date) her PCP in 1 month unknown) (unknown) (no (unknown) (unknown) -her recent labs (units (unknown) date) do not indicate she unknown) has any evidence of diabetes. Her thyroid (unknown) (no (unknown) (unknown) -patient is (units (un known) date) frustrated about unknown) her longstanding symptoms. I did discuss with her (unknown) (no (unknown) (unknown) -referral placed (units (unknown) date) to Neurology. unknown) (unknown) (no (unknown) (unknown) [id number] (units (unkno wn) date) unknown) (unknown) (no (unknown) (unknown) 01/21/23 (units (unkno wn) date) unknown) (unknown) (no (unknown) (unknown) 01/21/23] (units (unkn own) date) unknown) (unknown) (no (unknown) (unknown) 16:20 (units (unkno wn) date) unknown) (unknown) (no (unknown) (unknown) 42 yr old female (units (unknown) date) here for referral unknown) to neuro (unknown) (no (unknown) (unknown) Acquired (units (unkno wn) date) hypothyroidism unknown) (unknown) (no (unknown) (unknown) Age/Sex: 42 / F (units (unknown) date) Date of Service: unknown) (unknown) (no (unknown) (unknown) Alcohol use (units (un known) date) unknown) (unknown) (no (unknown) (unknown) Allergies (units (unkn own) date) unknown) (unknown) (no (unknown) (unknown) Allergies: (units (unk nown) date) Reviewed unknown) (unknown) (no (unknown) (unknown) [place], [place] (units ( unknown) date) [id number] unknown) (unknown) (no (unknown) (unknown) Anaphylaxis (units (un known) date) unknown) (unknown) (no (unknown) (unknown) Assessment + Plan (units (unknown) date) unknown) (unknown) (no (unknown) (unknown) Attending Dr: Stephenie (units (unknown) date) Ronna DPiedadOPiedad unknown) (unknown) (no (unknown) (unknown) BP 120/68 (units (unkn own) date) unknown) (unknown) (no (unknown) (unknown) Blood Pressure (units (unknown) date) Location Lt unknown) brachial (unknown) (no (unknown) (unknown) Breast mass in (units (unknown) date) female unknown) (unknown) (no (unknown) (unknown) CHEST: Normal (units ( unknown) date) respiratory effort unknown) (unknown) (no (unknown) (unknown) Cardiovascular: (units (unknown) date) Negative.? unknown) (unknown) (no (unknown) (unknown) Chief Complaint: (units (unknown) date) nerve pain unknown) (unknown) (no (unknown) (unknown) Cholelithiasis (units (unknown) date) unknown) (unknown) (no (unknown) (unknown) Confirmed (units (unkn own) date) 01/21/23] unknown) (unknown) (no (unknown) (unknown) Constitutional: (units (unknown) date) Negative.? unknown) (unknown) (no (unknown) (unknown) : 1980 (units (unknown) date) Acct:[id number] unknown) (unknown) (no (unknown) (unknown) Dept at (units (unkno wn) date) . unknown) (unknown) (no (unknown) (unknown) Discontinued (units (u nknown) date) unknown) (unknown) (no (unknown) (unknown) Documented By: (units (unknown) date) Stephenie Friend unknown) 01/21/23 1610 (unknown) (no (unknown) (unknown) Draft (units (unkno wn) date) unknown) (unknown) (no (unknown) (unknown) EYES: PERRL, EOMI (units (unknown) date) and nonicteric unknown) (unknown) (no (unknown) (unknown) Elevated blood (units (unknown) date) protein unknown) (unknown) (no (unknown) (unknown) Elevated liver (units (unknown) date) enzymes unknown) (unknown) (no (unknown) (unknown) Endocrine: (units (unk nown) date) Negative.? 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 Cooperative with exam.? Patient is in (unknown) (no (unknown) (unknown) 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 unknown) (unknown) (no (unknown) (unknown) Genitourinary: (units (unknown) date) Negative.? 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) (unknown) (no (unknown) (unknown) Health Management (units (unknown) date) reviewed with unknown) patient: Yes (unknown) (no (unknown) (unknown) Health Management (units (unknown) date) unknown) (unknown) (no (unknown) (unknown) I reviewed the (units (unknown) date) patient's Past unknown) Medical History, Problem List, Medications and (unknown) (no (unknown) (unknown) Insomnia (units (unkno wn) date) unknown) (unknown) (no (unknown) (unknown) Intake Note: (units (u nknown) date) unknown) (unknown) (no (unknown) (unknown) Intake performed (units (unknown) date) by: Ijeoma Clayton unknown) (unknown) (no (unknown) (unknown) Intake (units (unkno wn) date) unknown) (unknown) (no (unknown) (unknown) Intake- Clincial (units (unknown) date) Staff unknown) (unknown) (no (unknown) (unknown) Last Menstural (units (unknown) date) Cycle + Details unknown) (unknown) (no (unknown) (unknown) Loc: [facility] (units (unkno wn) date) unknown) (unknown) (no (unknown) (unknown) MUSKULOSKELETAL: (units (unknown) date) Normal gait. unknown) (unknown) (no (unknown) (unknown) Medical History (units (unknown) date) (Reviewed 01/03/23 unknown) @ 13:42 by Stacy Toney MA) (unknown) (no (unknown) (unknown) Medications (units (un known) date) unknown) (unknown) (no (unknown) (unknown) Medications: (units (u nknown) date) Reconciled unknown) (unknown) (no (unknown) (unknown) Medications: (units (u nknown) date) unknown) (unknown) (no (unknown) (unknown) Mother (units (unknown) date) Cancer unknown) (unknown) (no (unknown) (unknown) NECK: Full range (units (unknown) date) of motion, unknown) lymphadenopathy absent, supple (unknown) (no (unknown) (unknown) NEURO EXAM: Alert (units (unknown) date) and oriented x 3.? unknown) (unknown) (no (unknown) (unknown) New (units (unkno wn) date) unknown) (unknown) (no (unknown) (unknown) Note (units (unkno wn) date) unknown) (unknown) (no (unknown) (unknown) Note: (units (unkno wn) date) unknown) (unknown) (no (unknown) (unknown) Notes (units (unkno wn) date) unknown) (unknown) (no (unknown) (unknown) Objective: (units (unk nown) date) unknown) (unknown) (no (unknown) (unknown) Orders: (units (unkno wn) date) unknown) (unknown) (no (unknown) (unknown) Other Menstrual (units (unknown) date) Period: Uncertain unknown) (unknown) (no (unknown) (unknown) Oxygen Delivery (units (unknown) date) Method room air unknown) (unknown) (no (unknown) (unknown) PFSH (units (unkno wn) date) unknown) (unknown) (no (unknown) (unknown) PSYCH: judgement (units (unknown) date) normal, orientation unknown) normal, affect/mood normal and memory (unknown) (no (unknown) (unknown) Patient denies (units (unknown) date) medical problems unknown) (unknown) (no (unknown) (unknown) Patient states (units (unknown) date) that she is been unknown) having worsening nerve pains over the past few (unknown) (no (unknown) (unknown) Patient: (units (unkno wn) date) Layne Avendano unknown) MR#: [id number] (unknown) (no (unknown) (unknown) Peripheral (units (unk nown) date) neuropathy unknown) (unknown) (no (unknown) (unknown) Plan (units (unkno wn) date) unknown) (unknown) (no (unknown) (unknown) Position Sitting (units (unknown) date) unknown) (unknown) (no (unknown) (unknown) Pt states she has (units (unknown) date) been prescribed unknown) propranolol for for nerve issues (unknown) (no (unknown) (unknown) Pulse 69 (units (unkno wn) date) unknown) (unknown) (no (unknown) (unknown) Pulse Oximetry (%) (units (unknown) date) 99 unknown) (unknown) (no (unknown) (unknown) Pulse Source (units (u nknown) date) Monitor unknown) (unknown) (no (unknown) (unknown) Reason For Visit (units (unknown) date) unknown) (unknown) (no (unknown) (unknown) Referral Neurology (units (unknown) date) R20.2 - Paresthesia unknown) of skin Stephenie Friend DO (unknown) (no (unknown) (unknown) Referrals (units (unkn own) date) unknown) (unknown) (no (unknown) (unknown) Respiration 16 (units (unknown) date) unknown) (unknown) (no (unknown) (unknown) Respiratory: (units (u nknown) date) Negative.? unknown) (unknown) (no (unknown) (unknown) Review of Systems: (units (unknown) date) unknown) (unknown) (no (unknown) (unknown) SKIN:? No rashes (units (unknown) date) on face or arms. unknown) (unknown) (no (unknown) (unknown) Shortness of (units (u nknown) date) breath (06/2020) unknown) (unknown) (no (unknown) (unknown) Signed By: (units (unk nown) date) unknown) (unknown) (no (unknown) (unknown) Smoking Status: (units (unknown) date) Former smoker unknown) (unknown) (no (unknown) (unknown) Social History (units (unknown) date) (including tobacco unknown) use status). (unknown) (no (unknown) (unknown) Social History (units (unknown) date) unknown) (unknown) (no (unknown) (unknown) Status: Acute (units ( unknown) date) unknown) (unknown) (no (unknown) (unknown) Subjective: (units (un known) date) unknown) (unknown) (no (unknown) (unknown) Temp 99 F (units (unkn own) date) unknown) (unknown) (no (unknown) (unknown) Temp Source (units (un known) date) Temporal Artery unknown) Scan (unknown) (no (unknown) (unknown) This note may have (units (unknown) date) been all or unknown) partially generated using voice recognition (unknown) (no (unknown) (unknown) Tobacco + (units (unkn own) date) Substance Use unknown) (unknown) (no (unknown) (unknown) Tobacco Status (units (unknown) date) unknown) (unknown) (no (unknown) (unknown) Tremors of nervous (units (unknown) date) system (06/2020) unknown) (unknown) (no (unknown) (unknown) Visit Reasons: (units (unknown) date) referral to neur unknown) (unknown) (no (unknown) (unknown) Vital Signs: (units (u nknown) date) Reviewed unknown) (unknown) (no (unknown) (unknown) Vitals (units (unkno wn) date) unknown) (unknown) (no (unknown) (unknown) Voice recognition (units (unknown) date) software was used unknown) in the creation of this note. There may be (unknown) (no (unknown) (unknown) Weight 115 lb (units ( unknown) date) unknown) (unknown) (no (unknown) (unknown) [Rx Confirmed (units ( unknown) date) 01/21/23] unknown) (unknown) (no (unknown) (unknown) acetaminophen 325 (units (unknown) date) mg capsule unknown) (Tylenol) 650 mg PO QID PRN pain #60 caps 01/09/23 (unknown) (no (unknown) (unknown) alcohol intake: (units (unknown) date) current unknown) (unknown) (no (unknown) (unknown) altered the (units (un known) date) sensations of the unknown) pins and needles and nerve pain she is been (unknown) (no (unknown) (unknown) and they placed on (units (unknown) date) propranolol which unknown) did help a little bit. She stop the (unknown) (no (unknown) (unknown) are elevated and (units (unknown) date) she should really unknown) consider reducing her alcohol use and (unknown) (no (unknown) (unknown) daily functions (units (unknown) date) due to the nerve unknown) pain. She did see Neurology a few years ago (unknown) (no (unknown) (unknown) department. Workup (units (unknown) date) was negative and unknown) they released her. Then started moving (unknown) (no (unknown) (unknown) diabetes. She does (units (unknown) date) drink alcohol unknown) nightly to help with the pain and help her (unknown) (no (unknown) (unknown) effect profile. (units (unknown) date) She will follow up unknown) with the PCP to titrate the dose up if (unknown) (no (unknown) (unknown) effective. (units (unk nown) date) unknown) (unknown) (no (unknown) (unknown) eventually (units (unk nown) date) stopping. unknown) (unknown) (no (unknown) (unknown) gabapentin 100 mg (units (unknown) date) PO Q8H PRN 90 caps unknown) 2RF nerve pain Stephenie Friend, DO (unknown) (no (unknown) (unknown) gabapentin 100 mg (units (unknown) date) capsule 100 mg PO unknown) Q8H PRN nerve pain #90 caps 01/21/23 [Rx (unknown) (no (unknown) (unknown) have occurred. If (units (unknown) date) there are any unknown) questions, please contact the Medical Records (unknown) (no (unknown) (unknown) having weakness and (units (unknown) date) could not walk and unknown) her to bring her to the emergency (unknown) (no (unknown) (unknown) having. She states (units (unknown) date) that it is very unknown) difficult for her to sleep or do some of her (unknown) (no (unknown) (unknown) helpful as she (units (unknown) date) would like it to unknown) be. She states that she has no history of (unknown) (no (unknown) (unknown) household members: (units (unknown) date) significant other unknown) and children (unknown) (no (unknown) (unknown) ibuprofen 200 mg (units (unknown) date) tablet 400 mg PO unknown) Q6H #60 tabs 01/09/23 [Rx Confirmed 01/21/23] (unknown) (no (unknown) (unknown) into her torso and (units (unknown) date) now her arms. She unknown) did have a gallbladder removed recently (unknown) (no (unknown) (unknown) lcoholic (units (unkno wn) date) neuropathy. Even if unknown) she does not drink that heavily her liver enzymes (unknown) (no (unknown) (unknown) may occur. (units (unk nown) date) Occasional unknown) wrong-word or 'sound-alike' substitutions may have (unknown) (no (unknown) (unknown) medication since (units (unknown) date) she was not sure unknown) about her exact diagnosis and it was not as (unknown) (no (unknown) (unknown) no apparent (units (un known) date) distress. unknown) (unknown) (no (unknown) (unknown) normal (units (unkno wn) date) unknown) (unknown) (no (unknown) (unknown) occurred due to (units (unknown) date) the inherent unknown) limitations of voice recognition software. Please (unknown) (no (unknown) (unknown) ondansetron 4 mg (units (unknown) date) disintegrating unknown) tablet 4 mg PO Q6H PRN nausea and vomiting #30 (unknown) (no (unknown) (unknown) oxycodone 5 mg (units (unknown) date) tablet 5 mg PO Q6H unknown) PRN pain #20 tabs 01/09/23 [Rx Confirmed (unknown) (no (unknown) (unknown) propranolol 10 mg (units (unknown) date) PO BID 60 tabs 2RF unknown) Talita Murillo RN (unknown) (no (unknown) (unknown) read the note (units ( unknown) date) carefully and unknown) recognize, using context, where these substitutions (unknown) (no (unknown) (unknown) second hand (units (un known) date) exposure: Yes unknown) (unknown) (no (unknown) (unknown) sleep. Her liver (units (unknown) date) enzymes have been unknown) elevated in the past. (unknown) (no (unknown) (unknown) software. Although (units (unknown) date) every effort is unknown) made to edit content, client analyst errors (unknown) (no (unknown) (unknown) substance use (units ( unknown) date) type: does not use unknown) (unknown) (no (unknown) (unknown) sulfamethoxazole (units (unknown) date) [From Bactrim] unknown) Allergy (Severe, Verified 01/21/23 16:19) (unknown) (no (unknown) (unknown) tabs 01/09/23 [Rx (units (unknown) date) Confirmed 01/21/23] unknown) (unknown) (no (unknown) (unknown) test recently was (units (unknown) date) normal as well. unknown) (unknown) (no (unknown) (unknown) that between her (units (unknown) date) regular alcohol use unknown) she could be having some component of a (unknown) (no (unknown) (unknown) thinking that it (units (unknown) date) may be contributing unknown) to the abdominal pains. However it is not (unknown) (no (unknown) (unknown) trimethoprim [From (units (unknown) date) Bactrim] Allergy unknown) (Severe, Verified 01/21/23 16:19) (unknown) (no (unknown) (unknown) typographical (units ( unknown) date) errors as a result. unknown) (unknown) (no (unknown) (unknown) years. Initially (units (unknown) date) started in her unknown) lower extremities to the point where she was Result panel 494 (unknown) (no (unknown) (unknown) (no value) (units (unk nown) date) unknown) (unknown) (no (unknown) (unknown) (1) Paresthesia: (units (unknown) date) unknown) (unknown) (no (unknown) (unknown) (2) Elevated liver (units (unknown) date) enzymes: unknown) (unknown) (no (unknown) (unknown) (3) Alcohol use: (units (unknown) date) unknown) (unknown) (no (unknown) (unknown) -discussed (units (unk nown) date) treatment options. unknown) Trial of low-dose gabapentin. Discussed side (unknown) (no (unknown) (unknown) -follow up with (units (unknown) date) her PCP in 1 month unknown) (unknown) (no (unknown) (unknown) -her recent labs (units (unknown) date) do not indicate she unknown) has any evidence of diabetes. Her thyroid (unknown) (no (unknown) (unknown) -patient is (units (un known) date) frustrated about unknown) her longstanding symptoms. I did discuss with her (unknown) (no (unknown) (unknown) -referral placed (units (unknown) date) to Neurology. unknown) (unknown) (no (unknown) (unknown) [id number] (units (unkno wn) date) unknown) (unknown) (no (unknown) (unknown) 01/21/23 (units (unkno wn) date) unknown) (unknown) (no (unknown) (unknown) 01/21/23] (units (unkn own) date) unknown) (unknown) (no (unknown) (unknown) 16:20 (units (unkno wn) date) unknown) (unknown) (no (unknown) (unknown) 42 yr old female (units (unknown) date) here for referral unknown) to neuro (unknown) (no (unknown) (unknown) Acquired (units (unkno wn) date) hypothyroidism unknown) (unknown) (no (unknown) (unknown) Age/Sex: 42 / F (units (unknown) date) Date of Service: unknown) (unknown) (no (unknown) (unknown) Alcohol use (units (un known) date) unknown) (unknown) (no (unknown) (unknown) Allergies (units (unkn own) date) unknown) (unknown) (no (unknown) (unknown) Allergies: (units (unk nown) date) Reviewed unknown) (unknown) (no (unknown) (unknown) [place] (units ( unknown) date) [id number] unknown) (unknown) (no (unknown) (unknown) Anaphylaxis (units (un known) date) unknown) (unknown) (no (unknown) (unknown) Assessment + Plan (units (unknown) date) unknown) (unknown) (no (unknown) (unknown) Attending Dr: Stephenie (units (unknown) date) Ronna D.OPiedad unknown) (unknown) (no (unknown) (unknown) BP 120/68 (units (unkn own) date) unknown) (unknown) (no (unknown) (unknown) Blood Pressure (units (unknown) date) Location Lt unknown) brachial (unknown) (no (unknown) (unknown) Breast mass in (units (unknown) date) female unknown) (unknown) (no (unknown) (unknown) CHEST: Normal (units ( unknown) date) respiratory effort unknown) (unknown) (no (unknown) (unknown) Cardiovascular: (units (unknown) date) Negative.? unknown) (unknown) (no (unknown) (unknown) Chief Complaint: (units (unknown) date) nerve pain unknown) (unknown) (no (unknown) (unknown) Cholelithiasis (units (unknown) date) unknown) (unknown) (no (unknown) (unknown) Confirmed (units (unkn own) date) 01/21/23] unknown) (unknown) (no (unknown) (unknown) Constitutional: (units (unknown) date) Negative.? unknown) (unknown) (no (unknown) (unknown) : 1980 (units (unknown) date) Acct:[id number] unknown) (unknown) (no (unknown) (unknown) Dept at (units (unkno wn) date) . unknown) (unknown) (no (unknown) (unknown) Discontinued (units (u nknown) date) unknown) (unknown) (no (unknown) (unknown) Documented By: (units (unknown) date) Stephenie Friend unknown) 01/21/23 1610 (unknown) (no (unknown) (unknown) Draft (units (unkno wn) date) unknown) (unknown) (no (unknown) (unknown) EYES: PERRL, EOMI (units (unknown) date) and nonicteric unknown) (unknown) (no (unknown) (unknown) Elevated blood (units (unknown) date) protein unknown) (unknown) (no (unknown) (unknown) Elevated liver (units (unknown) date) enzymes unknown) (unknown) (no (unknown) (unknown) Endocrine: (units (unk nown) date) Negative.? 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 Cooperative with exam.? Patient is in (unknown) (no (unknown) (unknown) 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 unknown) (unknown) (no (unknown) (unknown) Genitourinary: (units (unknown) date) Negative.? 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) (unknown) (no (unknown) (unknown) Health Management (units (unknown) date) reviewed with unknown) patient: Yes (unknown) (no (unknown) (unknown) Health Management (units (unknown) date) unknown) (unknown) (no (unknown) (unknown) I reviewed the (units (unknown) date) patient's Past unknown) Medical History, Problem List, Medications and (unknown) (no (unknown) (unknown) Insomnia (units (unkno wn) date) unknown) (unknown) (no (unknown) (unknown) Intake Note: (units (u nknown) date) unknown) (unknown) (no (unknown) (unknown) Intake performed (units (unknown) date) by: Ijeoma Clayton unknown) (unknown) (no (unknown) (unknown) Intake (units (unkno wn) date) unknown) (unknown) (no (unknown) (unknown) Intake- Clincial (units (unknown) date) Staff unknown) (unknown) (no (unknown) (unknown) Last Menstural (units (unknown) date) Cycle + Details unknown) (unknown) (no (unknown) (unknown) Loc: [facility] (units (unkno wn) date) unknown) (unknown) (no (unknown) (unknown) MUSKULOSKELETAL: (units (unknown) date) Normal gait. unknown) (unknown) (no (unknown) (unknown) Medical History (units (unknown) date) (Reviewed 01/03/23 unknown) @ 13:42 by Stacy Toney MA) (unknown) (no (unknown) (unknown) Medications (units (un known) date) unknown) (unknown) (no (unknown) (unknown) Medications: (units (u nknown) date) Reconciled unknown) (unknown) (no (unknown) (unknown) Medications: (units (u nknown) date) unknown) (unknown) (no (unknown) (unknown) Mother (units (unknown) date) Cancer unknown) (unknown) (no (unknown) (unknown) NECK: Full range (units (unknown) date) of motion, unknown) lymphadenopathy absent, supple (unknown) (no (unknown) (unknown) NEURO EXAM: Alert (units (unknown) date) and oriented x 3.? unknown) (unknown) (no (unknown) (unknown) New (units (unkno wn) date) unknown) (unknown) (no (unknown) (unknown) Note (units (unkno wn) date) unknown) (unknown) (no (unknown) (unknown) Note: (units (unkno wn) date) unknown) (unknown) (no (unknown) (unknown) Notes (units (unkno wn) date) unknown) (unknown) (no (unknown) (unknown) Objective: (units (unk nown) date) unknown) (unknown) (no (unknown) (unknown) Orders: (units (unkno wn) date) unknown) (unknown) (no (unknown) (unknown) Other Menstrual (units (unknown) date) Period: Uncertain unknown) (unknown) (no (unknown) (unknown) Oxygen Delivery (units (unknown) date) Method room air unknown) (unknown) (no (unknown) (unknown) PFSH (units (unkno wn) date) unknown) (unknown) (no (unknown) (unknown) PSYCH: judgement (units (unknown) date) normal, orientation unknown) normal, affect/mood normal and memory (unknown) (no (unknown) (unknown) Patient denies (units (unknown) date) medical problems unknown) (unknown) (no (unknown) (unknown) Patient states (units (unknown) date) that she is been unknown) having worsening nerve pains over the past few (unknown) (no (unknown) (unknown) Patient: (units (unkno wn) date) Layne Avendano unknown) MR#: [id number] (unknown) (no (unknown) (unknown) Peripheral (units (unk nown) date) neuropathy unknown) (unknown) (no (unknown) (unknown) Plan (units (unkno wn) date) unknown) (unknown) (no (unknown) (unknown) Position Sitting (units (unknown) date) unknown) (unknown) (no (unknown) (unknown) Pt states she has (units (unknown) date) been prescribed unknown) propranolol for for nerve issues (unknown) (no (unknown) (unknown) Pulse 69 (units (unkno wn) date) unknown) (unknown) (no (unknown) (unknown) Pulse Oximetry (%) (units (unknown) date) 99 unknown) (unknown) (no (unknown) (unknown) Pulse Source (units (u nknown) date) Monitor unknown) (unknown) (no (unknown) (unknown) Reason For Visit (units (unknown) date) unknown) (unknown) (no (unknown) (unknown) Referral Neurology (units (unknown) date) R20.2 - Paresthesia unknown) of skin (unknown) (no (unknown) (unknown) Referrals (units (unkn own) date) unknown) (unknown) (no (unknown) (unknown) Respiration 16 (units (unknown) date) unknown) (unknown) (no (unknown) (unknown) Respiratory: (units (u nknown) date) Negative.? unknown) (unknown) (no (unknown) (unknown) Review of Systems: (units (unknown) date) unknown) (unknown) (no (unknown) (unknown) SKIN:? No rashes (units (unknown) date) on face or arms. unknown) (unknown) (no (unknown) (unknown) Shortness of (units (u nknown) date) breath (06/2020) unknown) (unknown) (no (unknown) (unknown) Signed By: (units (unk nown) date) unknown) (unknown) (no (unknown) (unknown) Smoking Status: (units (unknown) date) Former smoker unknown) (unknown) (no (unknown) (unknown) Social History (units (unknown) date) (including tobacco unknown) use status). (unknown) (no (unknown) (unknown) Social History (units (unknown) date) unknown) (unknown) (no (unknown) (unknown) Status: Acute (units ( unknown) date) unknown) (unknown) (no (unknown) (unknown) Subjective: (units (un known) date) unknown) (unknown) (no (unknown) (unknown) Temp 99 F (units (unkn own) date) unknown) (unknown) (no (unknown) (unknown) Temp Source (units (un known) date) Temporal Artery unknown) Scan (unknown) (no (unknown) (unknown) This note may have (units (unknown) date) been all or unknown) partially generated using voice recognition (unknown) (no (unknown) (unknown) Tobacco + (units (unkn own) date) Substance Use unknown) (unknown) (no (unknown) (unknown) Tobacco Status (units (unknown) date) unknown) (unknown) (no (unknown) (unknown) Tremors of nervous (units (unknown) date) system (06/2020) unknown) (unknown) (no (unknown) (unknown) Visit Reasons: (units (unknown) date) referral to neur unknown) (unknown) (no (unknown) (unknown) Vital Signs: (units (u nknown) date) Reviewed unknown) (unknown) (no (unknown) (unknown) Vitals (units (unkno wn) date) unknown) (unknown) (no (unknown) (unknown) Voice recognition (units (unknown) date) software was used unknown) in the creation of this note. There may be (unknown) (no (unknown) (unknown) Weight 115 lb (units ( unknown) date) unknown) (unknown) (no (unknown) (unknown) [Rx Confirmed (units ( unknown) date) 01/21/23] unknown) (unknown) (no (unknown) (unknown) acetaminophen 325 (units (unknown) date) mg capsule unknown) (Tylenol) 650 mg PO QID PRN pain #60 caps 01/09/23 (unknown) (no (unknown) (unknown) alcohol intake: (units (unknown) date) current unknown) (unknown) (no (unknown) (unknown) altered the (units (un known) date) sensations of the unknown) pins and needles and nerve pain she is been (unknown) (no (unknown) (unknown) and they placed on (units (unknown) date) propranolol which unknown) did help a little bit. She stop the (unknown) (no (unknown) (unknown) are elevated and (units (unknown) date) she should really unknown) consider reducing her alcohol use and (unknown) (no (unknown) (unknown) daily functions (units (unknown) date) due to the nerve unknown) pain. She did see Neurology a few years ago (unknown) (no (unknown) (unknown) department. Workup (units (unknown) date) was negative and unknown) they released her. Then started moving (unknown) (no (unknown) (unknown) diabetes. She does (units (unknown) date) drink alcohol unknown) nightly to help with the pain and help her (unknown) (no (unknown) (unknown) effect profile. (units (unknown) date) She will follow up unknown) with the PCP to titrate the dose up if (unknown) (no (unknown) (unknown) effective. (units (unk nown) date) unknown) (unknown) (no (unknown) (unknown) eventually (units (unk nown) date) stopping. unknown) (unknown) (no (unknown) (unknown) gabapentin 100 mg (units (unknown) date) PO Q8H PRN 90 caps unknown) 2RF nerve pain (unknown) (no (unknown) (unknown) gabapentin 100 mg (units (unknown) date) capsule 100 mg PO unknown) Q8H PRN nerve pain #90 caps 01/21/23 [Rx (unknown) (no (unknown) (unknown) have occurred. If (units (unknown) date) there are any unknown) questions, please contact the Medical Records (unknown) (no (unknown) (unknown) having weakness and (units (unknown) date) could not walk and unknown) her to bring her to the emergency (unknown) (no (unknown) (unknown) having. She states (units (unknown) date) that it is very unknown) difficult for her to sleep or do some of her (unknown) (no (unknown) (unknown) helpful as she (units (unknown) date) would like it to unknown) be. She states that she has no history of (unknown) (no (unknown) (unknown) household members: (units (unknown) date) significant other unknown) and children (unknown) (no (unknown) (unknown) ibuprofen 200 mg (units (unknown) date) tablet 400 mg PO unknown) Q6H #60 tabs 01/09/23 [Rx Confirmed 01/21/23] (unknown) (no (unknown) (unknown) into her torso and (units (unknown) date) now her arms. She unknown) did have a gallbladder removed recently (unknown) (no (unknown) (unknown) lcoholic (units (unkno wn) date) neuropathy. Even if unknown) she does not drink that heavily her liver enzymes (unknown) (no (unknown) (unknown) may occur. (units (unk nown) date) Occasional unknown) wrong-word or 'sound-alike' substitutions may have (unknown) (no (unknown) (unknown) medication since (units (unknown) date) she was not sure unknown) about her exact diagnosis and it was not as (unknown) (no (unknown) (unknown) no apparent (units (un known) date) distress. unknown) (unknown) (no (unknown) (unknown) normal (units (unkno wn) date) unknown) (unknown) (no (unknown) (unknown) occurred due to (units (unknown) date) the inherent unknown) limitations of voice recognition software. Please (unknown) (no (unknown) (unknown) ondansetron 4 mg (units (unknown) date) disintegrating unknown) tablet 4 mg PO Q6H PRN nausea and vomiting #30 (unknown) (no (unknown) (unknown) oxycodone 5 mg (units (unknown) date) tablet 5 mg PO Q6H unknown) PRN pain #20 tabs 01/09/23 [Rx Confirmed (unknown) (no (unknown) (unknown) propranolol 10 mg (units (unknown) date) PO BID 60 tabs 2RF unknown) (unknown) (no (unknown) (unknown) read the note (units ( unknown) date) carefully and unknown) recognize, using context, where these substitutions (unknown) (no (unknown) (unknown) second hand (units (un known) date) exposure: Yes unknown) (unknown) (no (unknown) (unknown) sleep. Her liver (units (unknown) date) enzymes have been unknown) elevated in the past. (unknown) (no (unknown) (unknown) software. Although (units (unknown) date) every effort is unknown) made to edit content, client analyst errors (unknown) (no (unknown) (unknown) substance use (units ( unknown) date) type: does not use unknown) (unknown) (no (unknown) (unknown) sulfamethoxazole (units (unknown) date) [From Bactrim] unknown) Allergy (Severe, Verified 01/21/23 16:19) (unknown) (no (unknown) (unknown) tabs 01/09/23 [Rx (units (unknown) date) Confirmed 01/21/23] unknown) (unknown) (no (unknown) (unknown) test recently was (units (unknown) date) normal as well. unknown) (unknown) (no (unknown) (unknown) that between her (units (unknown) date) regular alcohol use unknown) she could be having some component of a (unknown) (no (unknown) (unknown) thinking that it (units (unknown) date) may be contributing unknown) to the abdominal pains. However it is not (unknown) (no (unknown) (unknown) trimethoprim [From (units (unknown) date) Bactrim] Allergy unknown) (Severe, Verified 01/21/23 16:19) (unknown) (no (unknown) (unknown) typographical (units ( unknown) date) errors as a result. unknown) (unknown) (no (unknown) (unknown) years. Initially (units (unknown) date) started in her unknown) lower extremities to the point where she was Result panel 495 (unknown) (no (unknown) (unknown) (no value) (units (unk nown) date) unknown) (unknown) (no (unknown) (unknown) (1) Paresthesia: (units (unknown) date) unknown) (unknown) (no (unknown) (unknown) (2) Elevated liver (units (unknown) date) enzymes: unknown) (unknown) (no (unknown) (unknown) (3) Alcohol use: (units (unknown) date) unknown) (unknown) (no (unknown) (unknown) -discussed (units (unk nown) date) treatment options. unknown) Trial of low-dose gabapentin. Discussed side (unknown) (no (unknown) (unknown) -follow up with (units (unknown) date) her PCP in 1 month unknown) (unknown) (no (unknown) (unknown) -her recent labs (units (unknown) date) do not indicate she unknown) has any evidence of diabetes. Her thyroid (unknown) (no (unknown) (unknown) -patient is (units (un known) date) frustrated about unknown) her longstanding symptoms. I did discuss with her (unknown) (no (unknown) (unknown) -referral placed (units (unknown) date) to Neurology. unknown) (unknown) (no (unknown) (unknown) [id number] (units (unkno wn) date) unknown) (unknown) (no (unknown) (unknown) 01/21/23 (units (unkno wn) date) unknown) (unknown) (no (unknown) (unknown) 01/21/23] (units (unkn own) date) unknown) (unknown) (no (unknown) (unknown) 01/22/23 0946 (units ( unknown) date) unknown) (unknown) (no (unknown) (unknown) 16:20 (units (unkno wn) date) unknown) (unknown) (no (unknown) (unknown) 42 yr old female (units (unknown) date) here for referral unknown) to neuro (unknown) (no (unknown) (unknown) Acquired (units (unkno wn) date) hypothyroidism unknown) (unknown) (no (unknown) (unknown) Age/Sex: 42 / F (units (unknown) date) Date of Service: unknown) (unknown) (no (unknown) (unknown) Alcohol use (units (un known) date) unknown) (unknown) (no (unknown) (unknown) Allergies (units (unkn own) date) unknown) (unknown) (no (unknown) (unknown) Allergies: (units (unk nown) date) Reviewed unknown) (unknown) (no (unknown) (unknown) [place], [place] (units ( unknown) date) [id number] unknown) (unknown) (no (unknown) (unknown) Anaphylaxis (units (un known) date) unknown) (unknown) (no (unknown) (unknown) Assessment + Plan (units (unknown) date) unknown) (unknown) (no (unknown) (unknown) Attending Dr: Stephenie (units (unknown) date) Ronna Welsh unknown) (unknown) (no (unknown) (unknown) BP 120/68 (units (unkn own) date) unknown) (unknown) (no (unknown) (unknown) Blood Pressure (units (unknown) date) Location Lt unknown) brachial (unknown) (no (unknown) (unknown) Breast mass in (units (unknown) date) female unknown) (unknown) (no (unknown) (unknown) CHEST: Normal (units ( unknown) date) respiratory effort unknown) (unknown) (no (unknown) (unknown) Cardiovascular: (units (unknown) date) Negative.? unknown) (unknown) (no (unknown) (unknown) Chief Complaint: (units (unknown) date) nerve pain unknown) (unknown) (no (unknown) (unknown) Cholelithiasis (units (unknown) date) unknown) (unknown) (no (unknown) (unknown) Confirmed (units (unkn own) date) 01/21/23] unknown) (unknown) (no (unknown) (unknown) Constitutional: (units (unknown) date) Negative.? unknown) (unknown) (no (unknown) (unknown) : 1980 (units (unknown) date) Acct:[id number] unknown) (unknown) (no (unknown) (unknown) Dept at (units (unkno wn) date) . unknown) (unknown) (no (unknown) (unknown) Discontinued (units (u nknown) date) unknown) (unknown) (no (unknown) (unknown) Documented By: (units (unknown) date) Stephenie Friend unknown) 01/21/23 1610 (unknown) (no (unknown) (unknown) EYES: PERRL, EOMI (units (unknown) date) and nonicteric unknown) (unknown) (no (unknown) (unknown) Elevated blood (units (unknown) date) protein unknown) (unknown) (no (unknown) (unknown) Elevated liver (units (unknown) date) enzymes unknown) (unknown) (no (unknown) (unknown) Endocrine: (units (unk nown) date) Negative.? 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 Cooperative with exam.? Patient is in (unknown) (no (unknown) (unknown) 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 unknown) (unknown) (no (unknown) (unknown) Genitourinary: (units (unknown) date) Negative.? 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) (unknown) (no (unknown) (unknown) Health Management (units (unknown) date) reviewed with unknown) patient: Yes (unknown) (no (unknown) (unknown) Health Management (units (unknown) date) unknown) (unknown) (no (unknown) (unknown) I reviewed the (units (unknown) date) patient's Past unknown) Medical History, Problem List, Medications and (unknown) (no (unknown) (unknown) Insomnia (units (unkno wn) date) unknown) (unknown) (no (unknown) (unknown) Intake Note: (units (u nknown) date) unknown) (unknown) (no (unknown) (unknown) Intake performed (units (unknown) date) by: Ijeoma Clayton unknown) (unknown) (no (unknown) (unknown) Intake (units (unkno wn) date) unknown) (unknown) (no (unknown) (unknown) Intake- Clincial (units (unknown) date) Staff unknown) (unknown) (no (unknown) (unknown) Last Menstural (units (unknown) date) Cycle + Details unknown) (unknown) (no (unknown) (unknown) Loc: [facility] (units (unkno wn) date) unknown) (unknown) (no (unknown) (unknown) MUSKULOSKELETAL: (units (unknown) date) Normal gait. unknown) (unknown) (no (unknown) (unknown) Medical History (units (unknown) date) (Reviewed 01/03/23 unknown) @ 13:42 by Stacy Toney MA) (unknown) (no (unknown) (unknown) Medications (units (un known) date) unknown) (unknown) (no (unknown) (unknown) Medications: (units (u nknown) date) Reconciled unknown) (unknown) (no (unknown) (unknown) Medications: (units (u nknown) date) unknown) (unknown) (no (unknown) (unknown) Mother (units (unknown) date) Cancer unknown) (unknown) (no (unknown) (unknown) NECK: Full range (units (unknown) date) of motion, unknown) lymphadenopathy absent, supple (unknown) (no (unknown) (unknown) NEURO EXAM: Alert (units (unknown) date) and oriented x 3.? unknown) (unknown) (no (unknown) (unknown) New (units (unkno wn) date) unknown) (unknown) (no (unknown) (unknown) Note (units (unkno wn) date) unknown) (unknown) (no (unknown) (unknown) Note: (units (unkno wn) date) unknown) (unknown) (no (unknown) (unknown) Notes (units (unkno wn) date) unknown) (unknown) (no (unknown) (unknown) Objective: (units (unk nown) date) unknown) (unknown) (no (unknown) (unknown) Orders: (units (unkno wn) date) unknown) (unknown) (no (unknown) (unknown) Other Menstrual (units (unknown) date) Period: Uncertain unknown) (unknown) (no (unknown) (unknown) Oxygen Delivery (units (unknown) date) Method room air unknown) (unknown) (no (unknown) (unknown) PFSH (units (unkno wn) date) unknown) (unknown) (no (unknown) (unknown) PSYCH: judgement (units (unknown) date) normal, orientation unknown) normal, affect/mood normal and memory (unknown) (no (unknown) (unknown) Patient denies (units (unknown) date) medical problems unknown) (unknown) (no (unknown) (unknown) Patient states (units (unknown) date) that she is been unknown) having worsening nerve pains over the past few (unknown) (no (unknown) (unknown) Patient: (units (unkno wn) date) Layne Avendano N unknown) MR#: [id number] (unknown) (no (unknown) (unknown) Peripheral (units (unk nown) date) neuropathy unknown) (unknown) (no (unknown) (unknown) Plan (units (unkno wn) date) unknown) (unknown) (no (unknown) (unknown) Position Sitting (units (unknown) date) unknown) (unknown) (no (unknown) (unknown) Pt states she has (units (unknown) date) been prescribed unknown) propranolol for for nerve issues (unknown) (no (unknown) (unknown) Pulse 69 (units (unkno wn) date) unknown) (unknown) (no (unknown) (unknown) Pulse Oximetry (%) (units (unknown) date) 99 unknown) (unknown) (no (unknown) (unknown) Pulse Source (units (u nknown) date) Monitor unknown) (unknown) (no (unknown) (unknown) Reason For Visit (units (unknown) date) unknown) (unknown) (no (unknown) (unknown) Referral Neurology (units (unknown) date) R20.2 - Paresthesia unknown) of skin (unknown) (no (unknown) (unknown) Referrals (units (unkn own) date) unknown) (unknown) (no (unknown) (unknown) Respiration 16 (units (unknown) date) unknown) (unknown) (no (unknown) (unknown) Respiratory: (units (u nknown) date) Negative.? unknown) (unknown) (no (unknown) (unknown) Review of Systems: (units (unknown) date) unknown) (unknown) (no (unknown) (unknown) SKIN:? No rashes (units (unknown) date) on face or arms. unknown) (unknown) (no (unknown) (unknown) Shortness of (units (u nknown) date) breath (06/2020) unknown) (unknown) (no (unknown) (unknown) Signed By: (units (unk nown) date) <Electronically unknown) signed by Stephenie Friend> (unknown) (no (unknown) (unknown) Signed (units (unkno wn) date) unknown) (unknown) (no (unknown) (unknown) Smoking Status: (units (unknown) date) Former smoker unknown) (unknown) (no (unknown) (unknown) Social History (units (unknown) date) (including tobacco unknown) use status). (unknown) (no (unknown) (unknown) Social History (units (unknown) date) unknown) (unknown) (no (unknown) (unknown) Status: Acute (units ( unknown) date) unknown) (unknown) (no (unknown) (unknown) Subjective: (units (un known) date) unknown) (unknown) (no (unknown) (unknown) Temp 99 F (units (unkn own) date) unknown) (unknown) (no (unknown) (unknown) Temp Source (units (un known) date) Temporal Artery unknown) Scan (unknown) (no (unknown) (unknown) This note may have (units (unknown) date) been all or unknown) partially generated using voice recognition (unknown) (no (unknown) (unknown) Tobacco + (units (unkn own) date) Substance Use unknown) (unknown) (no (unknown) (unknown) Tobacco Status (units (unknown) date) unknown) (unknown) (no (unknown) (unknown) Tremors of nervous (units (unknown) date) system (06/2020) unknown) (unknown) (no (unknown) (unknown) Visit Reasons: (units (unknown) date) referral to neur unknown) (unknown) (no (unknown) (unknown) Vital Signs: (units (u nknown) date) Reviewed unknown) (unknown) (no (unknown) (unknown) Vitals (units (unkno wn) date) unknown) (unknown) (no (unknown) (unknown) Voice recognition (units (unknown) date) software was used unknown) in the creation of this note. There may be (unknown) (no (unknown) (unknown) Weight 115 lb (units ( unknown) date) unknown) (unknown) (no (unknown) (unknown) [Rx Confirmed (units ( unknown) date) 01/21/23] unknown) (unknown) (no (unknown) (unknown) acetaminophen 325 (units (unknown) date) mg capsule unknown) (Tylenol) 650 mg PO QID PRN pain #60 caps 01/09/23 (unknown) (no (unknown) (unknown) alcohol intake: (units (unknown) date) current unknown) (unknown) (no (unknown) (unknown) altered the (units (un known) date) sensations of the unknown) pins and needles and nerve pain she is been (unknown) (no (unknown) (unknown) and they placed on (units (unknown) date) propranolol which unknown) did help a little bit. She stop the (unknown) (no (unknown) (unknown) are elevated and (units (unknown) date) she should really unknown) consider reducing her alcohol use and (unknown) (no (unknown) (unknown) daily functions (units (unknown) date) due to the nerve unknown) pain. She did see Neurology a few years ago (unknown) (no (unknown) (unknown) department. Workup (units (unknown) date) was negative and unknown) they released her. Then started moving (unknown) (no (unknown) (unknown) diabetes. She does (units (unknown) date) drink alcohol unknown) nightly to help with the pain and help her (unknown) (no (unknown) (unknown) effect profile. (units (unknown) date) She will follow up unknown) with the PCP to titrate the dose up if (unknown) (no (unknown) (unknown) effective. (units (unk nown) date) unknown) (unknown) (no (unknown) (unknown) eventually (units (unk nown) date) stopping. unknown) (unknown) (no (unknown) (unknown) gabapentin 100 mg (units (unknown) date) PO Q8H PRN 90 caps unknown) 2RF nerve pain (unknown) (no (unknown) (unknown) gabapentin 100 mg (units (unknown) date) capsule 100 mg PO unknown) Q8H PRN nerve pain #90 caps 01/21/23 [Rx (unknown) (no (unknown) (unknown) have occurred. If (units (unknown) date) there are any unknown) questions, please contact the Medical Records (unknown) (no (unknown) (unknown) having weakness and (units (unknown) date) could not walk and unknown) her to bring her to the emergency (unknown) (no (unknown) (unknown) having. She states (units (unknown) date) that it is very unknown) difficult for her to sleep or do some of her (unknown) (no (unknown) (unknown) helpful as she (units (unknown) date) would like it to unknown) be. She states that she has no history of (unknown) (no (unknown) (unknown) household members: (units (unknown) date) significant other unknown) and children (unknown) (no (unknown) (unknown) ibuprofen 200 mg (units (unknown) date) tablet 400 mg PO unknown) Q6H #60 tabs 01/09/23 [Rx Confirmed 01/21/23] (unknown) (no (unknown) (unknown) into her torso and (units (unknown) date) now her arms. She unknown) did have a gallbladder removed recently (unknown) (no (unknown) (unknown) lcoholic (units (unkno wn) date) neuropathy. Even if unknown) she does not drink that heavily her liver enzymes (unknown) (no (unknown) (unknown) may occur. (units (unk nown) date) Occasional unknown) wrong-word or 'sound-alike' substitutions may have (unknown) (no (unknown) (unknown) medication since (units (unknown) date) she was not sure unknown) about her exact diagnosis and it was not as (unknown) (no (unknown) (unknown) no apparent (units (un known) date) distress. unknown) (unknown) (no (unknown) (unknown) normal (units (unkno wn) date) unknown) (unknown) (no (unknown) (unknown) occurred due to (units (unknown) date) the inherent unknown) limitations of voice recognition software. Please (unknown) (no (unknown) (unknown) ondansetron 4 mg (units (unknown) date) disintegrating unknown) tablet 4 mg PO Q6H PRN nausea and vomiting #30 (unknown) (no (unknown) (unknown) oxycodone 5 mg (units (unknown) date) tablet 5 mg PO Q6H unknown) PRN pain #20 tabs 01/09/23 [Rx Confirmed (unknown) (no (unknown) (unknown) propranolol 10 mg (units (unknown) date) PO BID 60 tabs 2RF unknown) (unknown) (no (unknown) (unknown) read the note (units ( unknown) date) carefully and unknown) recognize, using context, where these substitutions (unknown) (no (unknown) (unknown) second hand (units (un known) date) exposure: Yes unknown) (unknown) (no (unknown) (unknown) sleep. Her liver (units (unknown) date) enzymes have been unknown) elevated in the past. (unknown) (no (unknown) (unknown) software. Although (units (unknown) date) every effort is unknown) made to edit content, client analyst errors (unknown) (no (unknown) (unknown) substance use (units ( unknown) date) type: does not use unknown) (unknown) (no (unknown) (unknown) sulfamethoxazole (units (unknown) date) [From Bactrim] unknown) Allergy (Severe, Verified 01/21/23 16:19) (unknown) (no (unknown) (unknown) tabs 01/09/23 [Rx (units (unknown) date) Confirmed 01/21/23] unknown) (unknown) (no (unknown) (unknown) test recently was (units (unknown) date) normal as well. unknown) (unknown) (no (unknown) (unknown) that between her (units (unknown) date) regular alcohol use unknown) she could be having some component of a (unknown) (no (unknown) (unknown) thinking that it (units (unknown) date) may be contributing unknown) to the abdominal pains. However it is not (unknown) (no (unknown) (unknown) trimethoprim [From (units (unknown) date) Bactrim] Allergy unknown) (Severe, Verified 01/21/23 16:19) (unknown) (no (unknown) (unknown) typographical (units ( unknown) date) errors as a result. unknown) (unknown) (no (unknown) (unknown) years. Initially (units (unknown) date) started in her unknown) lower extremities to the point where she was Social History date description facility 2022-11-13 00:00 Ex-smoker (finding) [facility] 2022-12-20 00:00 Ex-smoker (finding) [facility] 2023-01-03 00:00 Ex-smoker (finding) [facility] 2023-01-09 00:00 Ex-smoker (finding) [facility] 2023-01-21 00:00 Ex-smoker (finding) [facility] Vital Signs date measurement value units 2022-11-13 00:00 BMI 21.0 kg/m2 2022-11-13 00:00 BP_diastolic 91 mmHg 2022-11-13 00:00 BP_systolic 138 mmHg 2022-11-13 00:00 heart_rate 75 /min 2022-11-13 00:00 height_metric 157.48 cm 2022-11-13 00:00 height_standard 62 in 2022-11-13 00:00 o2_saturation 98 % 2022-11-13 00:00 respiration_rate 20 /min 2022-11-13 00:00 temperature_metric 36.67 C 2022-11-13 00:00 temperature_standard 98 F 2022-11-13 00:00 weight_metric 52.16 kg 2022-11-13 00:00 weight_standard 114.99 lb 2022-12-20 00:00 BMI 21.6 kg/m2 2022-12-20 00:00 BP_diastolic 68 mmHg 2022-12-20 00:00 BP_systolic 116 mmHg 2022-12-20 00:00 heart_rate 68 /min 2022-12-20 00:00 height_metric 157.48 cm 2022-12-20 00:00 height_standard 62 in 2022-12-20 00:00 o2_saturation 98 % 2022-12-20 00:00 weight_metric 53.63 kg 2022-12-20 00:00 weight_standard 118.23 lb 2023-01-03 00:00 BMI 21.0 kg/m2 2023-01-03 00:00 BP_diastolic 70 mmHg 2023-01-03 00:00 BP_systolic 110 mmHg 2023-01-03 00:00 heart_rate 97 /min 2023-01-03 00:00 height_metric 157.48 cm 2023-01-03 00:00 height_standard 62 in 2023-01-03 00:00 o2_saturation 96 % 2023-01-03 00:00 temperature_metric 36.61 C 2023-01-03 00:00 temperature_standard 97.9 F 2023-01-03 00:00 weight_metric 52.16 kg 2023-01-03 00:00 weight_standard 114.99 lb 2023-01-09 00:00 BMI 21.0 kg/m2 2023-01-09 00:00 BP_diastolic 61 mmHg 2023-01-09 00:00 BP_systolic 101 mmHg 2023-01-09 00:00 heart_rate 81 /min 2023-01-09 00:00 height_metric 157.48 cm 2023-01-09 00:00 height_standard 62 in 2023-01-09 00:00 o2_saturation 98 % 2023-01-09 00:00 respiration_rate 15 /min 2023-01-09 00:00 temperature_metric 36.39 C 2023-01-09 00:00 temperature_standard 97.5 F 2023-01-09 00:00 weight_metric 52.16 kg 2023-01-09 00:00 weight_standard 114.99 lb 2023-01-21 00:00 BP_diastolic 68 mmHg 2023-01-21 00:00 BP_systolic 120 mmHg 2023-01-21 00:00 heart_rate 69 /min 2023-01-21 00:00 o2_saturation 99 % 2023-01-21 00:00 respiration_rate 16 /min 2023-01-21 00:00 temperature_metric 37.22 C 2023-01-21 00:00 temperature_standard 99 F 2023-01-21 00:00 weight_metric 52.16 kg 2023-01-21 00:00 weight_standard 114.99 lb
--- NOTE | 2023-01-24 03:19 | ED Physician Documentation ---
History of Present Illness - Stated complaint Stated Complaint: WEAKNESS, BODY PAIN - Chief complaint Chief Complaint: General - History obtained from History obtained from: Patient, EMS - Additonal information Additional information: 42-year-old woman brought in by EMS with complaint of 2 years of "nerves", worsening depression over the past several months, and insomnia tonight. Patient states that she had hallucinations of ghosts once before but is not currently experiencing any AVH. She denies SI or HI. PD PAST MEDICAL HISTORY - Past Medical History Past Medical History: No Cardiovascular: None Respiratory: None Endocrine/Autoimmune: None GI: None FAMILY PRACTICE DOCTOR: None : None HEENT: None Psych: None Musculoskeletal: None Derm: None - Past Surgical History Past Surgical History: Yes General: Cholecystectomy HEENT: Tonsil/Adenoidectomy - Present Medications Home Medications: Ambulatory Orders Medication Instructions Recorded Confirmed Gabapentin [Neurontin] 100 mg PO ONCE #15 capsule 10/28/17 01/24/23 - Allergies Allergies/Adverse Reactions: Allergies Allergy/AdvReac Type Severity Reaction Status Date / Time No Known Drug Allergies Allergy Verified 10/28/17 17:43 - Social History Does the pt smoke?: No Smoking Status: Never smoker Does the pt drink ETOH?: Yes Does the pt have substance abuse?: No - Immunizations Immunizations are current?: Yes - POLST Patient has POLST: No PD ED PE NORMAL - Vitals Vital signs reviewed: Yes - General General: Alert and oriented X 3, No acute distress, Well developed/nourished - HEENT HEENT: Atraumatic, PERRL, EOMI - Neck Neck: Supple, no meningeal sign - Neuro Neuro: Alert and oriented X 3 - Psych Psych: Other (depressed, anxious affect) Results - Vitals Vitals: Vital Signs - 24 hr 01/24/23 02:13 Temperature 36.8 C Heart Rate 82 Respiratory 14 Rate Blood Pressure 133/88 H O2 Saturation 99 Oxygen O2 Source Room air PD Medical Decision Making - ED course ED course: 42-year-old woman with past medical history of anxiety presents with depressed mood and insomnia tonight. Ativan provided with some relief. She is not a danger to herself or others at this time. Patient is reticent to f/u with her pcp or mental health resources but I provided them anyway in case she changes her mind. Return precautions given. Departure - Departure Disposition: Home, Self Care Clinical Impression: Anxiety, Depression, Insomnia Condition: Stable Instructions: ED Depression Comments: You are seen in the emergency department for depression, nerves, and insomnia. Please follow up with a psychiatrist and mental health counselor for further management. Return to the ED if you have thoughts of suicide, harming others, or have hallucinations. Return also if you feel unsafe in any way, have new or worsening symptoms or other concerns. Israel Moscoso - Mental Health Therapist [address] [facility] [facility] [address], [place] [facility] [place] [phone] [employer] (private pay, sliding scale $40-80 per session) [email or web address] [facility]ists | Therapy on Your Schedule [facility] On Sliding Scale - telehealth
[2023-01-24 03:21] VITALS: BP 114/86
== END 2023-01-24 03:31 | disposition home or self-care (01) ==
LOC: EDUNIT# → ED 02:09
DX: F32.A Depression, unspecified (principal); F41.9 Anxiety disorder, unspecified; G47.00 Insomnia, unspecified
CPT/HCPCS: 99283; A9270

== ENCOUNTER 2023-04-30 12:37 | Outpatient (CLI) | payer MEDICAID | END 2023-04-30 12:38 | disposition critical access hospital (66) | LOC: EMS 12:37 | DX: R20.2 Paresthesia of skin (principal); R25.1 Tremor, unspecified; F41.9 Anxiety disorder, unspecified; R26.2 Difficulty in walking, not elsewhere classified; R03.0 Elevated blood-pressure reading, without diagnosis of hypertension; R10.819 Abdominal tenderness, unspecified site | CPT/HCPCS: A0425; A0429; A0999 ==

== ENCOUNTER 2023-04-30 12:57 | Emergency (ER) | payer MEDICAID ==
[2023-04-30 13:06] VITALS: BP 145/90; O2SAT 100
[2023-04-30 13:22] LABS: BASOPHILS # (AUTO) 0.1 10^3/uL (0.0-0.1); BASOPHILS % (AUTO) 0.8 %; EOSINOPHILS # (AUTO) 0.2 10^3/uL (0.0-0.7); EOSINOPHILS % (AUTO) 2.8 %; HCT - HEMATOCRIT 42.8 % (37.0-47.0); HGB - HEMOGLOBIN 14.3 g/dL (12.0-16.0); LYMPHOCYTES % (AUTO) 15.4 %; MEAN CORPUSCULAR HEMOGLOBIN 32.4 pg (27.0-31.0); MEAN CORPUSCULAR HGB CONC 33.4 g/dL (32.0-36.0); MEAN CORPUSCULAR VOLUME 97.1 fL (81.0-99.0); MEAN PLATELET VOLUME 10.2 fL (7.9-10.8); MONOCYTES # (AUTO) 0.8 10^3/uL (0.0-1.0); MONOCYTES % (AUTO) 12.3 %; NEUTROPHILS # (AUTO) 4.4 10^3/uL (1.5-6.6); NEUTROPHILS % (AUTO) 68.4 %; PLT - PLATELET COUNT 177 10^3/uL (130-450); RED BLOOD COUNT 4.41 10^6/uL (4.20-5.40); RED CELL DISTRIBUTION WIDTH 12.1 % (12.0-15.0); WHITE BLOOD COUNT 6.5 x10^3/uL (4.8-10.8)
[2023-04-30 13:24] LABS: GLUCOSE, URINE (UA) NEGATIVE (NEGATIVE); KETONES,URINE (UA) >=80 mg/dL (NEGATIVE); LEUKOCYTE ESTERASE, URINE NEGATIVE (NEGATIVE); OCCULT BLOOD,URINE NEGATIVE (NEGATIVE); PH,URINE 5.5 PH (5.0-7.5); PROTEIN,URINE 30 mg/dL (NEGATIVE); UROBILINOGEN,URINE 1 (NORMAL) E.U./dL (NORMAL)
--- OUTSIDE RECORDS SUMMARY | 2023-04-30 13:28 | EXTERNAL MEDICAL SUMMARY RPT | Continuity of Care Document ---
Author Name Unknown Address [address] [place] [address] Phone Organization [facility] Address [address] [place] [address] Phone Care Team Providers Care Category Specialist Name Role Phone Unavailable Unavailable Unavailable Ian Roland Unavailable Unavailable Medications date description facility 2023-02-25 00:00 [facility] Problems date description facility 2023-02-25 00:00 Alcohol use disorder [facility] 2023-02-25 12:21 [facility]ad [facility] 13:18 Generalized anxiety disorder [facility] 2023-02-25 13:18 Psychophysiologic insomnia [facility] 2023-02-25 13:18 Polyneuropathy, unspecified [facility] 2023-02-25 13:18 Calculus [facility] gallblad natividad [facility] 13:18 Unspecified lump in the right breast, upper outer quadrant [facility] 2023-02-25 13:18 Prediabetes [facility] Results/Labs test date facility value unit notes Social History date description facility 2023-02-25 00:00 Ex-smoker (finding) [facility] 2023-03-06 00:00 Ex-smoker (finding) [facility] Vital Signs date measurement value units 2023-02-25 00:00 BMI 21.4 kg/m2 2023-02-25 00:00 BP_diastolic 80 mmHg 2023-02-25 00:00 BP_systolic 126 mmHg 2023-02-25 00:00 heart_rate 113 /min 2023-02-25 00:00 height_metric 157.48 cm 2023-02-25 00:00 height_standard 62 in 2023-02-25 00:00 o2_saturation 99 % 2023-02-25 00:00 weight_metric 53.12 kg 2023-02-25 00:00 weight_standard 117.11 lb
[2023-04-30] MEDS ORDERED: SODIUM CHLORIDE 0.9% 1,000 ML IV STA (13:29)
[2023-04-30] MEDS ORDERED: ACETAMINOPHEN 325 MG TABLET PO STA (13:29)
[2023-04-30 13:30] LABS: CLARITY,URINE CLEAR (CLEAR)
[2023-04-30 13:31] LABS: BILIRUBIN,URINE NEGATIVE (NEGATIVE); HCG UR QUAL NEGATIVE; ICTOTEST,URINE NEGATIVE
[2023-04-30 13:33] LABS: NITRITE,URINE POSITIVE (NEGATIVE)
[2023-04-30 13:34] LABS: BACTERIA,URINE Few /HPF (None Seen); CASTS, URINE 3-5 Hyaline Casts /LPF; MUCUS,URINE Moderate Strands; RBC,URINE 0-5 /HPF (0-5); SQUAMOUS EPITHELIAL CELL,UR MANY Squamous (<= Few); WBC,URINE 0-3 /HPF (0-5)
[2023-04-30 13:36] LABS: ALBUMIN 4.5 g/dL (3.2-5.5); ALBUMIN/GLOBULIN RATIO 1.3 (1.0-2.2); BILIRUBIN,TOTAL 1.3 mg/dL (0.2-1.0); CALCIUM 9.9 mg/dL (8.5-10.3); CREATININE 0.6 mg/dL (0.6-1.3); POTASSIUM 3.5 mmol/L (3.5-4.5)
--- NOTE | 2023-04-30 15:10 | CT Report ---
PROCEDURE: CT of abdomen and pelvis with contrast INDICATIONS: abd pain CONTRAST: 100ml OMni 300 TECHNIQUE: After the administration of contrast, 5 mm thick sections acquired from the diaphragms to the symphys is. 5 mm thick coronal and sagittal reformats were acquired. For radiation dose reduction, the foll owing was used: automated exposure control, adjustment of mA and/or kV according to patient size. COMPARISON: FINDINGS: Image quality: Excellent. Lung bases and heart: Unremarkable. Liver: Hepatic fatty infiltration without focal mass lesion Gallbladder and biliary tree: Absent. Either surgically resected or significant contracted. Spleen: No splenomegaly. Pancreas: No pancreatic ductal dilation. Adrenals: No adrenal nodule. Kidneys and ureters: No hydronephrosis. No renal cystic lesion which requires follow up. No solid mas s. Bowel and peritoneum: No bowel distension. No pathologic free fluid. Small amount of free fluid in th e pelvis, probably physiologic Lymph nodes: No central or retroperitoneal adenopathy. Vessels: No infrarenal aortic aneurysm. PELVIS Reproductive organs: Unremarkable. Bladder: No abnormal wall thickening, accounting for underdistension. Pelvic lymph nodes: No pelvic adenopathy by size criteria. Bones: Incidental L5 bilateral spondylolysis without evidence of spondylolisthesis Other: No significant ventral or inguinal hernia. IMPRESSION: Small amount of free fluid in the pelvis, probably physiologic. Otherwise, no acute CT findings. Reviewed by: Amos Santos MD on 04/30/2023 2:09 PM JAYNA Approved by: Amos Santos MD on 04/30/2023 2:09 PM AKROSELINE Station ID: [id number]
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
[2023-04-30] MEDS ORDERED: iohexoL-300 100 ML VIAL IVP ONE (16:21)
== END 2023-04-30 15:38 | disposition home or self-care (01) ==
LOC: EDUNIT# → ED 12:57
DX: R10.84 Generalized abdominal pain (principal); R20.0 Anesthesia of skin; R20.2 Paresthesia of skin
CPT/HCPCS: 36415; 74177; 80053; 81001; 81025; 83690; 85025; 99283; 99284; A9270; Q9967; 81003; 87086

== ENCOUNTER 2024-03-21 10:50 | Emergency (ER) | payer MEDICAID ==
--- NOTE | 2024-03-21 12:54 | ED Physician Documentation ---
PD HPI MHE - Stated complaint Stated Complaint: HARD TIME FOCUSING, SELF-HARM THOUGHTS - Chief complaint Chief Complaint: MHE - Additional information Additional information: 43-year-old female with alcohol dependence and neuropathy presents emergency department for medication refill. Patient says that she just got out of rehab for alcohol dependence about a week ago she does not relapse for alcohol but unfortunately was not able to get a refill for her medications because she left AGAINST MEDICAL ADVICE. She is here today for medication refill as she is trying to get established with primary care. Her primary care provider recently quit and she is having hard time getting in with a new one. She is asking for medication refill of trazodone, gabapentin, levothyroxine, And hydroxyzine.Patient says that she is not having any suicidal thoughts but is having some sad thoughts and is feeling more depressed. She says that she is really been struggling with sleep lately and is hoping to take at this resolved soon. 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 : None HEENT: None Psych: None Musculoskeletal: None Derm: None - Past Surgical History Past Surgical History: Yes General: Cholecystectomy HEENT: Tonsil/Adenoidectomy - Present Medications Home Medications: Ambulatory Orders Medication Instructions Recorded Confirmed Cholecalciferol [Vitamin D3] 25 mcg PO DAILY 03/21/24 03/21/24 Cyanocobalamin (Vitamin B-12) 5,000 mcg PO DAILY 03/21/24 03/21/24 [Vitamin B12] DULoxetine [Cymbalta] 30 mg PO DAILY 03/21/24 03/21/24 Gabapentin [Gabapentin ER] 300 mg PO TID 10 Days #30 tab 03/21/24 Gabapentin [Neurontin] 300 mg PO TID 03/21/24 03/21/24 Levothyroxine Sodium 37.5 mcg PO DAILY 14 Days #21 cap 03/21/24 Levothyroxine Sodium [Tirosint] 37.5 mcg PO DAILY 03/21/24 03/21/24 Multivitamin with Iron 1 each PO DAILY 03/21/24 03/21/24 [Multivitamins with Iron] Propranolol [Inderal] 10 mg PO DAILY 03/21/24 03/21/24 Thiamine Mononitrate (Vit B1) 50 mg PO DAILY 03/21/24 03/21/24 [Vitamin B1] hydrOXYzine pamoate [Hydroxyzine 25 mg PO TID PRN 10 Days #20 cap 03/21/24 Pamoate] traZODone [Desyrel] 100 mg PO HS 10 Days #20 tablet 03/21/24 - Allergies Allergies/Adverse Reactions: Allergies Allergy/AdvReac Type Severity Reaction Status Date / Time sulfamethoxazole Allergy Emesis Verified 03/21/24 13:23 [From Bactrim] trimethoprim [From Bactrim] Allergy Emesis Verified 03/21/24 13:23 - Social History Does the pt smoke?: No Smoking Status: Never smoker Does the pt drink ETOH?: Yes Does the pt have substance abuse?: No - Immunizations Immunizations are current?: Yes - POLST Patient has POLST: No PD ED PE NORMAL - Vitals Vital signs reviewed: Yes - General General: Alert and oriented X 3, No acute distress, Well developed/nourished PD ED PE EXPANDED - Psych Psych: Normal, Depressed, Tearful, Withdrawn, Poor eye contact. No: Intoxicated / AOB, Suicidal, Homicidal, Non verbal, Agitated, Combative, Manic, Pressured speech Results - Vitals Vitals: Vital Signs - 24 hr 03/21/24 03/21/24 11:00 13:57 Temperature 36.0 C L 36.6 C Heart Rate 78 79 Respiratory 20 16 Rate Blood Pressure 126/81 H 114/86 H O2 Saturation 99 100 Oxygen O2 Source Room air PD Medical Decision Making - ED course ED course: 43-year-old female presents emergency department for medication refill as she left rehab too early and they would not provide refill for her there. Patient is asking for trazodone 100 mg nightly, hydroxyzine 50 mg 3 times daily as needed, gabapentin 300 mg 3 times dailyAnd levothyroxine 37.5 mcg. Patient says that she just had her labs checked about 3 weeks ago and was just restarted on her levothyroxine dose but has not taken any doses since she left which has been about a week. She has no chest pain no shortness of breath no suicidal homicidal ideation she denies the need to talk to social work this is offered to her. Patient says that she is moving on Saturday and is going to try and get in with primary care before she moves on Saturday for longer medication refill she was informed that from the emergency department we can only give her a short prescription and unfortunately we can only refill home medications 1 time and so she is aware if she comes back to the emergency department that we will not be able to provide additional medications. Departure - Departure Disposition: Home, Self Care Clinical Impression: Medication refill, Insomnia Instructions: ED Stress React, ED Insomnia Prescriptions: traZODone [Desyrel] 100 mg PO HS 10 Days #20 tablet Gabapentin [Gabapentin ER] 300 mg PO TID 10 Days #30 tab hydrOXYzine pamoate [Hydroxyzine Pamoate] 25 mg PO TID PRN 10 Days #20 cap PRN Reason: Anxiety Levothyroxine Sodium 37.5 mcg PO DAILY 14 Days #21 cap Comments: Thank you for trusting us with your care. I have sent a medication refill for trazodone, hydroxyzine, gabapentin, levothyroxine to your preferred pharmacy on file which is [facility] in [place]. It is very important that you follow-up with primary care provider soon as possible as we discussed we are only able to refill your home medications once in the emergency department so unfortunately if you come back to the emergency department for medication refill we will not be able to give you any additional medications. Call persistently to your primary care provider daily to get in with new primary care provider as well as seeing if he can get on cancellation list. Please come back to the ER if you are starting develop any suicidal ideation homicidal ideation or any other concerning thoughts or worsening signs of depression please also reach out to [phone] if you are having any emergent symptoms of wanting to hurt yourself or others. The magnesium supplement I was talking about is called CALM you add this to water nightly before you go to bed to help with insomnia. Wishing you the best. Forms: PCP List Discharge Date/Time: 03/21/24 14:01
[2024-03-21 14:00] VITALS: BP 114/86; O2SAT 100
== END 2024-03-21 14:01 | disposition home or self-care (01) ==
LOC: ED 10:50
DX: Z76.0 Encounter for issue of repeat prescription (principal); G47.00 Insomnia, unspecified; G62.9 Polyneuropathy, unspecified; F10.20 Alcohol dependence, uncomplicated
CPT/HCPCS: 99281; 99282